=== PATIENT | male | born 1940 | race Caucasian/White ===

== ENCOUNTER 2017-04-25 15:34 | Inpatient (IN) | payer MEDICARE ==
[~2017-04-25] VITALS: Ht 188 cm; Wt 91.2 kg
[2017-04-25 16:27] LABS: BASO # 0.1 x10^3/uL (0.0-0.2); BASO % 1 % (0-3); EOS # 0.3 x10^3/uL (0.0-0.7); EOS % 4 % (0-3); HEMATOCRIT 36.5 % (39.0-53.0); HEMOGLOBIN 12.3 g/dL (13.0-17.5); LYMPH % 23 % (24-48); MEAN CORPUSCULAR HEMOGLOBIN 28 pg (25-35); MEAN CORPUSCULAR HGB CONC 34 g/dL (31-37); MEAN CORPUSCULAR VOLUME 83 fL (79-100); MONO # 0.7 x10^3/uL (0.0-1.1); MONO % 8 % (0-9); NEUT # 5.6 x10^3uL (1.8-7.7); NEUT % 65 % (31-73); PLATELET COUNT 274 x10^3/uL (140-400); RED BLOOD COUNT 4.41 x10^6/uL (4.30-5.70); RED CELL DISTRIBUTION WIDTH 17.3 % (11.5-14.5); WHITE BLOOD COUNT 8.6 x10^3/uL (4.0-11.0)
[2017-04-25 16:35] LABS: ALBUMIN 3.1 g/dL (3.4-5.0); ALBUMIN/GLOBULIN RATIO 0.8 (1.0-1.7); CALCIUM 8.8 mg/dL (8.5-10.1); CREATININE 1.1 mg/dL (0.7-1.3); GFR 65.3; MAGNESIUM 2.1 mg/dL (1.8-2.4); POTASSIUM 4.3 mmol/L (3.5-5.1); TOTAL BILIRUBIN 0.3 mg/dL (0.2-1.0); TOTAL PROTEIN 6.9 g/dL (6.4-8.2)
--- NOTE | 2017-04-25 16:42 | PHYS DOC ---
Adult General Chief Complaint Chief Complaint: PSYCH EVALUATION [facility] HPI Patient is a 76 year old male who presents with psych evaluation. According to his he's in a memory care unit in [facility] in [facility] he is becoming more and more agitated and impatient. According to the assessment he's been throwing items, yelling and threatening people and turning chairs over. He denies any chest pain abdominal pain nausea vomiting or other concerns at this time. He is very impatient wants to leave. Review of Systems Review of Systems Constitutional: Denies fever or chills [] Eyes: Denies change in visual acuity, redness, or eye pain [] HENT: Denies nasal congestion or sore throat [] Respiratory: Denies cough or shortness of breath [] Cardiovascular: No additional information not addressed in HPI [] GI: Denies abdominal pain, nausea, vomiting, bloody stools or diarrhea [] : Denies dysuria or hematuria [] Musculoskeletal: Denies back pain or joint pain [] Integument: Denies rash or skin lesions [] Neurologic: Denies headache, focal weakness or sensory changes [] Endocrine: Denies polyuria or polydipsia [] Allergies Allergies Allergies Coded Allergies Type Severity Reaction Last Updated Verified No Known Drug Allergies 04/25/17 No Physical Exam Physical Exam Constitutional: Well developed, well nourished, no acute distress, non-toxic appearance. [] HENT: Normocephalic, atraumatic, bilateral external ears normal, oropharynx moist, no oral exudates, nose normal. [] Eyes: PERRLA, EOMI, conjunctiva normal, no discharge. [] Neck: Normal range of motion, no tenderness, supple, no stridor. [] Cardiovascular:Heart rate regular rhythm, no murmur [] Lungs & Thorax: Bilateral breath sounds clear to auscultation [] Abdomen: Bowel sounds normal, soft, no tenderness, no masses, no pulsatile masses. [] Skin: Warm, dry, no erythema, no rash. [] Back: No tenderness, no CVA tenderness. [] Extremities: No tenderness, no cyanosis, no clubbing, ROM intact, no edema. [] Neurologic: Alert and oriented X 3, normal motor function, normal sensory function, no focal deficits noted. [] Psychologic: Affect normal, judgement normal, mood normal. [] Current Patient Data Lab Results Laboratory Tests Test 04/25/17 15:58 White Blood Count 8.6 x10^3/uL (4.0-11.0) Red Blood Count 4.41 x10^6/uL (4.30-5.70) Hemoglobin 12.3 g/dL (13.0-17.5) L Hematocrit 36.5 % (39.0-53.0) L Mean Corpuscular Volume 83 fL (79-100) Mean Corpuscular Hemoglobin 28 pg (25-35) Mean Corpuscular Hemoglobin Concent 34 g/dL (31-37) Red Cell Distribution Width 17.3 % (11.5-14.5) H Platelet Count 274 x10^3/uL (140-400) Neutrophils (%) (Auto) 65 % (31-73) Lymphocytes (%) (Auto) 23 % (24-48) L Monocytes (%) (Auto) 8 % (0-9) Eosinophils (%) (Auto) 4 % (0-3) H Basophils (%) (Auto) 1 % (0-3) Neutrophils # (Auto) 5.6 x10^3uL (1.8-7.7) Lymphocytes # (Auto) 2.0 x10^3/uL (1.0-4.8) Monocytes # (Auto) 0.7 x10^3/uL (0.0-1.1) Eosinophils # (Auto) 0.3 x10^3/uL (0.0-0.7) Basophils # (Auto) 0.1 x10^3/uL (0.0-0.2) Sodium Level 142 mmol/L (136-145) Potassium Level 4.3 mmol/L (3.5-5.1) Chloride Level 107 mmol/L (98-107) Carbon Dioxide Level 30 mmol/L (21-32) Anion Gap 5 (6-14) L Blood Urea Nitrogen 15 mg/dL (8-26) Creatinine 1.1 mg/dL (0.7-1.3) Estimated GFR (Cockcroft-Gault) 65.3 BUN/Creatinine Ratio 14 (6-20) Glucose Level 119 mg/dL (70-99) H Calcium Level 8.8 mg/dL (8.5-10.1) Magnesium Level 2.1 mg/dL (1.8-2.4) Total Bilirubin 0.3 mg/dL (0.2-1.0) Aspartate Amino Transferase (AST) 9 U/L (15-37) L Alanine Aminotransferase (ALT) 16 U/L (16-63) Alkaline Phosphatase 66 U/L (46-116) Total Protein 6.9 g/dL (6.4-8.2) Albumin 3.1 g/dL (3.4-5.0) L Albumin/Globulin Ratio 0.8 (1.0-1.7) L EKG EKG EKG shows sinus rhythm with rate of [address] elevations, T-wave inversion noted in lead 3, left axis deviation, QTC 408 ms, as interpreted by me. Radiology/Procedures Radiology/Procedures [] Impressions: Psych assessment UTI Course & Med Decision Making Course & Med Decision Making Pertinent Labs and Imaging studies reviewed. (See chart for details) Patient was very inpatient coming out the nurse's desk yelling that he does want to wait for his results he wants to leave immediately. He was discharged to the adult behavioral psych with his urine studies pending these came back with signs of a UTI. You know he doesn't have any symptoms his symptoms justifies giving him a dose of Levaquin by mouth and will defer to the risks of his treatment per the inpatient psych team. Dragon Disclaimer Dragon Disclaimer This chart was dictated in whole or in part using Voice Recognition software in a busy, high-work load, and often noisy Emergency Department environment. It may contain unintended and wholly unrecognized errors or omissions. Departure Departure: Impression: Primary Impression: UTI (urinary tract infection) Disposition: 02 XFER [facility] Condition: STABLE Referrals: PCP,NO (PCP) Problem Qualifiers Primary Impression: UTI (urinary tract infection) Urinary tract infection type: acute cystitis Hematuria presence: with hematuria Qualified Codes: N30.01 - Acute cystitis with hematuria BARRON CLARK MD Apr 25, 2017 16:42
[2017-04-25 17:10] LABS: BILIRUBIN,URINE NEG (NEG); CLARITY,URINE CLOUDY; COLOR,URINE YELLOW; GLUCOSE,URINE NEG (NEG); NITRITE,URINE NEG (NEG); UROBILINOGEN,URINE 0.2 mg/dL (0.2 mg/dL)
[2017-04-25 17:11] LABS: BACTERIA,URINE FEW /HPF (0-FEW); WBC,URINE >40 /HPF (0-4)
[2017-04-25] MEDS ORDERED: levoFLOXacin 500 MG TABLET PO ONE (18:10)
[2017-04-25] MEDS ORDERED: LORazepam 0.5 MG TABLET PO PRN (18:15)
[2017-04-25 18:28] VITALS: BP 164/78
--- NOTE | 2017-04-25 18:43 | EKG ---
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 OTHERWISE NORMAL ECG RI6.01 No previous ECG available for comparison Electronically Signed On 05-06-2017 12:33:59 CDT by Hernando Jeronimo
[2017-04-25] MEDS ORDERED: DONE10TA61 PO (19:42)
[2017-04-25] MEDS ORDERED: MIRT15TA3 PO (19:43)
[2017-04-25] MEDS ORDERED: BIMA2.5D OU (19:43)
[2017-04-25] MEDS ORDERED: DIPH25CA58 PO (19:43)
[2017-04-25] MEDS ORDERED: MENT118G TP (19:43)
[2017-04-25] MEDS ORDERED: ACET325T9 PO ×2 (19:43)
[2017-04-25] MEDS ORDERED: PARO20TA99 PO (19:43)
[2017-04-25] MEDS ORDERED: SENN-37 PO (19:43)
[2017-04-25] MEDS ORDERED: DIVA125T PO (19:43)
[2017-04-25] MEDS ORDERED: CYAN100072 PO (19:43)
[2017-04-25] MEDS ORDERED: POLY17PO5 PO (19:43)
[2017-04-25] MEDS ORDERED: METO25TA4 PO (19:43)
[2017-04-25] MEDS ORDERED: OLAN2.5T3 PO (19:43)
[2017-04-25] MEDS ORDERED: TAMS0.4C2 PO (19:43)
[2017-04-25] MEDS ORDERED: MAGNESIUM HYDROXIDE 2,400 MG/30 ML ORAL.SUSP. PO PRN (19:45)
[2017-04-25] MEDS ORDERED: ACETAMINOPHEN 325 MG TABLET PO PRN ×2 (19:45→20:00)
[2017-04-25] MEDS ORDERED: MAG HYDROX/AL HYDROX/SIMETH 30 ML ORAL.SUSP PO PRN (19:45)
[2017-04-25] MEDS ORDERED: METHYL SALICYLATE/MENTHOL TOPICAL OINTMENT 29GM TUBE. TP PRN (19:45)
[2017-04-25] MEDS ORDERED: diphenhydrAMINE HCL 25 MG CAPSULE PO PRN (20:00)
[2017-04-25] MEDS ORDERED: OLANZapine 2.5 MG TABLET PO PRN (20:00)
[2017-04-25] MEDS: DONEPEZIL HCL 10 MG TABLET PO SCH (20:08)
[2017-04-25] MEDS: DIVALPROEX SODIUM 125 MG TABLET.DR. PO SCH (20:08)
[2017-04-25] MEDS: MIRTAZAPINE 15 MG TABLET PO SCH (20:08)
[2017-04-25] MEDS: ACETAMINOPHEN 325 MG TABLET PO SCH (20:10)
[2017-04-25 20:32] LABS: VAL ACID 28 mcg/mL (50-100)
[2017-04-25] MEDS ORDERED: NON FORMULARY ITEM (Menthol (Biofreeze) 1 APP) TP SCH (21:00)
[2017-04-25] MEDS: LATANOPROST 0.005% OPHTH SOLUTION 2.5ML BOTTLE. OU SCH (21:00)
[2017-04-25] MEDS: TAMSULOSIN 0.4 MG CAP.ER.24H. PO SCH (21:06)
[2017-04-25] MEDS: SENNOSIDES/DOCUSATE 8.6/50MG TABLET. PO SCH (21:06)
[2017-04-25] MEDS: POLYETHYLENE GLYCOL 3350 17 GM PACKET. PO SCH (21:06)
[2017-04-25] MEDS: METOPROLOL TART IMMED RELEASE 25 MG TABLET PO SCH (21:06)
--- NOTE | 2017-04-25 21:12 | PDOC ---
Exam Mitch Demential Exam: Mitch Note: Please also refer to the separate dictated note~for this date of service dictated separately.~Patient seen individually. Discussed the patient with Nursing staff reviewed the chart.~Reviewed interim history and current functioning. Reviewed vital signs,~Labs/ Radiology~and current medications noted below. Continue current treatment with the changes noted in the dictated addendum note Assessment: Vital Signs: Vital Signs Date Time Temp Pulse Resp B/P (MAP) Pulse Ox O2 Delivery O2 Flow Rate FiO2 04/25/17 21:06 62 164/78 04/25/17 18:28 98.1 16 95 04/25/17 17:06 Room Air Labs: Laboratory Tests Test 04/25/17 15:50 04/25/17 15:58 04/25/17 19:00 Urine Collection Type Void Urine Color Yellow Urine Clarity Cloudy Urine pH 6.5 Urine Specific [place] 1.025 Urine Protein 30 mg/dl (NEG-TRACE) Urine Glucose (UA) Neg mg/dL (NEG) Urine Ketones (Stick) Trace mg/dL (NEG) Urine Blood Mod (NEG) Urine Nitrite Neg (NEG) Urine Bilirubin Neg (NEG) Urine Urobilinogen Dipstick 0.2 mg/dL (0.2 mg/dL) Urine Leukocyte Esterase Large (NEG) Urine RBC 3-5 /HPF (0-2) Urine WBC >40 /HPF (0-4) Urine Squamous Epithelial Cells None /LPF Urine Bacteria Few /HPF (0-FEW) Urine Mucus Mod /LPF White Blood Count 8.6 x10^3/uL (4.0-11.0) Red Blood Count 4.41 x10^6/uL (4.30-5.70) Hemoglobin 12.3 g/dL (13.0-17.5) L Hematocrit 36.5 % (39.0-53.0) L Mean Corpuscular Volume 83 fL (79-100) Mean Corpuscular Hemoglobin 28 pg (25-35) Mean Corpuscular Hemoglobin Concent 34 g/dL (31-37) Red Cell Distribution Width 17.3 % (11.5-14.5) H Platelet Count 274 x10^3/uL (140-400) Neutrophils (%) (Auto) 65 % (31-73) Lymphocytes (%) (Auto) 23 % (24-48) L Monocytes (%) (Auto) 8 % (0-9) Eosinophils (%) (Auto) 4 % (0-3) H Basophils (%) (Auto) 1 % (0-3) Neutrophils # (Auto) 5.6 x10^3uL (1.8-7.7) Lymphocytes # (Auto) 2.0 x10^3/uL (1.0-4.8) Monocytes # (Auto) 0.7 x10^3/uL (0.0-1.1) Eosinophils # (Auto) 0.3 x10^3/uL (0.0-0.7) Basophils # (Auto) 0.1 x10^3/uL (0.0-0.2) Sodium Level 142 mmol/L (136-145) Potassium Level 4.3 mmol/L (3.5-5.1) Chloride Level 107 mmol/L (98-107) Carbon Dioxide Level 30 mmol/L (21-32) Anion Gap 5 (6-14) L Blood Urea Nitrogen 15 mg/dL (8-26) Creatinine 1.1 mg/dL (0.7-1.3) Estimated GFR (Cockcroft-Gault) 65.3 BUN/Creatinine Ratio 14 (6-20) Glucose Level 119 mg/dL (70-99) H Calcium Level 8.8 mg/dL (8.5-10.1) Magnesium Level 2.1 mg/dL (1.8-2.4) Total Bilirubin 0.3 mg/dL (0.2-1.0) Aspartate Amino Transferase (AST) 9 U/L (15-37) L Alanine Aminotransferase (ALT) 16 U/L (16-63) Alkaline Phosphatase 66 U/L (46-116) Total Protein 6.9 g/dL (6.4-8.2) Albumin 3.1 g/dL (3.4-5.0) L Albumin/Globulin Ratio 0.8 (1.0-1.7) L Valproic Acid Level 28 mcg/mL (50-100) L Valproic Acid Last Dose Date 04/25/17 Valproic Acid Last Dose Time 0900 Current Medications: Meds: Current Medications Ceftriaxone Sodium 1 gm/ Sodium Chloride 50 ml @ 100 mls/hr 1X ONCE IV ; Start 04/25/17 at 18:00; Stop 04/25/17 at 18:01; Status DC Levofloxacin (Levaquin) 500 mg 1X ONCE PO Last administered on 04/25/17 18:21 ; Start 04/25/17 at 18:10; Stop 04/25/17 at 18:11; Status DC Olanzapine (ZyPREXA ZYDIS) 10 mg 1X ONCE PO Last administered on 04/25/17 18: 21; Start 04/25/17 at 18:10; Stop 04/25/17 at 18:11; Status DC Lorazepam (Ativan) 0.5 mg PRN Q12HR PRN PO ANXIETY / AGITATION Last administered on 04/25/17 18:21; Start 04/25/17 at 18:15 Acetaminophen (Tylenol) 650 mg PRN Q6HRS PRN PO PAIN / TEMP; Start 04/25/17 at 19:45; Stop 04/25/17 at 20:08; Status DC Multi-Ingredient Ointment (Analgesic [place]) 1 chan PRN QID PRN TP MUSCLE PAIN; Start 04/25/17 at 19:45 Al Hydroxide/Mg Hydroxide (Mylanta Plus Xs) 15 ml PRN AFTMEALHC PRN PO DYSPEPSIA; Start 04/25/17 at 19:45 Magnesium Hydroxide (Milk Of Magnesia) 2,400 mg PRN QHS PRN PO CONSTIPATION; Start 04/25/17 at 19:45 Divalproex Sodium (Depakote) 125 mg TID PO Last administered on 04/25/17 20:08 ; Start 04/25/17 at 21:00 Donepezil HCl (Aricept) 10 mg QHS PO Last administered on 04/25/17 20:08; Start 04/25/17 at 21:00 Mirtazapine (Remeron) 15 mg QHS PO Last administered on 04/25/17 20:08; Start 04/25/17 at 21:00 Olanzapine (ZyPREXA) 2.5 mg PRN Q2HR PRN PO PSYCHOSIS; Start 04/25/17 at 20:00 Paroxetine HCl (Paxil) 20 mg DAILY PO ; Start 04/26/17 at 09:00 Acetaminophen (Tylenol) 650 mg PRN Q4HRS PRN PO PAIN / TEMP; Start 04/25/17 at 20:00 Acetaminophen (Tylenol) 650 mg TID PO Last administered on 04/25/17 20:10; Start 04/25/17 at 21:00 Cyanocobalamin (Vitamin B-12) 1,000 mcg DAILY PO ; Start 04/26/17 at 09:00 Diphenhydramine HCl (Benadryl) 25 mg PRN Q6HRS PRN PO ITCHING; Start 04/25/17 at 20:00 Metoprolol Tartrate (Lopressor) 25 mg BID PO Last administered on 04/25/17 21: 06; Start 04/25/17 at 21:00 Polyethylene Glycol (miraLAX) 17 gm BID PO Last administered on 04/25/17 21:06 ; Start 04/25/17 at 21:00 Senna/Docusate Sodium (Senna Plus) 1 tab BID PO Last administered on 04/25/17 21:06; Start 04/25/17 at 21:00 Tamsulosin HCl (Flomax) 0.4 mg QHS PO Last administered on 04/25/17 21:06; Start 04/25/17 at 21:00 Latanoprost (Xalatan) 1 drop QHS OU ; Start 04/25/17 at 21:00 Non-Formulary Medication 1 chan BID TP ; Start 04/25/17 at 21:00; Stop 04/25/17 at 21:00; Status DC Active Scripts Active Reported Zyprexa (Olanzapine) 2.5 Mg Tablet 2.5 Mg PO PRN Q2HR PRN Tylenol (Acetaminophen) 325 Mg Tablet 650 Mg PO TID Tylenol (Acetaminophen) 325 Mg Tablet 650 Mg PO PRN Q4HRS PRN Tamsulosin Hcl 0.4 Mg Cap.er.24h 0.4 Mg PO QHS Senokot-S Tablet (Sennosides/Docusate Sodium) 1 Each Tablet 1 Each PO BID Paxil (Paroxetine Hcl) 20 Mg Tablet 20 Mg PO DAILY Mirtazapine 15 Mg Tablet 15 Mg PO QHS Miralax (Polyethylene Glycol 3350) 17 Gm Powd.pack 17 Gm PO BID Metoprolol Tartrate 25 Mg Tablet 25 Mg PO BID Lumigan (Bimatoprost) 2.5 Ml Drops 1 Drop OU QHS Benadryl (Diphenhydramine Hcl) 25 Mg Capsule 25 Mg PO PRN Q6HRS PRN Depakote (Divalproex Sodium) 125 Mg Tablet.dr 125 Mg PO TID Biofreeze (Menthol) 118 Ml Gel..ml. 1 Chan TP BID B-12 (Cyanocobalamin (Vitamin B-12)) 1,000 Mcg Tablet 1,000 Mcg PO DAILY Aricept (Donepezil Hcl) 10 Mg Tablet 10 Mg PO QHS Diagnosis: Problems: (1) Anxiety disorder (2) Impulse control disorder (3) Major depressive disorder, recurrent episode CLARKE WARE MD Apr 25, 2017 21:12
[2017-04-26 06:28] VITALS: BP 185/97
[2017-04-26] MEDS: DIVALPROEX SODIUM 125 MG TABLET.DR. PO SCH ×3 (08:06→20:13)
[2017-04-26] MEDS: LORazepam 0.5 MG TABLET PO PRN (08:07)
[2017-04-26] MEDS: METOPROLOL TART IMMED RELEASE 25 MG TABLET PO SCH ×2 (08:08→20:11)
[2017-04-26] MEDS: PARoxetine 20 MG TABLET PO SCH (08:08)
[2017-04-26] MEDS: CYANOCOBALAMIN (VITAMIN B-12) 1,000 MCG TABLET. PO SCH (08:11)
[2017-04-26] MEDS: SENNOSIDES/DOCUSATE 8.6/50MG TABLET. PO SCH ×2 (08:11→20:10)
[2017-04-26] MEDS: ACETAMINOPHEN 325 MG TABLET PO SCH ×3 (08:11→20:10)
[2017-04-26] MEDS: POLYETHYLENE GLYCOL 3350 17 GM PACKET. PO SCH ×2 (08:11→20:10)
[2017-04-26] MEDS ORDERED: levoFLOXacin 500 MG TABLET PO SCH (09:00)
[2017-04-26 13:58] LABS: THYROID STIM HORMONE (TSH) 1.935 uIU/mL (0.358-3.740)
[2017-04-26] MEDS: CHOLECALCIFEROL (VITAMIN D3) 50,000 UNIT CAPSULE PO SCH (15:26)
[2017-04-26 16:14] VITALS: BP 165/72
[2017-04-26 17:09] LABS: T3 TOTAL 92 ng/dL (71-180); THYROXINE 5.3 ug/dL (4.5-12.0)
[2017-04-26 19:09] LABS: HEMOGLOBIN A1C 5.5 % (4.8-5.6)
[2017-04-26] MEDS: MIRTAZAPINE 15 MG TABLET PO SCH (20:10)
[2017-04-26] MEDS: TAMSULOSIN 0.4 MG CAP.ER.24H. PO SCH (20:10)
[2017-04-26] MEDS: DONEPEZIL HCL 10 MG TABLET PO SCH (20:10)
[2017-04-26] MEDS: LATANOPROST 0.005% OPHTH SOLUTION 2.5ML BOTTLE. OU SCH (20:17)
--- NOTE | 2017-04-26 21:07 | PDOC ---
Exam Mitch Demential Exam: Mitch Note: Please also refer to the separate dictated note~for this date of service dictated separately.~Patient seen individually. Discussed the patient with Nursing staff reviewed the chart.~Reviewed interim history and current functioning. Reviewed vital signs,~Labs/ Radiology~and current medications noted below. Continue current treatment with the changes noted in the dictated addendum note Assessment: Vital Signs: Vital Signs Date Time Temp Pulse Resp B/P (MAP) Pulse Ox O2 Delivery O2 Flow Rate FiO2 04/26/17 20:11 57 165/72 04/26/17 16:14 98.1 19 96 04/25/17 17:06 Room Air I&O Intake and Output 04/27/17 07:00 Intake Total 360 ml Balance 360 ml Intake Oral 360 ml Current Medications: Meds: Current Medications Ceftriaxone Sodium 1 gm/ Sodium Chloride 50 ml @ 100 mls/hr 1X ONCE IV ; Start 04/25/17 at 18:00; Stop 04/25/17 at 18:01; Status DC Levofloxacin (Levaquin) 500 mg 1X ONCE PO Last administered on 04/25/17 18:21 ; Start 04/25/17 at 18:10; Stop 04/25/17 at 18:11; Status DC Olanzapine (ZyPREXA ZYDIS) 10 mg 1X ONCE PO Last administered on 04/25/17 18: 21; Start 04/25/17 at 18:10; Stop 04/25/17 at 18:11; Status DC Lorazepam (Ativan) 0.5 mg PRN Q12HR PRN PO ANXIETY / AGITATION Last administered on 04/25/17 18:21; Start 04/25/17 at 18:15; Stop 04/26/17 at 07:49 ; Status DC Acetaminophen (Tylenol) 650 mg PRN Q6HRS PRN PO PAIN / TEMP; Start 04/25/17 at 19:45; Stop 04/25/17 at 20:08; Status DC Multi-Ingredient Ointment (Analgesic [place]) 1 chan PRN QID PRN TP MUSCLE PAIN; Start 04/25/17 at 19:45 Al Hydroxide/Mg Hydroxide (Mylanta Plus Xs) 15 ml PRN AFTMEALHC PRN PO DYSPEPSIA; Start 04/25/17 at 19:45 Magnesium Hydroxide (Milk Of Magnesia) 2,400 mg PRN QHS PRN PO CONSTIPATION; Start 04/25/17 at 19:45 Divalproex Sodium (Depakote) 125 mg TID PO Last administered on 04/26/17 15:26 ; Start 04/25/17 at 21:00; Stop 04/26/17 at 18:27; Status DC Donepezil HCl (Aricept) 10 mg QHS PO Last administered on 04/26/17 20:10; Start 04/25/17 at 21:00 Mirtazapine (Remeron) 15 mg QHS PO Last administered on 04/26/17 20:10; Start 04/25/17 at 21:00 Olanzapine (ZyPREXA) 2.5 mg PRN Q2HR PRN PO PSYCHOSIS; Start 04/25/17 at 20:00 ; Stop 04/26/17 at 08:09; Status DC Paroxetine HCl (Paxil) 20 mg DAILY PO Last administered on 04/26/17 08:08; Start 04/26/17 at 09:00 Acetaminophen (Tylenol) 650 mg PRN Q4HRS PRN PO PAIN / TEMP; Start 04/25/17 at 20:00 Acetaminophen (Tylenol) 650 mg TID PO Last administered on 04/26/17 20:10; Start 04/25/17 at 21:00 Cyanocobalamin (Vitamin B-12) 1,000 mcg DAILY PO ; Start 04/26/17 at 09:00 Diphenhydramine HCl (Benadryl) 25 mg PRN Q6HRS PRN PO ITCHING; Start 04/25/17 at 20:00 Metoprolol Tartrate (Lopressor) 25 mg BID PO Last administered on 04/26/17 20: 11; Start 04/25/17 at 21:00 Polyethylene Glycol (miraLAX) 17 gm BID PO Last administered on 04/26/17 20:10 ; Start 04/25/17 at 21:00 Senna/Docusate Sodium (Senna Plus) 1 tab BID PO Last administered on 04/26/17 20:10; Start 04/25/17 at 21:00 Tamsulosin HCl (Flomax) 0.4 mg QHS PO Last administered on 04/26/17 20:10; Start 04/25/17 at 21:00 Latanoprost (Xalatan) 1 drop QHS OU Last administered on 04/26/17 20:17; Start 04/25/17 at 21:00 Non-Formulary Medication 1 chan BID TP ; Start 04/25/17 at 21:00; Stop 04/25/17 at 21:00; Status DC Lorazepam (Ativan) 0.5 mg PRN Q2HR PRN PO ANXIETY / AGITATION Last administered on 04/26/17 08:07; Start 04/26/17 at 08:00 Olanzapine (ZyPREXA ZYDIS) 5 mg PRN Q2HR PRN PO PSYCHOSIS Last administered on 04/26/17 15:27; Start 04/26/17 at 08:00 Levofloxacin (Levaquin) 500 mg DAILY PO Last administered on 04/26/17 08:06; Start 04/26/17 at 09:00; Stop 04/26/17 at 14:45; Status DC Vitamin D (Vitamin D3) 50,000 unit WEEKLY PO Last administered on 04/26/17 15: 26; Start 04/26/17 at 13:30 Levofloxacin (Levaquin) 250 mg DAILY06 PO ; Start 04/27/17 at 06:00 Divalproex Sodium (Depakote) 250 mg TID PO Last administered on 04/26/17 20:13 ; Start 04/26/17 at 21:00 Active Scripts Active Reported Zyprexa (Olanzapine) 2.5 Mg Tablet 2.5 Mg PO PRN Q2HR PRN Tylenol (Acetaminophen) 325 Mg Tablet 650 Mg PO TID Tylenol (Acetaminophen) 325 Mg Tablet 650 Mg PO PRN Q4HRS PRN Tamsulosin Hcl 0.4 Mg Cap.er.24h 0.4 Mg PO QHS Senokot-S Tablet (Sennosides/Docusate Sodium) 1 Each Tablet 1 Each PO BID Paxil (Paroxetine Hcl) 20 Mg Tablet 20 Mg PO DAILY Mirtazapine 15 Mg Tablet 15 Mg PO QHS Miralax (Polyethylene Glycol 3350) 17 Gm Powd.pack 17 Gm PO BID Metoprolol Tartrate 25 Mg Tablet 25 Mg PO BID Lumigan (Bimatoprost) 2.5 Ml Drops 1 Drop OU QHS Benadryl (Diphenhydramine Hcl) 25 Mg Capsule 25 Mg PO PRN Q6HRS PRN Depakote (Divalproex Sodium) 125 Mg Tablet.dr 125 Mg PO TID Biofreeze (Menthol) 118 Ml Gel..ml. 1 Chan TP BID B-12 (Cyanocobalamin (Vitamin B-12)) 1,000 Mcg Tablet 1,000 Mcg PO DAILY Aricept (Donepezil Hcl) 10 Mg Tablet 10 Mg PO QHS Diagnosis: Problems: (1) Anxiety disorder (2) Impulse control disorder (3) Major depressive disorder, recurrent episode CLARKE WARE MD Apr 26, 2017 21:07
--- NOTE | 2017-04-27 01:21 | HP ---
ADMIT DATE: 04/25/2017 PSYCHIATRIC ADMISSION EVALUATION/HISTORY This is a late entry for 04/25/2017, covers elements not covered in my initial note of 04/25/2017. IDENTIFYING DATA: I met with the patient the evening of 04/25/2017. Discussed with nursing staff several times earlier in the day and reviewed intake information from [facility] where the patient resides and was referred to us by his primary care physician, Dr. Carrillo on account of increasing agitation, aggression, "throwing items," hitting people, yelling and threatening to kill others, turning chairs over, banging. Adjustments were made in his psychotropics by his primary care physician including the addition of Depakote and he had failed all of this. Behaviors were deemed dangerous, unmanageable at the facility, having failed outpatient psychiatric interventions, he was referred for inpatient psychiatric stabilization. CHIEF COMPLAINT: "Give me the physical exam. It has been 5 minutes." The patient was banging on the nursing window, agitated, aggressive, had to be placed in a quiet hallway shortly after he arrived on the unit, paranoid, restless. It is difficult to assess his orientation, but he does have short-term memory deficits, somewhat grandiose. HISTORY OF PRESENT ILLNESS: The patient resides at the Memory Care Unit in [facility] in [place], [place]. As noted, he has been increasingly agitated, aggressive, paranoid, explosive recently. He has had sleep and appetite changes. No clear history of bipolar disorder. He is also noted to be more confused, psychotic, threatening to hurt others. PAST PSYCHIATRIC HISTORY: Positive for progressive memory deficits, marked mood vacillations. PAST MEDICAL HISTORY: The patient does have an UTI, chronic constipation, and BPH. DRUG ALLERGIES: Negative. CODE STATUS: DNR. CURRENT PSYCHOTROPICS: Zyprexa was added p.r.n. following admission due to his marked psychosis, agitation, and Ativan for his anxiety, Aricept 10 mg a day, Depakote 125 mg 3 times a day. FAMILY HISTORY: Noncontributory. SOCIAL HISTORY: No history of alcohol or drug abuse, physical, sexual or elder abuse. He is not known to be a perpetrator. 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 MENTAL STATUS EXAM: The patient was seen individually following his admission on 04/25/2017. At times, he is more oriented than others. At the time of my assessment, he was banging on the glass window of the nursing station, agitated, disruptive, walking up and down the hallway in the quiet area, paranoid, delusional. Insight, judgment, recent and remote memory, attention, concentration, fund of knowledge poor, consistent with his diagnosis. He refuses to answer. REVIEW OF SYSTEMS: Questions. IMPRESSION: Major depressive disorder, recurrent, probable major neurocognitive disorder, Alzheimer, vascular with delusion, depression; anxiety disorder, unspecified; impulse control disorder, unspecified. Rest as above. PLAN: Admit to the Geropsychiatry Unit at . I will see the patient daily individually from a psychiatric standpoint. Medical followup per Dr. Jarvis/Dr. Trevizo. Continue current psychotropics, observe baseline, and Zyprexa and Ativan were added p.r.n. Make further adjustments in his psychotropics as clinically indicated. MAN Jude WARE MD DR: ILANA/angelo JOB#: [id number] / [id number]
[2017-04-27] MEDS: levoFLOXacin 250 MG TABLET PO SCH (05:37)
[2017-04-27 06:31] VITALS: BP 156/65
[2017-04-27] MEDS: LORazepam 0.5 MG TABLET PO PRN (08:42)
[2017-04-27] MEDS: CYANOCOBALAMIN (VITAMIN B-12) 1,000 MCG TABLET. PO SCH (10:47)
[2017-04-27] MEDS: ACETAMINOPHEN 325 MG TABLET PO SCH ×4 (10:47→19:53)
[2017-04-27] MEDS: POLYETHYLENE GLYCOL 3350 17 GM PACKET. PO SCH ×2 (10:47→19:59)
[2017-04-27] MEDS: DIVALPROEX SODIUM 125 MG TABLET.DR. PO SCH ×3 (10:48→14:00)
[2017-04-27] MEDS: METOPROLOL TART IMMED RELEASE 25 MG TABLET PO SCH ×2 (10:48→19:52)
[2017-04-27] MEDS: PARoxetine 20 MG TABLET PO SCH (10:48)
[2017-04-27] MEDS: SENNOSIDES/DOCUSATE 8.6/50MG TABLET. PO SCH ×2 (10:48→19:52)
--- NOTE | 2017-04-27 12:25 | CONS ---
DATE OF CONSULTATION: 04/26/2017 REASON FOR CONSULTATION: Medical management. HISTORY OF PRESENT ILLNESS: The patient is a 76-year-old male patient, a resident at [facility] in [place], [place], who was brought to the Emergency Room of [facility] for evaluation as he has been extremely agitated and the patient has been throwing items, yelling, threatening people and turning chairs over. All this in a background of dementia with behavioral disturbance and was admitted here for inpatient psychiatric stabilization. PAST MEDICAL HISTORY: Significant for hypertension, glaucoma, benign prostatic hypertrophy. There was question that he might have urinary tract infection. He was treated empirically after sending urine for culture and sensitivity. PAST SURGICAL HISTORY: Unremarkable. SOCIAL HISTORY: He is ; however, he is currently lives in Memory Care Unit in [facility]. He is an ex-smoker, quit 30 years ago. He has a son and daughter. 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 FAMILY HISTORY: Unremarkable. ALLERGIES: He has no known drug allergies. MEDICATIONS: He is currently on following medications: Acetaminophen 650 mg every 4 hours as needed and 3 times a day scheduled for back pain. He is on Lumigan 1 drop to both eyes at bedtime, cyanocobalamin 1000 mcg daily, diphenhydramine 25 mg every 6 hours as needed, divalproex sodium 125 mg 3 times a day, Aricept 10 mg at bedtime, Biofreeze applied topically twice a day to the lower back, metoprolol tartrate 25 mg p.o. b.i.d., mirtazapine mg at bedtime, olanzapine 2.5 mg every 2 hours, paroxetine 20 mg daily, polyethylene glycol 17 grams p.o. b.i.d., Senna S 1 tablet twice a day and Flomax 0.4 mg at bedtime. REVIEW OF SYSTEMS: As per history of present illness. PHYSICAL EXAMINATION GENERAL: When I examined him this afternoon, he was sitting comfortably in his chair in no apparent respiratory distress, slightly pale, but no jaundice, cyanosis or thyromegaly. No jugular venous distention. No lower limb edema. VITAL SIGNS: His heart rate was 80, blood pressure was 185/97, temperature was 97.6, respiratory rate was 18 and oxygen saturation was 93% on room air. HEAD, EYES, EARS, NOSE AND THROAT: Showed normocephalic, atraumatic. NECK: Supple. HEART: Showed normal first and second heart sounds with no gallop, rub, or murmur. CHEST: Clear to auscultation. No crepitation or rhonchi. ABDOMEN: Distended, soft, nontender. NEUROLOGIC: He was demented, but without any obvious lateralizing sign. All his cranial nerves are intact. EXTREMITIES: He moves extremities without difficulty, ambulates without assistance or assistive devices. LABORATORY DATA: Showed a white cell count of 8600, hemoglobin 12.3, hematocrit 36.4, MCV 83, and platelet count 274,000 with normal manual differential. Serum sodium was 142, potassium 4.3, chloride 107, bicarbonate 30, anion gap of 5, BUN 15, creatinine 1.1, estimated GFR was 65 mL per minute. His glucose was , calcium was 8.8, magnesium 2.1. Total bilirubin, AST, ALT, alkaline phosphatase were normal. Total protein was 6.9, albumin 3.1. His 25-hydroxy vitamin D was 27.5. Urinalysis showed the urine was yellow, cloudy with a pH of 6.5, specific gravity of 1.025, trace of protein. The urine was negative for glucose, trace of ketones, moderate amount of blood, negative for nitrite and large amount of leukocyte esterase. There are 3-5 rbc's, more than 40 wbc's, very few bacteria, and moderate amount of mucus. His urine toxicology screen showed valproic acid level was only 28 mcg/mL. IMPRESSION: In summary, this is a 76-year-old male patient, who was admitted on the account of increasing restlessness, agitation. Apparently, he has been throwing items, yelling, and threatening people and turning chairs over. All this in a background of dementia with behavioral disturbances. Medically, he is known to have high blood pressure for which he is on metoprolol 25 mg twice a day. He is also known to have benign prostatic hypertrophy for which he is on Flomax and glaucoma for which he is on latanoprost. His blood pressure is extremely labile with a systolic pressure variation from 115/68 to 185/97. PLAN: My plan is to continue with all his current medication. His vitamin D level is low, so I had started him on cholecalciferol and I will follow all other lab works that are still pending and make any necessary recommendation. ANDREW DOE MD DR: AMINTA/angelo JOB#: [id number] / [id number]
[2017-04-27 16:23] VITALS: BP 167/82
[2017-04-27] MEDS ORDERED: LORazepam 2 MG/ML VIAL IM ONE (19:15)
[2017-04-27] MEDS ORDERED: HALOPERIDOL LACT 5 MG/ML VIAL. IM ONE (19:15)
[2017-04-27] MEDS: DONEPEZIL HCL 10 MG TABLET PO SCH (19:52)
[2017-04-27] MEDS: MIRTAZAPINE 15 MG TABLET PO SCH (19:52)
[2017-04-27] MEDS: TAMSULOSIN 0.4 MG CAP.ER.24H. PO SCH (19:52)
[2017-04-27] MEDS: DIVALPROEX 125 MG CAP.SPRINK PO SCH (19:59)
[2017-04-27] MEDS: LATANOPROST 0.005% OPHTH SOLUTION 2.5ML BOTTLE. OU SCH (19:59)
--- NOTE | 2017-04-27 21:04 | PDOC ---
Exam Mitch Demential Exam: Mitch Note: Please also refer to the separate dictated note~for this date of service dictated separately.~Patient seen individually. Discussed the patient with Nursing staff reviewed the chart.~Reviewed interim history and current functioning. Reviewed vital signs,~Labs/ Radiology~and current medications noted below. Continue current treatment with the changes noted in the dictated addendum note Assessment: Vital Signs: Vital Signs Date Time Temp Pulse Resp B/P (MAP) Pulse Ox O2 Delivery O2 Flow Rate FiO2 04/27/17 19:52 57 167/82 04/27/17 16:23 96.9 18 94 04/25/17 17:06 Room Air I&O Intake and Output 04/28/17 06:59 Intake Total 240 ml Output Total 360 ml Balance -120 ml Intake Oral 240 ml Output Urine Total 360 ml Current Medications: Meds: Current Medications Ceftriaxone Sodium 1 gm/ Sodium Chloride 50 ml @ 100 mls/hr 1X ONCE IV ; Start 04/25/17 at 18:00; Stop 04/25/17 at 18:01; Status DC Levofloxacin (Levaquin) 500 mg 1X ONCE PO Last administered on 04/25/17 18:21 ; Start 04/25/17 at 18:10; Stop 04/25/17 at 18:11; Status DC Olanzapine (ZyPREXA ZYDIS) 10 mg 1X ONCE PO Last administered on 04/25/17 18: 21; Start 04/25/17 at 18:10; Stop 04/25/17 at 18:11; Status DC Lorazepam (Ativan) 0.5 mg PRN Q12HR PRN PO ANXIETY / AGITATION Last administered on 04/25/17 18:21; Start 04/25/17 at 18:15; Stop 04/26/17 at 07:49 ; Status DC Acetaminophen (Tylenol) 650 mg PRN Q6HRS PRN PO PAIN / TEMP; Start 04/25/17 at 19:45; Stop 04/25/17 at 20:08; Status DC Multi-Ingredient Ointment (Analgesic [place]) 1 chan PRN QID PRN TP MUSCLE PAIN; Start 04/25/17 at 19:45 Al Hydroxide/Mg Hydroxide (Mylanta Plus Xs) 15 ml PRN AFTMEALHC PRN PO DYSPEPSIA; Start 04/25/17 at 19:45 Magnesium Hydroxide (Milk Of Magnesia) 2,400 mg PRN QHS PRN PO CONSTIPATION; Start 04/25/17 at 19:45 Divalproex Sodium (Depakote) 125 mg TID PO Last administered on 04/26/17 15:26 ; Start 04/25/17 at 21:00; Stop 04/26/17 at 18:27; Status DC Donepezil HCl (Aricept) 10 mg QHS PO Last administered on 04/27/17 19:52; Start 04/25/17 at 21:00 Mirtazapine (Remeron) 15 mg QHS PO Last administered on 04/27/17 19:52; Start 04/25/17 at 21:00 Olanzapine (ZyPREXA) 2.5 mg PRN Q2HR PRN PO PSYCHOSIS; Start 04/25/17 at 20:00 ; Stop 04/26/17 at 08:09; Status DC Paroxetine HCl (Paxil) 20 mg DAILY PO Last administered on 04/27/17 10:48; Start 04/26/17 at 09:00 Acetaminophen (Tylenol) 650 mg PRN Q4HRS PRN PO PAIN / TEMP; Start 04/25/17 at 20:00 Acetaminophen (Tylenol) 650 mg TID PO Last administered on 04/27/17 19:53; Start 04/25/17 at 21:00 Cyanocobalamin (Vitamin B-12) 1,000 mcg DAILY PO Last administered on 10:47; Start 04/26/17 at 09:00 Diphenhydramine HCl (Benadryl) 25 mg PRN Q6HRS PRN PO ITCHING; Start 04/25/17 at 20:00 Metoprolol Tartrate (Lopressor) 25 mg BID PO Last administered on 04/27/17 19: 52; Start 04/25/17 at 21:00 Polyethylene Glycol (miraLAX) 17 gm BID PO Last administered on 04/27/17 19:59 ; Start 04/25/17 at 21:00 Senna/Docusate Sodium (Senna Plus) 1 tab BID PO Last administered on 04/27/17 19:52; Start 04/25/17 at 21:00 Tamsulosin HCl (Flomax) 0.4 mg QHS PO Last administered on 04/27/17 19:52; Start 04/25/17 at 21:00 Latanoprost (Xalatan) 1 drop QHS OU Last administered on 04/26/17 20:17; Start 04/25/17 at 21:00; Stop 04/27/17 at 14:30; Status DC Non-Formulary Medication 1 chan BID TP ; Start 04/25/17 at 21:00; Stop 04/25/17 at 21:00; Status DC Lorazepam (Ativan) 0.5 mg PRN Q2HR PRN PO ANXIETY / AGITATION Last administered on 04/27/17 08:42; Start 04/26/17 at 08:00 Olanzapine (ZyPREXA ZYDIS) 5 mg PRN Q2HR PRN PO PSYCHOSIS Last administered on 04/27/17 18:38; Start 04/26/17 at 08:00 Levofloxacin (Levaquin) 500 mg DAILY PO Last administered on 04/26/17 08:06; Start 04/26/17 at 09:00; Stop 04/26/17 at 14:45; Status DC Vitamin D (Vitamin D3) 50,000 unit WEEKLY PO Last administered on 04/26/17 15: 26; Start 04/26/17 at 13:30 Levofloxacin (Levaquin) 250 mg DAILY06 PO Last administered on 04/27/17 05:37 ; Start 04/27/17 at 06:00 Divalproex Sodium (Depakote) 250 mg TID PO Last administered on 04/27/17 10:48 ; Start 04/26/17 at 21:00; Stop 04/27/17 at 19:16; Status DC Latanoprost (Xalatan) 1 drop QHS OU Last administered on 04/27/17 19:59; Start 04/27/17 at 14:30 Haloperidol Lactate (Haldol) 5 mg DAILY IM ; Start 04/28/17 at 09:00 Lorazepam (Ativan) 0.5 mg DAILY IM ; Start 04/28/17 at 09:00 Haloperidol Lactate (Haldol) 5 mg 1X ONCE IM ; Start 04/27/17 at 19:15; Stop at 19:16; Status DC Lorazepam (Ativan) 0.5 mg 1X ONCE IM ; Start 04/27/17 at 19:15; Stop 04/27/17 at 19:16; Status DC Divalproex Sodium (Depakote Sprinkles) 250 mg TID PO Last administered on t 19:59; Start 04/27/17 at 21:00 Quetiapine Fumarate (SEROquel) 25 mg TID@0900,1300,1700 PO ; Start 04/28/17 at 09:00 Active Scripts Active Reported Zyprexa (Olanzapine) 2.5 Mg Tablet 2.5 Mg PO PRN Q2HR PRN Tylenol (Acetaminophen) 325 Mg Tablet 650 Mg PO TID Tylenol (Acetaminophen) 325 Mg Tablet 650 Mg PO PRN Q4HRS PRN Tamsulosin Hcl 0.4 Mg Cap.er.24h 0.4 Mg PO QHS Senokot-S Tablet (Sennosides/Docusate Sodium) 1 Each Tablet 1 Each PO BID Paxil (Paroxetine Hcl) 20 Mg Tablet 20 Mg PO DAILY Mirtazapine 15 Mg Tablet 15 Mg PO QHS Miralax (Polyethylene Glycol 3350) 17 Gm Powd.pack 17 Gm PO BID Metoprolol Tartrate 25 Mg Tablet 25 Mg PO BID Lumigan (Bimatoprost) 2.5 Ml Drops 1 Drop OU QHS Benadryl (Diphenhydramine Hcl) 25 Mg Capsule 25 Mg PO PRN Q6HRS PRN Depakote (Divalproex Sodium) 125 Mg Tablet.dr 125 Mg PO TID Biofreeze (Menthol) 118 Ml Gel..ml. 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
[2017-04-28] MEDS: levoFLOXacin 250 MG TABLET PO SCH (05:28)
[2017-04-28 06:06] VITALS: BP 140/90
--- NOTE | 2017-04-28 08:27 | PN ---
DATE: 04/26/2017 PSYCHIATRIC PROGRESS NOTE This is a late entry 04/26/2017, covers elements not covered in my initial note 04/26/2017. SUBJECTIVE: I met with the patient evening of 04/26/2017. I have been called by the nursing staff on 2 or 3 occasions earlier in the day and previous evening. The patient has been quite labile, agitated, aggressive, disruptive. He has been started on Levaquin for UTI and we adjusted his psychotropics to help with his mood lability, psychosis, aggression. REVIEW OF SYSTEMS: No CV, , pulmonary, eye, ENT system symptoms on review. Reliability poor. MENTAL STATUS EXAM: Oriented to himself, unaware of the year. Insight, judgment, recent memory is impaired, remote is better. 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 Abstraction fair, computation impaired, language function intact, attention span short, mood and affect less labile, but still anxious, confused. He has been wandering, exit seeking. Received Zyprexa and Ativan p.r.n. LABORATORY DATA: Reviewed. IMPRESSION: Unchanged from initial note. PLAN: Valproic acid level is 28. We will increase the Depakote from 125 mg three times a day to 250 mg three times a day. Check CBC, CMP, valproic acid level in 3 days. Maintain the rest of the psychotropics unchanged. Reviewed drug interactions. Risk/benefit ratio favors no further change. CLARKE WARE MD DR: ILANA/angelo JOB#: [id number] / [id number]
[2017-04-28] MEDS: METOPROLOL TART IMMED RELEASE 25 MG TABLET PO SCH ×2 (08:41→19:23)
[2017-04-28] MEDS: POLYETHYLENE GLYCOL 3350 17 GM PACKET. PO SCH ×2 (08:41→19:23)
[2017-04-28] MEDS: DIVALPROEX 125 MG CAP.SPRINK PO SCH ×3 (08:41→19:23)
[2017-04-28] MEDS: SENNOSIDES/DOCUSATE 8.6/50MG TABLET. PO SCH ×2 (08:41→19:23)
[2017-04-28] MEDS: PARoxetine 20 MG TABLET PO SCH (08:41)
[2017-04-28] MEDS: CYANOCOBALAMIN (VITAMIN B-12) 1,000 MCG TABLET. PO SCH (08:41)
[2017-04-28] MEDS: ACETAMINOPHEN 325 MG TABLET PO SCH ×3 (08:41→19:25)
[2017-04-28] MEDS: QUEtiapine 25 MG TABLET. PO SCH ×3 (08:43→16:40)
[2017-04-28] MEDS: LORazepam 2 MG/ML VIAL IM SCH (09:52)
[2017-04-28] MEDS: HALOPERIDOL LACT 5 MG/ML VIAL. IM SCH (09:52)
[2017-04-28 16:30] VITALS: BP 151/78
[2017-04-28] MEDS: LATANOPROST 0.005% OPHTH SOLUTION 2.5ML BOTTLE. OU SCH (19:22)
[2017-04-28] MEDS: DONEPEZIL HCL 10 MG TABLET PO SCH (19:23)
[2017-04-28] MEDS: TAMSULOSIN 0.4 MG CAP.ER.24H. PO SCH (19:23)
[2017-04-28] MEDS: MIRTAZAPINE 15 MG TABLET PO SCH (19:24)
--- NOTE | 2017-04-28 20:57 | PDOC ---
Exam Mitch Demential Exam: Mitch Note: Please also refer to the separate dictated note~for this date of service dictated separately.~Patient seen individually. Discussed the patient with Nursing staff reviewed the chart.~Reviewed interim history and current functioning. Reviewed vital signs,~Labs/ Radiology~and current medications noted below. Continue current treatment with the changes noted in the dictated addendum note Assessment: Vital Signs: Vital Signs Date Time Temp Pulse Resp B/P (MAP) Pulse Ox O2 Delivery O2 Flow Rate FiO2 04/28/17 19:23 60 151/78 04/28/17 16:30 97.5 18 97 Room Air I&O Intake and Output 04/29/17 06:59 Intake Total 1200 ml Balance 1200 ml Intake Oral 1200 ml Current Medications: Meds: Current Medications Ceftriaxone Sodium 1 gm/ Sodium Chloride 50 ml @ 100 mls/hr 1X ONCE IV ; Start 04/25/17 at 18:00; Stop 04/25/17 at 18:01; Status DC Levofloxacin (Levaquin) 500 mg 1X ONCE PO Last administered on 04/25/17 18:21 ; Start 04/25/17 at 18:10; Stop 04/25/17 at 18:11; Status DC Olanzapine (ZyPREXA ZYDIS) 10 mg 1X ONCE PO Last administered on 04/25/17 18: 21; Start 04/25/17 at 18:10; Stop 04/25/17 at 18:11; Status DC Lorazepam (Ativan) 0.5 mg PRN Q12HR PRN PO ANXIETY / AGITATION Last administered on 04/25/17 18:21; Start 04/25/17 at 18:15; Stop 04/26/17 at 07:49 ; Status DC Acetaminophen (Tylenol) 650 mg PRN Q6HRS PRN PO PAIN / TEMP; Start 04/25/17 at 19:45; Stop 04/25/17 at 20:08; Status DC Multi-Ingredient Ointment (Analgesic [place]) 1 chan PRN QID PRN TP MUSCLE PAIN; Start 04/25/17 at 19:45 Al Hydroxide/Mg Hydroxide (Mylanta Plus Xs) 15 ml PRN AFTMEALHC PRN PO DYSPEPSIA; Start 04/25/17 at 19:45 Magnesium Hydroxide (Milk Of Magnesia) 2,400 mg PRN QHS PRN PO CONSTIPATION; Start 04/25/17 at 19:45 Divalproex Sodium (Depakote) 125 mg TID PO Last administered on 04/26/17 15:26 ; Start 04/25/17 at 21:00; Stop 04/26/17 at 18:27; Status DC Donepezil HCl (Aricept) 10 mg QHS PO Last administered on 04/28/17 19:23; Start 04/25/17 at 21:00 Mirtazapine (Remeron) 15 mg QHS PO Last administered on 04/28/17 19:24; Start 04/25/17 at 21:00 Olanzapine (ZyPREXA) 2.5 mg PRN Q2HR PRN PO PSYCHOSIS; Start 04/25/17 at 20:00 ; Stop 04/26/17 at 08:09; Status DC Paroxetine HCl (Paxil) 20 mg DAILY PO Last administered on 04/28/17 08:41; Start 04/26/17 at 09:00 Acetaminophen (Tylenol) 650 mg PRN Q4HRS PRN PO PAIN / TEMP; Start 04/25/17 at 20:00 Acetaminophen (Tylenol) 650 mg TID PO Last administered on 04/28/17 19:25; Start 04/25/17 at 21:00 Cyanocobalamin (Vitamin B-12) 1,000 mcg DAILY PO Last administered on 08:41; Start 04/26/17 at 09:00 Diphenhydramine HCl (Benadryl) 25 mg PRN Q6HRS PRN PO ITCHING Last administered on 04/28/17 19:26; Start 04/25/17 at 20:00 Metoprolol Tartrate (Lopressor) 25 mg BID PO Last administered on 04/28/17 19: 23; Start 04/25/17 at 21:00 Polyethylene Glycol (miraLAX) 17 gm BID PO Last administered on 04/28/17 19:23 ; Start 04/25/17 at 21:00 Senna/Docusate Sodium (Senna Plus) 1 tab BID PO Last administered on 04/28/17 19:23; Start 04/25/17 at 21:00 Tamsulosin HCl (Flomax) 0.4 mg QHS PO Last administered on 04/28/17 19:23; Start 04/25/17 at 21:00 Latanoprost (Xalatan) 1 drop QHS OU Last administered on 04/26/17 20:17; Start 04/25/17 at 21:00; Stop 04/27/17 at 14:30; Status DC Non-Formulary Medication 1 chan BID TP ; Start 04/25/17 at 21:00; Stop 04/25/17 at 21:00; Status DC Lorazepam (Ativan) 0.5 mg PRN Q2HR PRN PO ANXIETY / AGITATION Last administered on 04/27/17 08:42; Start 04/26/17 at 08:00 Olanzapine (ZyPREXA ZYDIS) 5 mg PRN Q2HR PRN PO PSYCHOSIS Last administered on 04/27/17 18:38; Start 04/26/17 at 08:00 Levofloxacin (Levaquin) 500 mg DAILY PO Last administered on 04/26/17 08:06; Start 04/26/17 at 09:00; Stop 04/26/17 at 14:45; Status DC Vitamin D (Vitamin D3) 50,000 unit WEEKLY PO Last administered on 04/26/17 15: 26; Start 04/26/17 at 13:30 Levofloxacin (Levaquin) 250 mg DAILY06 PO Last administered on 04/28/17 05:28 ; Start 04/27/17 at 06:00 Divalproex Sodium (Depakote) 250 mg TID PO Last administered on 04/27/17 10:48 ; Start 04/26/17 at 21:00; Stop 04/27/17 at 19:16; Status DC Latanoprost (Xalatan) 1 drop QHS OU Last administered on 04/28/17 19:22; Start 04/27/17 at 14:30 Haloperidol Lactate (Haldol) 5 mg DAILY IM Last administered on 04/28/17 09:52 ; Start 04/28/17 at 09:00 Lorazepam (Ativan) 0.5 mg DAILY IM Last administered on 04/28/17 09:52; Start 04/28/17 at 09:00 Haloperidol Lactate (Haldol) 5 mg 1X ONCE IM ; Start 04/27/17 at 19:15; Stop at 19:16; Status DC Lorazepam (Ativan) 0.5 mg 1X ONCE IM ; Start 04/27/17 at 19:15; Stop 04/27/17 at 19:16; Status DC Divalproex Sodium (Depakote Sprinkles) 250 mg TID PO Last administered on 19:23; Start 04/27/17 at 21:00 Quetiapine Fumarate (SEROquel) 25 mg TID@0900,1300,1700 PO Last administered on 04/28/17 16:40; Start 04/28/17 at 09:00 Active Scripts Active Reported Zyprexa (Olanzapine) 2.5 Mg Tablet 2.5 Mg PO PRN Q2HR PRN Tylenol (Acetaminophen) 325 Mg Tablet 650 Mg PO TID Tylenol (Acetaminophen) 325 Mg Tablet 650 Mg PO PRN Q4HRS PRN Tamsulosin Hcl 0.4 Mg Cap.er.24h 0.4 Mg PO QHS Senokot-S Tablet (Sennosides/Docusate Sodium) 1 Each Tablet 1 Each PO BID Paxil (Paroxetine Hcl) 20 Mg Tablet 20 Mg PO DAILY Mirtazapine 15 Mg Tablet 15 Mg PO QHS Miralax (Polyethylene Glycol 3350) 17 Gm Powd.pack 17 Gm PO BID Metoprolol Tartrate 25 Mg Tablet 25 Mg PO BID Lumigan (Bimatoprost) 2.5 Ml Drops 1 Drop OU QHS Benadryl (Diphenhydramine Hcl) 25 Mg Capsule 25 Mg PO PRN Q6HRS PRN Depakote (Divalproex Sodium) 125 Mg Tablet.dr 125 Mg PO TID Biofreeze (Menthol) 118 Ml Gel..ml. 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
[2017-04-29] MEDS: levoFLOXacin 250 MG TABLET PO SCH (05:04)
[2017-04-29 06:25] VITALS: BP 143/85
[2017-04-29 08:05] LABS: BASO # 0.1 x10^3/uL (0.0-0.2); BASO % 1 % (0-3); EOS # 0.3 x10^3/uL (0.0-0.7); EOS % 3 % (0-3); HEMATOCRIT 37.9 % (39.0-53.0); HEMOGLOBIN 12.9 g/dL (13.0-17.5); LYMPH % 25 % (24-48); MEAN CORPUSCULAR HEMOGLOBIN 28 pg (25-35); MEAN CORPUSCULAR HGB CONC 34 g/dL (31-37); MEAN CORPUSCULAR VOLUME 82 fL (79-100); MONO # 0.6 x10^3/uL (0.0-1.1); MONO % 8 % (0-9); NEUT # 4.9 x10^3uL (1.8-7.7); NEUT % 63 % (31-73); PLATELET COUNT 244 x10^3/uL (140-400); RED BLOOD COUNT 4.62 x10^6/uL (4.30-5.70); RED CELL DISTRIBUTION WIDTH 17.5 % (11.5-14.5); WHITE BLOOD COUNT 7.8 x10^3/uL (4.0-11.0)
[2017-04-29 08:20] LABS: ALBUMIN/GLOBULIN RATIO 0.8 (1.0-1.7); ALK PHOS 63 U/L (46-116); ALT (SGPT) 19 U/L (16-63); ANION GAP 5 (6-14); AST (SGOT) 17 U/L (15-37); BLOOD UREA NITROGEN 16 mg/dL (8-26); BUN/CREATININE RATIO 16 (6-20); CALCIUM 8.8 mg/dL (8.5-10.1); CARBON DIOXIDE 31 mmol/L (21-32); CHLORIDE 106 mmol/L (98-107); GFR 72.8; GLUCOSE 80 mg/dL (70-99); POTASSIUM 4.5 mmol/L (3.5-5.1); SODIUM 142 mmol/L (136-145); TOTAL BILIRUBIN 0.5 mg/dL (0.2-1.0)
[2017-04-29 08:26] LABS: VAL ACID 40 mcg/mL (50-100)
--- NOTE | 2017-04-29 08:43 | PN ---
DATE: 04/27/2017 PSYCHIATRIC PROGRESS NOTE This is a late entry 04/27/2017, covers elements not covered in my initial note of 04/27/2017. Met with the patient in evening of 04/27/2017 and I have discussed with the nursing staff on several occasions during the day. The patient had a very rough day. He has been agitated, aggressive, drawing his fist bag, volatile, confused. Slept 6-1/2 hours the previous evening, often refusing his medications. Oral medications seem ineffective. We received a consent for Haldol and Ativan IM scheduled daily from the . REVIEW OF SYSTEMS: No CV, , pulmonary, eye, ENT system symptoms on review. MENTAL STATUS EXAM: Oriented to himself. Insight, judgment, recent memory is impaired. Language function intact. Attention span short. Mood and affect remain somewhat labile, quite paranoid and psychotic. LABORATORY DATA: Reviewed. IMPRESSION: Unchanged from initial note. PLAN: Continue current psychotropics. Change the Depakote 250 mg t.i.d. to sprinkles to help with compliance. Start Seroquel 25 mg at 9:00 a.m., 1:00 p.m. and 5 p.m. Continue Namenda and Aricept along with Ativan p.r.n., Remeron, Paxil, Zyprexa p.r.n. Adjust further as clinically indicated. Reviewed drug interactions. Risk/benefit ratio favors no further change other than above. CLARKE WARE MD DR: ILANA/angelo JOB#: [id number] / [id number]
[2017-04-29] MEDS: POLYETHYLENE GLYCOL 3350 17 GM PACKET. PO SCH ×2 (09:43→20:10)
[2017-04-29] MEDS: SENNOSIDES/DOCUSATE 8.6/50MG TABLET. PO SCH ×2 (09:43→20:08)
[2017-04-29] MEDS: PARoxetine 20 MG TABLET PO SCH (09:43)
[2017-04-29] MEDS: CYANOCOBALAMIN (VITAMIN B-12) 1,000 MCG TABLET. PO SCH (09:44)
[2017-04-29] MEDS: METOPROLOL TART IMMED RELEASE 25 MG TABLET PO SCH ×2 (09:44→20:10)
[2017-04-29] MEDS: QUEtiapine 25 MG TABLET. PO SCH ×3 (09:44→16:48)
[2017-04-29] MEDS: DIVALPROEX 125 MG CAP.SPRINK PO SCH ×3 (09:44→20:08)
[2017-04-29] MEDS: ACETAMINOPHEN 325 MG TABLET PO SCH ×3 (09:45→20:09)
[2017-04-29] MEDS: HALOPERIDOL LACT 5 MG/ML VIAL. IM SCH (10:03)
[2017-04-29] MEDS: LORazepam 2 MG/ML VIAL IM SCH (10:03)
[2017-04-29 16:39] VITALS: BP 146/84
[2017-04-29] MEDS: MIRTAZAPINE 15 MG TABLET PO SCH (20:09)
[2017-04-29] MEDS: DONEPEZIL HCL 10 MG TABLET PO SCH (20:09)
[2017-04-29] MEDS: TAMSULOSIN 0.4 MG CAP.ER.24H. PO SCH (20:10)
[2017-04-29] MEDS: LATANOPROST 0.005% OPHTH SOLUTION 2.5ML BOTTLE. OU SCH (20:11)
--- NOTE | 2017-04-29 22:27 | PDOC ---
Exam Mitch Demential Exam: Mitch Note: Please also refer to the separate dictated note~for this date of service dictated separately.~Patient seen individually. Discussed the patient with Nursing staff reviewed the chart.~Reviewed interim history and current functioning. Reviewed vital signs,~Labs/ Radiology~and current medications noted below. Continue current treatment with the changes noted in the dictated addendum note Assessment: Vital Signs: Vital Signs Date Time Temp Pulse Resp B/P (MAP) Pulse Ox O2 Delivery O2 Flow Rate FiO2 04/29/17 20:10 71 146/84 04/29/17 16:39 97.5 16 95 04/28/17 16:30 Room Air I&O Intake and Output 04/30/17 07:00 Intake Total 1440 ml Balance 1440 ml Intake Oral 1440 ml Labs: Laboratory Tests Test 04/29/17 07:35 White Blood Count 7.8 x10^3/uL (4.0-11.0) Red Blood Count 4.62 x10^6/uL (4.30-5.70) Hemoglobin 12.9 g/dL (13.0-17.5) L Hematocrit 37.9 % (39.0-53.0) L Mean Corpuscular Volume 82 fL (79-100) Mean Corpuscular Hemoglobin 28 pg (25-35) Mean Corpuscular Hemoglobin Concent 34 g/dL (31-37) Red Cell Distribution Width 17.5 % (11.5-14.5) H Platelet Count 244 x10^3/uL (140-400) Neutrophils (%) (Auto) 63 % (31-73) Lymphocytes (%) (Auto) 25 % (24-48) Monocytes (%) (Auto) 8 % (0-9) Eosinophils (%) (Auto) 3 % (0-3) Basophils (%) (Auto) 1 % (0-3) Neutrophils # (Auto) 4.9 x10^3uL (1.8-7.7) Lymphocytes # (Auto) 2.0 x10^3/uL (1.0-4.8) Monocytes # (Auto) 0.6 x10^3/uL (0.0-1.1) Eosinophils # (Auto) 0.3 x10^3/uL (0.0-0.7) Basophils # (Auto) 0.1 x10^3/uL (0.0-0.2) Sodium Level 142 mmol/L (136-145) Potassium Level 4.5 mmol/L (3.5-5.1) Chloride Level 106 mmol/L (98-107) Carbon Dioxide Level 31 mmol/L (21-32) Anion Gap 5 (6-14) L Blood Urea Nitrogen 16 mg/dL (8-26) Creatinine 1.0 mg/dL (0.7-1.3) Estimated GFR (Cockcroft-Gault) 72.8 BUN/Creatinine Ratio 16 (6-20) Glucose Level 80 mg/dL (70-99) Calcium Level 8.8 mg/dL (8.5-10.1) Total Bilirubin 0.5 mg/dL (0.2-1.0) Aspartate Amino Transferase (AST) 17 U/L (15-37) Alanine Aminotransferase (ALT) 19 U/L (16-63) Alkaline Phosphatase 63 U/L (46-116) Total Protein 7.0 g/dL (6.4-8.2) Albumin 3.0 g/dL (3.4-5.0) L Albumin/Globulin Ratio 0.8 (1.0-1.7) L Valproic Acid Level 40 mcg/mL (50-100) L Valproic Acid Last Dose Date 04/28/2017 Valproic Acid Last Dose Time 2100 Current Medications: Meds: Current Medications Ceftriaxone Sodium 1 gm/ Sodium Chloride 50 ml @ 100 mls/hr 1X ONCE IV ; Start 04/25/17 at 18:00; Stop 04/25/17 at 18:01; Status DC Levofloxacin (Levaquin) 500 mg 1X ONCE PO Last administered on 04/25/17 18:21 ; Start 04/25/17 at 18:10; Stop 04/25/17 at 18:11; Status DC Olanzapine (ZyPREXA ZYDIS) 10 mg 1X ONCE PO Last administered on 04/25/17 18: 21; Start 04/25/17 at 18:10; Stop 04/25/17 at 18:11; Status DC Lorazepam (Ativan) 0.5 mg PRN Q12HR PRN PO ANXIETY / AGITATION Last administered on 04/25/17 18:21; Start 04/25/17 at 18:15; Stop 04/26/17 at 07:49 ; Status DC Acetaminophen (Tylenol) 650 mg PRN Q6HRS PRN PO PAIN / TEMP; Start 04/25/17 at 19:45; Stop 04/25/17 at 20:08; Status DC Multi-Ingredient Ointment (Analgesic [place]) 1 chan PRN QID PRN TP MUSCLE PAIN; Start 04/25/17 at 19:45 Al Hydroxide/Mg Hydroxide (Mylanta Plus Xs) 15 ml PRN AFTMEALHC PRN PO DYSPEPSIA; Start 04/25/17 at 19:45 Magnesium Hydroxide (Milk Of Magnesia) 2,400 mg PRN QHS PRN PO CONSTIPATION; Start 04/25/17 at 19:45 Divalproex Sodium (Depakote) 125 mg TID PO Last administered on 04/26/17 15:26 ; Start 04/25/17 at 21:00; Stop 04/26/17 at 18:27; Status DC Donepezil HCl (Aricept) 10 mg QHS PO Last administered on 04/29/17 20:09; Start 04/25/17 at 21:00 Mirtazapine (Remeron) 15 mg QHS PO Last administered on 04/29/17 20:09; Start 04/25/17 at 21:00 Olanzapine (ZyPREXA) 2.5 mg PRN Q2HR PRN PO PSYCHOSIS; Start 04/25/17 at 20:00 ; Stop 04/26/17 at 08:09; Status DC Paroxetine HCl (Paxil) 20 mg DAILY PO Last administered on 04/29/17 09:43; Start 04/26/17 at 09:00; Stop 04/29/17 at 18:55; Status DC Acetaminophen (Tylenol) 650 mg PRN Q4HRS PRN PO PAIN / TEMP; Start 04/25/17 at 20:00 Acetaminophen (Tylenol) 650 mg TID PO Last administered on 04/29/17 20:09; Start 04/25/17 at 21:00 Cyanocobalamin (Vitamin B-12) 1,000 mcg DAILY PO Last administered on 09:44; Start 04/26/17 at 09:00 Diphenhydramine HCl (Benadryl) 25 mg PRN Q6HRS PRN PO ITCHING Last administered on 04/28/17 19:26; Start 04/25/17 at 20:00 Metoprolol Tartrate (Lopressor) 25 mg BID PO Last administered on 04/29/17 20: 10; Start 04/25/17 at 21:00 Polyethylene Glycol (miraLAX) 17 gm BID PO Last administered on 04/29/17 09:43 ; Start 04/25/17 at 21:00 Senna/Docusate Sodium (Senna Plus) 1 tab BID PO Last administered on 04/29/17 20:08; Start 04/25/17 at 21:00 Tamsulosin HCl (Flomax) 0.4 mg QHS PO Last administered on 04/29/17 20:10; Start 04/25/17 at 21:00 Latanoprost (Xalatan) 1 drop QHS OU Last administered on 04/26/17 20:17; Start 04/25/17 at 21:00; Stop 04/27/17 at 14:30; Status DC Non-Formulary Medication 1 chan BID TP ; Start 04/25/17 at 21:00; Stop 04/25/17 at 21:00; Status DC Lorazepam (Ativan) 0.5 mg PRN Q2HR PRN PO ANXIETY / AGITATION Last administered on 04/27/17 08:42; Start 04/26/17 at 08:00 Olanzapine (ZyPREXA ZYDIS) 5 mg PRN Q2HR PRN PO PSYCHOSIS Last administered on 04/29/17 14:42; Start 04/26/17 at 08:00 Levofloxacin (Levaquin) 500 mg DAILY PO Last administered on 04/26/17 08:06; Start 04/26/17 at 09:00; Stop 04/26/17 at 14:45; Status DC Vitamin D (Vitamin D3) 50,000 unit WEEKLY PO Last administered on 04/26/17 15: 26; Start 04/26/17 at 13:30 Levofloxacin (Levaquin) 250 mg DAILY06 PO Last administered on 04/29/17 05:04 ; Start 04/27/17 at 06:00; Stop 04/29/17 at 15:00; Status DC Divalproex Sodium (Depakote) 250 mg TID PO Last administered on 04/27/17 10:48 ; Start 04/26/17 at 21:00; Stop 04/27/17 at 19:16; Status DC Latanoprost (Xalatan) 1 drop QHS OU Last administered on 04/29/17 20:11; Start 04/27/17 at 14:30 Haloperidol Lactate (Haldol) 5 mg DAILY IM Last administered on 04/29/17 10:03 ; Start 04/28/17 at 09:00 Lorazepam (Ativan) 0.5 mg DAILY IM Last administered on 04/29/17 10:03; Start 04/28/17 at 09:00 Haloperidol Lactate (Haldol) 5 mg 1X ONCE IM ; Start 04/27/17 at 19:15; Stop at 19:16; Status DC Lorazepam (Ativan) 0.5 mg 1X ONCE IM ; Start 04/27/17 at 19:15; Stop 04/27/17 at 19:16; Status DC Divalproex Sodium (Depakote Sprinkles) 250 mg TID PO Last administered on 14:43; Start 04/27/17 at 21:00; Stop 04/29/17 at 18:55; Status DC Quetiapine Fumarate (SEROquel) 25 mg TID@0900,1300,1700 PO Last administered on 04/29/17 16:48; Start 04/28/17 at 09:00; Stop 04/29/17 at 18:55; Status DC Divalproex Sodium (Depakote Sprinkles) 375 mg TID PO Last administered on 20:08; Start 04/29/17 at 21:00 Paroxetine HCl (Paxil) 10 mg DAILY PO ; Start 04/30/17 at 09:00 Quetiapine Fumarate (SEROquel) 37.5 mg TID@0900,1300,1700 PO ; Start 04/30/17 at 09:00 Active Scripts Active Reported Zyprexa (Olanzapine) 2.5 Mg Tablet 2.5 Mg PO PRN Q2HR PRN Tylenol (Acetaminophen) 325 Mg Tablet 650 Mg PO TID Tylenol (Acetaminophen) 325 Mg Tablet 650 Mg PO PRN Q4HRS PRN Tamsulosin Hcl 0.4 Mg Cap.er.24h 0.4 Mg PO QHS Senokot-S Tablet (Sennosides/Docusate Sodium) 1 Each Tablet 1 Each PO BID Paxil (Paroxetine Hcl) 20 Mg Tablet 20 Mg PO DAILY Mirtazapine 15 Mg Tablet 15 Mg PO QHS Miralax (Polyethylene Glycol 3350) 17 Gm Powd.pack 17 Gm PO BID Metoprolol Tartrate 25 Mg Tablet 25 Mg PO BID Lumigan (Bimatoprost) 2.5 Ml Drops 1 Drop OU QHS Benadryl (Diphenhydramine Hcl) 25 Mg Capsule 25 Mg PO PRN Q6HRS PRN Depakote (Divalproex Sodium) 125 Mg Tablet.dr 125 Mg PO TID Biofreeze (Menthol) 118 Ml Gel..ml. 1 Chan TP BID B-12 (Cyanocobalamin (Vitamin B-12)) 1,000 Mcg Tablet 1,000 Mcg PO DAILY Aricept (Donepezil Hcl) 10 Mg Tablet 10 Mg PO QHS Diagnosis: Problems: (1) Anxiety disorder (2) Impulse control disorder (3) Major depressive disorder, recurrent episode (4) Dementia in Alzheimer's disease with delusions (5) Dementia in Alzheimer's disease with depression (6) Dementia, vascular, with delusions (7) Dementia, vascular, with depression CLARKE WARE MD Apr 29, 2017 22:27
[2017-04-30 06:14] VITALS: BP 111/70
[2017-04-30] MEDS: CYANOCOBALAMIN (VITAMIN B-12) 1,000 MCG TABLET. PO SCH (07:44)
[2017-04-30] MEDS: ACETAMINOPHEN 325 MG TABLET PO SCH ×3 (07:44→20:14)
[2017-04-30] MEDS: SENNOSIDES/DOCUSATE 8.6/50MG TABLET. PO SCH ×2 (07:44→20:15)
[2017-04-30] MEDS: POLYETHYLENE GLYCOL 3350 17 GM PACKET. PO SCH ×2 (07:44→20:14)
[2017-04-30] MEDS: HALOPERIDOL LACT 5 MG/ML VIAL. IM SCH (07:46)
[2017-04-30] MEDS: METOPROLOL TART IMMED RELEASE 25 MG TABLET PO SCH ×2 (07:46→20:14)
[2017-04-30] MEDS: DIVALPROEX 125 MG CAP.SPRINK PO SCH ×3 (07:46→20:15)
[2017-04-30] MEDS: LORazepam 2 MG/ML VIAL IM SCH (07:47)
[2017-04-30] MEDS: PARoxetine 10 MG TABLET PO SCH (07:55)
[2017-04-30] MEDS: QUEtiapine 25 MG TABLET. PO SCH ×3 (07:55→17:45)
--- NOTE | 2017-04-30 11:38 | PN ---
DATE: 04/28/2017 This is a late entry 04/28/2017, covers the elements not covered in my initial note. SUBJECTIVE: The patient was staffed at treatment team meeting morning of 04/28/2017, with the patient's Kelsey, attending. A lengthy discussion about the patient's history. He has had some short-term memory deficits for the past few years, but he still able to recognize the family. Confusion is worse in the evening with sundowning, compliant with his medications, sleeping 6-7 hours. Appetite 75%. He has been less agitated, aggressive on the unit and seems to listen to his over the telephone with respect to his agitation, aggression. I sat with him at some length individually as part of this assessment. 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 REVIEW OF SYSTEMS: No CV, , pulmonary, eye, ENT system symptoms on review. MENTAL STATUS EXAM: Oriented to himself and situation. Speech is coherent, has some latency, abstraction fair, computation impaired, language function intact, attention span short. Mood and affect, lability is improved. LABORATORY DATA: Reviewed. IMPRESSION: Unchanged from initial note. PLAN: Continue current psychotropics; follow labs level on the Depakote. Adjust further as clinically indicated. Reviewed drug interactions, risk/benefit ratio favors no further change. CLARKE WARE MD DR: ILANA/angelo JOB#: [id number] / [id number]
[2017-04-30 17:20] VITALS: BP 111/68
[2017-04-30] MEDS: DONEPEZIL HCL 10 MG TABLET PO SCH (20:14)
[2017-04-30] MEDS: TAMSULOSIN 0.4 MG CAP.ER.24H. PO SCH (20:15)
[2017-04-30] MEDS: MIRTAZAPINE 15 MG TABLET PO SCH (20:15)
[2017-04-30] MEDS: LATANOPROST 0.005% OPHTH SOLUTION 2.5ML BOTTLE. OU SCH (20:17)
--- NOTE | 2017-04-30 23:11 | PDOC ---
Exam Mitch Demential Exam: Mitch Note: Please also refer to the separate dictated note~for this date of service dictated separately.~Patient seen individually. Discussed the patient with Nursing staff reviewed the chart.~Reviewed interim history and current functioning. Reviewed vital signs,~Labs/ Radiology~and current medications noted below. Continue current treatment with the changes noted in the dictated addendum note Assessment: Vital Signs: Vital Signs Date Time Temp Pulse Resp B/P (MAP) Pulse Ox O2 Delivery O2 Flow Rate FiO2 04/30/17 20:14 63 111/68 04/30/17 17:20 97.4 16 95 04/28/17 16:30 Room Air I&O Intake and Output 05/01/17 07:00 Intake Total 1440 ml Balance 1440 ml Intake Oral 1440 ml Current Medications: Meds: Current Medications Ceftriaxone Sodium 1 gm/ Sodium Chloride 50 ml @ 100 mls/hr 1X ONCE IV ; Start 04/25/17 at 18:00; Stop 04/25/17 at 18:01; Status DC Levofloxacin (Levaquin) 500 mg 1X ONCE PO Last administered on 04/25/17 18:21 ; Start 04/25/17 at 18:10; Stop 04/25/17 at 18:11; Status DC Olanzapine (ZyPREXA ZYDIS) 10 mg 1X ONCE PO Last administered on 04/25/17 18: 21; Start 04/25/17 at 18:10; Stop 04/25/17 at 18:11; Status DC Lorazepam (Ativan) 0.5 mg PRN Q12HR PRN PO ANXIETY / AGITATION Last administered on 04/25/17 18:21; Start 04/25/17 at 18:15; Stop 04/26/17 at 07:49 ; Status DC Acetaminophen (Tylenol) 650 mg PRN Q6HRS PRN PO PAIN / TEMP; Start 04/25/17 at 19:45; Stop 04/25/17 at 20:08; Status DC Multi-Ingredient Ointment (Analgesic [place]) 1 chan PRN QID PRN TP MUSCLE PAIN; Start 04/25/17 at 19:45 Al Hydroxide/Mg Hydroxide (Mylanta Plus Xs) 15 ml PRN AFTMEALHC PRN PO DYSPEPSIA; Start 04/25/17 at 19:45 Magnesium Hydroxide (Milk Of Magnesia) 2,400 mg PRN QHS PRN PO CONSTIPATION; Start 04/25/17 at 19:45 Divalproex Sodium (Depakote) 125 mg TID PO Last administered on 04/26/17 15:26 ; Start 04/25/17 at 21:00; Stop 04/26/17 at 18:27; Status DC Donepezil HCl (Aricept) 10 mg QHS PO Last administered on 04/30/17 20:14; Start 04/25/17 at 21:00 Mirtazapine (Remeron) 15 mg QHS PO Last administered on 04/30/17 20:15; Start 04/25/17 at 21:00 Olanzapine (ZyPREXA) 2.5 mg PRN Q2HR PRN PO PSYCHOSIS; Start 04/25/17 at 20:00 ; Stop 04/26/17 at 08:09; Status DC Paroxetine HCl (Paxil) 20 mg DAILY PO Last administered on 04/29/17 09:43; Start 04/26/17 at 09:00; Stop 04/29/17 at 18:55; Status DC Acetaminophen (Tylenol) 650 mg PRN Q4HRS PRN PO PAIN / TEMP; Start 04/25/17 at 20:00 Acetaminophen (Tylenol) 650 mg TID PO Last administered on 04/30/17 20:14; Start 04/25/17 at 21:00 Cyanocobalamin (Vitamin B-12) 1,000 mcg DAILY PO Last administered on 07:44; Start 04/26/17 at 09:00 Diphenhydramine HCl (Benadryl) 25 mg PRN Q6HRS PRN PO ITCHING Last administered on 04/28/17 19:26; Start 04/25/17 at 20:00 Metoprolol Tartrate (Lopressor) 25 mg BID PO Last administered on 04/30/17 20: 14; Start 04/25/17 at 21:00 Polyethylene Glycol (miraLAX) 17 gm BID PO Last administered on 04/30/17 20:14 ; Start 04/25/17 at 21:00 Senna/Docusate Sodium (Senna Plus) 1 tab BID PO Last administered on 04/30/17 20:15; Start 04/25/17 at 21:00 Tamsulosin HCl (Flomax) 0.4 mg QHS PO Last administered on 04/30/17 20:15; Start 04/25/17 at 21:00 Latanoprost (Xalatan) 1 drop QHS OU Last administered on 04/26/17 20:17; Start 04/25/17 at 21:00; Stop 04/27/17 at 14:30; Status DC Non-Formulary Medication 1 chan BID TP ; Start 04/25/17 at 21:00; Stop 04/25/17 at 21:00; Status DC Lorazepam (Ativan) 0.5 mg PRN Q2HR PRN PO ANXIETY / AGITATION Last administered on 04/27/17 08:42; Start 04/26/17 at 08:00 Olanzapine (ZyPREXA ZYDIS) 5 mg PRN Q2HR PRN PO PSYCHOSIS Last administered on 04/29/17 14:42; Start 04/26/17 at 08:00 Levofloxacin (Levaquin) 500 mg DAILY PO Last administered on 04/26/17 08:06; Start 04/26/17 at 09:00; Stop 04/26/17 at 14:45; Status DC Vitamin D (Vitamin D3) 50,000 unit WEEKLY PO Last administered on 04/26/17 15: 26; Start 04/26/17 at 13:30 Levofloxacin (Levaquin) 250 mg DAILY06 PO Last administered on 04/29/17 05:04 ; Start 04/27/17 at 06:00; Stop 04/29/17 at 15:00; Status DC Divalproex Sodium (Depakote) 250 mg TID PO Last administered on 04/27/17 10:48 ; Start 04/26/17 at 21:00; Stop 04/27/17 at 19:16; Status DC Latanoprost (Xalatan) 1 drop QHS OU Last administered on 04/30/17 20:17; Start 04/27/17 at 14:30 Haloperidol Lactate (Haldol) 5 mg DAILY IM Last administered on 04/30/17 07:46 ; Start 04/28/17 at 09:00 Lorazepam (Ativan) 0.5 mg DAILY IM Last administered on 04/30/17 07:47; Start 04/28/17 at 09:00 Haloperidol Lactate (Haldol) 5 mg 1X ONCE IM ; Start 04/27/17 at 19:15; Stop at 19:16; Status DC Lorazepam (Ativan) 0.5 mg 1X ONCE IM ; Start 04/27/17 at 19:15; Stop 04/27/17 at 19:16; Status DC Divalproex Sodium (Depakote Sprinkles) 250 mg TID PO Last administered on 14:43; Start 04/27/17 at 21:00; Stop 04/29/17 at 18:55; Status DC Quetiapine Fumarate (SEROquel) 25 mg TID@0900,1300,1700 PO Last administered on 04/29/17 16:48; Start 04/28/17 at 09:00; Stop 04/29/17 at 18:55; Status DC Divalproex Sodium (Depakote Sprinkles) 375 mg TID PO Last administered on 20:15; Start 04/29/17 at 21:00 Paroxetine HCl (Paxil) 10 mg DAILY PO Last administered on 04/30/17 07:55; Start 04/30/17 at 09:00 Quetiapine Fumarate (SEROquel) 37.5 mg TID@0900,1300,1700 PO Last administered on 04/30/17 17:45; Start 04/30/17 at 09:00 Active Scripts Active Reported Zyprexa (Olanzapine) 2.5 Mg Tablet 2.5 Mg PO PRN Q2HR PRN Tylenol (Acetaminophen) 325 Mg Tablet 650 Mg PO TID Tylenol (Acetaminophen) 325 Mg Tablet 650 Mg PO PRN Q4HRS PRN Tamsulosin Hcl 0.4 Mg Cap.er.24h 0.4 Mg PO QHS Senokot-S Tablet (Sennosides/Docusate Sodium) 1 Each Tablet 1 Each PO BID Paxil (Paroxetine Hcl) 20 Mg Tablet 20 Mg PO DAILY Mirtazapine 15 Mg Tablet 15 Mg PO QHS Miralax (Polyethylene Glycol 3350) 17 Gm Powd.pack 17 Gm PO BID Metoprolol Tartrate 25 Mg Tablet 25 Mg PO BID Lumigan (Bimatoprost) 2.5 Ml Drops 1 Drop OU QHS Benadryl (Diphenhydramine Hcl) 25 Mg Capsule 25 Mg PO PRN Q6HRS PRN Depakote (Divalproex Sodium) 125 Mg Tablet.dr 125 Mg PO TID Biofreeze (Menthol) 118 Ml Gel..ml. 1 Chan TP BID B-12 (Cyanocobalamin (Vitamin B-12)) 1,000 Mcg Tablet 1,000 Mcg PO DAILY Aricept (Donepezil Hcl) 10 Mg Tablet 10 Mg PO QHS Diagnosis: Problems: (1) Anxiety disorder (2) Mild cognitive disorder (3) Impulse control disorder (4) Major depressive disorder, recurrent episode (5) Dementia in Alzheimer's disease with delusions (6) Dementia in Alzheimer's disease with depression (7) Dementia, vascular, with delusions (8) Dementia, vascular, with depression CLARKE WARE MD Apr 30, 2017 23:11
--- NOTE | 2017-05-01 01:21 | PN ---
DATE: 04/29/2017 This is a late entry 04/29/2017 and covers the elements not covered in my initial note of 04/29/2017. HISTORY OF PRESENT ILLNESS: I met with the patient in the evening of 04/29/2017. The patient has had a very difficult day. He has been labile, loud, aggressive, disruptive, banging on the doors and on the fowler, fairly explosive at times, had to be in the rest hallway to remove him from stimuli from the other demented patients. He leaned over the family of another patient that was visiting, was almost threatening towards them, but they saw the patient has been yelling, screaming has been quite disruptive on the unit, which aggravates the patient. REVIEW OF SYSTEMS: No CV, , pulmonary, eye, ENT system symptoms on review. MENTAL STATUS EXAM: Oriented to himself, situation. Speech has some latency, coherent. Abstraction fair, computation impaired, language function intact, attention span short. Mood and affect, somewhat anxious, labile. LABORATORY DATA: Reviewed. IMPRESSION: Unchanged from initial note. PLAN: Increase Seroquel from 25 t.i.d. to 37.5 mg 3 times a day, Paxil may be agitating him, we will reduce it from 20 mg a day to 10 mg a day. Valproic acid level on 04/29/2017 is 40, subtherapeutic on 250 t.i.d., we will increase it to 375 three times a day. Check CBC, CMP, valproic acid level in 3 days. Adjust further as clinically indicated. Reviewed drug contractions, risk/benefit ratio favors no further change. MAN Jude WARE MD DR: ILANA/angelo JOB#: [id number] / [id number]
[2017-05-01 06:23] VITALS: BP 154/82
[2017-05-01] MEDS: ACETAMINOPHEN 325 MG TABLET PO SCH ×3 (08:48→19:26)
[2017-05-01] MEDS: POLYETHYLENE GLYCOL 3350 17 GM PACKET. PO SCH ×2 (08:48→19:25)
[2017-05-01] MEDS: SENNOSIDES/DOCUSATE 8.6/50MG TABLET. PO SCH ×2 (08:48→19:28)
[2017-05-01] MEDS: METOPROLOL TART IMMED RELEASE 25 MG TABLET PO SCH ×3 (08:48→19:37)
[2017-05-01] MEDS: DIVALPROEX 125 MG CAP.SPRINK PO SCH ×3 (08:48→19:27)
[2017-05-01] MEDS: PARoxetine 10 MG TABLET PO SCH (08:48)
[2017-05-01] MEDS: QUEtiapine 25 MG TABLET. PO SCH ×3 (08:49→17:55)
[2017-05-01] MEDS: CYANOCOBALAMIN (VITAMIN B-12) 1,000 MCG TABLET. PO SCH (08:50)
[2017-05-01] MEDS: HALOPERIDOL LACT 5 MG/ML VIAL. IM SCH (08:51)
[2017-05-01] MEDS: LORazepam 2 MG/ML VIAL IM SCH (08:55)
[2017-05-01 17:00] VITALS: BP 126/74
[2017-05-01] MEDS: LATANOPROST 0.005% OPHTH SOLUTION 2.5ML BOTTLE. OU SCH (19:24)
[2017-05-01] MEDS: TAMSULOSIN 0.4 MG CAP.ER.24H. PO SCH (19:25)
[2017-05-01] MEDS: MIRTAZAPINE 15 MG TABLET PO SCH (19:25)
[2017-05-01] MEDS: DONEPEZIL HCL 10 MG TABLET PO SCH (19:26)
--- NOTE | 2017-05-01 21:24 | PDOC ---
Exam Mitch Demential Exam: Mitch Note: Please also refer to the separate dictated note~for this date of service dictated separately.~Patient seen individually. Discussed the patient with Nursing staff reviewed the chart.~Reviewed interim history and current functioning. Reviewed vital signs,~Labs/ Radiology~and current medications noted below. Continue current treatment with the changes noted in the dictated addendum note Assessment: Vital Signs: Vital Signs Date Time Temp Pulse Resp B/P (MAP) Pulse Ox O2 Delivery O2 Flow Rate FiO2 05/01/17 19:37 59 154/82 05/01/17 06:23 97.2 16 96 Room Air I&O Intake and Output 05/02/17 07:00 Intake Total 720 ml Balance 720 ml Intake Oral 720 ml Labs: Laboratory Tests Test 05/01/17 18:00 Ammonia < 11 mcmol/L (11-34) L Current Medications: Meds: Current Medications Ceftriaxone Sodium 1 gm/ Sodium Chloride 50 ml @ 100 mls/hr 1X ONCE IV ; Start 04/25/17 at 18:00; Stop 04/25/17 at 18:01; Status DC Levofloxacin (Levaquin) 500 mg 1X ONCE PO Last administered on 04/25/17 18:21 ; Start 04/25/17 at 18:10; Stop 04/25/17 at 18:11; Status DC Olanzapine (ZyPREXA ZYDIS) 10 mg 1X ONCE PO Last administered on 04/25/17 18: 21; Start 04/25/17 at 18:10; Stop 04/25/17 at 18:11; Status DC Lorazepam (Ativan) 0.5 mg PRN Q12HR PRN PO ANXIETY / AGITATION Last administered on 04/25/17 18:21; Start 04/25/17 at 18:15; Stop 04/26/17 at 07:49 ; Status DC Acetaminophen (Tylenol) 650 mg PRN Q6HRS PRN PO PAIN / TEMP; Start 04/25/17 at 19:45; Stop 04/25/17 at 20:08; Status DC Multi-Ingredient Ointment (Analgesic [place]) 1 chan PRN QID PRN TP MUSCLE PAIN; Start 04/25/17 at 19:45 Al Hydroxide/Mg Hydroxide (Mylanta Plus Xs) 15 ml PRN AFTMEALHC PRN PO DYSPEPSIA; Start 04/25/17 at 19:45 Magnesium Hydroxide (Milk Of Magnesia) 2,400 mg PRN QHS PRN PO CONSTIPATION; Start 04/25/17 at 19:45 Divalproex Sodium (Depakote) 125 mg TID PO Last administered on 04/26/17 15:26 ; Start 04/25/17 at 21:00; Stop 04/26/17 at 18:27; Status DC Donepezil HCl (Aricept) 10 mg QHS PO Last administered on 05/01/17 19:26; Start 04/25/17 at 21:00 Mirtazapine (Remeron) 15 mg QHS PO Last administered on 05/01/17 19:25; Start 04/25/17 at 21:00 Olanzapine (ZyPREXA) 2.5 mg PRN Q2HR PRN PO PSYCHOSIS; Start 04/25/17 at 20:00 ; Stop 04/26/17 at 08:09; Status DC Paroxetine HCl (Paxil) 20 mg DAILY PO Last administered on 04/29/17 09:43; Start 04/26/17 at 09:00; Stop 04/29/17 at 18:55; Status DC Acetaminophen (Tylenol) 650 mg PRN Q4HRS PRN PO PAIN / TEMP; Start 04/25/17 at 20:00 Acetaminophen (Tylenol) 650 mg TID PO Last administered on 05/01/17 19:26; Start 04/25/17 at 21:00 Cyanocobalamin (Vitamin B-12) 1,000 mcg DAILY PO Last administered on 08:50; Start 04/26/17 at 09:00 Diphenhydramine HCl (Benadryl) 25 mg PRN Q6HRS PRN PO ITCHING Last administered on 04/28/17 19:26; Start 04/25/17 at 20:00 Metoprolol Tartrate (Lopressor) 25 mg BID PO Last administered on 05/01/17 08: 48; Start 04/25/17 at 21:00 Polyethylene Glycol (miraLAX) 17 gm BID PO Last administered on 05/01/17 19:25 ; Start 04/25/17 at 21:00 Senna/Docusate Sodium (Senna Plus) 1 tab BID PO Last administered on 05/01/17 19:28; Start 04/25/17 at 21:00 Tamsulosin HCl (Flomax) 0.4 mg QHS PO Last administered on 05/01/17 19:25; Start 04/25/17 at 21:00 Latanoprost (Xalatan) 1 drop QHS OU Last administered on 04/26/17 20:17; Start 04/25/17 at 21:00; Stop 04/27/17 at 14:30; Status DC Non-Formulary Medication 1 chan BID TP ; Start 04/25/17 at 21:00; Stop 04/25/17 at 21:00; Status DC Lorazepam (Ativan) 0.5 mg PRN Q2HR PRN PO ANXIETY / AGITATION Last administered on 04/27/17 08:42; Start 04/26/17 at 08:00 Olanzapine (ZyPREXA ZYDIS) 5 mg PRN Q2HR PRN PO PSYCHOSIS Last administered on 04/29/17 14:42; Start 04/26/17 at 08:00 Levofloxacin (Levaquin) 500 mg DAILY PO Last administered on 04/26/17 08:06; Start 04/26/17 at 09:00; Stop 04/26/17 at 14:45; Status DC Vitamin D (Vitamin D3) 50,000 unit WEEKLY PO Last administered on 04/26/17 15: 26; Start 04/26/17 at 13:30 Levofloxacin (Levaquin) 250 mg DAILY06 PO Last administered on 04/29/17 05:04 ; Start 04/27/17 at 06:00; Stop 04/29/17 at 15:00; Status DC Divalproex Sodium (Depakote) 250 mg TID PO Last administered on 04/27/17 10:48 ; Start 04/26/17 at 21:00; Stop 04/27/17 at 19:16; Status DC Latanoprost (Xalatan) 1 drop QHS OU Last administered on 05/01/17 19:24; Start 04/27/17 at 14:30 Haloperidol Lactate (Haldol) 5 mg DAILY IM Last administered on 05/01/17 08:51 ; Start 04/28/17 at 09:00; Stop 05/01/17 at 18:53; Status DC Lorazepam (Ativan) 0.5 mg DAILY IM Last administered on 05/01/17 08:55; Start 04/28/17 at 09:00; Stop 05/01/17 at 18:53; Status DC Haloperidol Lactate (Haldol) 5 mg 1X ONCE IM ; Start 04/27/17 at 19:15; Stop at 19:16; Status DC Lorazepam (Ativan) 0.5 mg 1X ONCE IM ; Start 04/27/17 at 19:15; Stop 04/27/17 at 19:16; Status DC Divalproex Sodium (Depakote Sprinkles) 250 mg TID PO Last administered on 14:43; Start 04/27/17 at 21:00; Stop 04/29/17 at 18:55; Status DC Quetiapine Fumarate (SEROquel) 25 mg TID@0900,1300,1700 PO Last administered on 04/29/17 16:48; Start 04/28/17 at 09:00; Stop 04/29/17 at 18:55; Status DC Divalproex Sodium (Depakote Sprinkles) 375 mg TID PO Last administered on 19:27; Start 04/29/17 at 21:00 Paroxetine HCl (Paxil) 10 mg DAILY PO Last administered on 05/01/17 08:48; Start 04/30/17 at 09:00 Quetiapine Fumarate (SEROquel) 37.5 mg TID@0900,1300,1700 PO Last administered on 05/01/17 17:55; Start 04/30/17 at 09:00 Active Scripts Active Reported Zyprexa (Olanzapine) 2.5 Mg Tablet 2.5 Mg PO PRN Q2HR PRN Tylenol (Acetaminophen) 325 Mg Tablet 650 Mg PO TID Tylenol (Acetaminophen) 325 Mg Tablet 650 Mg PO PRN Q4HRS PRN Tamsulosin Hcl 0.4 Mg Cap.er.24h 0.4 Mg PO QHS Senokot-S Tablet (Sennosides/Docusate Sodium) 1 Each Tablet 1 Each PO BID Paxil (Paroxetine Hcl) 20 Mg Tablet 20 Mg PO DAILY Mirtazapine 15 Mg Tablet 15 Mg PO QHS Miralax (Polyethylene Glycol 3350) 17 Gm Powd.pack 17 Gm PO BID Metoprolol Tartrate 25 Mg Tablet 25 Mg PO BID Lumigan (Bimatoprost) 2.5 Ml Drops 1 Drop OU QHS Benadryl (Diphenhydramine Hcl) 25 Mg Capsule 25 Mg PO PRN Q6HRS PRN Depakote (Divalproex Sodium) 125 Mg Tablet.dr 125 Mg PO TID Biofreeze (Menthol) 118 Ml Gel..ml. 1 Chan TP BID B-12 (Cyanocobalamin (Vitamin B-12)) 1,000 Mcg Tablet 1,000 Mcg PO DAILY Aricept (Donepezil Hcl) 10 Mg Tablet 10 Mg PO QHS Diagnosis: Problems: (1) Anxiety disorder (2) Mild cognitive disorder (3) Impulse control disorder (4) Major depressive disorder, recurrent episode (5) Dementia in Alzheimer's disease with delusions (6) Dementia in Alzheimer's disease with depression (7) Dementia, vascular, with delusions (8) Dementia, vascular, with depression CLARKE WARE MD May 01, 2017 21:24
--- NOTE | 2017-05-02 05:14 | PN ---
DATE: 04/30/2017 This late entry 04/30/2017 covers elements not covered in my initial note of 04/30/2017. SUBJECTIVE: I met with the patient evening of 04/30/2017. Per nursing report, has been somewhat upset with how sedated the patient is, otherwise he is calm and cooperative. Short term memory is impaired. REVIEW OF SYSTEMS: No CV, , pulmonary, eye, ENT system symptoms on review. MENTAL STATUS EXAM: Oriented to himself. Speech has some latency, coherent. Abstraction fair, computation impaired, short term memory is impaired, language function intact. Mood and affect, lability is improved. LABORATORIES: Reviewed. IMPRESSION: Unchanged from initial note. PLAN: Continue current psychotropics mentioned in my initial note. Review drug interactions, risk/benefit ratio favors no further change. I feel the sedation is consequent to a change in his psychotropics and should adjust. He is certainly doing better with respect to aggression, agitation, and given the extent of his aggression previously we should maintain his psychotropics for now and we will monitor closely and adjust as clinically indicated. Valproic acid level on 04/29/2017 is 40. AST and ALT were unremarkable. We will check an ammonia level as well. CLARKE WARE MD DR: ILANA/angelo JOB#: [id number] / [id number]
[2017-05-02 06:04] VITALS: BP 160/98
[2017-05-02 08:00] LABS: BASO # 0.1 x10^3/uL (0.0-0.2); BASO % 1 % (0-3); EOS # 0.2 x10^3/uL (0.0-0.7); EOS % 2 % (0-3); HEMATOCRIT 40.1 % (39.0-53.0); HEMOGLOBIN 13.4 g/dL (13.0-17.5); LYMPH # 1.4 x10^3/uL (1.0-4.8); LYMPH % 15 % (24-48); MEAN CORPUSCULAR HEMOGLOBIN 28 pg (25-35); MEAN CORPUSCULAR HGB CONC 34 g/dL (31-37); MEAN CORPUSCULAR VOLUME 83 fL (79-100); MONO # 0.7 x10^3/uL (0.0-1.1); MONO % 8 % (0-9); NEUT # 6.6 x10^3uL (1.8-7.7); NEUT % 73 % (31-73); PLATELET COUNT 240 x10^3/uL (140-400); RED BLOOD COUNT 4.82 x10^6/uL (4.30-5.70); RED CELL DISTRIBUTION WIDTH 18.2 % (11.5-14.5)
[2017-05-02 08:14] LABS: ALBUMIN 3.2 g/dL (3.4-5.0); ALBUMIN/GLOBULIN RATIO 0.8 (1.0-1.7); ALK PHOS 58 U/L (46-116); ALT (SGPT) 18 U/L (16-63); ANION GAP 4 (6-14); AST (SGOT) 27 U/L (15-37); BLOOD UREA NITROGEN 17 mg/dL (8-26); BUN/CREATININE RATIO 19 (6-20); CALCIUM 8.9 mg/dL (8.5-10.1); CARBON DIOXIDE 31 mmol/L (21-32); CHLORIDE 107 mmol/L (98-107); CREATININE 0.9 mg/dL (0.7-1.3); GFR 82.3; GLUCOSE 83 mg/dL (70-99); POTASSIUM 4.3 mmol/L (3.5-5.1); SODIUM 142 mmol/L (136-145); TOTAL BILIRUBIN 0.4 mg/dL (0.2-1.0); TOTAL PROTEIN 7.3 g/dL (6.4-8.2)
[2017-05-02 08:17] LABS: VAL ACID 55 mcg/mL (50-100)
[2017-05-02] MEDS: DIVALPROEX 125 MG CAP.SPRINK PO SCH ×3 (09:18→20:06)
[2017-05-02] MEDS: PARoxetine 10 MG TABLET PO SCH (09:20)
[2017-05-02] MEDS: METOPROLOL TART IMMED RELEASE 25 MG TABLET PO SCH ×2 (09:20→20:06)
[2017-05-02] MEDS: QUEtiapine 25 MG TABLET. PO SCH ×3 (09:20→17:27)
[2017-05-02] MEDS: POLYETHYLENE GLYCOL 3350 17 GM PACKET. PO SCH ×2 (09:20→20:06)
[2017-05-02] MEDS: SENNOSIDES/DOCUSATE 8.6/50MG TABLET. PO SCH ×2 (09:20→20:06)
[2017-05-02] MEDS: CYANOCOBALAMIN (VITAMIN B-12) 1,000 MCG TABLET. PO SCH (09:21)
[2017-05-02] MEDS: ACETAMINOPHEN 325 MG TABLET PO SCH ×3 (09:21→20:06)
[2017-05-02 16:52] VITALS: BP 134/72
[2017-05-02] MEDS: LATANOPROST 0.005% OPHTH SOLUTION 2.5ML BOTTLE. OU SCH (20:05)
[2017-05-02] MEDS: DONEPEZIL HCL 10 MG TABLET PO SCH (20:06)
[2017-05-02] MEDS: TAMSULOSIN 0.4 MG CAP.ER.24H. PO SCH (20:06)
[2017-05-02] MEDS: MIRTAZAPINE 15 MG TABLET PO SCH (20:06)
--- NOTE | 2017-05-02 21:14 | PDOC ---
Exam Mitch Demential Exam: Mitch Note: Please also refer to the separate dictated note~for this date of service dictated separately.~Patient seen individually. Discussed the patient with Nursing staff reviewed the chart.~Reviewed interim history and current functioning. Reviewed vital signs,~Labs/ Radiology~and current medications noted below. Continue current treatment with the changes noted in the dictated addendum note Assessment: Vital Signs: Vital Signs Date Time Temp Pulse Resp B/P (MAP) Pulse Ox O2 Delivery O2 Flow Rate FiO2 05/02/17 20:06 65 134/72 05/02/17 16:52 97.9 18 95 05/01/17 17:00 Room Air I&O Intake and Output 05/03/17 07:00 Intake Total 780 ml Balance 780 ml Intake Oral 780 ml # Bowel Movements 1 Labs: Laboratory Tests Test 05/02/17 07:46 White Blood Count 9.0 x10^3/uL (4.0-11.0) Red Blood Count 4.82 x10^6/uL (4.30-5.70) Hemoglobin 13.4 g/dL (13.0-17.5) Hematocrit 40.1 % (39.0-53.0) Mean Corpuscular Volume 83 fL (79-100) Mean Corpuscular Hemoglobin 28 pg (25-35) Mean Corpuscular Hemoglobin Concent 34 g/dL (31-37) Red Cell Distribution Width 18.2 % (11.5-14.5) H Platelet Count 240 x10^3/uL (140-400) Neutrophils (%) (Auto) 73 % (31-73) Lymphocytes (%) (Auto) 15 % (24-48) L Monocytes (%) (Auto) 8 % (0-9) Eosinophils (%) (Auto) 2 % (0-3) Basophils (%) (Auto) 1 % (0-3) Neutrophils # (Auto) 6.6 x10^3uL (1.8-7.7) Lymphocytes # (Auto) 1.4 x10^3/uL (1.0-4.8) Monocytes # (Auto) 0.7 x10^3/uL (0.0-1.1) Eosinophils # (Auto) 0.2 x10^3/uL (0.0-0.7) Basophils # (Auto) 0.1 x10^3/uL (0.0-0.2) Sodium Level 142 mmol/L (136-145) Potassium Level 4.3 mmol/L (3.5-5.1) Chloride Level 107 mmol/L (98-107) Carbon Dioxide Level 31 mmol/L (21-32) Anion Gap 4 (6-14) L Blood Urea Nitrogen 17 mg/dL (8-26) Creatinine 0.9 mg/dL (0.7-1.3) Estimated GFR (Cockcroft-Gault) 82.3 BUN/Creatinine Ratio 19 (6-20) Glucose Level 83 mg/dL (70-99) Calcium Level 8.9 mg/dL (8.5-10.1) Total Bilirubin 0.4 mg/dL (0.2-1.0) Aspartate Amino Transferase (AST) 27 U/L (15-37) Alanine Aminotransferase (ALT) 18 U/L (16-63) Alkaline Phosphatase 58 U/L (46-116) Total Protein 7.3 g/dL (6.4-8.2) Albumin 3.2 g/dL (3.4-5.0) L Albumin/Globulin Ratio 0.8 (1.0-1.7) L Valproic Acid Level 55 mcg/mL (50-100) Valproic Acid Last Dose Date 05/01/17 Valproic Acid Last Dose Time 2100 Current Medications: Meds: Current Medications Ceftriaxone Sodium 1 gm/ Sodium Chloride 50 ml @ 100 mls/hr 1X ONCE IV ; Start 04/25/17 at 18:00; Stop 04/25/17 at 18:01; Status DC Levofloxacin (Levaquin) 500 mg 1X ONCE PO Last administered on 04/25/17 18:21 ; Start 04/25/17 at 18:10; Stop 04/25/17 at 18:11; Status DC Olanzapine (ZyPREXA ZYDIS) 10 mg 1X ONCE PO Last administered on 04/25/17 18: 21; Start 04/25/17 at 18:10; Stop 04/25/17 at 18:11; Status DC Lorazepam (Ativan) 0.5 mg PRN Q12HR PRN PO ANXIETY / AGITATION Last administered on 04/25/17 18:21; Start 04/25/17 at 18:15; Stop 04/26/17 at 07:49 ; Status DC Acetaminophen (Tylenol) 650 mg PRN Q6HRS PRN PO PAIN / TEMP; Start 04/25/17 at 19:45; Stop 04/25/17 at 20:08; Status DC Multi-Ingredient Ointment (Analgesic [place]) 1 chan PRN QID PRN TP MUSCLE PAIN; Start 04/25/17 at 19:45 Al Hydroxide/Mg Hydroxide (Mylanta Plus Xs) 15 ml PRN AFTMEALHC PRN PO DYSPEPSIA; Start 04/25/17 at 19:45 Magnesium Hydroxide (Milk Of Magnesia) 2,400 mg PRN QHS PRN PO CONSTIPATION; Start 04/25/17 at 19:45 Divalproex Sodium (Depakote) 125 mg TID PO Last administered on 04/26/17 15:26 ; Start 04/25/17 at 21:00; Stop 04/26/17 at 18:27; Status DC Donepezil HCl (Aricept) 10 mg QHS PO Last administered on 05/02/17 20:06; Start 04/25/17 at 21:00 Mirtazapine (Remeron) 15 mg QHS PO Last administered on 05/02/17 20:06; Start 04/25/17 at 21:00 Olanzapine (ZyPREXA) 2.5 mg PRN Q2HR PRN PO PSYCHOSIS; Start 04/25/17 at 20:00 ; Stop 04/26/17 at 08:09; Status DC Paroxetine HCl (Paxil) 20 mg DAILY PO Last administered on 04/29/17 09:43; Start 04/26/17 at 09:00; Stop 04/29/17 at 18:55; Status DC Acetaminophen (Tylenol) 650 mg PRN Q4HRS PRN PO PAIN / TEMP; Start 04/25/17 at 20:00 Acetaminophen (Tylenol) 650 mg TID PO Last administered on 05/02/17 20:06; Start 04/25/17 at 21:00 Cyanocobalamin (Vitamin B-12) 1,000 mcg DAILY PO Last administered on 09:21; Start 04/26/17 at 09:00 Diphenhydramine HCl (Benadryl) 25 mg PRN Q6HRS PRN PO ITCHING Last administered on 04/28/17 19:26; Start 04/25/17 at 20:00 Metoprolol Tartrate (Lopressor) 25 mg BID PO Last administered on 05/02/17 20: 06; Start 04/25/17 at 21:00 Polyethylene Glycol (miraLAX) 17 gm BID PO Last administered on 05/02/17 20:06 ; Start 04/25/17 at 21:00 Senna/Docusate Sodium (Senna Plus) 1 tab BID PO Last administered on 05/02/17 20:06; Start 04/25/17 at 21:00 Tamsulosin HCl (Flomax) 0.4 mg QHS PO Last administered on 05/02/17 20:06; Start 04/25/17 at 21:00 Latanoprost (Xalatan) 1 drop QHS OU Last administered on 04/26/17 20:17; Start 04/25/17 at 21:00; Stop 04/27/17 at 14:30; Status DC Non-Formulary Medication 1 chan BID TP ; Start 04/25/17 at 21:00; Stop 04/25/17 at 21:00; Status DC Lorazepam (Ativan) 0.5 mg PRN Q2HR PRN PO ANXIETY / AGITATION Last administered on 04/27/17 08:42; Start 04/26/17 at 08:00 Olanzapine (ZyPREXA ZYDIS) 5 mg PRN Q2HR PRN PO PSYCHOSIS Last administered on 04/29/17 14:42; Start 04/26/17 at 08:00 Levofloxacin (Levaquin) 500 mg DAILY PO Last administered on 04/26/17 08:06; Start 04/26/17 at 09:00; Stop 04/26/17 at 14:45; Status DC Vitamin D (Vitamin D3) 50,000 unit WEEKLY PO Last administered on 04/26/17 15: 26; Start 04/26/17 at 13:30 Levofloxacin (Levaquin) 250 mg DAILY06 PO Last administered on 04/29/17 05:04 ; Start 04/27/17 at 06:00; Stop 04/29/17 at 15:00; Status DC Divalproex Sodium (Depakote) 250 mg TID PO Last administered on 04/27/17 10:48 ; Start 04/26/17 at 21:00; Stop 04/27/17 at 19:16; Status DC Latanoprost (Xalatan) 1 drop QHS OU Last administered on 05/02/17 20:05; Start 04/27/17 at 14:30 Haloperidol Lactate (Haldol) 5 mg DAILY IM Last administered on 05/01/17 08:51 ; Start 04/28/17 at 09:00; Stop 05/01/17 at 18:53; Status DC Lorazepam (Ativan) 0.5 mg DAILY IM Last administered on 05/01/17 08:55; Start 04/28/17 at 09:00; Stop 05/01/17 at 18:53; Status DC Haloperidol Lactate (Haldol) 5 mg 1X ONCE IM ; Start 04/27/17 at 19:15; Stop at 19:16; Status DC Lorazepam (Ativan) 0.5 mg 1X ONCE IM ; Start 04/27/17 at 19:15; Stop 04/27/17 at 19:16; Status DC Divalproex Sodium (Depakote Sprinkles) 250 mg TID PO Last administered on 14:43; Start 04/27/17 at 21:00; Stop 04/29/17 at 18:55; Status DC Quetiapine Fumarate (SEROquel) 25 mg TID@0900,1300,1700 PO Last administered on 04/29/17 16:48; Start 04/28/17 at 09:00; Stop 04/29/17 at 18:55; Status DC Divalproex Sodium (Depakote Sprinkles) 375 mg TID PO Last administered on 20:06; Start 04/29/17 at 21:00 Paroxetine HCl (Paxil) 10 mg DAILY PO Last administered on 05/02/17 09:20; Start 04/30/17 at 09:00 Quetiapine Fumarate (SEROquel) 37.5 mg TID@0900,1300,1700 PO Last administered on 05/02/17 17:27; Start 04/30/17 at 09:00 Active Scripts Active Reported Zyprexa (Olanzapine) 2.5 Mg Tablet 2.5 Mg PO PRN Q2HR PRN Tylenol (Acetaminophen) 325 Mg Tablet 650 Mg PO TID Tylenol (Acetaminophen) 325 Mg Tablet 650 Mg PO PRN Q4HRS PRN Tamsulosin Hcl 0.4 Mg Cap.er.24h 0.4 Mg PO QHS Senokot-S Tablet (Sennosides/Docusate Sodium) 1 Each Tablet 1 Each PO BID Paxil (Paroxetine Hcl) 20 Mg Tablet 20 Mg PO DAILY Mirtazapine 15 Mg Tablet 15 Mg PO QHS Miralax (Polyethylene Glycol 3350) 17 Gm Powd.pack 17 Gm PO BID Metoprolol Tartrate 25 Mg Tablet 25 Mg PO BID Lumigan (Bimatoprost) 2.5 Ml Drops 1 Drop OU QHS Benadryl (Diphenhydramine Hcl) 25 Mg Capsule 25 Mg PO PRN Q6HRS PRN Depakote (Divalproex Sodium) 125 Mg Tablet.dr 125 Mg PO TID Biofreeze (Menthol) 118 Ml Gel..ml. 1 Chan TP BID B-12 (Cyanocobalamin (Vitamin B-12)) 1,000 Mcg Tablet 1,000 Mcg PO DAILY Aricept (Donepezil Hcl) 10 Mg Tablet 10 Mg PO QHS Diagnosis: Problems: (1) Anxiety disorder (2) Mild cognitive disorder (3) Impulse control disorder (4) Major depressive disorder, recurrent episode (5) Dementia in Alzheimer's disease with delusions (6) Dementia in Alzheimer's disease with depression (7) Dementia, vascular, with delusions (8) Dementia, vascular, with depression CLARKE WARE MD May 02, 2017 21:14
--- NOTE | 2017-05-03 02:25 | PN ---
DATE: 05/01/2017 PSYCHIATRIC PROGRESS NOTE This late entry 05/01/2017 covers elements not covered in my initial note of 05/01/2017. SUBJECTIVE: I met with the patient evening of 05/01/2017. Overall, the patient is doing better. He is less irritable, has not had the aggression and that was a prominent part of his presentations during the entire hospital stay so far. He has been more alert as well. A expressed some concern about his sedation. Since the patient is doing better with respect to his psychosis and aggression, we will stop the IM Haldol and Ativan daily that he is receiving. REVIEW OF SYSTEMS: No CV, , pulmonary, eye, ENT system symptoms on review. Reliability varies. MENTAL STATUS EXAM: Oriented to himself and situation. Speech often responses monosyllabic, still somewhat paranoid, abstraction fair, computation impaired, language function intact, attention span short. Mood and affect still somewhat withdrawn and less labile. No active suicidal or homicidal ideation. LABORATORIES: Reviewed. IMPRESSION: Unchanged from initial note. PLAN: Discontinue the IM Haldol, Ativan, maintain the rest of psychotropics as noted in my initial note. Paxil was reduced. Continue Aricept, Depakote, Ativan p.r.n., Namenda, Remeron, Zyprexa p.r.n., Seroquel 37.5 mg 3 times a day. Review drug interactions, risk/benefit ratio favors no further change. CLARKE WARE MD DR: ILANA/angelo JOB#: [id number] / [id number]
[2017-05-03 05:59] VITALS: BP 169/82
[2017-05-03] MEDS: POLYETHYLENE GLYCOL 3350 17 GM PACKET. PO SCH ×2 (09:05→20:23)
[2017-05-03] MEDS: METOPROLOL TART IMMED RELEASE 25 MG TABLET PO SCH ×2 (09:07→20:24)
[2017-05-03] MEDS: DIVALPROEX 125 MG CAP.SPRINK PO SCH ×3 (09:07→20:28)
[2017-05-03] MEDS: PARoxetine 10 MG TABLET PO SCH (09:07)
[2017-05-03] MEDS: CYANOCOBALAMIN (VITAMIN B-12) 1,000 MCG TABLET. PO SCH (09:07)
[2017-05-03] MEDS: ACETAMINOPHEN 325 MG TABLET PO SCH ×3 (09:07→20:27)
[2017-05-03] MEDS: SENNOSIDES/DOCUSATE 8.6/50MG TABLET. PO SCH ×2 (09:07→20:29)
[2017-05-03] MEDS: QUEtiapine 25 MG TABLET. PO SCH ×3 (09:07→16:54)
[2017-05-03] MEDS: CHOLECALCIFEROL (VITAMIN D3) 50,000 UNIT CAPSULE PO SCH (09:09)
[2017-05-03 16:01] VITALS: BP 102/62
[2017-05-03] MEDS: DONEPEZIL HCL 10 MG TABLET PO SCH (20:24)
[2017-05-03] MEDS: TAMSULOSIN 0.4 MG CAP.ER.24H. PO SCH (20:24)
[2017-05-03] MEDS: MIRTAZAPINE 15 MG TABLET PO SCH (20:24)
[2017-05-03] MEDS: LATANOPROST 0.005% OPHTH SOLUTION 2.5ML BOTTLE. OU SCH (20:29)
--- NOTE | 2017-05-03 20:58 | PDOC ---
Exam Mitch Demential Exam: Mitch Note: Please also refer to the separate dictated note~for this date of service dictated separately.~Patient seen individually. Discussed the patient with Nursing staff reviewed the chart.~Reviewed interim history and current functioning. Reviewed vital signs,~Labs/ Radiology~and current medications noted below. Continue current treatment with the changes noted in the dictated addendum note Assessment: Vital Signs: Vital Signs Date Time Temp Pulse Resp B/P (MAP) Pulse Ox O2 Delivery O2 Flow Rate FiO2 05/03/17 20:24 61 102/62 05/03/17 16:01 97.4 18 95 05/03/17 05:59 Room Air I&O Intake and Output 05/04/17 07:00 Intake Total 840 ml Balance 840 ml Intake Oral 840 ml Current Medications: Meds: Current Medications Ceftriaxone Sodium 1 gm/ Sodium Chloride 50 ml @ 100 mls/hr 1X ONCE IV ; Start 04/25/17 at 18:00; Stop 04/25/17 at 18:01; Status DC Levofloxacin (Levaquin) 500 mg 1X ONCE PO Last administered on 04/25/17 18:21 ; Start 04/25/17 at 18:10; Stop 04/25/17 at 18:11; Status DC Olanzapine (ZyPREXA ZYDIS) 10 mg 1X ONCE PO Last administered on 04/25/17 18: 21; Start 04/25/17 at 18:10; Stop 04/25/17 at 18:11; Status DC Lorazepam (Ativan) 0.5 mg PRN Q12HR PRN PO ANXIETY / AGITATION Last administered on 04/25/17 18:21; Start 04/25/17 at 18:15; Stop 04/26/17 at 07:49 ; Status DC Acetaminophen (Tylenol) 650 mg PRN Q6HRS PRN PO PAIN / TEMP; Start 04/25/17 at 19:45; Stop 04/25/17 at 20:08; Status DC Multi-Ingredient Ointment (Analgesic [place]) 1 chan PRN QID PRN TP MUSCLE PAIN; Start 04/25/17 at 19:45 Al Hydroxide/Mg Hydroxide (Mylanta Plus Xs) 15 ml PRN AFTMEALHC PRN PO DYSPEPSIA; Start 04/25/17 at 19:45 Magnesium Hydroxide (Milk Of Magnesia) 2,400 mg PRN QHS PRN PO CONSTIPATION; Start 04/25/17 at 19:45 Divalproex Sodium (Depakote) 125 mg TID PO Last administered on 04/26/17 15:26 ; Start 04/25/17 at 21:00; Stop 04/26/17 at 18:27; Status DC Donepezil HCl (Aricept) 10 mg QHS PO Last administered on 05/03/17 20:24; Start 04/25/17 at 21:00 Mirtazapine (Remeron) 15 mg QHS PO Last administered on 05/03/17 20:24; Start 04/25/17 at 21:00 Olanzapine (ZyPREXA) 2.5 mg PRN Q2HR PRN PO PSYCHOSIS; Start 04/25/17 at 20:00 ; Stop 04/26/17 at 08:09; Status DC Paroxetine HCl (Paxil) 20 mg DAILY PO Last administered on 04/29/17 09:43; Start 04/26/17 at 09:00; Stop 04/29/17 at 18:55; Status DC Acetaminophen (Tylenol) 650 mg PRN Q4HRS PRN PO PAIN / TEMP; Start 04/25/17 at 20:00 Acetaminophen (Tylenol) 650 mg TID PO Last administered on 05/03/17 20:27; Start 04/25/17 at 21:00 Cyanocobalamin (Vitamin B-12) 1,000 mcg DAILY PO Last administered on 09:07; Start 04/26/17 at 09:00 Diphenhydramine HCl (Benadryl) 25 mg PRN Q6HRS PRN PO ITCHING Last administered on 04/28/17 19:26; Start 04/25/17 at 20:00 Metoprolol Tartrate (Lopressor) 25 mg BID PO Last administered on 05/03/17 20: 24; Start 04/25/17 at 21:00 Polyethylene Glycol (miraLAX) 17 gm BID PO Last administered on 05/03/17 20:23 ; Start 04/25/17 at 21:00 Senna/Docusate Sodium (Senna Plus) 1 tab BID PO Last administered on 05/03/17 20:29; Start 04/25/17 at 21:00 Tamsulosin HCl (Flomax) 0.4 mg QHS PO Last administered on 05/03/17 20:24; Start 04/25/17 at 21:00 Latanoprost (Xalatan) 1 drop QHS OU Last administered on 04/26/17 20:17; Start 04/25/17 at 21:00; Stop 04/27/17 at 14:30; Status DC Non-Formulary Medication 1 chan BID TP ; Start 04/25/17 at 21:00; Stop 04/25/17 at 21:00; Status DC Lorazepam (Ativan) 0.5 mg PRN Q2HR PRN PO ANXIETY / AGITATION Last administered on 04/27/17 08:42; Start 04/26/17 at 08:00 Olanzapine (ZyPREXA ZYDIS) 5 mg PRN Q2HR PRN PO PSYCHOSIS Last administered on 04/29/17 14:42; Start 04/26/17 at 08:00 Levofloxacin (Levaquin) 500 mg DAILY PO Last administered on 04/26/17 08:06; Start 04/26/17 at 09:00; Stop 04/26/17 at 14:45; Status DC Vitamin D (Vitamin D3) 50,000 unit WEEKLY PO Last administered on 05/03/17 09: 09; Start 04/26/17 at 13:30 Levofloxacin (Levaquin) 250 mg DAILY06 PO Last administered on 04/29/17 05:04 ; Start 04/27/17 at 06:00; Stop 04/29/17 at 15:00; Status DC Divalproex Sodium (Depakote) 250 mg TID PO Last administered on 04/27/17 10:48 ; Start 04/26/17 at 21:00; Stop 04/27/17 at 19:16; Status DC Latanoprost (Xalatan) 1 drop QHS OU Last administered on 05/03/17 20:29; Start 04/27/17 at 14:30 Haloperidol Lactate (Haldol) 5 mg DAILY IM Last administered on 05/01/17 08:51 ; Start 04/28/17 at 09:00; Stop 05/01/17 at 18:53; Status DC Lorazepam (Ativan) 0.5 mg DAILY IM Last administered on 05/01/17 08:55; Start 04/28/17 at 09:00; Stop 05/01/17 at 18:53; Status DC Haloperidol Lactate (Haldol) 5 mg 1X ONCE IM ; Start 04/27/17 at 19:15; Stop at 19:16; Status DC Lorazepam (Ativan) 0.5 mg 1X ONCE IM ; Start 04/27/17 at 19:15; Stop 04/27/17 at 19:16; Status DC Divalproex Sodium (Depakote Sprinkles) 250 mg TID PO Last administered on 14:43; Start 04/27/17 at 21:00; Stop 04/29/17 at 18:55; Status DC Quetiapine Fumarate (SEROquel) 25 mg TID@0900,1300,1700 PO Last administered on 04/29/17 16:48; Start 04/28/17 at 09:00; Stop 04/29/17 at 18:55; Status DC Divalproex Sodium (Depakote Sprinkles) 375 mg TID PO Last administered on 20:28; Start 04/29/17 at 21:00 Paroxetine HCl (Paxil) 10 mg DAILY PO Last administered on 05/03/17 09:07; Start 04/30/17 at 09:00 Quetiapine Fumarate (SEROquel) 37.5 mg TID@0900,1300,1700 PO Last administered on 05/03/17 16:54; Start 04/30/17 at 09:00; Stop 05/03/17 at 18:38; Status DC Quetiapine Fumarate (SEROquel) 50 mg TID@0900,1300,1700 PO ; Start 05/04/17 at 09:00 Active Scripts Active Reported Zyprexa (Olanzapine) 2.5 Mg Tablet 2.5 Mg PO PRN Q2HR PRN Tylenol (Acetaminophen) 325 Mg Tablet 650 Mg PO TID Tylenol (Acetaminophen) 325 Mg Tablet 650 Mg PO PRN Q4HRS PRN Tamsulosin Hcl 0.4 Mg Cap.er.24h 0.4 Mg PO QHS Senokot-S Tablet (Sennosides/Docusate Sodium) 1 Each Tablet 1 Each PO BID Paxil (Paroxetine Hcl) 20 Mg Tablet 20 Mg PO DAILY Mirtazapine 15 Mg Tablet 15 Mg PO QHS Miralax (Polyethylene Glycol 3350) 17 Gm Powd.pack 17 Gm PO BID Metoprolol Tartrate 25 Mg Tablet 25 Mg PO BID Lumigan (Bimatoprost) 2.5 Ml Drops 1 Drop OU QHS Benadryl (Diphenhydramine Hcl) 25 Mg Capsule 25 Mg PO PRN Q6HRS PRN Depakote (Divalproex Sodium) 125 Mg Tablet.dr 125 Mg PO TID Biofreeze (Menthol) 118 Ml Gel..ml. 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
[2017-05-04 06:33] VITALS: BP 163/79
[2017-05-04] MEDS: SENNOSIDES/DOCUSATE 8.6/50MG TABLET. PO SCH ×2 (07:52→20:38)
[2017-05-04] MEDS: POLYETHYLENE GLYCOL 3350 17 GM PACKET. PO SCH ×2 (07:52→20:38)
[2017-05-04] MEDS: ACETAMINOPHEN 325 MG TABLET PO SCH ×3 (07:52→20:38)
[2017-05-04] MEDS: CYANOCOBALAMIN (VITAMIN B-12) 1,000 MCG TABLET. PO SCH (07:53)
[2017-05-04] MEDS: METOPROLOL TART IMMED RELEASE 25 MG TABLET PO SCH ×2 (07:53→20:39)
[2017-05-04] MEDS: DIVALPROEX 125 MG CAP.SPRINK PO SCH ×3 (07:53→20:39)
[2017-05-04] MEDS: PARoxetine 10 MG TABLET PO SCH (07:53)
[2017-05-04] MEDS: QUEtiapine 50 MG TABLET. PO SCH ×3 (07:54→17:46)
--- NOTE | 2017-05-04 09:32 | PN ---
DATE: 05/02/2017 This late entry 05/02/2017 covers elements not covered in my initial note of 05/02/2017. I met with the patient evening of 05/02/2017 in his room. He slept 7-1/2 hours previous evening. Valproic acid level is 55. Overall, he has been less agitated, more pleasant, still somewhat paranoid, anxious. REVIEW OF SYSTEMS: No CV, , pulmonary, eye, ENT system symptoms on review, somewhat intense in his interactions as I met with him. Reliability poor. MENTAL STATUS EXAM: Oriented to himself and situation. Speech has some latency, coherent. Abstraction fair, computation impaired, language function intact. Short term memory is impaired. He was a little more interactive. As I met with him in his room, he was settling the collar on my shirt since it was a little louder place and seemed quite appropriate . This kind of interaction would have been rather unexpected shortly after he was admitted when he was at the height of his psychosis and agitation. LABORATORY DATA: Reviewed. IMPRESSION: Unchanged from initial note. PLAN: Continue psychotropics mentioned in my initial note. Reviewed drug interactions, risk/benefit ratio favors no further change. CLARKE WARE MD DR: ILANA/angelo JOB#: [id number] / [id number]
[2017-05-04 16:52] VITALS: BP 110/73
[2017-05-04] MEDS: TAMSULOSIN 0.4 MG CAP.ER.24H. PO SCH (20:38)
[2017-05-04] MEDS: MIRTAZAPINE 15 MG TABLET PO SCH (20:38)
[2017-05-04] MEDS: DONEPEZIL HCL 10 MG TABLET PO SCH (20:39)
[2017-05-04] MEDS: LATANOPROST 0.005% OPHTH SOLUTION 2.5ML BOTTLE. OU SCH (20:59)
--- NOTE | 2017-05-04 21:10 | PDOC ---
Exam Mitch Demential Exam: Mitch Note: Please also refer to the separate dictated note~for this date of service dictated separately.~Patient seen individually. Discussed the patient with Nursing staff reviewed the chart.~Reviewed interim history and current functioning. Reviewed vital signs,~Labs/ Radiology~and current medications noted below. Continue current treatment with the changes noted in the dictated addendum note Assessment: Vital Signs: Vital Signs Date Time Temp Pulse Resp B/P (MAP) Pulse Ox O2 Delivery O2 Flow Rate FiO2 05/04/17 20:39 88 110/73 05/04/17 16:52 97.5 18 91 05/03/17 05:59 Room Air I&O Intake and Output 05/05/17 07:00 Intake Total 1200 ml Balance 1200 ml Intake Oral 1200 ml Current Medications: Meds: Current Medications Ceftriaxone Sodium 1 gm/ Sodium Chloride 50 ml @ 100 mls/hr 1X ONCE IV ; Start 04/25/17 at 18:00; Stop 04/25/17 at 18:01; Status DC Levofloxacin (Levaquin) 500 mg 1X ONCE PO Last administered on 04/25/17 18:21 ; Start 04/25/17 at 18:10; Stop 04/25/17 at 18:11; Status DC Olanzapine (ZyPREXA ZYDIS) 10 mg 1X ONCE PO Last administered on 04/25/17 18: 21; Start 04/25/17 at 18:10; Stop 04/25/17 at 18:11; Status DC Lorazepam (Ativan) 0.5 mg PRN Q12HR PRN PO ANXIETY / AGITATION Last administered on 04/25/17 18:21; Start 04/25/17 at 18:15; Stop 04/26/17 at 07:49 ; Status DC Acetaminophen (Tylenol) 650 mg PRN Q6HRS PRN PO PAIN / TEMP; Start 04/25/17 at 19:45; Stop 04/25/17 at 20:08; Status DC Multi-Ingredient Ointment (Analgesic [place]) 1 chan PRN QID PRN TP MUSCLE PAIN; Start 04/25/17 at 19:45 Al Hydroxide/Mg Hydroxide (Mylanta Plus Xs) 15 ml PRN AFTMEALHC PRN PO DYSPEPSIA; Start 04/25/17 at 19:45 Magnesium Hydroxide (Milk Of Magnesia) 2,400 mg PRN QHS PRN PO CONSTIPATION; Start 04/25/17 at 19:45 Divalproex Sodium (Depakote) 125 mg TID PO Last administered on 04/26/17 15:26 ; Start 04/25/17 at 21:00; Stop 04/26/17 at 18:27; Status DC Donepezil HCl (Aricept) 10 mg QHS PO Last administered on 05/04/17 20:39; Start 04/25/17 at 21:00 Mirtazapine (Remeron) 15 mg QHS PO Last administered on 05/04/17 20:38; Start 04/25/17 at 21:00 Olanzapine (ZyPREXA) 2.5 mg PRN Q2HR PRN PO PSYCHOSIS; Start 04/25/17 at 20:00 ; Stop 04/26/17 at 08:09; Status DC Paroxetine HCl (Paxil) 20 mg DAILY PO Last administered on 04/29/17 09:43; Start 04/26/17 at 09:00; Stop 04/29/17 at 18:55; Status DC Acetaminophen (Tylenol) 650 mg PRN Q4HRS PRN PO PAIN / TEMP; Start 04/25/17 at 20:00 Acetaminophen (Tylenol) 650 mg TID PO Last administered on 05/04/17 20:38; Start 04/25/17 at 21:00 Cyanocobalamin (Vitamin B-12) 1,000 mcg DAILY PO Last administered on 07:53; Start 04/26/17 at 09:00 Diphenhydramine HCl (Benadryl) 25 mg PRN Q6HRS PRN PO ITCHING Last administered on 04/28/17 19:26; Start 04/25/17 at 20:00 Metoprolol Tartrate (Lopressor) 25 mg BID PO Last administered on 05/04/17 20: 39; Start 04/25/17 at 21:00 Polyethylene Glycol (miraLAX) 17 gm BID PO Last administered on 05/04/17 20:38 ; Start 04/25/17 at 21:00 Senna/Docusate Sodium (Senna Plus) 1 tab BID PO Last administered on 05/04/17 20:38; Start 04/25/17 at 21:00 Tamsulosin HCl (Flomax) 0.4 mg QHS PO Last administered on 05/04/17 20:38; Start 04/25/17 at 21:00 Latanoprost (Xalatan) 1 drop QHS OU Last administered on 04/26/17 20:17; Start 04/25/17 at 21:00; Stop 04/27/17 at 14:30; Status DC Non-Formulary Medication 1 chan BID TP ; Start 04/25/17 at 21:00; Stop 04/25/17 at 21:00; Status DC Lorazepam (Ativan) 0.5 mg PRN Q2HR PRN PO ANXIETY / AGITATION Last administered on 04/27/17 08:42; Start 04/26/17 at 08:00 Olanzapine (ZyPREXA ZYDIS) 5 mg PRN Q2HR PRN PO PSYCHOSIS Last administered on 04/29/17 14:42; Start 04/26/17 at 08:00 Levofloxacin (Levaquin) 500 mg DAILY PO Last administered on 04/26/17 08:06; Start 04/26/17 at 09:00; Stop 04/26/17 at 14:45; Status DC Vitamin D (Vitamin D3) 50,000 unit WEEKLY PO Last administered on 05/03/17 09: 09; Start 04/26/17 at 13:30 Levofloxacin (Levaquin) 250 mg DAILY06 PO Last administered on 04/29/17 05:04 ; Start 04/27/17 at 06:00; Stop 04/29/17 at 15:00; Status DC Divalproex Sodium (Depakote) 250 mg TID PO Last administered on 04/27/17 10:48 ; Start 04/26/17 at 21:00; Stop 04/27/17 at 19:16; Status DC Latanoprost (Xalatan) 1 drop QHS OU Last administered on 05/04/17 20:59; Start 04/27/17 at 14:30 Haloperidol Lactate (Haldol) 5 mg DAILY IM Last administered on 05/01/17 08:51 ; Start 04/28/17 at 09:00; Stop 05/01/17 at 18:53; Status DC Lorazepam (Ativan) 0.5 mg DAILY IM Last administered on 05/01/17 08:55; Start 04/28/17 at 09:00; Stop 05/01/17 at 18:53; Status DC Haloperidol Lactate (Haldol) 5 mg 1X ONCE IM ; Start 04/27/17 at 19:15; Stop at 19:16; Status DC Lorazepam (Ativan) 0.5 mg 1X ONCE IM ; Start 04/27/17 at 19:15; Stop 04/27/17 at 19:16; Status DC Divalproex Sodium (Depakote Sprinkles) 250 mg TID PO Last administered on 14:43; Start 04/27/17 at 21:00; Stop 04/29/17 at 18:55; Status DC Quetiapine Fumarate (SEROquel) 25 mg TID@0900,1300,1700 PO Last administered on 04/29/17 16:48; Start 04/28/17 at 09:00; Stop 04/29/17 at 18:55; Status DC Divalproex Sodium (Depakote Sprinkles) 375 mg TID PO Last administered on 20:39; Start 04/29/17 at 21:00 Paroxetine HCl (Paxil) 10 mg DAILY PO Last administered on 05/04/17 07:53; Start 04/30/17 at 09:00 Quetiapine Fumarate (SEROquel) 37.5 mg TID@0900,1300,1700 PO Last administered on 05/03/17 16:54; Start 04/30/17 at 09:00; Stop 05/03/17 at 18:38; Status DC Quetiapine Fumarate (SEROquel) 50 mg TID@0900,1300,1700 PO Last administered on 05/04/17 17:46; Start 05/04/17 at 09:00 Active Scripts Active Reported Zyprexa (Olanzapine) 2.5 Mg Tablet 2.5 Mg PO PRN Q2HR PRN Tylenol (Acetaminophen) 325 Mg Tablet 650 Mg PO TID Tylenol (Acetaminophen) 325 Mg Tablet 650 Mg PO PRN Q4HRS PRN Tamsulosin Hcl 0.4 Mg Cap.er.24h 0.4 Mg PO QHS Senokot-S Tablet (Sennosides/Docusate Sodium) 1 Each Tablet 1 Each PO BID Paxil (Paroxetine Hcl) 20 Mg Tablet 20 Mg PO DAILY Mirtazapine 15 Mg Tablet 15 Mg PO QHS Miralax (Polyethylene Glycol 3350) 17 Gm Powd.pack 17 Gm PO BID Metoprolol Tartrate 25 Mg Tablet 25 Mg PO BID Lumigan (Bimatoprost) 2.5 Ml Drops 1 Drop OU QHS Benadryl (Diphenhydramine Hcl) 25 Mg Capsule 25 Mg PO PRN Q6HRS PRN Depakote (Divalproex Sodium) 125 Mg Tablet.dr 125 Mg PO TID Biofreeze (Menthol) 118 Ml Gel..ml. 1 Chan TP BID B-12 (Cyanocobalamin (Vitamin B-12)) 1,000 Mcg Tablet 1,000 Mcg PO DAILY Aricept (Donepezil Hcl) 10 Mg Tablet 10 Mg PO QHS Diagnosis: Problems: (1) Anxiety disorder (2) Mild cognitive disorder (3) Impulse control disorder (4) Major depressive disorder, recurrent episode (5) Dementia in Alzheimer's disease with delusions (6) Dementia in Alzheimer's disease with depression (7) Dementia, vascular, with delusions (8) Dementia, vascular, with depression CLARKE WARE MD May 04, 2017 21:10
--- NOTE | 2017-05-04 23:51 | PN ---
DATE: 05/03/2017 This late entry 05/03/2017, covers elements not covered in my initial note of 05/03/2017. I met with the patient in the evening of 05/03/2017, in his room. Overall, per nursing report, he has been doing better, more compliant with medications, sat in the day room for a while. REVIEW OF SYSTEMS: No CV, , pulmonary, eye, ENT system symptoms on review. MENTAL STATUS EXAM: Oriented to himself, at times situation. Speech moderate latency, often responses monosyllabic still appears somewhat paranoid, anxious, has a scowl on his face as I met with him, but not aggressive. REVIEW OF SYSTEMS: No CV, , pulmonary, eye, ENT system symptoms on review. MENTAL STATUS EXAM: Oriented to himself. Abstraction fair, computation impaired, language function intact. Mood and affect somewhat withdrawn, no suicidal or homicidal ideation. LABORATORY DATA: Reviewed. IMPRESSION: Unchanged from initial note. PLAN: Continue current psychotropics including Depakote, Valproic acid level therapeutic at 55. Reviewed drug interactions risk/benefit ratio favors no further change. MAN Jude WARE MD DR: ILANA/angelo JOB#: [id number] / [id number]
[2017-05-05 06:49] VITALS: BP 159/81
[2017-05-05] MEDS: POLYETHYLENE GLYCOL 3350 17 GM PACKET. PO SCH ×2 (08:25→20:02)
[2017-05-05] MEDS: QUEtiapine 50 MG TABLET. PO SCH ×3 (08:25→17:11)
[2017-05-05] MEDS: PARoxetine 10 MG TABLET PO SCH (08:25)
[2017-05-05] MEDS: CYANOCOBALAMIN (VITAMIN B-12) 1,000 MCG TABLET. PO SCH (08:25)
[2017-05-05] MEDS: ACETAMINOPHEN 325 MG TABLET PO SCH ×3 (08:25→20:03)
[2017-05-05] MEDS: METOPROLOL TART IMMED RELEASE 25 MG TABLET PO SCH ×2 (08:25→20:03)
[2017-05-05] MEDS: SENNOSIDES/DOCUSATE 8.6/50MG TABLET. PO SCH ×2 (08:25→20:03)
[2017-05-05] MEDS: DIVALPROEX 125 MG CAP.SPRINK PO SCH ×3 (08:26→20:03)
[2017-05-05 16:31] VITALS: BP 114/60
[2017-05-05] MEDS: MIRTAZAPINE 15 MG TABLET PO SCH (20:03)
[2017-05-05] MEDS: DONEPEZIL HCL 10 MG TABLET PO SCH (20:04)
[2017-05-05] MEDS: TAMSULOSIN 0.4 MG CAP.ER.24H. PO SCH (20:04)
[2017-05-05] MEDS: LATANOPROST 0.005% OPHTH SOLUTION 2.5ML BOTTLE. OU SCH (20:05)
--- NOTE | 2017-05-05 21:13 | PDOC ---
Exam Mitch Demential Exam: Mitch Note: Please also refer to the separate dictated note~for this date of service dictated separately.~Patient seen individually. Discussed the patient with Nursing staff reviewed the chart.~Reviewed interim history and current functioning. Reviewed vital signs,~Labs/ Radiology~and current medications noted below. Continue current treatment with the changes noted in the dictated addendum note Assessment: Vital Signs: Vital Signs Date Time Temp Pulse Resp B/P (MAP) Pulse Ox O2 Delivery O2 Flow Rate FiO2 05/05/17 20:03 51 114/60 05/05/17 16:31 97.1 18 97 05/03/17 05:59 Room Air I&O Intake and Output 05/06/17 07:00 Intake Total 590 ml Balance 590 ml Intake Oral 590 ml Current Medications: Meds: Current Medications Ceftriaxone Sodium 1 gm/ Sodium Chloride 50 ml @ 100 mls/hr 1X ONCE IV ; Start 04/25/17 at 18:00; Stop 04/25/17 at 18:01; Status DC Levofloxacin (Levaquin) 500 mg 1X ONCE PO Last administered on 04/25/17 18:21 ; Start 04/25/17 at 18:10; Stop 04/25/17 at 18:11; Status DC Olanzapine (ZyPREXA ZYDIS) 10 mg 1X ONCE PO Last administered on 04/25/17 18: 21; Start 04/25/17 at 18:10; Stop 04/25/17 at 18:11; Status DC Lorazepam (Ativan) 0.5 mg PRN Q12HR PRN PO ANXIETY / AGITATION Last administered on 04/25/17 18:21; Start 04/25/17 at 18:15; Stop 04/26/17 at 07:49 ; Status DC Acetaminophen (Tylenol) 650 mg PRN Q6HRS PRN PO PAIN / TEMP; Start 04/25/17 at 19:45; Stop 04/25/17 at 20:08; Status DC Multi-Ingredient Ointment (Analgesic [place]) 1 chan PRN QID PRN TP MUSCLE PAIN; Start 04/25/17 at 19:45 Al Hydroxide/Mg Hydroxide (Mylanta Plus Xs) 15 ml PRN AFTMEALHC PRN PO DYSPEPSIA; Start 04/25/17 at 19:45 Magnesium Hydroxide (Milk Of Magnesia) 2,400 mg PRN QHS PRN PO CONSTIPATION; Start 04/25/17 at 19:45 Divalproex Sodium (Depakote) 125 mg TID PO Last administered on 04/26/17 15:26 ; Start 04/25/17 at 21:00; Stop 04/26/17 at 18:27; Status DC Donepezil HCl (Aricept) 10 mg QHS PO Last administered on 05/05/17 20:04; Start 04/25/17 at 21:00 Mirtazapine (Remeron) 15 mg QHS PO Last administered on 05/05/17 20:03; Start 04/25/17 at 21:00 Olanzapine (ZyPREXA) 2.5 mg PRN Q2HR PRN PO PSYCHOSIS; Start 04/25/17 at 20:00 ; Stop 04/26/17 at 08:09; Status DC Paroxetine HCl (Paxil) 20 mg DAILY PO Last administered on 04/29/17 09:43; Start 04/26/17 at 09:00; Stop 04/29/17 at 18:55; Status DC Acetaminophen (Tylenol) 650 mg PRN Q4HRS PRN PO PAIN / TEMP; Start 04/25/17 at 20:00 Acetaminophen (Tylenol) 650 mg TID PO Last administered on 05/05/17 20:03; Start 04/25/17 at 21:00 Cyanocobalamin (Vitamin B-12) 1,000 mcg DAILY PO Last administered on 08:25; Start 04/26/17 at 09:00 Diphenhydramine HCl (Benadryl) 25 mg PRN Q6HRS PRN PO ITCHING Last administered on 04/28/17 19:26; Start 04/25/17 at 20:00 Metoprolol Tartrate (Lopressor) 25 mg BID PO Last administered on 05/05/17 20: 03; Start 04/25/17 at 21:00 Polyethylene Glycol (miraLAX) 17 gm BID PO Last administered on 05/05/17 20:02 ; Start 04/25/17 at 21:00 Senna/Docusate Sodium (Senna Plus) 1 tab BID PO Last administered on 05/05/17 20:03; Start 04/25/17 at 21:00 Tamsulosin HCl (Flomax) 0.4 mg QHS PO Last administered on 05/05/17 20:04; Start 04/25/17 at 21:00 Latanoprost (Xalatan) 1 drop QHS OU Last administered on 04/26/17 20:17; Start 04/25/17 at 21:00; Stop 04/27/17 at 14:30; Status DC Non-Formulary Medication 1 chan BID TP ; Start 04/25/17 at 21:00; Stop 04/25/17 at 21:00; Status DC Lorazepam (Ativan) 0.5 mg PRN Q2HR PRN PO ANXIETY / AGITATION Last administered on 04/27/17 08:42; Start 04/26/17 at 08:00 Olanzapine (ZyPREXA ZYDIS) 5 mg PRN Q2HR PRN PO PSYCHOSIS Last administered on 04/29/17 14:42; Start 04/26/17 at 08:00 Levofloxacin (Levaquin) 500 mg DAILY PO Last administered on 04/26/17 08:06; Start 04/26/17 at 09:00; Stop 04/26/17 at 14:45; Status DC Vitamin D (Vitamin D3) 50,000 unit WEEKLY PO Last administered on 05/03/17 09: 09; Start 04/26/17 at 13:30 Levofloxacin (Levaquin) 250 mg DAILY06 PO Last administered on 04/29/17 05:04 ; Start 04/27/17 at 06:00; Stop 04/29/17 at 15:00; Status DC Divalproex Sodium (Depakote) 250 mg TID PO Last administered on 04/27/17 10:48 ; Start 04/26/17 at 21:00; Stop 04/27/17 at 19:16; Status DC Latanoprost (Xalatan) 1 drop QHS OU Last administered on 05/05/17 20:05; Start 04/27/17 at 14:30 Haloperidol Lactate (Haldol) 5 mg DAILY IM Last administered on 05/01/17 08:51 ; Start 04/28/17 at 09:00; Stop 05/01/17 at 18:53; Status DC Lorazepam (Ativan) 0.5 mg DAILY IM Last administered on 05/01/17 08:55; Start 04/28/17 at 09:00; Stop 05/01/17 at 18:53; Status DC Haloperidol Lactate (Haldol) 5 mg 1X ONCE IM ; Start 04/27/17 at 19:15; Stop at 19:16; Status DC Lorazepam (Ativan) 0.5 mg 1X ONCE IM ; Start 04/27/17 at 19:15; Stop 04/27/17 at 19:16; Status DC Divalproex Sodium (Depakote Sprinkles) 250 mg TID PO Last administered on 14:43; Start 04/27/17 at 21:00; Stop 04/29/17 at 18:55; Status DC Quetiapine Fumarate (SEROquel) 25 mg TID@0900,1300,1700 PO Last administered on 04/29/17 16:48; Start 04/28/17 at 09:00; Stop 04/29/17 at 18:55; Status DC Divalproex Sodium (Depakote Sprinkles) 375 mg TID PO Last administered on 20:03; Start 04/29/17 at 21:00 Paroxetine HCl (Paxil) 10 mg DAILY PO Last administered on 05/05/17 08:25; Start 04/30/17 at 09:00 Quetiapine Fumarate (SEROquel) 37.5 mg TID@0900,1300,1700 PO Last administered on 05/03/17 16:54; Start 04/30/17 at 09:00; Stop 05/03/17 at 18:38; Status DC Quetiapine Fumarate (SEROquel) 50 mg TID@0900,1300,1700 PO Last administered on 05/05/17 17:11; Start 05/04/17 at 09:00 Active Scripts Active Reported Zyprexa (Olanzapine) 2.5 Mg Tablet 2.5 Mg PO PRN Q2HR PRN Tylenol (Acetaminophen) 325 Mg Tablet 650 Mg PO TID Tylenol (Acetaminophen) 325 Mg Tablet 650 Mg PO PRN Q4HRS PRN Tamsulosin Hcl 0.4 Mg Cap.er.24h 0.4 Mg PO QHS Senokot-S Tablet (Sennosides/Docusate Sodium) 1 Each Tablet 1 Each PO BID Paxil (Paroxetine Hcl) 20 Mg Tablet 20 Mg PO DAILY Mirtazapine 15 Mg Tablet 15 Mg PO QHS Miralax (Polyethylene Glycol 3350) 17 Gm Powd.pack 17 Gm PO BID Metoprolol Tartrate 25 Mg Tablet 25 Mg PO BID Lumigan (Bimatoprost) 2.5 Ml Drops 1 Drop OU QHS Benadryl (Diphenhydramine Hcl) 25 Mg Capsule 25 Mg PO PRN Q6HRS PRN Depakote (Divalproex Sodium) 125 Mg Tablet.dr 125 Mg PO TID Biofreeze (Menthol) 118 Ml Gel..ml. 1 Chan TP BID B-12 (Cyanocobalamin (Vitamin B-12)) 1,000 Mcg Tablet 1,000 Mcg PO DAILY Aricept (Donepezil Hcl) 10 Mg Tablet 10 Mg PO QHS Diagnosis: Problems: (1) Anxiety disorder (2) Mild cognitive disorder (3) Impulse control disorder (4) Major depressive disorder, recurrent episode (5) Dementia in Alzheimer's disease with delusions (6) Dementia in Alzheimer's disease with depression (7) Dementia, vascular, with delusions (8) Dementia, vascular, with depression CLARKE WARE MD May 05, 2017 21:13
[2017-05-06 06:11] VITALS: BP 155/75
[2017-05-06] MEDS: CYANOCOBALAMIN (VITAMIN B-12) 1,000 MCG TABLET. PO SCH (08:26)
[2017-05-06] MEDS: ACETAMINOPHEN 325 MG TABLET PO SCH ×3 (08:27→20:27)
[2017-05-06] MEDS: POLYETHYLENE GLYCOL 3350 17 GM PACKET. PO SCH ×2 (08:27→20:27)
[2017-05-06] MEDS: SENNOSIDES/DOCUSATE 8.6/50MG TABLET. PO SCH ×2 (08:27→20:27)
[2017-05-06] MEDS: PARoxetine 10 MG TABLET PO SCH (08:27)
[2017-05-06] MEDS: METOPROLOL TART IMMED RELEASE 25 MG TABLET PO SCH ×2 (08:27→20:27)
[2017-05-06] MEDS: QUEtiapine 50 MG TABLET. PO SCH ×3 (08:27→17:37)
[2017-05-06] MEDS: DIVALPROEX 125 MG CAP.SPRINK PO SCH ×3 (08:27→20:27)
[2017-05-06 15:56] VITALS: BP 129/76
[2017-05-06] MEDS: TAMSULOSIN 0.4 MG CAP.ER.24H. PO SCH (20:27)
[2017-05-06] MEDS: DONEPEZIL HCL 10 MG TABLET PO SCH (20:27)
[2017-05-06] MEDS: MIRTAZAPINE 15 MG TABLET PO SCH (20:27)
[2017-05-06] MEDS: LATANOPROST 0.005% OPHTH SOLUTION 2.5ML BOTTLE. OU SCH (20:28)
--- NOTE | 2017-05-06 21:14 | PN ---
DATE: 05/06/2017 This is a late entry for 05/04/2017 and covers elements not covered in my initial of 05/04/2017. I met with the patient the evening of 05/04/2017 in his room. He slept 9 hours previous evening. Remains confused, wandering and has a scowl about his face, but less paranoid, attempting to play solitaire. His came in and he was calmer with her, not agitated when he left. REVIEW OF SYSTEMS: No CV, , pulmonary, eye, ENT system symptoms on review. MENTAL STATUS EXAM: Oriented to himself and situation. Speech has moderate latency, often responses monosyllabic. Abstraction fair, computation impaired, language function intact. Mood and affect still withdrawn. LABORATORY DATA: Reviewed. IMPRESSION: Unchanged from initial note. PLAN: Continue Seroquel 50 mg 3 times a day, Aricept 10 mg a day, Depakote 375 t.i.d., Ativan p.r.n., Namenda 10 b.i.d., Remeron 15 at bedtime, Paxil 10 mg a day, Zyprexa p.r.n. Valproic acid level is therapeutic at 55. Reviewed drug interactions, risk/benefit ratio favors no further change. CLARKE WARE MD DR: ILANA/angelo JOB#: [id number] / [id number]
--- NOTE | 2017-05-06 21:19 | PDOC ---
Exam Mitch Demential Exam: Mitch Note: Please also refer to the separate dictated note~for this date of service dictated separately.~Patient seen individually. Discussed the patient with Nursing staff reviewed the chart.~Reviewed interim history and current functioning. Reviewed vital signs,~Labs/ Radiology~and current medications noted below. Continue current treatment with the changes noted in the dictated addendum note Assessment: Vital Signs: Vital Signs Date Time Temp Pulse Resp B/P (MAP) Pulse Ox O2 Delivery O2 Flow Rate FiO2 05/06/17 20:27 60 129/76 05/06/17 15:56 97.5 16 99 05/03/17 05:59 Room Air I&O Intake and Output 05/07/17 07:00 Intake Total 960 ml Balance 960 ml Intake Oral 960 ml # Bowel Movements 1 Current Medications: Meds: Current Medications Ceftriaxone Sodium 1 gm/ Sodium Chloride 50 ml @ 100 mls/hr 1X ONCE IV ; Start 04/25/17 at 18:00; Stop 04/25/17 at 18:01; Status DC Levofloxacin (Levaquin) 500 mg 1X ONCE PO Last administered on 04/25/17 18:21 ; Start 04/25/17 at 18:10; Stop 04/25/17 at 18:11; Status DC Olanzapine (ZyPREXA ZYDIS) 10 mg 1X ONCE PO Last administered on 04/25/17 18: 21; Start 04/25/17 at 18:10; Stop 04/25/17 at 18:11; Status DC Lorazepam (Ativan) 0.5 mg PRN Q12HR PRN PO ANXIETY / AGITATION Last administered on 04/25/17 18:21; Start 04/25/17 at 18:15; Stop 04/26/17 at 07:49 ; Status DC Acetaminophen (Tylenol) 650 mg PRN Q6HRS PRN PO PAIN / TEMP; Start 04/25/17 at 19:45; Stop 04/25/17 at 20:08; Status DC Multi-Ingredient Ointment (Analgesic [place]) 1 chan PRN QID PRN TP MUSCLE PAIN; Start 04/25/17 at 19:45 Al Hydroxide/Mg Hydroxide (Mylanta Plus Xs) 15 ml PRN AFTMEALHC PRN PO DYSPEPSIA; Start 04/25/17 at 19:45 Magnesium Hydroxide (Milk Of Magnesia) 2,400 mg PRN QHS PRN PO CONSTIPATION; Start 04/25/17 at 19:45 Divalproex Sodium (Depakote) 125 mg TID PO Last administered on 04/26/17 15:26 ; Start 04/25/17 at 21:00; Stop 04/26/17 at 18:27; Status DC Donepezil HCl (Aricept) 10 mg QHS PO Last administered on 05/06/17 20:27; Start 04/25/17 at 21:00 Mirtazapine (Remeron) 15 mg QHS PO Last administered on 05/06/17 20:27; Start 04/25/17 at 21:00 Olanzapine (ZyPREXA) 2.5 mg PRN Q2HR PRN PO PSYCHOSIS; Start 04/25/17 at 20:00 ; Stop 04/26/17 at 08:09; Status DC Paroxetine HCl (Paxil) 20 mg DAILY PO Last administered on 04/29/17 09:43; Start 04/26/17 at 09:00; Stop 04/29/17 at 18:55; Status DC Acetaminophen (Tylenol) 650 mg PRN Q4HRS PRN PO PAIN / TEMP; Start 04/25/17 at 20:00 Acetaminophen (Tylenol) 650 mg TID PO Last administered on 05/06/17 20:27; Start 04/25/17 at 21:00 Cyanocobalamin (Vitamin B-12) 1,000 mcg DAILY PO Last administered on 08:26; Start 04/26/17 at 09:00 Diphenhydramine HCl (Benadryl) 25 mg PRN Q6HRS PRN PO ITCHING Last administered on 04/28/17 19:26; Start 04/25/17 at 20:00 Metoprolol Tartrate (Lopressor) 25 mg BID PO Last administered on 05/06/17 20: 27; Start 04/25/17 at 21:00 Polyethylene Glycol (miraLAX) 17 gm BID PO Last administered on 05/06/17 20:27 ; Start 04/25/17 at 21:00 Senna/Docusate Sodium (Senna Plus) 1 tab BID PO Last administered on 05/06/17 20:27; Start 04/25/17 at 21:00 Tamsulosin HCl (Flomax) 0.4 mg QHS PO Last administered on 05/06/17 20:27; Start 04/25/17 at 21:00 Latanoprost (Xalatan) 1 drop QHS OU Last administered on 04/26/17 20:17; Start 04/25/17 at 21:00; Stop 04/27/17 at 14:30; Status DC Non-Formulary Medication 1 chan BID TP ; Start 04/25/17 at 21:00; Stop 04/25/17 at 21:00; Status DC Lorazepam (Ativan) 0.5 mg PRN Q2HR PRN PO ANXIETY / AGITATION Last administered on 04/27/17 08:42; Start 04/26/17 at 08:00 Olanzapine (ZyPREXA ZYDIS) 5 mg PRN Q2HR PRN PO PSYCHOSIS Last administered on 04/29/17 14:42; Start 04/26/17 at 08:00 Levofloxacin (Levaquin) 500 mg DAILY PO Last administered on 04/26/17 08:06; Start 04/26/17 at 09:00; Stop 04/26/17 at 14:45; Status DC Vitamin D (Vitamin D3) 50,000 unit WEEKLY PO Last administered on 05/03/17 09: 09; Start 04/26/17 at 13:30 Levofloxacin (Levaquin) 250 mg DAILY06 PO Last administered on 04/29/17 05:04 ; Start 04/27/17 at 06:00; Stop 04/29/17 at 15:00; Status DC Divalproex Sodium (Depakote) 250 mg TID PO Last administered on 04/27/17 10:48 ; Start 04/26/17 at 21:00; Stop 04/27/17 at 19:16; Status DC Latanoprost (Xalatan) 1 drop QHS OU Last administered on 05/06/17 20:28; Start 04/27/17 at 14:30 Haloperidol Lactate (Haldol) 5 mg DAILY IM Last administered on 05/01/17 08:51 ; Start 04/28/17 at 09:00; Stop 05/01/17 at 18:53; Status DC Lorazepam (Ativan) 0.5 mg DAILY IM Last administered on 05/01/17 08:55; Start 04/28/17 at 09:00; Stop 05/01/17 at 18:53; Status DC Haloperidol Lactate (Haldol) 5 mg 1X ONCE IM ; Start 04/27/17 at 19:15; Stop at 19:16; Status DC Lorazepam (Ativan) 0.5 mg 1X ONCE IM ; Start 04/27/17 at 19:15; Stop 04/27/17 at 19:16; Status DC Divalproex Sodium (Depakote Sprinkles) 250 mg TID PO Last administered on 14:43; Start 04/27/17 at 21:00; Stop 04/29/17 at 18:55; Status DC Quetiapine Fumarate (SEROquel) 25 mg TID@0900,1300,1700 PO Last administered on 04/29/17 16:48; Start 04/28/17 at 09:00; Stop 04/29/17 at 18:55; Status DC Divalproex Sodium (Depakote Sprinkles) 375 mg TID PO Last administered on 20:27; Start 04/29/17 at 21:00 Paroxetine HCl (Paxil) 10 mg DAILY PO Last administered on 05/06/17 08:27; Start 04/30/17 at 09:00 Quetiapine Fumarate (SEROquel) 37.5 mg TID@0900,1300,1700 PO Last administered on 05/03/17 16:54; Start 04/30/17 at 09:00; Stop 05/03/17 at 18:38; Status DC Quetiapine Fumarate (SEROquel) 50 mg TID@0900,1300,1700 PO Last administered on 05/06/17 17:37; Start 05/04/17 at 09:00 Active Scripts Active Reported Zyprexa (Olanzapine) 2.5 Mg Tablet 2.5 Mg PO PRN Q2HR PRN Tylenol (Acetaminophen) 325 Mg Tablet 650 Mg PO TID Tylenol (Acetaminophen) 325 Mg Tablet 650 Mg PO PRN Q4HRS PRN Tamsulosin Hcl 0.4 Mg Cap.er.24h 0.4 Mg PO QHS Senokot-S Tablet (Sennosides/Docusate Sodium) 1 Each Tablet 1 Each PO BID Paxil (Paroxetine Hcl) 20 Mg Tablet 20 Mg PO DAILY Mirtazapine 15 Mg Tablet 15 Mg PO QHS Miralax (Polyethylene Glycol 3350) 17 Gm Powd.pack 17 Gm PO BID Metoprolol Tartrate 25 Mg Tablet 25 Mg PO BID Lumigan (Bimatoprost) 2.5 Ml Drops 1 Drop OU QHS Benadryl (Diphenhydramine Hcl) 25 Mg Capsule 25 Mg PO PRN Q6HRS PRN Depakote (Divalproex Sodium) 125 Mg Tablet.dr 125 Mg PO TID Biofreeze (Menthol) 118 Ml Gel..ml. 1 Chan TP BID B-12 (Cyanocobalamin (Vitamin B-12)) 1,000 Mcg Tablet 1,000 Mcg PO DAILY Aricept (Donepezil Hcl) 10 Mg Tablet 10 Mg PO QHS Diagnosis: Problems: (1) Anxiety disorder (2) Mild cognitive disorder (3) Impulse control disorder (4) Major depressive disorder, recurrent episode (5) Dementia in Alzheimer's disease with delusions (6) Dementia in Alzheimer's disease with depression (7) Dementia, vascular, with delusions (8) Dementia, vascular, with depression CLARKE WARE MD May 06, 2017 21:19
--- NOTE | 2017-05-07 02:58 | PN ---
DATE: 05/05/2017 PSYCHIATRIC PROGRESS NOTE This late entry 05/05/2017 covers elements, not covered in my initial note of 05/05/2017. SUBJECTIVE: The patient was staffed at a treatment team meeting with the entire team morning of 05/05/2017, and patient's , Anushka, attended the conference. We discussed the patient's diagnosis, progress, medications, and discharge plans at some length. Reportedly, lives in the same facility, [facility], as the patient, but in the independent living side. The patient has been little agitated with one of the other demented patients who has been constipated and restless, but he does redirect. I met with him in his room. REVIEW OF SYSTEMS: No CV, , pulmonary, eye, ENT system symptoms on review. Reliability varies. MENTAL STATUS EXAM: Oriented to himself. Speech has some latency, often responses monosyllabic, coherent. Abstraction fair, computation impaired, language function intact. Mood and affect still withdrawn. LABORATORY DATA: Reviewed. IMPRESSION: Unchanged from initial note. PLAN: Valproic acid level therapeutic at 55, continue psychotropics mentioned in my initial note. If agitation and mood lability persist, we may increase Seroquel further, but currently it is at reasonable dosage 50 mg 3 times a day. Reviewed drug interactions. Risks/benefit ratio favors no further change. MAN Jude WARE MD DR: ILANA/angelo JOB#: [id number] / [id number]
[2017-05-07 06:10] VITALS: BP 166/95
[2017-05-07] MEDS: DIVALPROEX 125 MG CAP.SPRINK PO SCH ×3 (08:52→19:52)
[2017-05-07] MEDS: ACETAMINOPHEN 325 MG TABLET PO SCH ×3 (08:53→19:52)
[2017-05-07] MEDS: PARoxetine 10 MG TABLET PO SCH (08:53)
[2017-05-07] MEDS: QUEtiapine 50 MG TABLET. PO SCH ×3 (08:53→16:59)
[2017-05-07] MEDS: POLYETHYLENE GLYCOL 3350 17 GM PACKET. PO SCH ×2 (08:53→19:50)
[2017-05-07] MEDS: METOPROLOL TART IMMED RELEASE 25 MG TABLET PO SCH ×2 (08:53→19:51)
[2017-05-07] MEDS: SENNOSIDES/DOCUSATE 8.6/50MG TABLET. PO SCH ×2 (08:53→19:51)
[2017-05-07] MEDS: CYANOCOBALAMIN (VITAMIN B-12) 1,000 MCG TABLET. PO SCH (08:54)
[2017-05-07 09:40] LABS: BASO # 0.1 x10^3/uL (0.0-0.2); BASO % 1 % (0-3); EOS # 0.2 x10^3/uL (0.0-0.7); EOS % 3 % (0-3); HEMOGLOBIN 12.5 g/dL (13.0-17.5); LYMPH # 1.1 x10^3/uL (1.0-4.8); LYMPH % 17 % (24-48); MEAN CORPUSCULAR HEMOGLOBIN 28 pg (25-35); MEAN CORPUSCULAR HGB CONC 34 g/dL (31-37); MEAN CORPUSCULAR VOLUME 83 fL (79-100); MONO # 0.6 x10^3/uL (0.0-1.1); MONO % 9 % (0-9); NEUT # 4.5 x10^3uL (1.8-7.7); NEUT % 70 % (31-73); PLATELET COUNT 236 x10^3/uL (140-400); RED BLOOD COUNT 4.45 x10^6/uL (4.30-5.70); WHITE BLOOD COUNT 6.4 x10^3/uL (4.0-11.0)
[2017-05-07 09:44] LABS: ALBUMIN 3.1 g/dL (3.4-5.0); ALBUMIN/GLOBULIN RATIO 0.8 (1.0-1.7); GFR 72.8; POTASSIUM 3.9 mmol/L (3.5-5.1); TOTAL BILIRUBIN 0.4 mg/dL (0.2-1.0)
[2017-05-07 16:20] VITALS: BP 99/63
--- NOTE | 2017-05-07 18:00 | PN ---
DATE: 05/06/2017 PSYCHIATRIC PROGRESS NOTE This is a late entry 05/06/2017, covers elements not covered in my initial note of 05/06/2017. SUBJECTIVE: I met with the patient the evening of 05/06/2017. Overall, the patient is doing better, seems less psychotic, but he appears intimidating because of his height and size. compliant with his medication. Short term memory is impaired. He was not agitated after his left. Remote memory is good. He tends to get bored at times. REVIEW OF SYSTEMS: No CV, , pulmonary, eye, ENT system symptoms on review. Reliability poor. MENTAL STATUS EXAM: Oriented to himself and situation. Speech moderate latency, often responses monosyllabic. Abstraction fair, computation impaired, somewhat paranoid, less agitated. LABORATORY DATA: Reviewed. IMPRESSION: Unchanged from initial note. PLAN: Continue current psychotropics. Review drug interactions. Risk/benefit ratio favors no further change at this time. MAN Jude WARE MD DR: ILANA/angelo JOB#: [id number] / [id number]
[2017-05-07] MEDS: LATANOPROST 0.005% OPHTH SOLUTION 2.5ML BOTTLE. OU SCH (19:50)
[2017-05-07] MEDS: DONEPEZIL HCL 10 MG TABLET PO SCH (19:51)
[2017-05-07] MEDS: TAMSULOSIN 0.4 MG CAP.ER.24H. PO SCH (19:52)
[2017-05-07] MEDS: MIRTAZAPINE 15 MG TABLET PO SCH (19:52)
--- NOTE | 2017-05-07 23:02 | PDOC ---
Exam Mitch Demential Exam: Mitch Note: Please also refer to the separate dictated note~for this date of service dictated separately.~Patient seen individually. Discussed the patient with Nursing staff reviewed the chart.~Reviewed interim history and current functioning. Reviewed vital signs,~Labs/ Radiology~and current medications noted below. Continue current treatment with the changes noted in the dictated addendum note Assessment: Vital Signs: Vital Signs Date Time Temp Pulse Resp B/P (MAP) Pulse Ox O2 Delivery O2 Flow Rate FiO2 05/07/17 19:51 72 99/63 05/07/17 16:20 97.8 18 96 05/07/17 06:10 Room Air I&O Intake and Output 05/08/17 07:00 Intake Total 840 ml Balance 840 ml Intake Oral 840 ml Labs: Laboratory Tests Test 05/07/17 09:18 White Blood Count 6.4 x10^3/uL (4.0-11.0) Red Blood Count 4.45 x10^6/uL (4.30-5.70) Hemoglobin 12.5 g/dL (13.0-17.5) L Hematocrit 37.0 % (39.0-53.0) L Mean Corpuscular Volume 83 fL (79-100) Mean Corpuscular Hemoglobin 28 pg (25-35) Mean Corpuscular Hemoglobin Concent 34 g/dL (31-37) Red Cell Distribution Width 18.0 % (11.5-14.5) H Platelet Count 236 x10^3/uL (140-400) Neutrophils (%) (Auto) 70 % (31-73) Lymphocytes (%) (Auto) 17 % (24-48) L Monocytes (%) (Auto) 9 % (0-9) Eosinophils (%) (Auto) 3 % (0-3) Basophils (%) (Auto) 1 % (0-3) Neutrophils # (Auto) 4.5 x10^3uL (1.8-7.7) Lymphocytes # (Auto) 1.1 x10^3/uL (1.0-4.8) Monocytes # (Auto) 0.6 x10^3/uL (0.0-1.1) Eosinophils # (Auto) 0.2 x10^3/uL (0.0-0.7) Basophils # (Auto) 0.1 x10^3/uL (0.0-0.2) Sodium Level 143 mmol/L (136-145) Potassium Level 3.9 mmol/L (3.5-5.1) Chloride Level 107 mmol/L (98-107) Carbon Dioxide Level 31 mmol/L (21-32) Anion Gap 5 (6-14) L Blood Urea Nitrogen 19 mg/dL (8-26) Creatinine 1.0 mg/dL (0.7-1.3) Estimated GFR (Cockcroft-Gault) 72.8 BUN/Creatinine Ratio 19 (6-20) Glucose Level 109 mg/dL (70-99) H Calcium Level 9.0 mg/dL (8.5-10.1) Total Bilirubin 0.4 mg/dL (0.2-1.0) Aspartate Amino Transferase (AST) 17 U/L (15-37) Alanine Aminotransferase (ALT) 17 U/L (16-63) Alkaline Phosphatase 51 U/L (46-116) Total Protein 7.0 g/dL (6.4-8.2) Albumin 3.1 g/dL (3.4-5.0) L Albumin/Globulin Ratio 0.8 (1.0-1.7) L Current Medications: Meds: Current Medications Ceftriaxone Sodium 1 gm/ Sodium Chloride 50 ml @ 100 mls/hr 1X ONCE IV ; Start 04/25/17 at 18:00; Stop 04/25/17 at 18:01; Status DC Levofloxacin (Levaquin) 500 mg 1X ONCE PO Last administered on 04/25/17 18:21 ; Start 04/25/17 at 18:10; Stop 04/25/17 at 18:11; Status DC Olanzapine (ZyPREXA ZYDIS) 10 mg 1X ONCE PO Last administered on 04/25/17 18: 21; Start 04/25/17 at 18:10; Stop 04/25/17 at 18:11; Status DC Lorazepam (Ativan) 0.5 mg PRN Q12HR PRN PO ANXIETY / AGITATION Last administered on 04/25/17 18:21; Start 04/25/17 at 18:15; Stop 04/26/17 at 07:49 ; Status DC Acetaminophen (Tylenol) 650 mg PRN Q6HRS PRN PO PAIN / TEMP; Start 04/25/17 at 19:45; Stop 04/25/17 at 20:08; Status DC Multi-Ingredient Ointment (Analgesic [place]) 1 chan PRN QID PRN TP MUSCLE PAIN; Start 04/25/17 at 19:45 Al Hydroxide/Mg Hydroxide (Mylanta Plus Xs) 15 ml PRN AFTMEALHC PRN PO DYSPEPSIA; Start 04/25/17 at 19:45 Magnesium Hydroxide (Milk Of Magnesia) 2,400 mg PRN QHS PRN PO CONSTIPATION; Start 04/25/17 at 19:45 Divalproex Sodium (Depakote) 125 mg TID PO Last administered on 04/26/17 15:26 ; Start 04/25/17 at 21:00; Stop 04/26/17 at 18:27; Status DC Donepezil HCl (Aricept) 10 mg QHS PO Last administered on 05/07/17 19:51; Start 04/25/17 at 21:00 Mirtazapine (Remeron) 15 mg QHS PO Last administered on 05/07/17 19:52; Start 04/25/17 at 21:00 Olanzapine (ZyPREXA) 2.5 mg PRN Q2HR PRN PO PSYCHOSIS; Start 04/25/17 at 20:00 ; Stop 04/26/17 at 08:09; Status DC Paroxetine HCl (Paxil) 20 mg DAILY PO Last administered on 04/29/17 09:43; Start 04/26/17 at 09:00; Stop 04/29/17 at 18:55; Status DC Acetaminophen (Tylenol) 650 mg PRN Q4HRS PRN PO PAIN / TEMP; Start 04/25/17 at 20:00 Acetaminophen (Tylenol) 650 mg TID PO Last administered on 05/07/17 19:52; Start 04/25/17 at 21:00 Cyanocobalamin (Vitamin B-12) 1,000 mcg DAILY PO Last administered on 08:54; Start 04/26/17 at 09:00 Diphenhydramine HCl (Benadryl) 25 mg PRN Q6HRS PRN PO ITCHING Last administered on 04/28/17 19:26; Start 04/25/17 at 20:00 Metoprolol Tartrate (Lopressor) 25 mg BID PO Last administered on 05/07/17 08: 53; Start 04/25/17 at 21:00 Polyethylene Glycol (miraLAX) 17 gm BID PO Last administered on 05/07/17 19:50 ; Start 04/25/17 at 21:00 Senna/Docusate Sodium (Senna Plus) 1 tab BID PO Last administered on 05/07/17 19:51; Start 04/25/17 at 21:00 Tamsulosin HCl (Flomax) 0.4 mg QHS PO Last administered on 05/07/17 19:52; Start 04/25/17 at 21:00 Latanoprost (Xalatan) 1 drop QHS OU Last administered on 04/26/17 20:17; Start 04/25/17 at 21:00; Stop 04/27/17 at 14:30; Status DC Non-Formulary Medication 1 chan BID TP ; Start 04/25/17 at 21:00; Stop 04/25/17 at 21:00; Status DC Lorazepam (Ativan) 0.5 mg PRN Q2HR PRN PO ANXIETY / AGITATION Last administered on 04/27/17 08:42; Start 04/26/17 at 08:00 Olanzapine (ZyPREXA ZYDIS) 5 mg PRN Q2HR PRN PO PSYCHOSIS Last administered on 04/29/17 14:42; Start 04/26/17 at 08:00 Levofloxacin (Levaquin) 500 mg DAILY PO Last administered on 04/26/17 08:06; Start 04/26/17 at 09:00; Stop 04/26/17 at 14:45; Status DC Vitamin D (Vitamin D3) 50,000 unit WEEKLY PO Last administered on 05/03/17 09: 09; Start 04/26/17 at 13:30 Levofloxacin (Levaquin) 250 mg DAILY06 PO Last administered on 04/29/17 05:04 ; Start 04/27/17 at 06:00; Stop 04/29/17 at 15:00; Status DC Divalproex Sodium (Depakote) 250 mg TID PO Last administered on 04/27/17 10:48 ; Start 04/26/17 at 21:00; Stop 04/27/17 at 19:16; Status DC Latanoprost (Xalatan) 1 drop QHS OU Last administered on 05/07/17 19:50; Start 04/27/17 at 14:30 Haloperidol Lactate (Haldol) 5 mg DAILY IM Last administered on 05/01/17 08:51 ; Start 04/28/17 at 09:00; Stop 05/01/17 at 18:53; Status DC Lorazepam (Ativan) 0.5 mg DAILY IM Last administered on 05/01/17 08:55; Start 04/28/17 at 09:00; Stop 05/01/17 at 18:53; Status DC Haloperidol Lactate (Haldol) 5 mg 1X ONCE IM ; Start 04/27/17 at 19:15; Stop at 19:16; Status DC Lorazepam (Ativan) 0.5 mg 1X ONCE IM ; Start 04/27/17 at 19:15; Stop 04/27/17 at 19:16; Status DC Divalproex Sodium (Depakote Sprinkles) 250 mg TID PO Last administered on 14:43; Start 04/27/17 at 21:00; Stop 04/29/17 at 18:55; Status DC Quetiapine Fumarate (SEROquel) 25 mg TID@0900,1300,1700 PO Last administered on 04/29/17 16:48; Start 04/28/17 at 09:00; Stop 04/29/17 at 18:55; Status DC Divalproex Sodium (Depakote Sprinkles) 375 mg TID PO Last administered on 19:52; Start 04/29/17 at 21:00 Paroxetine HCl (Paxil) 10 mg DAILY PO Last administered on 05/07/17 08:53; Start 04/30/17 at 09:00 Quetiapine Fumarate (SEROquel) 37.5 mg TID@0900,1300,1700 PO Last administered on 05/03/17 16:54; Start 04/30/17 at 09:00; Stop 05/03/17 at 18:38; Status DC Quetiapine Fumarate (SEROquel) 50 mg TID@0900,1300,1700 PO Last administered on 05/07/17 16:59; Start 05/04/17 at 09:00 Active Scripts Active Reported Zyprexa (Olanzapine) 2.5 Mg Tablet 2.5 Mg PO PRN Q2HR PRN Tylenol (Acetaminophen) 325 Mg Tablet 650 Mg PO TID Tylenol (Acetaminophen) 325 Mg Tablet 650 Mg PO PRN Q4HRS PRN Tamsulosin Hcl 0.4 Mg Cap.er.24h 0.4 Mg PO QHS Senokot-S Tablet (Sennosides/Docusate Sodium) 1 Each Tablet 1 Tab PO BID Paxil (Paroxetine Hcl) 20 Mg Tablet 20 Mg PO DAILY Mirtazapine 15 Mg Tablet 15 Mg PO QHS Miralax (Polyethylene Glycol 3350) 17 Gm Powd.pack 17 Gm PO BID Metoprolol Tartrate 25 Mg Tablet 25 Mg PO BID Lumigan (Bimatoprost) 2.5 Ml Drops 1 Drop OU QHS Benadryl (Diphenhydramine Hcl) 25 Mg Capsule 25 Mg PO PRN Q6HRS PRN Depakote (Divalproex Sodium) 125 Mg Tablet.dr 125 Mg PO TID Biofreeze (Menthol) 118 Ml Gel..ml. 1 Chan TP BID B-12 (Cyanocobalamin (Vitamin B-12)) 1,000 Mcg Tablet 1,000 Mcg PO DAILY Aricept (Donepezil Hcl) 10 Mg Tablet 10 Mg PO QHS Diagnosis: Problems: (1) Anxiety disorder (2) Mild cognitive disorder (3) Impulse control disorder (4) Major depressive disorder, recurrent episode (5) Dementia in Alzheimer's disease with delusions (6) Dementia in Alzheimer's disease with depression (7) Dementia, vascular, with delusions (8) Dementia, vascular, with depression CLARKE WARE MD May 07, 2017 23:02
[2017-05-08 06:02] VITALS: BP 152/89
[2017-05-08] MEDS: DIVALPROEX 125 MG CAP.SPRINK PO SCH ×3 (08:32→20:39)
[2017-05-08] MEDS: SENNOSIDES/DOCUSATE 8.6/50MG TABLET. PO SCH ×2 (08:33→20:39)
[2017-05-08] MEDS: POLYETHYLENE GLYCOL 3350 17 GM PACKET. PO SCH ×2 (08:33→20:39)
[2017-05-08] MEDS: ACETAMINOPHEN 325 MG TABLET PO SCH ×3 (08:33→20:40)
[2017-05-08] MEDS: METOPROLOL TART IMMED RELEASE 25 MG TABLET PO SCH ×2 (08:33→20:40)
[2017-05-08] MEDS: QUEtiapine 50 MG TABLET. PO SCH ×3 (08:33→17:00)
[2017-05-08] MEDS: PARoxetine 10 MG TABLET PO SCH (08:33)
[2017-05-08] MEDS: CYANOCOBALAMIN (VITAMIN B-12) 1,000 MCG TABLET. PO SCH (08:34)
[2017-05-08 15:53] VITALS: BP 107/69
[2017-05-08] MEDS: MIRTAZAPINE 15 MG TABLET PO SCH (20:39)
[2017-05-08] MEDS: TAMSULOSIN 0.4 MG CAP.ER.24H. PO SCH (20:39)
[2017-05-08] MEDS: DONEPEZIL HCL 10 MG TABLET PO SCH (20:40)
[2017-05-08] MEDS: LATANOPROST 0.005% OPHTH SOLUTION 2.5ML BOTTLE. OU SCH (20:43)
--- NOTE | 2017-05-08 20:48 | PDOC ---
Exam Mitch Demential Exam: Mitch Note: Please also refer to the separate dictated note~for this date of service dictated separately.~Patient seen individually. Discussed the patient with Nursing staff reviewed the chart.~Reviewed interim history and current functioning. Reviewed vital signs,~Labs/ Radiology~and current medications noted below. Continue current treatment with the changes noted in the dictated addendum note Assessment: Vital Signs: Vital Signs Date Time Temp Pulse Resp B/P (MAP) Pulse Ox O2 Delivery O2 Flow Rate FiO2 05/08/17 20:40 62 107/69 05/08/17 15:53 97.4 20 97 05/07/17 06:10 Room Air I&O Intake and Output 05/09/17 07:00 Intake Total 840 ml Balance 840 ml Intake Oral 840 ml Current Medications: Meds: Current Medications Ceftriaxone Sodium 1 gm/ Sodium Chloride 50 ml @ 100 mls/hr 1X ONCE IV ; Start 04/25/17 at 18:00; Stop 04/25/17 at 18:01; Status DC Levofloxacin (Levaquin) 500 mg 1X ONCE PO Last administered on 04/25/17 18:21 ; Start 04/25/17 at 18:10; Stop 04/25/17 at 18:11; Status DC Olanzapine (ZyPREXA ZYDIS) 10 mg 1X ONCE PO Last administered on 04/25/17 18: 21; Start 04/25/17 at 18:10; Stop 04/25/17 at 18:11; Status DC Lorazepam (Ativan) 0.5 mg PRN Q12HR PRN PO ANXIETY / AGITATION Last administered on 04/25/17 18:21; Start 04/25/17 at 18:15; Stop 04/26/17 at 07:49 ; Status DC Acetaminophen (Tylenol) 650 mg PRN Q6HRS PRN PO PAIN / TEMP; Start 04/25/17 at 19:45; Stop 04/25/17 at 20:08; Status DC Multi-Ingredient Ointment (Analgesic [place]) 1 chan PRN QID PRN TP MUSCLE PAIN; Start 04/25/17 at 19:45 Al Hydroxide/Mg Hydroxide (Mylanta Plus Xs) 15 ml PRN AFTMEALHC PRN PO DYSPEPSIA; Start 04/25/17 at 19:45 Magnesium Hydroxide (Milk Of Magnesia) 2,400 mg PRN QHS PRN PO CONSTIPATION; Start 04/25/17 at 19:45 Divalproex Sodium (Depakote) 125 mg TID PO Last administered on 04/26/17 15:26 ; Start 04/25/17 at 21:00; Stop 04/26/17 at 18:27; Status DC Donepezil HCl (Aricept) 10 mg QHS PO Last administered on 05/08/17 20:40; Start 04/25/17 at 21:00 Mirtazapine (Remeron) 15 mg QHS PO Last administered on 05/08/17 20:39; Start 04/25/17 at 21:00 Olanzapine (ZyPREXA) 2.5 mg PRN Q2HR PRN PO PSYCHOSIS; Start 04/25/17 at 20:00 ; Stop 04/26/17 at 08:09; Status DC Paroxetine HCl (Paxil) 20 mg DAILY PO Last administered on 04/29/17 09:43; Start 04/26/17 at 09:00; Stop 04/29/17 at 18:55; Status DC Acetaminophen (Tylenol) 650 mg PRN Q4HRS PRN PO PAIN / TEMP; Start 04/25/17 at 20:00 Acetaminophen (Tylenol) 650 mg TID PO Last administered on 05/08/17 20:40; Start 04/25/17 at 21:00 Cyanocobalamin (Vitamin B-12) 1,000 mcg DAILY PO Last administered on 08:34; Start 04/26/17 at 09:00 Diphenhydramine HCl (Benadryl) 25 mg PRN Q6HRS PRN PO ITCHING Last administered on 04/28/17 19:26; Start 04/25/17 at 20:00 Metoprolol Tartrate (Lopressor) 25 mg BID PO Last administered on 05/08/17 20: 40; Start 04/25/17 at 21:00 Polyethylene Glycol (miraLAX) 17 gm BID PO Last administered on 05/08/17 20:39 ; Start 04/25/17 at 21:00 Senna/Docusate Sodium (Senna Plus) 1 tab BID PO Last administered on 05/08/17 20:39; Start 04/25/17 at 21:00 Tamsulosin HCl (Flomax) 0.4 mg QHS PO Last administered on 05/08/17 20:39; Start 04/25/17 at 21:00 Latanoprost (Xalatan) 1 drop QHS OU Last administered on 04/26/17 20:17; Start 04/25/17 at 21:00; Stop 04/27/17 at 14:30; Status DC Non-Formulary Medication 1 chan BID TP ; Start 04/25/17 at 21:00; Stop 04/25/17 at 21:00; Status DC Lorazepam (Ativan) 0.5 mg PRN Q2HR PRN PO ANXIETY / AGITATION Last administered on 04/27/17 08:42; Start 04/26/17 at 08:00 Olanzapine (ZyPREXA ZYDIS) 5 mg PRN Q2HR PRN PO PSYCHOSIS Last administered on 04/29/17 14:42; Start 04/26/17 at 08:00 Levofloxacin (Levaquin) 500 mg DAILY PO Last administered on 04/26/17 08:06; Start 04/26/17 at 09:00; Stop 04/26/17 at 14:45; Status DC Vitamin D (Vitamin D3) 50,000 unit WEEKLY PO Last administered on 05/03/17 09: 09; Start 04/26/17 at 13:30 Levofloxacin (Levaquin) 250 mg DAILY06 PO Last administered on 04/29/17 05:04 ; Start 04/27/17 at 06:00; Stop 04/29/17 at 15:00; Status DC Divalproex Sodium (Depakote) 250 mg TID PO Last administered on 04/27/17 10:48 ; Start 04/26/17 at 21:00; Stop 04/27/17 at 19:16; Status DC Latanoprost (Xalatan) 1 drop QHS OU Last administered on 05/08/17 20:43; Start 04/27/17 at 14:30 Haloperidol Lactate (Haldol) 5 mg DAILY IM Last administered on 05/01/17 08:51 ; Start 04/28/17 at 09:00; Stop 05/01/17 at 18:53; Status DC Lorazepam (Ativan) 0.5 mg DAILY IM Last administered on 05/01/17 08:55; Start 04/28/17 at 09:00; Stop 05/01/17 at 18:53; Status DC Haloperidol Lactate (Haldol) 5 mg 1X ONCE IM ; Start 04/27/17 at 19:15; Stop at 19:16; Status DC Lorazepam (Ativan) 0.5 mg 1X ONCE IM ; Start 04/27/17 at 19:15; Stop 04/27/17 at 19:16; Status DC Divalproex Sodium (Depakote Sprinkles) 250 mg TID PO Last administered on 14:43; Start 04/27/17 at 21:00; Stop 04/29/17 at 18:55; Status DC Quetiapine Fumarate (SEROquel) 25 mg TID@0900,1300,1700 PO Last administered on 04/29/17 16:48; Start 04/28/17 at 09:00; Stop 04/29/17 at 18:55; Status DC Divalproex Sodium (Depakote Sprinkles) 375 mg TID PO Last administered on 20:39; Start 04/29/17 at 21:00 Paroxetine HCl (Paxil) 10 mg DAILY PO Last administered on 05/08/17 08:33; Start 04/30/17 at 09:00 Quetiapine Fumarate (SEROquel) 37.5 mg TID@0900,1300,1700 PO Last administered on 05/03/17 16:54; Start 04/30/17 at 09:00; Stop 05/03/17 at 18:38; Status DC Quetiapine Fumarate (SEROquel) 50 mg TID@0900,1300,1700 PO Last administered on 05/08/17 17:00; Start 05/04/17 at 09:00 Active Scripts Active Reported Zyprexa (Olanzapine) 2.5 Mg Tablet 2.5 Mg PO PRN Q2HR PRN Tylenol (Acetaminophen) 325 Mg Tablet 650 Mg PO TID Tylenol (Acetaminophen) 325 Mg Tablet 650 Mg PO PRN Q4HRS PRN Tamsulosin Hcl 0.4 Mg Cap.er.24h 0.4 Mg PO QHS Senokot-S Tablet (Sennosides/Docusate Sodium) 1 Each Tablet 1 Tab PO BID Paxil (Paroxetine Hcl) 20 Mg Tablet 20 Mg PO DAILY Mirtazapine 15 Mg Tablet 15 Mg PO QHS Miralax (Polyethylene Glycol 3350) 17 Gm Powd.pack 17 Gm PO BID Metoprolol Tartrate 25 Mg Tablet 25 Mg PO BID Lumigan (Bimatoprost) 2.5 Ml Drops 1 Drop OU QHS Benadryl (Diphenhydramine Hcl) 25 Mg Capsule 25 Mg PO PRN Q6HRS PRN Depakote (Divalproex Sodium) 125 Mg Tablet.dr 125 Mg PO TID Biofreeze (Menthol) 118 Ml Gel..ml. 1 Chan TP BID B-12 (Cyanocobalamin (Vitamin B-12)) 1,000 Mcg Tablet 1,000 Mcg PO DAILY Aricept (Donepezil Hcl) 10 Mg Tablet 10 Mg PO QHS Diagnosis: Problems: (1) Anxiety disorder (2) Mild cognitive disorder (3) Impulse control disorder (4) Major depressive disorder, recurrent episode (5) Dementia in Alzheimer's disease with delusions (6) Dementia in Alzheimer's disease with depression (7) Dementia, vascular, with delusions (8) Dementia, vascular, with depression CLARKE WARE MD May 08, 2017 20:48
[2017-05-08] MEDS ORDERED: CHOL500050 PO (21:55)
[2017-05-08] MEDS ORDERED: LORA0.5T PO (21:58)
[2017-05-08] MEDS ORDERED: OLAN5TAB5 PO (21:59)
[2017-05-08] MEDS ORDERED: PARO10TA57 PO (22:00)
[2017-05-08] MEDS ORDERED: QUET50TA5 PO (22:02)
--- NOTE | 2017-05-08 23:01 | PN ---
DATE: 05/07/2017 PSYCHIATRIC PROGRESS NOTE This late entry 05/07/2017 covers elements not covered in my initial note of 05/07/2017. SUBJECTIVE: I met with the patient evening of 05/07/2017. Overall; the patient has been calm, cooperative, drowsy, has a constricted affect. He comes across somewhat overbearing, but has not been aggressive, has a rather alatorre face about him, but part of this is just how he is rather than the overt psychosis. REVIEW OF SYSTEMS: No CV, , pulmonary, eye, ENT system symptoms on review. MENTAL STATUS EXAM: Oriented to himself and situation. Speech, often responses monosyllabic, has some latency. Abstraction fair, computation impaired, language function intact, attention span short. Mood and affect somewhat withdrawn, but improved. LABORATORIES: Reviewed. IMPRESSION: Unchanged from initial note. PLAN: Continue current psychotropics mentioned in my initial note. Review drug interactions, risk/benefit ratio favors no further change. MAN Jude WARE MD DR: ILANA/angelo JOB#: [id number] / [id number]
[2017-05-09 06:29] VITALS: BP 174/95
[2017-05-09] MEDS: DIVALPROEX 125 MG CAP.SPRINK PO SCH ×2 (08:26→13:13)
[2017-05-09] MEDS: METOPROLOL TART IMMED RELEASE 25 MG TABLET PO SCH (08:27)
[2017-05-09] MEDS: SENNOSIDES/DOCUSATE 8.6/50MG TABLET. PO SCH (08:27)
[2017-05-09] MEDS: QUEtiapine 50 MG TABLET. PO SCH ×2 (08:27→13:13)
[2017-05-09] MEDS: PARoxetine 10 MG TABLET PO SCH (08:27)
[2017-05-09] MEDS: POLYETHYLENE GLYCOL 3350 17 GM PACKET. PO SCH (08:27)
[2017-05-09] MEDS: ACETAMINOPHEN 325 MG TABLET PO SCH ×2 (08:28→13:13)
[2017-05-09] MEDS: CYANOCOBALAMIN (VITAMIN B-12) 1,000 MCG TABLET. PO SCH (08:28)
[2017-05-09 11:02] VITALS: BP 108/66
--- NOTE | 2017-05-09 14:17 | PDOC ---
Exam Mitch Demential Exam: Mitch Note: Please also refer to the separate dictated note~for this date of service dictated separately.~Patient seen individually. Discussed the patient with Nursing staff reviewed the chart.~Reviewed interim history and current functioning. Reviewed vital signs,~Labs/ Radiology~and current medications noted below. Continue current treatment with the changes noted in the dictated addendum note Assessment: Vital Signs: Vital Signs Date Time Temp Pulse Resp B/P (MAP) Pulse Ox O2 Delivery O2 Flow Rate FiO2 05/09/17 11:02 58 108/66 (80) 05/09/17 06:29 97.9 20 96 05/07/17 06:10 Room Air I&O Intake and Output 05/10/17 06:59 Intake Total 360 ml Balance 360 ml Intake Oral 360 ml Current Medications: Meds: Current Medications Ceftriaxone Sodium 1 gm/ Sodium Chloride 50 ml @ 100 mls/hr 1X ONCE IV ; Start 04/25/17 at 18:00; Stop 04/25/17 at 18:01; Status DC Levofloxacin (Levaquin) 500 mg 1X ONCE PO Last administered on 04/25/17 18:21 ; Start 04/25/17 at 18:10; Stop 04/25/17 at 18:11; Status DC Olanzapine (ZyPREXA ZYDIS) 10 mg 1X ONCE PO Last administered on 04/25/17 18: 21; Start 04/25/17 at 18:10; Stop 04/25/17 at 18:11; Status DC Lorazepam (Ativan) 0.5 mg PRN Q12HR PRN PO ANXIETY / AGITATION Last administered on 04/25/17 18:21; Start 04/25/17 at 18:15; Stop 04/26/17 at 07:49 ; Status DC Acetaminophen (Tylenol) 650 mg PRN Q6HRS PRN PO PAIN / TEMP; Start 04/25/17 at 19:45; Stop 04/25/17 at 20:08; Status DC Multi-Ingredient Ointment (Analgesic [place]) 1 chan PRN QID PRN TP MUSCLE PAIN; Start 04/25/17 at 19:45 Al Hydroxide/Mg Hydroxide (Mylanta Plus Xs) 15 ml PRN AFTMEALHC PRN PO DYSPEPSIA; Start 04/25/17 at 19:45 Magnesium Hydroxide (Milk Of Magnesia) 2,400 mg PRN QHS PRN PO CONSTIPATION; Start 04/25/17 at 19:45 Divalproex Sodium (Depakote) 125 mg TID PO Last administered on 04/26/17 15:26 ; Start 04/25/17 at 21:00; Stop 04/26/17 at 18:27; Status DC Donepezil HCl (Aricept) 10 mg QHS PO Last administered on 05/08/17 20:40; Start 04/25/17 at 21:00 Mirtazapine (Remeron) 15 mg QHS PO Last administered on 05/08/17 20:39; Start 04/25/17 at 21:00 Olanzapine (ZyPREXA) 2.5 mg PRN Q2HR PRN PO PSYCHOSIS; Start 04/25/17 at 20:00 ; Stop 04/26/17 at 08:09; Status DC Paroxetine HCl (Paxil) 20 mg DAILY PO Last administered on 04/29/17 09:43; Start 04/26/17 at 09:00; Stop 04/29/17 at 18:55; Status DC Acetaminophen (Tylenol) 650 mg PRN Q4HRS PRN PO PAIN / TEMP; Start 04/25/17 at 20:00 Acetaminophen (Tylenol) 650 mg TID PO Last administered on 05/09/17 13:13; Start 04/25/17 at 21:00 Cyanocobalamin (Vitamin B-12) 1,000 mcg DAILY PO Last administered on 08:28; Start 04/26/17 at 09:00 Diphenhydramine HCl (Benadryl) 25 mg PRN Q6HRS PRN PO ITCHING Last administered on 04/28/17 19:26; Start 04/25/17 at 20:00 Metoprolol Tartrate (Lopressor) 25 mg BID PO Last administered on 05/09/17 08: 27; Start 04/25/17 at 21:00 Polyethylene Glycol (miraLAX) 17 gm BID PO Last administered on 05/09/17 08:27 ; Start 04/25/17 at 21:00 Senna/Docusate Sodium (Senna Plus) 1 tab BID PO Last administered on 05/09/17 08:27; Start 04/25/17 at 21:00 Tamsulosin HCl (Flomax) 0.4 mg QHS PO Last administered on 05/08/17 20:39; Start 04/25/17 at 21:00 Latanoprost (Xalatan) 1 drop QHS OU Last administered on 04/26/17 20:17; Start 04/25/17 at 21:00; Stop 04/27/17 at 14:30; Status DC Non-Formulary Medication 1 chan BID TP ; Start 04/25/17 at 21:00; Stop 04/25/17 at 21:00; Status DC Lorazepam (Ativan) 0.5 mg PRN Q2HR PRN PO ANXIETY / AGITATION Last administered on 04/27/17 08:42; Start 04/26/17 at 08:00 Olanzapine (ZyPREXA ZYDIS) 5 mg PRN Q2HR PRN PO PSYCHOSIS Last administered on 04/29/17 14:42; Start 04/26/17 at 08:00 Levofloxacin (Levaquin) 500 mg DAILY PO Last administered on 04/26/17 08:06; Start 04/26/17 at 09:00; Stop 04/26/17 at 14:45; Status DC Vitamin D (Vitamin D3) 50,000 unit WEEKLY PO Last administered on 05/03/17 09: 09; Start 04/26/17 at 13:30 Levofloxacin (Levaquin) 250 mg DAILY06 PO Last administered on 04/29/17 05:04 ; Start 04/27/17 at 06:00; Stop 04/29/17 at 15:00; Status DC Divalproex Sodium (Depakote) 250 mg TID PO Last administered on 04/27/17 10:48 ; Start 04/26/17 at 21:00; Stop 04/27/17 at 19:16; Status DC Latanoprost (Xalatan) 1 drop QHS OU Last administered on 05/08/17 20:43; Start 04/27/17 at 14:30 Haloperidol Lactate (Haldol) 5 mg DAILY IM Last administered on 05/01/17 08:51 ; Start 04/28/17 at 09:00; Stop 05/01/17 at 18:53; Status DC Lorazepam (Ativan) 0.5 mg DAILY IM Last administered on 05/01/17 08:55; Start 04/28/17 at 09:00; Stop 05/01/17 at 18:53; Status DC Haloperidol Lactate (Haldol) 5 mg 1X ONCE IM ; Start 04/27/17 at 19:15; Stop at 19:16; Status DC Lorazepam (Ativan) 0.5 mg 1X ONCE IM ; Start 04/27/17 at 19:15; Stop 04/27/17 at 19:16; Status DC Divalproex Sodium (Depakote Sprinkles) 250 mg TID PO Last administered on 14:43; Start 04/27/17 at 21:00; Stop 04/29/17 at 18:55; Status DC Quetiapine Fumarate (SEROquel) 25 mg TID@0900,1300,1700 PO Last administered on 04/29/17 16:48; Start 04/28/17 at 09:00; Stop 04/29/17 at 18:55; Status DC Divalproex Sodium (Depakote Sprinkles) 375 mg TID PO Last administered on 13:13; Start 04/29/17 at 21:00 Paroxetine HCl (Paxil) 10 mg DAILY PO Last administered on 05/09/17 08:27; Start 04/30/17 at 09:00 Quetiapine Fumarate (SEROquel) 37.5 mg TID@0900,1300,1700 PO Last administered on 05/03/17 16:54; Start 04/30/17 at 09:00; Stop 05/03/17 at 18:38; Status DC Quetiapine Fumarate (SEROquel) 50 mg TID@0900,1300,1700 PO Last administered on 05/09/17 13:13; Start 05/04/17 at 09:00 Active Scripts Active Reported Seroquel (Quetiapine Fumarate) 50 Mg Tablet 50 Mg PO TID@0900,1300,1700 Paxil (Paroxetine Hcl) 10 Mg Tablet 10 Mg PO DAILY Zyprexa Zydis (Olanzapine) 5 Mg Tab.rapdis 5 Mg PO PRN Q2HR PRN MDD 20mg Lorazepam 0.5 Mg Tablet 0.5 Mg PO PRN Q2HR PRN MDD 2mg Vitamin D3 (Cholecalciferol (Vitamin D3)) 50,000 Unit Capsule 50,000 Unit PO QTU Tylenol (Acetaminophen) 325 Mg Tablet 650 Mg PO TID Tylenol (Acetaminophen) 325 Mg Tablet 650 Mg PO PRN Q4HRS PRN Tamsulosin Hcl 0.4 Mg Cap.er.24h 0.4 Mg PO QHS Senokot-S Tablet (Sennosides/Docusate Sodium) 1 Each Tablet 1 Tab PO BID Mirtazapine 15 Mg Tablet 15 Mg PO QHS Miralax (Polyethylene Glycol 3350) 17 Gm Powd.pack 17 Gm PO BID Metoprolol Tartrate 25 Mg Tablet 25 Mg PO BID Lumigan (Bimatoprost) 2.5 Ml Drops 1 Drop OU QHS Benadryl (Diphenhydramine Hcl) 25 Mg Capsule 25 Mg PO PRN Q6HRS PRN Depakote (Divalproex Sodium) 125 Mg Tablet.dr 375 Mg PO TID Biofreeze (Menthol) 118 Ml Gel..ml. 1 Chan TP BID B-12 (Cyanocobalamin (Vitamin B-12)) 1,000 Mcg Tablet 1,000 Mcg PO DAILY Aricept (Donepezil Hcl) 10 Mg Tablet 10 Mg PO QHS Diagnosis: Problems: (1) Dementia, vascular, with depression (2) Anxiety disorder (3) Mild cognitive disorder (4) Impulse control disorder (5) Major depressive disorder, recurrent episode (6) Dementia, vascular, with delusions CLARKE WARE MD May 09, 2017 14:16
--- NOTE | 2017-05-09 23:56 | PN ---
DATE: 05/08/2017 PSYCHIATRIC PROGRESS NOTE This is a late entry 05/08/2017 covers elements not covered in my initial note of 05/08/2017. SUBJECTIVE: I met with the patient in the evening of 05/08/2017. The patient remains somewhat withdrawn, has a very alatorre look about his face, but much less psychotic. Not aggressive. REVIEW OF SYSTEMS: No CV, , pulmonary, eye, ENT system symptoms on review. Reliability poor. MENTAL STATUS EXAM: Oriented to himself and situation. Speech, often responses monosyllabic. Has some latency. Abstraction fair. Computation impaired, language function intact, attention span short. Mood and affect withdrawn, much less psychotic. LABORATORY DATA: Reviewed. IMPRESSION: Unchanged from initial note. PLAN: Continue current psychotropics. Review drug interactions. Risk/benefit ratio favors no further change. MAN Jude WARE MD DR: ILANA/angelo JOB#: [id number] / [id number]
--- NOTE | 2017-05-10 20:34 | DS ---
DATE OF DISCHARGE: 05/09/2017 DISCHARGE SUMMARY/PSYCHIATRIC PROGRESS NOTE REASON FOR ADMISSION: Please refer to the admission history for details. Briefly, the patient is a 76-year-old male referred to us from [facility] by his primary care physician on account of increasing paranoia, agitation, hitting other patients, throwing furniture, yelling, hitting staff. The patient's behaviors were dangerous, out of control, unmanageable resulting in this referral. SIGNIFICANT FINDINGS AND CLINICAL COURSE: Following admission, the patient was seen daily individually by myself, followed medically per Dr. Jarvis/Dr. Trevizo. For several days following admission, the patient's behaviors were extremely volatile. These were dangerous. He had to be in the [place] hallway to remove him from stimuli from others. He is aggressive even with visitors, psychotic, paranoid, quite volatile and nursing staff were in fact quite afraid of him. Adjustments were made in his psychotropics and he seemed to respond gradually to a combination of Depakote 375 mg t.i.d. with a level of 55 therapeutic, Aricept 10 mg a day, Ativan p.r.n., Namenda 10 b.i.d., Remeron 15 mg at bedtime, Paxil 10 mg a day, Zyprexa p.r.n., Seroquel 50 mg 3 times a day. Gradually, mood appeared to improve. He is pleasant, smiling, still appeared somewhat alatorre and little domineering, but this was just his size and how he came across rather than the potential for aggression. Psychosis was much improved. CONDITION AT DISCHARGE: Improved prior to discharge. REVIEW OF SYSTEMS: No CV, , eye, ENT or pulmonary system symptoms on review. MENTAL STATUS EXAM: Oriented to himself and situation. Speech is coherent, has some latency, abstraction fair, computation impaired, language function intact, attention span short. Mood and affect still withdrawn, but improved. No active suicidal or homicidal ideation. 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 Rest unchanged from admission. DISCHARGE MEDICATIONS: Please refer to the MRAD. DISCHARGE INSTRUCTIONS: Outpatient psychiatric and medical followup at the long-term. Time for discharge day management greater than 30 minutes. CLARKE WARE MD DR: ILANA/angelo JOB#: [id number] / [id number]
== END 2017-05-09 14:50 | disposition home or self-care (01) | DRG 884 ==
LOC: ER 15:34 → GEROPSY 17:20
PROVIDERS: ADMIT Psychiatry & Neurology Psychiatry; ATTEND Psychiatry & Neurology Psychiatry
DX: F01.51 Vascular dementia, unspecified severity, with behavioral disturbance (principal); G30.9 Alzheimer's disease, unspecified; N39.0 Urinary tract infection, site not specified; F02.81 Dementia in other diseases classified elsewhere, unspecified severity, with behavioral disturbance; F31.5 Bipolar disorder, current episode depressed, severe, with psychotic features; K59.09 Other constipation; F41.9 Anxiety disorder, unspecified; F63.9 Impulse disorder, unspecified; H40.9 Unspecified glaucoma; I10 Essential (primary) hypertension; N40.0 Benign prostatic hyperplasia without lower urinary tract symptoms; Z66 Do not resuscitate; Z79.899 Other long term (current) drug therapy; Z87.891 Personal history of nicotine dependence; Z91.83 Wandering in diseases classified elsewhere
CPT/HCPCS: 36415; 80053; 80061; 80164; 81001; 82140; 82306; 82607; 83036; 83540; 83550; 83735; 84436; 84443; 84480; 85025; 86592; 86593; 87086; 93005; J1630; J2060; Q0163; 99285-25

== ENCOUNTER 2017-10-27 07:04 | Inpatient (IN) | payer MEDICARE ==
[~2017-10-27] VITALS: Ht 188 cm; Wt 85.3 kg
[~2017-10-27 07:04] MED LIST: ACET325T9 PO; BIMA2.5D OU; CHOL500050 PO; CYAN100072 PO; DIPH25CA58 PO; DIVA125T PO; DONE10TA61 PO; LORA0.5T PO; MENT118G TP; METO25TA4 PO; MIRT15TA3 PO; OLAN2.5T3 PO; OLAN5TAB5 PO; PARO10TA57 PO; PARO20TA99 PO; POLY17PO5 PO; QUET50TA5 PO; SENN-37 PO; TAMS0.4C2 PO
--- NOTE | 2017-10-27 07:15 | NUR ---
Admission Note with Justification for Admission to [facility] Patient admitted to [facility] for protective oversight for emergency stabilization of acute psychiatric crisis. Pt admitted from: [facility] ER/ [facility] Mode of arrival: Secure Transport Accompanied By: Secure Transport Precipitating behaviors that initiated intake and admission:increased agitation and aggression, throwing chairs, hitting/twisting 's arm Description of failure of out patient attempts at stabilization in previous setting list behavior and medication trials: medication changes Behaviors and assessment findings upon admission: Pt is A/O to self, stating that he is in fdc and needs to leave. Pt is pacing, door checking. PRN Zyprexa given on admission. Plan: Admit for protective oversight for adjustment and stabilization of medications, behaviors and mood. Intense treatment regimen including groups, medication adjustments, therapy, consistent regimen for ADL's, self care, and sleep hygiene. Daily monitoring by Inpatient staff, Psychiatry, and Medical Physician.
[2017-10-27 07:39] VITALS: BP 173/91
--- NOTE | 2017-10-27 07:45 | NUR ---
ACTIVITY THERAPY ASSESSMENT Completed based on observation and interview. Pt. recently arrived to unit and he was confused, repeated he was kidnapped, wanted to talk to his , and wanted to know why he was here. Pt. struggled to sit in one place for very long. COMMERCIAL GLAZIER reassured Pt. and offered her hand. Pt. squeezed her hand and welcomed her to sit next to him and talk about everything. Pt. repeated himself often. 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 Based on previous admission in April 2017: as a child he used to collect coins and stamps. He enjoys playing Bridge, reading science fiction books, and playing chess/checkers. Pt. keeps to himself generally and can be agitated, yell out at times. Initial goal aimed to increase engagement and interests: Pt. will participate in at least one group a day.
--- NOTE | 2017-10-27 08:50 | NUR ---
Psychosocial Assessment completed at previous admit 04/2017 w/PT. and followed up w/PT's , Kelsey. Pt. stated he was born in [place], [place] w/a brother and sister. 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 Pt. 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 Pt. current named Kelsey in 1962 and they have 2 children named Pan. No family history of Dementia, alcohol or substance abuse. Pt. has no personal history of alcohol or substance abuse, nor any traumatic injury or event in life. Pt. received Dementia diagnosis several years ago and remained living w/his in their home until September 2016. Both Pt. and his moved into the Independent Living side at [facility] in [place]. In November, Pt. transitioned to the Memory Care side. Pt. has difficulties w/finding activities that he enjoys to pass his time. Many of the activities his enjoys, such as arts, crafts, puzzles etc, Pt. states are "childish". Pt. enjoys playing [employer] on the computer and going for walks. While meeting w/Pt during previous admit., he initially appeared guarded w/answering any questions from this SW. SW was finally able to help Pt. relax a little by asking him his secret to a long and happy marriage. Pt jokingly answered, "I always have the last word....yes dear". Pt. had difficulty recalling how many children he has w/his , initially stating 3, but then telling SW about 2 children and said he must only have 2 because that is all he can remember. Pt. also seemed confused when SW asked if he had any social problems w/any other resident where he resides. Pt. stated he really enjoys living at [facility], but doesn't recall having issues w/anyone. SW told Pt. the reason for admit was because of his anger outbursts and Pt. appeared confused. SW did not push this issue any further. GOALS: Pt. very clearly stated his goal while at this facility is "to survive". SW asked Pt. to explain more in depth what this means, if Pt. was anticipating something bad or wrong happening while here and Pt. stated no, he just wants to "survive". Pt's would life for Pt. to be less combative so he can return to his facility. 1. Long and happy marriage 2. Fair recall
[2017-10-27] MEDS: HALOPERIDOL LACT 5 MG/ML VIAL. IM SCH (09:44)
[2017-10-27] MEDS: LORazepam 2 MG/ML VIAL IM SCH (09:45)
--- NOTE | 2017-10-27 09:53 | NUR ---
PRN Zyprexa not effective. Pt continues to escalate. Pt is stating he needs to leave now. Pt attempting to move couch in dayroom. Pt door checking and pacing. Dr. Arthur notified. New orders received for daily IMs Haldol and Ativan. IM injection administered to R deltoid. Will continue to monitor.
[2017-10-27] MEDS ORDERED: METHYL SALICYLATE/MENTHOL TOPICAL OINTMENT 29GM TUBE. TP PRN (10:00)
[2017-10-27] MEDS ORDERED: ACETAMINOPHEN 325 MG TABLET PO PRN (10:00)
[2017-10-27] MEDS ORDERED: MAG HYDROX/AL HYDROX/SIMETH 30 ML ORAL.SUSP PO PRN (10:00)
[2017-10-27] MEDS ORDERED: MAGNESIUM HYDROXIDE 2,400 MG/30 ML ORAL.SUSP. PO PRN (10:00)
[2017-10-27] MEDS ORDERED: CLON0.5T3 PO (11:35)
[2017-10-27] MEDS ORDERED: METO-239 PO (11:35)
[2017-10-27] MEDS ORDERED: CYAN10002 IM (11:35)
[2017-10-27] MEDS ORDERED: DOCU-109 PO (11:35)
[2017-10-27] MEDS ORDERED: MAGN400C PO (11:35)
[2017-10-27 13:04] LABS: BASO # 0.1 x10^3/uL (0.0-0.2); BASO % 1 % (0-3); EOS # 0.1 x10^3/uL (0.0-0.7); EOS % 1 % (0-3); HEMATOCRIT 41.3 % (39.0-53.0); HEMOGLOBIN 14.1 g/dL (13.0-17.5); LYMPH # 1.3 x10^3/uL (1.0-4.8); LYMPH % 12 % (24-48); MEAN CORPUSCULAR HEMOGLOBIN 29 pg (25-35); MEAN CORPUSCULAR HGB CONC 34 g/dL (31-37); MEAN CORPUSCULAR VOLUME 85 fL (79-100); MONO # 0.7 x10^3/uL (0.0-1.1); MONO % 7 % (0-9); NEUT # 8.6 x10^3uL (1.8-7.7); NEUT % 80 % (31-73); PLATELET COUNT 284 x10^3/uL (140-400); RED BLOOD COUNT 4.86 x10^6/uL (4.30-5.70); RED CELL DISTRIBUTION WIDTH 15.3 % (11.5-14.5); WHITE BLOOD COUNT 10.7 x10^3/uL (4.0-11.0)
[2017-10-27 13:16] LABS: ALBUMIN 2.9 g/dL (3.4-5.0); ALBUMIN/GLOBULIN RATIO 0.7 (1.0-1.7); CALCIUM 8.8 mg/dL (8.5-10.1); CREATININE 1.2 mg/dL (0.7-1.3); GFR 58.9; MAGNESIUM 1.8 mg/dL (1.8-2.4); POTASSIUM 4.4 mmol/L (3.5-5.1); TOTAL BILIRUBIN 0.6 mg/dL (0.2-1.0); TOTAL PROTEIN 6.9 g/dL (6.4-8.2)
[2017-10-27 16:04] VITALS: BP 131/82
[2017-10-27] MEDS: DIVALPROEX SODIUM 125 MG TABLET.DR. PO SCH ×2 (17:24→21:56)
--- NOTE | 2017-10-27 18:11 | PDOC ---
Exam Note: Mitch Note: Please also refer to the separate dictated note~for this date of service dictated separately.~Patient seen individually. Discussed the patient with Nursing staff reviewed the chart.~Reviewed interim history and current functioning. Reviewed vital signs,~Labs/ Radiology~and current medications noted below. Continue current treatment with the changes noted in the dictated addendum note Assessment: Vital Signs: Vital Signs Date Time Temp Pulse Resp B/P (MAP) Pulse Ox O2 Delivery O2 Flow Rate FiO2 10/27/17 16:04 97.7 112 18 131/82 (98) 94 Labs: Laboratory Tests Test 10/27/17 12:53 White Blood Count 10.7 x10^3/uL (4.0-11.0) Red Blood Count 4.86 x10^6/uL (4.30-5.70) Hemoglobin 14.1 g/dL (13.0-17.5) Hematocrit 41.3 % (39.0-53.0) Mean Corpuscular Volume 85 fL (79-100) Mean Corpuscular Hemoglobin 29 pg (25-35) Mean Corpuscular Hemoglobin Concent 34 g/dL (31-37) Red Cell Distribution Width 15.3 % (11.5-14.5) H Platelet Count 284 x10^3/uL (140-400) Neutrophils (%) (Auto) 80 % (31-73) H Lymphocytes (%) (Auto) 12 % (24-48) L Monocytes (%) (Auto) 7 % (0-9) Eosinophils (%) (Auto) 1 % (0-3) Basophils (%) (Auto) 1 % (0-3) Neutrophils # (Auto) 8.6 x10^3uL (1.8-7.7) H Lymphocytes # (Auto) 1.3 x10^3/uL (1.0-4.8) Monocytes # (Auto) 0.7 x10^3/uL (0.0-1.1) Eosinophils # (Auto) 0.1 x10^3/uL (0.0-0.7) Basophils # (Auto) 0.1 x10^3/uL (0.0-0.2) Sodium Level 137 mmol/L (136-145) Potassium Level 4.4 mmol/L (3.5-5.1) Chloride Level 102 mmol/L (98-107) Carbon Dioxide Level 25 mmol/L (21-32) Anion Gap 10 (6-14) Blood Urea Nitrogen 14 mg/dL (8-26) Creatinine 1.2 mg/dL (0.7-1.3) Estimated GFR (Cockcroft-Gault) 58.9 BUN/Creatinine Ratio 12 (6-20) Glucose Level 157 mg/dL (70-99) H Calcium Level 8.8 mg/dL (8.5-10.1) Magnesium Level 1.8 mg/dL (1.8-2.4) Total Bilirubin 0.6 mg/dL (0.2-1.0) Aspartate Amino Transferase (AST) 18 U/L (15-37) Alanine Aminotransferase (ALT) 11 U/L (16-63) L Alkaline Phosphatase 71 U/L (46-116) Total Protein 6.9 g/dL (6.4-8.2) Albumin 2.9 g/dL (3.4-5.0) L Albumin/Globulin Ratio 0.7 (1.0-1.7) L Current Medications: Meds: Current Medications Olanzapine (ZyPREXA ZYDIS) 0.125 mg PRN Q2HR PRN PO PSYCHOSIS; Start 10/27/17 at 07:45; Stop 10/27/17 at 07:45; Status DC Olanzapine (ZyPREXA ZYDIS) 1.25 mg PRN Q2HR PRN PO PSYCHOSIS; Start 10/27/17 at 07:45 Haloperidol Lactate (Haldol) 5 mg DAILY IM Last administered on 10/27/17at 09:44 ; Start 10/27/17 at 09:30 Lorazepam (Ativan) 0.5 mg DAILY IM Last administered on 10/27/17at 09:45; Start 10/27/17 at 09:30 Acetaminophen (Tylenol) 650 mg PRN Q6HRS PRN PO PAIN / TEMP; Start 10/27/17 at 10:00 Multi-Ingredient Ointment (Analgesic [place]) 1 chan PRN QID PRN TP MUSCLE PAIN; Start 10/27/17 at 10:00 Al Hydroxide/Mg Hydroxide (Mylanta Plus Xs) 15 ml PRN AFTMEALHC PRN PO DYSPEPSIA; Start 10/27/17 at 10:00 Magnesium Hydroxide (Milk Of Magnesia) 2,400 mg PRN QHS PRN PO CONSTIPATION; Start 10/27/17 at 10:00 Acetaminophen (Tylenol) 650 mg PRN Q4HRS PRN PO PAIN / TEMP; Start 10/27/17 at 11:30 Clonazepam (KlonoPIN) 0.5 mg BID PO ; Start 10/27/17 at 21:00 Cyanocobalamin (Vitamin B-12) 1,000 mcg QMONTH IM ; Start 11/26/17 at 09:00 Divalproex Sodium (Depakote) 125 mg TID PO Last administered on 10/27/17at 17:24 ; Start 10/27/17 at 14:00 Docusate Sodium (Colace) 100 mg BID PO ; Start 10/27/17 at 21:00 Donepezil HCl (Aricept) 10 mg QHS PO ; Start 10/27/17 at 21:00 Lorazepam (Ativan) 0.5 mg PRN Q8HRS PRN PO ANXIETY / AGITATION; Start 10/27/17 at 11:30 Metoprolol Succinate (Toprol Xl) 25 mg DAILY PO ; Start 10/28/17 at 09:00 Mirtazapine (Remeron) 15 mg QHS PO ; Start 10/27/17 at 21:00 Olanzapine (ZyPREXA ZYDIS) 5 mg PRN Q2HR PRN PO PSYCHOSIS; Start 10/27/17 at 11 :30 Polyethylene Glycol (miraLAX) 17 gm BID PO ; Start 10/27/17 at 21:00 Tamsulosin HCl (Flomax) 0.4 mg QHS PO ; Start 10/27/17 at 21:00 Latanoprost (Xalatan) 1 drop QHS OU ; Start 10/27/17 at 21:00 Magnesium Oxide (Magnesium Oxide) 400 mg DAILY PO ; Start 10/28/17 at 09:00 Active Scripts Active Reported Metoprolol Succinate ( Xl ) (Metoprolol Succinate) 25 Mg Tab.er.24h 25 Mg PO DAILY Magnesium (Magnesium Oxide) 400 Mg Capsule 400 Mg PO DAILY Cyanocobalamin Injection (Cyanocobalamin (Vitamin B-12)) 1,000 Mcg/1 Ml Vial 1 Ml IM QMONTH Colace (Docusate Sodium) 100 Mg Capsule 100 Mg PO BID Clonazepam 0.5 Mg Tablet 0.5 Mg PO BID Seroquel (Quetiapine Fumarate) 50 Mg Tablet 50 Mg PO TID@0900,1300,1700 Paxil (Paroxetine Hcl) 10 Mg Tablet 10 Mg PO DAILY Zyprexa Zydis (Olanzapine) 5 Mg Tab.rapdis 5 Mg PO PRN Q2HR PRN MDD 20mg Lorazepam 0.5 Mg Tablet 0.5 Mg PO PRN Q8HRS PRN MDD 2mg Vitamin D3 (Cholecalciferol (Vitamin D3)) 50,000 Unit Capsule 50,000 Unit PO QTU Tylenol (Acetaminophen) 325 Mg Tablet 650 Mg PO TID Tylenol (Acetaminophen) 325 Mg Tablet 650 Mg PO PRN Q4HRS PRN Tamsulosin Hcl 0.4 Mg Cap.er.24h 0.4 Mg PO QHS Senokot-S Tablet (Sennosides/Docusate Sodium) 1 Each Tablet 1 Tab PO BID Mirtazapine 15 Mg Tablet 15 Mg PO QHS Miralax (Polyethylene Glycol 3350) 17 Gm Powd.pack 17 Gm PO BID Metoprolol Tartrate 25 Mg Tablet 25 Mg PO BID Lumigan (Bimatoprost) 2.5 Ml Drops 1 Drop OU QHS Benadryl (Diphenhydramine Hcl) 25 Mg Capsule 25 Mg PO PRN Q6HRS PRN Depakote (Divalproex Sodium) 125 Mg Tablet.dr 125 Mg PO TID Biofreeze (Menthol) 118 Ml Gel..ml. 1 Chan TP BID B-12 (Cyanocobalamin (Vitamin B-12)) 1,000 Mcg Tablet 1,000 Mcg PO DAILY Aricept (Donepezil Hcl) 10 Mg Tablet 10 Mg PO QHS I have reviewed the current psychotropics carefully including drug interactions. Risk benefit ratio favors no change other than as noted in my dictated progress note. 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
--- NOTE | 2017-10-27 20:55 | PDOC ---
Exam Note: Mitch Note: Please also refer to the separate dictated note~for this date of service dictated separately.~Patient seen individually. Discussed the patient with Nursing staff reviewed the chart.~Reviewed interim history and current functioning. Reviewed vital signs,~Labs/ Radiology~and current medications noted below. Continue current treatment with the changes noted in the dictated addendum note Assessment: Vital Signs: Vital Signs Date Time Temp Pulse Resp B/P (MAP) Pulse Ox O2 Delivery O2 Flow Rate FiO2 10/27/17 16:04 97.7 112 18 131/82 (98) 94 Labs: Laboratory Tests Test 10/27/17 12:53 White Blood Count 10.7 x10^3/uL (4.0-11.0) Red Blood Count 4.86 x10^6/uL (4.30-5.70) Hemoglobin 14.1 g/dL (13.0-17.5) Hematocrit 41.3 % (39.0-53.0) Mean Corpuscular Volume 85 fL (79-100) Mean Corpuscular Hemoglobin 29 pg (25-35) Mean Corpuscular Hemoglobin Concent 34 g/dL (31-37) Red Cell Distribution Width 15.3 % (11.5-14.5) H Platelet Count 284 x10^3/uL (140-400) Neutrophils (%) (Auto) 80 % (31-73) H Lymphocytes (%) (Auto) 12 % (24-48) L Monocytes (%) (Auto) 7 % (0-9) Eosinophils (%) (Auto) 1 % (0-3) Basophils (%) (Auto) 1 % (0-3) Neutrophils # (Auto) 8.6 x10^3uL (1.8-7.7) H Lymphocytes # (Auto) 1.3 x10^3/uL (1.0-4.8) Monocytes # (Auto) 0.7 x10^3/uL (0.0-1.1) Eosinophils # (Auto) 0.1 x10^3/uL (0.0-0.7) Basophils # (Auto) 0.1 x10^3/uL (0.0-0.2) Sodium Level 137 mmol/L (136-145) Potassium Level 4.4 mmol/L (3.5-5.1) Chloride Level 102 mmol/L (98-107) Carbon Dioxide Level 25 mmol/L (21-32) Anion Gap 10 (6-14) Blood Urea Nitrogen 14 mg/dL (8-26) Creatinine 1.2 mg/dL (0.7-1.3) Estimated GFR (Cockcroft-Gault) 58.9 BUN/Creatinine Ratio 12 (6-20) Glucose Level 157 mg/dL (70-99) H Calcium Level 8.8 mg/dL (8.5-10.1) Magnesium Level 1.8 mg/dL (1.8-2.4) Total Bilirubin 0.6 mg/dL (0.2-1.0) Aspartate Amino Transferase (AST) 18 U/L (15-37) Alanine Aminotransferase (ALT) 11 U/L (16-63) L Alkaline Phosphatase 71 U/L (46-116) Total Protein 6.9 g/dL (6.4-8.2) Albumin 2.9 g/dL (3.4-5.0) L Albumin/Globulin Ratio 0.7 (1.0-1.7) L Current Medications: Meds: Current Medications Olanzapine (ZyPREXA ZYDIS) 0.125 mg PRN Q2HR PRN PO PSYCHOSIS; Start 10/27/17 at 07:45; Stop 10/27/17 at 07:45; Status DC Olanzapine (ZyPREXA ZYDIS) 1.25 mg PRN Q2HR PRN PO PSYCHOSIS; Start 10/27/17 at 07:45 Haloperidol Lactate (Haldol) 5 mg DAILY IM Last administered on 10/27/17at 09:44 ; Start 10/27/17 at 09:30 Lorazepam (Ativan) 0.5 mg DAILY IM Last administered on 10/27/17at 09:45; Start 10/27/17 at 09:30 Acetaminophen (Tylenol) 650 mg PRN Q6HRS PRN PO PAIN / TEMP; Start 10/27/17 at 10:00 Multi-Ingredient Ointment (Analgesic [place]) 1 chan PRN QID PRN TP MUSCLE PAIN; Start 10/27/17 at 10:00 Al Hydroxide/Mg Hydroxide (Mylanta Plus Xs) 15 ml PRN AFTMEALHC PRN PO DYSPEPSIA; Start 10/27/17 at 10:00 Magnesium Hydroxide (Milk Of Magnesia) 2,400 mg PRN QHS PRN PO CONSTIPATION; Start 10/27/17 at 10:00 Acetaminophen (Tylenol) 650 mg PRN Q4HRS PRN PO PAIN / TEMP; Start 10/27/17 at 11:30 Clonazepam (KlonoPIN) 0.5 mg BID PO ; Start 10/27/17 at 21:00 Cyanocobalamin (Vitamin B-12) 1,000 mcg QMONTH IM ; Start 11/26/17 at 09:00 Divalproex Sodium (Depakote) 125 mg TID PO Last administered on 10/27/17at 17:24 ; Start 10/27/17 at 14:00 Docusate Sodium (Colace) 100 mg BID PO ; Start 10/27/17 at 21:00 Donepezil HCl (Aricept) 10 mg QHS PO ; Start 10/27/17 at 21:00 Lorazepam (Ativan) 0.5 mg PRN Q8HRS PRN PO ANXIETY / AGITATION; Start 10/27/17 at 11:30 Metoprolol Succinate (Toprol Xl) 25 mg DAILY PO ; Start 10/28/17 at 09:00 Mirtazapine (Remeron) 15 mg QHS PO ; Start 10/27/17 at 21:00 Olanzapine (ZyPREXA ZYDIS) 5 mg PRN Q2HR PRN PO PSYCHOSIS; Start 10/27/17 at 11 :30 Polyethylene Glycol (miraLAX) 17 gm BID PO ; Start 10/27/17 at 21:00 Tamsulosin HCl (Flomax) 0.4 mg QHS PO ; Start 10/27/17 at 21:00 Latanoprost (Xalatan) 1 drop QHS OU ; Start 10/27/17 at 21:00 Magnesium Oxide (Magnesium Oxide) 400 mg DAILY PO ; Start 10/28/17 at 09:00 Active Scripts Active Reported Metoprolol Succinate ( Xl ) (Metoprolol Succinate) 25 Mg Tab.er.24h 25 Mg PO DAILY Magnesium (Magnesium Oxide) 400 Mg Capsule 400 Mg PO DAILY Cyanocobalamin Injection (Cyanocobalamin (Vitamin B-12)) 1,000 Mcg/1 Ml Vial 1 Ml IM QMONTH Colace (Docusate Sodium) 100 Mg Capsule 100 Mg PO BID Clonazepam 0.5 Mg Tablet 0.5 Mg PO BID Seroquel (Quetiapine Fumarate) 50 Mg Tablet 50 Mg PO TID@0900,1300,1700 Paxil (Paroxetine Hcl) 10 Mg Tablet 10 Mg PO DAILY Zyprexa Zydis (Olanzapine) 5 Mg Tab.rapdis 5 Mg PO PRN Q2HR PRN MDD 20mg Lorazepam 0.5 Mg Tablet 0.5 Mg PO PRN Q8HRS PRN MDD 2mg Vitamin D3 (Cholecalciferol (Vitamin D3)) 50,000 Unit Capsule 50,000 Unit PO QTU Tylenol (Acetaminophen) 325 Mg Tablet 650 Mg PO TID Tylenol (Acetaminophen) 325 Mg Tablet 650 Mg PO PRN Q4HRS PRN Tamsulosin Hcl 0.4 Mg Cap.er.24h 0.4 Mg PO QHS Senokot-S Tablet (Sennosides/Docusate Sodium) 1 Each Tablet 1 Tab PO BID Mirtazapine 15 Mg Tablet 15 Mg PO QHS Miralax (Polyethylene Glycol 3350) 17 Gm Powd.pack 17 Gm PO BID Metoprolol Tartrate 25 Mg Tablet 25 Mg PO BID Lumigan (Bimatoprost) 2.5 Ml Drops 1 Drop OU QHS Benadryl (Diphenhydramine Hcl) 25 Mg Capsule 25 Mg PO PRN Q6HRS PRN Depakote (Divalproex Sodium) 125 Mg Tablet.dr 125 Mg PO TID Biofreeze (Menthol) 118 Ml Gel..ml. 1 Chan TP BID B-12 (Cyanocobalamin (Vitamin B-12)) 1,000 Mcg Tablet 1,000 Mcg PO DAILY Aricept (Donepezil Hcl) 10 Mg Tablet 10 Mg PO QHS I have reviewed the current psychotropics carefully including drug interactions. Risk benefit ratio favors no change other than as noted in my dictated progress note. Diagnosis: Problems: (1) Anxiety disorder (2) Mild cognitive disorder (3) Impulse control disorder (4) Major depressive disorder, recurrent episode (5) Dementia in Alzheimer's disease with delusions (6) Dementia in Alzheimer's disease with depression (7) Dementia, vascular, with delusions (8) Dementia, vascular, with depression CLARKE WARE MD Oct 27, 2017 20:55
[2017-10-27] MEDS: LATANOPROST 0.005% OPHTH SOLUTION 2.5ML BOTTLE. OU SCH (21:00)
[2017-10-27] MEDS: clonazePAM 0.5 MG TABLET PO SCH (21:56)
[2017-10-27] MEDS: POLYETHYLENE GLYCOL 3350 17 GM PACKET. PO SCH (21:56)
[2017-10-27] MEDS: DONEPEZIL HCL 10 MG TABLET PO SCH (21:57)
[2017-10-27] MEDS: MIRTAZAPINE 15 MG TABLET PO SCH (21:58)
[2017-10-27] MEDS: TAMSULOSIN 0.4 MG CAP.ER.24H. PO SCH (21:58)
[2017-10-27] MEDS: DOCUSATE SODIUM 100 MG CAPSULE PO SCH (22:00)
--- NOTE | 2017-10-27 23:11 | NUR ---
Behavior Intervention Response and Plan: BIRP Note: Behavior: Assumed Care of patient, patient located in Patient Room at shift change. Patient exhibited the following behavior Calm, Drowsy, Withdrawn. Brief assessment on rounds of vital signs, medication needs, lab studies, and pain. Treatment plan problems 1 and 2. Intervention: Patient assessed and the following interventions initiated safety checks 15 Minute Checks Cognitive Assessment , Head to toe Assessment , Medications. Response: After interactions and interventions patient responded in the following manner, Calm , Compliant ,Cooperative. Continue to assess behaviors and condition will continue to monitor throughout the shift as needed. Patient educated on ADL's, and hand hygiene. Plan: Continue to monitor Master Treatment Plan for patient's progress toward short term goals of Decreased Agitation, Decreased Aggression, penitentiary goals to return to previous living setting vs placement. Continue to assess patient for changes in above assessment. Monitor for medication needs, pain, and safety concerns. Hourly rounding performed to ensure safe environment.
--- NOTE | 2017-10-27 23:13 | CONS ---
DATE OF CONSULTATION: 10/27/2017 REASON FOR CONSULTATION: Medical management. HISTORY OF PRESENT ILLNESS: The patient is a 77-year-old male patient, a resident at [facility], who was basically seen in the Emergency Room of [facility] on account of becoming agitated, has been throwing furniture. The patient has a history of dementia and becomes quite angry and frustrated. He has been in [facility] for the last several months, has done fairly well, and apparently, he has been aggressive and twisted his arm. He was extensively investigated at [facility] and was admitted to this facility for inpatient psychiatric stabilization. He apparently was here in 04/25/2017 with exactly similar symptoms as he was extremely agitated, throwing items yelling, threatening people and turning chairs over. PAST MEDICAL HISTORY: Significant for hypertension, glaucoma, benign prostatic hypertrophy. PAST SURGICAL HISTORY: Unremarkable. SOCIAL HISTORY: He is ; however, he currently lives in Memory Care Unit in [facility]. His lives in the assisted living facility. He is an ex-smoker, quit 30 years ago. He has a son and a daughter. 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 FAMILY HISTORY: Unremarkable. ALLERGIES: The patient has no known drug allergy. MEDICATIONS: He is currently on following medications: Diphenhydramine 25 mg every 6 hours, Aricept 10 mg at bedtime, Flomax 0.4 mg at bedtime, metoprolol succinate 25 mg extended release once a day, Tylenol 650 mg every 4 hours p.r.n., clonazepam 0.5 mg p.o. b.i.d., Depakote 125 mg twice a day, mirtazapine 50 mg at bedtime, paroxetine 10 mg p.o. daily, olanzapine for Zyprexa 5 mg every 2 hours, quetiapine fumarate 50 mg 3 times a day, lorazepam 0.5 mg every 8 hours, Lumigan 1 drop at bedtime to both eyes, magnesium oxide 400 mg p.o. daily, Colace 100 mg twice a day, polyethylene glycol 17 grams p.o. b.i.d., Senna-S 1 tablet twice a day, menthol (Biofreeze) applied topically twice a day, cyanocobalamin 1000 mcg once a day, 1000 mcg/mL intramuscular once a month, cholecalciferol 50,000 international unit once a week every Tuesday. REVIEW OF SYSTEMS: As per history of present illness. PHYSICAL EXAMINATION GENERAL: When I saw him this afternoon, he was resting slightly propped up in bed, in no apparent respiratory distress, was pale. No jaundice, cyanosis, or thyromegaly. No jugular venous distension. No limb edema. VITAL SIGNS: His heart rate was 112, blood pressure was 131/82, his temperature was 97.7, respiratory rate was 18 and oxygen saturation was 94% on room air. HEAD, EYES, EARS, NOSE AND THROAT: Showed normocephalic, atraumatic. NECK: Supple. HEART: Showed normal first and second heart sounds with no gallop, rub or murmur. CHEST: Clear to auscultation. No crepitation or rhonchi. ABDOMEN: Distended, soft, nontender. No guarding or rigidity. No organomegaly. All hernial orifices intact. Bowel sounds normal. NEUROLOGIC: He was demented; however, without any obvious lateralizing sign. All his cranial nerves are intact. He moves extremities without difficulty. He ambulates without assistance or assistive devices. LABORATORY WORK: This morning showed a white cell count is 10,700, hemoglobin 14, hematocrit 41, MCV 85, platelet count 284,000. His chemistry showed a serum sodium 137, potassium 4.4, chloride 102, bicarbonate 25, anion gap of 10, BUN 14, creatinine 1.2, estimated GFR was 58 mL per minute. His glucose was 157, calcium was 8.8, magnesium was 1.8. Total bilirubin, AST, ALT, alkaline phosphatase were normal. Total protein was 6.9, albumin was 2.9. IMPRESSION: In summary, this is a 77-year-old male patient, a resident at [facility] in [place], [place], who was [facility] on account of being extremely agitated, violent, throwing furniture, twisted arm of his ; all this in a background of dementia with behavioral disorder. He is here for inpatient psychiatric stabilization. Medically, he is known to have hypertension, glaucoma, benign prostatic hypertrophy. I reviewed all his lab works and it seemed to be within acceptable range. I will obviously review all the lab works that are still pending at the time of this dictation and make any necessary recommendation. Thank you Dr. Arthur for allowing me to participate in the care of this patient. ANDREW DOE MD DR: AMINTA/angelo JOB#: [id number] / [id number]
[2017-10-28 04:08] LABS: HEMOGLOBIN A1C 5.5 % (4.8-5.6)
[2017-10-28 05:12] LABS: T3 TOTAL 113 ng/dL (71-180); THYROXINE 5.6 ug/dL (4.5-12.0)
[2017-10-28 06:15] VITALS: BP 122/86
[2017-10-28] MEDS: DIVALPROEX SODIUM 125 MG TABLET.DR. PO SCH ×3 (07:49→19:42)
[2017-10-28] MEDS: POLYETHYLENE GLYCOL 3350 17 GM PACKET. PO SCH ×2 (07:49→19:42)
[2017-10-28] MEDS: DOCUSATE SODIUM 100 MG CAPSULE PO SCH ×2 (07:49→19:42)
[2017-10-28] MEDS: HALOPERIDOL LACT 5 MG/ML VIAL. IM SCH (07:50)
[2017-10-28] MEDS: MAGNESIUM OXIDE 400 MG TABLET PO SCH (07:52)
[2017-10-28] MEDS: clonazePAM 0.5 MG TABLET PO SCH ×2 (07:52→19:42)
[2017-10-28] MEDS: METOPROLOL SUCC 24HR ER 25 MG TAB.ER.24H. PO SCH (07:52)
[2017-10-28] MEDS: LORazepam 2 MG/ML VIAL IM SCH (07:53)
--- NOTE | 2017-10-28 10:55 | HP ---
ADMIT DATE: 10/27/2017 This late entry for 10/27/2017 covers the elements not covered in my initial note of 10/27/2017. IDENTIFYING DATA: I met with the patient in the evening of 10/27/2017, previously discussed with nursing staff on 2 or 3 occasions including prior to the patient's admission to review admission criteria on a referral from the Emergency Room at [facility] where he presented from [facility] on account of increased agitation, throwing chairs at the facility raising his fist at his and staff, hitting his , refusing medications, yelling, twisted the arms of his . His behaviors were deemed dangerous, out of control, unmanageable, having failed outpatient psychiatric interventions. He is referred for inpatient psychiatric stabilization. I also discussed with nursing staff earlier in the day 10/27/2017. On account of his marked agitation, aggression, delusions on the unit, refusal of all psychotropics, needing to be restarted back on Haldol and Ativan IM scheduled basis due to nonresponse to oral psychotropics. This is something he responded to in the past. CHIEF COMPLAINT: "I need to get out of here." The patient is quite confused, agitated, constantly walking up and down, restless, paranoid as I met with him. HISTORY OF PRESENT ILLNESS: The patient has a history of dementia, Alzheimer's vascular type. He was last here a few months back with similar presentation and then his psychotropics were adjusted. [facility] Was at [facility] for sometime. Psychotropics were reduced and he still did reasonably well until the recent re-onset of his psychosis, agitation, marked aggression, dangerous, out of control behaviors. He has had sleep and appetite changes. No clear history of bipolar disorder, suicidal or homicidal ideation other than above. PAST PSYCHIATRIC HISTORY: As above. MEDICAL HISTORY: Positive for urinary retention, hypertension. Diet is regular, takes his medications hidden at times, but totally noncompliant with oral meds at the time of this admission Ambulates ad urban. CURRENT PSYCHOTROPICS: Depakote 125 mg 3 times a day, Remeron 15 mg at bedtime, Ativan p.r.n., Aricept 10 mg a day, Klonopin 0.5 mg b.i.d., Ativan and Haldol IM scheduled, Zyprexa p.r.n. ALLERGIES: Negative. FAMILY HISTORY: Noncontributory. SOCIAL HISTORY: The patient is . His lives in the assisted living part of the facility. The patient is in the memory care. No alcohol or drug abuse, physical, sexual or elder abuse history is noted. Not known to be a perpetrator. MENTAL STATUS EXAMINATION: The patient was seen individually. He is oriented to himself, anxious, restless, paranoid. Insight, judgment, recent and remote memory, attention, concentration, fund of knowledge poor, consistent with his diagnosis. He is totally repetitive constantly talking about wanting to leave, oblivious of where he is. REVIEW OF SYSTEMS: No CV, , pulmonary, eye, ENT system symptoms on review. IMPRESSION: Major neurocognitive disorder, Alzheimer, vascular with delusion, depression, behavioral disturbance; anxiety disorder, unspecified; impulse control disorder, unspecified. Rest unchanged as above. PLAN: Admit to Geropsychiatry Unit at [facility]. I will see the patient daily individually from a psychiatric standpoint. Medical followup per Dr. Jarvis/Dr. Trevizo. We will start the scheduled IM Haldol, Ativan as we had done at the last visit then convert to p.o. as he is compliant. Further adjustments post labs morning of 10/28/2017 including valproic acid. MAN Jude WARE MD DR: ILANA/angelo JOB#: [id number] / [id number]
--- NOTE | 2017-10-28 11:08 | NUR ---
SW reviewed pt insurance upon admit. Face sheet, csnap and intake state pt's insurance is Medicare A, B, and no part c. Secondary on face sheet is [employer] insurance. No auth required.
--- NOTE | 2017-10-28 11:20 | EKG ---
[address] [address] Test Date: 2017-10-28 Test Time: 10:14:07 Pat Name: MICHELLE NICHOLS Department: Room: [address] [place] [address] Gender: M Assurance Associate: : [id number] Requested By: CLARKE WARE Order Number: [id number] Reading MD: Nino Robertson MD Measurements Intervals [place] Rate: 108 P: 0 TX: 170 QRS: -24 QRSD: 70 T: 31 QT: 334 QTc: 451 Interpretive Statements SINUS TACHYCARDIA Electronically Signed On 11-07-2017 15:09:19 CDT by Nino Robertson MD
[2017-10-28 11:41] LABS: VAL ACID 22 mcg/mL (50-100)
--- NOTE | 2017-10-28 12:02 | NUR ---
Behavior Intervention Response and Plan: BIRP Note: Behavior: Assumed Care of patient, patient located in Quiet Room at shift change. Patient exhibited the following behavior Restless, Wandering, Compulsive. Brief assessment on rounds of vital signs, medication needs, lab studies, and pain. Treatment plan problems . Intervention: Patient assessed and the following interventions initiated safety checks 15 Minute Checks Cognitive Assessment , Head to toe Assessment , Medications. Response: After interactions and interventions patient responded in the following manner, Disorganized , Wandering ,Compliant. Continue to assess behaviors and condition will continue to monitor throughout the shift as needed. Patient educated on ADL's, and hand hygiene. 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 Continue to assess patient for changes in above assessment. Monitor for medication needs, pain, and safety concerns. Hourly rounding performed to ensure safe environment.
[2017-10-28 14:04] LABS: THYROID STIM HORMONE (TSH) 3.361 uIU/mL (0.358-3.740)
[2017-10-28 16:24] VITALS: BP 134/84
--- NOTE | 2017-10-28 17:19 | NUR ---
pt up adl in am. out for meals. slept in afternoon. up to day room mid afternoon. wandering. took am meds without difficulty. took shot with min encouragement.
[2017-10-28] MEDS: DONEPEZIL HCL 10 MG TABLET PO SCH (19:42)
[2017-10-28] MEDS: TAMSULOSIN 0.4 MG CAP.ER.24H. PO SCH (19:43)
[2017-10-28] MEDS: MIRTAZAPINE 15 MG TABLET PO SCH (19:43)
[2017-10-28] MEDS: LATANOPROST 0.005% OPHTH SOLUTION 2.5ML BOTTLE. OU SCH (19:50)
--- NOTE | 2017-10-28 19:50 | NUR ---
Pt in day room, pacing, exit seeking, shaking doors. Staff attempted to re-direct and reorient pt without success. Pt stated "I want out of here! I wanna leave!" PRN Jon administered as ordered.
--- NOTE | 2017-10-28 21:00 | PDOC ---
Exam Note: Mitch Note: Please also refer to the separate dictated note~for this date of service dictated separately.~Patient seen individually. Discussed the patient with Nursing staff reviewed the chart.~Reviewed interim history and current functioning. Reviewed vital signs,~Labs/ Radiology~and current medications noted below. Continue current treatment with the changes noted in the dictated addendum note Assessment: Vital Signs: Vital Signs Date Time Temp Pulse Resp B/P (MAP) Pulse Ox O2 Delivery O2 Flow Rate FiO2 10/28/17 16:24 98.8 103 20 134/84 (101) 98 I&O Intake and Output 10/28/17 07:00 Intake Total 720 ml Balance 720 ml Intake Oral 720 ml # Voids 1 Labs: Laboratory Tests Test 10/28/17 11:09 Valproic Acid Level 22 mcg/mL (50-100) L Valproic Acid Last Dose Date 10/27/2017 Valproic Acid Last Dose Time 2100 Current Medications: Meds: Current Medications Olanzapine (ZyPREXA ZYDIS) 0.125 mg PRN Q2HR PRN PO PSYCHOSIS; Start 10/27/17 at 07:45; Stop 10/27/17 at 07:45; Status DC Olanzapine (ZyPREXA ZYDIS) 1.25 mg PRN Q2HR PRN PO PSYCHOSIS; Start 10/27/17 at 07:45; Stop 10/27/17 at 23:58; Status DC Haloperidol Lactate (Haldol) 5 mg DAILY IM Last administered on 10/28/17at 07:50 ; Start 10/27/17 at 09:30 Lorazepam (Ativan) 0.5 mg DAILY IM Last administered on 10/28/17at 07:53; Start 10/27/17 at 09:30 Acetaminophen (Tylenol) 650 mg PRN Q6HRS PRN PO PAIN / TEMP; Start 10/27/17 at 10:00; Status Cancel Multi-Ingredient Ointment (Analgesic [place]) 1 chan PRN QID PRN TP MUSCLE PAIN; Start 10/27/17 at 10:00 Al Hydroxide/Mg Hydroxide (Mylanta Plus Xs) 15 ml PRN AFTMEALHC PRN PO DYSPEPSIA; Start 10/27/17 at 10:00 Magnesium Hydroxide (Milk Of Magnesia) 2,400 mg PRN QHS PRN PO CONSTIPATION; Start 10/27/17 at 10:00 Acetaminophen (Tylenol) 650 mg PRN Q4HRS PRN PO PAIN / TEMP; Start 10/27/17 at 11:30 Clonazepam (KlonoPIN) 0.5 mg BID PO Last administered on 10/28/17 19:42; Start 10/27/17 at 21:00 Cyanocobalamin (Vitamin B-12) 1,000 mcg QMONTH IM ; Start 11/26/17 at 09:00 Divalproex Sodium (Depakote) 125 mg TID PO Last administered on 10/28/17 19:42 ; Start 10/27/17 at 14:00 Docusate Sodium (Colace) 100 mg BID PO Last administered on 10/28/17 19:42; Start 10/27/17 at 21:00 Donepezil HCl (Aricept) 10 mg QHS PO Last administered on 10/28/17 19:42; Start 10/27/17 at 21:00 Lorazepam (Ativan) 0.5 mg PRN Q8HRS PRN PO ANXIETY / AGITATION; Start 10/27/17 at 11:30 Metoprolol Succinate (Toprol Xl) 25 mg DAILY PO Last administered on 10/28/17 07:52; Start 10/28/17 at 09:00 Mirtazapine (Remeron) 15 mg QHS PO Last administered on 10/28/17 19:43; Start 10/27/17 at 21:00 Olanzapine (ZyPREXA ZYDIS) 5 mg PRN Q2HR PRN PO PSYCHOSIS Last administered on 10/28/17 19:44; Start 10/27/17 at 11:30 Polyethylene Glycol (miraLAX) 17 gm BID PO Last administered on 10/28/17 19:42 ; Start 10/27/17 at 21:00 Tamsulosin HCl (Flomax) 0.4 mg QHS PO Last administered on 10/28/17 19:43; Start 10/27/17 at 21:00 Latanoprost (Xalatan) 1 drop QHS OU Last administered on 10/28/17 19:50; Start 10/27/17 at 21:00 Magnesium Oxide (Magnesium Oxide) 400 mg DAILY PO Last administered on 07:52; Start 10/28/17 at 09:00 Active Scripts Active Reported Metoprolol Succinate ( Xl ) (Metoprolol Succinate) 25 Mg Tab.er.24h 25 Mg PO DAILY Magnesium (Magnesium Oxide) 400 Mg Capsule 400 Mg PO DAILY Cyanocobalamin Injection (Cyanocobalamin (Vitamin B-12)) 1,000 Mcg/1 Ml Vial 1 Ml IM QMONTH Colace (Docusate Sodium) 100 Mg Capsule 100 Mg PO BID Clonazepam 0.5 Mg Tablet 0.5 Mg PO BID Seroquel (Quetiapine Fumarate) 50 Mg Tablet 50 Mg PO TID@0900,1300,1700 Paxil (Paroxetine Hcl) 10 Mg Tablet 10 Mg PO DAILY Zyprexa Zydis (Olanzapine) 5 Mg Tab.rapdis 5 Mg PO PRN Q2HR PRN MDD 20mg Lorazepam 0.5 Mg Tablet 0.5 Mg PO PRN Q8HRS PRN MDD 2mg Vitamin D3 (Cholecalciferol (Vitamin D3)) 50,000 Unit Capsule 50,000 Unit PO QTU Tylenol (Acetaminophen) 325 Mg Tablet 650 Mg PO TID Tylenol (Acetaminophen) 325 Mg Tablet 650 Mg PO PRN Q4HRS PRN Tamsulosin Hcl 0.4 Mg Cap.er.24h 0.4 Mg PO QHS Senokot-S Tablet (Sennosides/Docusate Sodium) 1 Each Tablet 1 Tab PO BID Mirtazapine 15 Mg Tablet 15 Mg PO QHS Miralax (Polyethylene Glycol 3350) 17 Gm Powd.pack 17 Gm PO BID Metoprolol Tartrate 25 Mg Tablet 25 Mg PO BID Lumigan (Bimatoprost) 2.5 Ml Drops 1 Drop OU QHS Benadryl (Diphenhydramine Hcl) 25 Mg Capsule 25 Mg PO PRN Q6HRS PRN Depakote (Divalproex Sodium) 125 Mg Tablet.dr 125 Mg PO TID Biofreeze (Menthol) 118 Ml Gel..ml. 1 Chan TP BID B-12 (Cyanocobalamin (Vitamin B-12)) 1,000 Mcg Tablet 1,000 Mcg PO DAILY Aricept (Donepezil Hcl) 10 Mg Tablet 10 Mg PO QHS I have reviewed the current psychotropics carefully including drug interactions. Risk benefit ratio favors no change other than as noted in my dictated progress note. Diagnosis: Problems: (1) Anxiety disorder (2) Mild cognitive disorder (3) Impulse control disorder (4) Major depressive disorder, recurrent episode (5) Dementia in Alzheimer's disease with delusions (6) Dementia in Alzheimer's disease with depression (7) Dementia, vascular, with delusions (8) Dementia, vascular, with depression CLARKE WARE MD Oct 28, 2017 21:00
--- NOTE | 2017-10-28 22:18 | NUR ---
Behavior Intervention Response and Plan: BIRP Note: Behavior: Assumed Care of patient, patient located in Day Room at shift change. Patient exhibited the following behavior Wandering, Exit Seeking, Agitated. Brief assessment on rounds of vital signs, medication needs, lab studies, and pain. Treatment plan problems 1 and 2. Intervention: Patient assessed and the following interventions initiated safety checks 15 Minute Checks Cognitive Assessment , Head to toe Assessment , Medications. Response: After interactions and interventions patient responded in the following manner, Calm , Compliant ,Cooperative. Continue to assess behaviors and condition will continue to monitor throughout the shift as needed. Patient educated on ADL's, and hand hygiene. 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 Continue to assess patient for changes in above assessment. Monitor for medication needs, pain, and safety concerns. Hourly rounding performed to ensure safe environment.
[2017-10-29 05:58] VITALS: BP 115/80
[2017-10-29] MEDS: METOPROLOL SUCC 24HR ER 25 MG TAB.ER.24H. PO SCH (08:05)
[2017-10-29] MEDS: DIVALPROEX SODIUM 125 MG TABLET.DR. PO SCH ×3 (08:05→19:16)
[2017-10-29] MEDS: POLYETHYLENE GLYCOL 3350 17 GM PACKET. PO SCH ×2 (08:05→19:15)
[2017-10-29] MEDS: DOCUSATE SODIUM 100 MG CAPSULE PO SCH ×2 (08:05→19:16)
[2017-10-29] MEDS: HALOPERIDOL LACT 5 MG/ML VIAL. IM SCH (08:05)
[2017-10-29] MEDS: MAGNESIUM OXIDE 400 MG TABLET PO SCH (08:05)
[2017-10-29] MEDS: clonazePAM 0.5 MG TABLET PO SCH ×2 (08:07→19:16)
[2017-10-29] MEDS: LORazepam 2 MG/ML VIAL IM SCH (08:07)
--- NOTE | 2017-10-29 09:59 | NUR ---
Behavior Intervention Response and Plan: BIRP Note: Behavior: Assumed Care of patient, patient located in Quiet Room at shift change. Patient exhibited the following behavior Restless, Wandering, Compulsive. Brief assessment on rounds of vital signs, medication needs, lab studies, and pain. Treatment plan problems . Intervention: Patient assessed and the following interventions initiated safety checks 15 Minute Checks Cognitive Assessment , Head to toe Assessment , Medications. Response: After interactions and interventions patient responded in the following manner, Disorganized , Wandering ,Compliant. Continue to assess behaviors and condition will continue to monitor throughout the shift as needed. Patient educated on ADL's, and hand hygiene. 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 Continue to assess patient for changes in above assessment. Monitor for medication needs, pain, and safety concerns. Hourly rounding performed to ensure safe environment.
[2017-10-29 15:48] VITALS: BP 136/75
--- NOTE | 2017-10-29 17:32 | NUR ---
pt compliant with meds and IM. gait unsteady in afternoon. assisted to take nap. talked with on phone.
[2017-10-29] MEDS: LATANOPROST 0.005% OPHTH SOLUTION 2.5ML BOTTLE. OU SCH (19:15)
[2017-10-29] MEDS: DONEPEZIL HCL 10 MG TABLET PO SCH (19:16)
[2017-10-29] MEDS: MIRTAZAPINE 15 MG TABLET PO SCH (19:16)
[2017-10-29] MEDS: TAMSULOSIN 0.4 MG CAP.ER.24H. PO SCH (19:16)
[2017-10-29] MEDS: traZODone 50 MG TABLET. PO SCH (19:17)
--- NOTE | 2017-10-29 22:51 | PDOC ---
Exam Note: Mitch Note: Please also refer to the separate dictated note~for this date of service dictated separately.~Patient seen individually. Discussed the patient with Nursing staff reviewed the chart.~Reviewed interim history and current functioning. Reviewed vital signs,~Labs/ Radiology~and current medications noted below. Continue current treatment with the changes noted in the dictated addendum note Assessment: Vital Signs: Vital Signs Date Time Temp Pulse Resp B/P (MAP) Pulse Ox O2 Delivery O2 Flow Rate FiO2 10/29/17 15:48 98.0 98 20 136/75 (95) 98 I&O Intake and Output 10/29/17 07:00 Intake Total 480 ml Balance 480 ml Intake Oral 480 ml # Voids 1 Current Medications: Meds: Current Medications Olanzapine (ZyPREXA ZYDIS) 0.125 mg PRN Q2HR PRN PO PSYCHOSIS; Start 10/27/17 at 07:45; Stop 10/27/17 at 07:45; Status DC Olanzapine (ZyPREXA ZYDIS) 1.25 mg PRN Q2HR PRN PO PSYCHOSIS; Start 10/27/17 at 07:45; Stop 10/27/17 at 23:58; Status DC Haloperidol Lactate (Haldol) 5 mg DAILY IM Last administered on 10/29/17at 08:05 ; Start 10/27/17 at 09:30; Stop 10/29/17 at 18:44; Status DC Lorazepam (Ativan) 0.5 mg DAILY IM Last administered on 10/29/17at 08:07; Start 10/27/17 at 09:30; Stop 10/29/17 at 18:44; Status DC Acetaminophen (Tylenol) 650 mg PRN Q6HRS PRN PO PAIN / TEMP; Start 10/27/17 at 10:00; Status Cancel Multi-Ingredient Ointment (Analgesic [place]) 1 chan PRN QID PRN TP MUSCLE PAIN; Start 10/27/17 at 10:00 Al Hydroxide/Mg Hydroxide (Mylanta Plus Xs) 15 ml PRN AFTMEALHC PRN PO DYSPEPSIA; Start 10/27/17 at 10:00 Magnesium Hydroxide (Milk Of Magnesia) 2,400 mg PRN QHS PRN PO CONSTIPATION; Start 10/27/17 at 10:00 Acetaminophen (Tylenol) 650 mg PRN Q4HRS PRN PO PAIN / TEMP; Start 10/27/17 at 11:30 Clonazepam (KlonoPIN) 0.5 mg BID PO Last administered on 10/29/17 19:16; Start 10/27/17 at 21:00 Cyanocobalamin (Vitamin B-12) 1,000 mcg QMONTH IM ; Start 11/26/17 at 09:00 Divalproex Sodium (Depakote) 125 mg TID PO Last administered on 10/29/17 19:16 ; Start 10/27/17 at 14:00 Docusate Sodium (Colace) 100 mg BID PO Last administered on 10/29/17 19:16; Start 10/27/17 at 21:00 Donepezil HCl (Aricept) 10 mg QHS PO Last administered on 10/29/17 19:16; Start 10/27/17 at 21:00 Lorazepam (Ativan) 0.5 mg PRN Q8HRS PRN PO ANXIETY / AGITATION; Start 10/27/17 at 11:30 Metoprolol Succinate (Toprol Xl) 25 mg DAILY PO Last administered on 10/29/17 08:05; Start 10/28/17 at 09:00 Mirtazapine (Remeron) 15 mg QHS PO Last administered on 10/29/17 19:16; Start 10/27/17 at 21:00 Olanzapine (ZyPREXA ZYDIS) 5 mg PRN Q2HR PRN PO PSYCHOSIS Last administered on 10/28/17 19:44; Start 10/27/17 at 11:30 Polyethylene Glycol (miraLAX) 17 gm BID PO Last administered on 10/29/17 19:15 ; Start 10/27/17 at 21:00 Tamsulosin HCl (Flomax) 0.4 mg QHS PO Last administered on 10/29/17 19:16; Start 10/27/17 at 21:00 Latanoprost (Xalatan) 1 drop QHS OU Last administered on 10/29/17 19:15; Start 10/27/17 at 21:00 Magnesium Oxide (Magnesium Oxide) 400 mg DAILY PO Last administered on 08:05; Start 10/28/17 at 09:00 Haloperidol Lactate (Haldol) 2.5 mg DAILY IM ; Start 10/30/17 at 09:00 Lorazepam (Ativan) 0.25 mg DAILY IM ; Start 10/30/17 at 09:00 Trazodone HCl (Desyrel) 50 mg QHS PO Last administered on 10/29/17at 19:17; Start 10/29/17 at 21:00 Trazodone HCl (Desyrel) 50 mg PRN QHS PRN PO INSOMNIA; Start 10/29/17 at 18:45 Active Scripts Active Reported Metoprolol Succinate ( Xl ) (Metoprolol Succinate) 25 Mg Tab.er.24h 25 Mg PO DAILY Magnesium (Magnesium Oxide) 400 Mg Capsule 400 Mg PO DAILY Cyanocobalamin Injection (Cyanocobalamin (Vitamin B-12)) 1,000 Mcg/1 Ml Vial 1 Ml IM QMONTH Colace (Docusate Sodium) 100 Mg Capsule 100 Mg PO BID Clonazepam 0.5 Mg Tablet 0.5 Mg PO BID Seroquel (Quetiapine Fumarate) 50 Mg Tablet 50 Mg PO TID@0900,1300,1700 Paxil (Paroxetine Hcl) 10 Mg Tablet 10 Mg PO DAILY Zyprexa Zydis (Olanzapine) 5 Mg Tab.rapdis 5 Mg PO PRN Q2HR PRN MDD 20mg Lorazepam 0.5 Mg Tablet 0.5 Mg PO PRN Q8HRS PRN MDD 2mg Vitamin D3 (Cholecalciferol (Vitamin D3)) 50,000 Unit Capsule 50,000 Unit PO QTU Tylenol (Acetaminophen) 325 Mg Tablet 650 Mg PO TID Tylenol (Acetaminophen) 325 Mg Tablet 650 Mg PO PRN Q4HRS PRN Tamsulosin Hcl 0.4 Mg Cap.er.24h 0.4 Mg PO QHS Senokot-S Tablet (Sennosides/Docusate Sodium) 1 Each Tablet 1 Tab PO BID Mirtazapine 15 Mg Tablet 15 Mg PO QHS Miralax (Polyethylene Glycol 3350) 17 Gm Powd.pack 17 Gm PO BID Metoprolol Tartrate 25 Mg Tablet 25 Mg PO BID Lumigan (Bimatoprost) 2.5 Ml Drops 1 Drop OU QHS Benadryl (Diphenhydramine Hcl) 25 Mg Capsule 25 Mg PO PRN Q6HRS PRN Depakote (Divalproex Sodium) 125 Mg Tablet.dr 125 Mg PO TID Biofreeze (Menthol) 118 Ml Gel..ml. 1 Chan TP BID B-12 (Cyanocobalamin (Vitamin B-12)) 1,000 Mcg Tablet 1,000 Mcg PO DAILY Aricept (Donepezil Hcl) 10 Mg Tablet 10 Mg PO QHS I have reviewed the current psychotropics carefully including drug interactions. Risk benefit ratio favors no change other than as noted in my dictated progress note. Diagnosis: Problems: (1) Anxiety disorder (2) Mild cognitive disorder (3) Impulse control disorder (4) Major depressive disorder, recurrent episode (5) Dementia in Alzheimer's disease with delusions (6) Dementia in Alzheimer's disease with depression (7) Dementia, vascular, with delusions (8) Dementia, vascular, with depression CLARKE WARE MD Oct 29, 2017 22:51
--- NOTE | 2017-10-29 23:20 | NUR ---
Behavior Intervention Response and Plan: BIRP Note: Behavior: Assumed Care of patient, patient located in Day Room at shift change. Patient exhibited the following behavior Disorganized, Drowsy, Calm. Brief assessment on rounds of vital signs, medication needs, lab studies, and pain. Treatment plan problems 1 and 2. Intervention: Patient assessed and the following interventions initiated safety checks 15 Minute Checks Cognitive Assessment , Head to toe Assessment , Medications. Response: After interactions and interventions patient responded in the following manner, Calm , Compliant ,Cooperative. Continue to assess behaviors and condition will continue to monitor throughout the shift as needed. Patient educated on ADL's, and hand hygiene. 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 Continue to assess patient for changes in above assessment. Monitor for medication needs, pain, and safety concerns. Hourly rounding performed to ensure safe environment.
[2017-10-30 06:00] VITALS: BP 134/81
[2017-10-30] MEDS: DIVALPROEX SODIUM 125 MG TABLET.DR. PO SCH ×3 (08:00→19:47)
[2017-10-30] MEDS: DOCUSATE SODIUM 100 MG CAPSULE PO SCH ×2 (08:00→19:47)
[2017-10-30] MEDS: MAGNESIUM OXIDE 400 MG TABLET PO SCH (08:00)
[2017-10-30] MEDS: POLYETHYLENE GLYCOL 3350 17 GM PACKET. PO SCH ×2 (08:01→19:47)
[2017-10-30] MEDS: METOPROLOL SUCC 24HR ER 25 MG TAB.ER.24H. PO SCH (08:01)
[2017-10-30] MEDS: clonazePAM 0.5 MG TABLET PO SCH ×2 (08:02→19:49)
[2017-10-30] MEDS ORDERED: HALOPERIDOL LACT 5 MG/ML VIAL. IM SCH (09:00)
[2017-10-30] MEDS ORDERED: LORazepam 2 MG/ML VIAL IM SCH (09:00)
--- NOTE | 2017-10-30 09:30 | NUR ---
Behavior Intervention Response and Plan: BIRP Note: Behavior: Assumed Care of patient, patient located in Day Room at shift change. Patient exhibited the following behavior Restless, Disorganized, Drowsy. Brief assessment on rounds of vital signs, medication needs, lab studies, and pain. Treatment plan problems 1 & 2. Intervention: Patient assessed and the following interventions initiated safety checks 15 Minute Checks Cognitive Assessment , Head to toe Assessment , Medications. Response: After interactions and interventions patient responded in the following manner, Calm , Appropriate ,Compliant. Continue to assess behaviors and condition will continue to monitor throughout the shift as needed. Patient educated on ADL's, and hand hygiene. 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 Continue to assess patient for changes in above assessment. Monitor for medication needs, pain, and safety concerns. Hourly rounding performed to ensure safe environment.
[2017-10-30 15:28] VITALS: BP 114/80
--- NOTE | 2017-10-30 17:44 | PN ---
DATE: 10/28/2017 The late entry 10/28/2017 covers elements not covered in my initial note 10/28/2017. SUBJECTIVE: I met with the patient evening of 10/28/2017. The patient slept 5-1/2 hours previous evening, slept in the quiet room. Took meds with breakfast, then was agitated, labile, banging on the door, sedated in the evening. Depakote was held, but after this once again he was agitated, markedly labile in his mood. REVIEW OF SYSTEMS: No CV, , pulmonary, eye, ENT system symptoms on review. Reliability poor. MENTAL STATUS EXAM: Oriented to himself. Insight, judgment, recent and remote memory, attention, concentration, fund of knowledge poor, consistent with his diagnosis. IMPRESSION: Major neurocognitive disorder, Alzheimer, vascular with depression, delusion, behavioral disturbance. Rest unchanged. PLAN: Continue current psychotropics including IM Haldol, Ativan and if he is over sedated, we may reduce this and then ultimately discontinue it once he starts taking the oral psychotropics. MAN Jude WARE MD DR: ILANA/angelo JOB#: [id number] / [id number]
[2017-10-30] MEDS: MIRTAZAPINE 15 MG TABLET PO SCH (19:47)
[2017-10-30] MEDS: DONEPEZIL HCL 10 MG TABLET PO SCH (19:47)
[2017-10-30] MEDS: TAMSULOSIN 0.4 MG CAP.ER.24H. PO SCH (19:47)
[2017-10-30] MEDS: traZODone 50 MG TABLET. PO SCH (19:47)
[2017-10-30] MEDS: LATANOPROST 0.005% OPHTH SOLUTION 2.5ML BOTTLE. OU SCH (19:49)
--- NOTE | 2017-10-30 22:01 | PDOC ---
Exam Note: Mitch Note: Please also refer to the separate dictated note~for this date of service dictated separately.~Patient seen individually. Discussed the patient with Nursing staff reviewed the chart.~Reviewed interim history and current functioning. Reviewed vital signs,~Labs/ Radiology~and current medications noted below. Continue current treatment with the changes noted in the dictated addendum note Assessment: Vital Signs: Vital Signs Date Time Temp Pulse Resp B/P (MAP) Pulse Ox O2 Delivery O2 Flow Rate FiO2 10/30/17 15:28 97.9 99 16 114/80 (91) 96 I&O Intake and Output 10/30/17 07:00 Intake Total 600 ml Balance 600 ml Intake Oral 600 ml # Voids 1 Current Medications: Meds: Current Medications Olanzapine (ZyPREXA ZYDIS) 0.125 mg PRN Q2HR PRN PO PSYCHOSIS; Start 10/27/17 at 07:45; Stop 10/27/17 at 07:45; Status DC Olanzapine (ZyPREXA ZYDIS) 1.25 mg PRN Q2HR PRN PO PSYCHOSIS; Start 10/27/17 at 07:45; Stop 10/27/17 at 23:58; Status DC Haloperidol Lactate (Haldol) 5 mg DAILY IM Last administered on 10/29/17at 08:05 ; Start 10/27/17 at 09:30; Stop 10/29/17 at 18:44; Status DC Lorazepam (Ativan) 0.5 mg DAILY IM Last administered on 10/29/17at 08:07; Start 10/27/17 at 09:30; Stop 10/29/17 at 18:44; Status DC Acetaminophen (Tylenol) 650 mg PRN Q6HRS PRN PO PAIN / TEMP; Start 10/27/17 at 10:00; Status Cancel Multi-Ingredient Ointment (Analgesic [place]) 1 chan PRN QID PRN TP MUSCLE PAIN; Start 10/27/17 at 10:00 Al Hydroxide/Mg Hydroxide (Mylanta Plus Xs) 15 ml PRN AFTMEALHC PRN PO DYSPEPSIA; Start 10/27/17 at 10:00 Magnesium Hydroxide (Milk Of Magnesia) 2,400 mg PRN QHS PRN PO CONSTIPATION Last administered on 10/30/17at 16:59; Start 10/27/17 at 10:00 Acetaminophen (Tylenol) 650 mg PRN Q4HRS PRN PO PAIN / TEMP; Start 10/27/17 at 11:30 Clonazepam (KlonoPIN) 0.5 mg BID PO Last administered on 10/30/17 19:49; Start 10/27/17 at 21:00 Cyanocobalamin (Vitamin B-12) 1,000 mcg QMONTH IM ; Start 11/26/17 at 09:00 Divalproex Sodium (Depakote) 125 mg TID PO Last administered on 10/30/17 19:47 ; Start 10/27/17 at 14:00; Stop 10/30/17 at 21:54; Status DC Docusate Sodium (Colace) 100 mg BID PO Last administered on 10/30/17 19:47; Start 10/27/17 at 21:00 Donepezil HCl (Aricept) 10 mg QHS PO Last administered on 10/30/17 19:47; Start 10/27/17 at 21:00 Lorazepam (Ativan) 0.5 mg PRN Q8HRS PRN PO ANXIETY / AGITATION; Start 10/27/17 at 11:30 Metoprolol Succinate (Toprol Xl) 25 mg DAILY PO Last administered on 10/30/17 08:01; Start 10/28/17 at 09:00 Mirtazapine (Remeron) 15 mg QHS PO Last administered on 10/30/17 19:47; Start 10/27/17 at 21:00 Olanzapine (ZyPREXA ZYDIS) 5 mg PRN Q2HR PRN PO PSYCHOSIS Last administered on 10/28/17 19:44; Start 10/27/17 at 11:30 Polyethylene Glycol (miraLAX) 17 gm BID PO Last administered on 10/30/17 19:47 ; Start 10/27/17 at 21:00 Tamsulosin HCl (Flomax) 0.4 mg QHS PO Last administered on 10/30/17 19:47; Start 10/27/17 at 21:00 Latanoprost (Xalatan) 1 drop QHS OU Last administered on 10/30/17 19:49; Start 10/27/17 at 21:00 Magnesium Oxide (Magnesium Oxide) 400 mg DAILY PO Last administered on 08:00; Start 10/28/17 at 09:00 Haloperidol Lactate (Haldol) 2.5 mg DAILY IM Last administered on 10/30/17at 09: 04; Start 10/30/17 at 09:00; Stop 10/30/17 at 21:55; Status DC Lorazepam (Ativan) 0.25 mg DAILY IM Last administered on 10/30/17at 09:03; Start 10/30/17 at 09:00; Stop 10/30/17 at 21:55; Status DC Trazodone HCl (Desyrel) 50 mg QHS PO Last administered on 10/30/17at 19:47; Start 10/29/17 at 21:00 Trazodone HCl (Desyrel) 50 mg PRN QHS PRN PO INSOMNIA; Start 10/29/17 at 18:45 Risperidone (RisperDAL) 0.25 mg DAILY@0900,1300 PO ; Start 10/31/17 at 09:00 Divalproex Sodium (Depakote Sprinkles) 250 mg BID PO ; Start 10/31/17 at 09:00 Divalproex Sodium (Depakote Sprinkles) 125 mg DAILY@1300 PO ; Start 10/31/17 at 13:00 Active Scripts Active Reported Metoprolol Succinate ( Xl ) (Metoprolol Succinate) 25 Mg Tab.er.24h 25 Mg PO DAILY Magnesium (Magnesium Oxide) 400 Mg Capsule 400 Mg PO DAILY Cyanocobalamin Injection (Cyanocobalamin (Vitamin B-12)) 1,000 Mcg/1 Ml Vial 1 Ml IM QMONTH Colace (Docusate Sodium) 100 Mg Capsule 100 Mg PO BID Clonazepam 0.5 Mg Tablet 0.5 Mg PO BID Seroquel (Quetiapine Fumarate) 50 Mg Tablet 50 Mg PO TID@0900,1300,1700 Paxil (Paroxetine Hcl) 10 Mg Tablet 10 Mg PO DAILY Zyprexa Zydis (Olanzapine) 5 Mg Tab.rapdis 5 Mg PO PRN Q2HR PRN MDD 20mg Lorazepam 0.5 Mg Tablet 0.5 Mg PO PRN Q8HRS PRN MDD 2mg Vitamin D3 (Cholecalciferol (Vitamin D3)) 50,000 Unit Capsule 50,000 Unit PO QTU Tylenol (Acetaminophen) 325 Mg Tablet 650 Mg PO TID Tylenol (Acetaminophen) 325 Mg Tablet 650 Mg PO PRN Q4HRS PRN Tamsulosin Hcl 0.4 Mg Cap.er.24h 0.4 Mg PO QHS Senokot-S Tablet (Sennosides/Docusate Sodium) 1 Each Tablet 1 Tab PO BID Mirtazapine 15 Mg Tablet 15 Mg PO QHS Miralax (Polyethylene Glycol 3350) 17 Gm Powd.pack 17 Gm PO BID Metoprolol Tartrate 25 Mg Tablet 25 Mg PO BID Lumigan (Bimatoprost) 2.5 Ml Drops 1 Drop OU QHS Benadryl (Diphenhydramine Hcl) 25 Mg Capsule 25 Mg PO PRN Q6HRS PRN Depakote (Divalproex Sodium) 125 Mg Tablet.dr 125 Mg PO TID Biofreeze (Menthol) 118 Ml Gel..ml. 1 Chan TP BID B-12 (Cyanocobalamin (Vitamin B-12)) 1,000 Mcg Tablet 1,000 Mcg PO DAILY Aricept (Donepezil Hcl) 10 Mg Tablet 10 Mg PO QHS I have reviewed the current psychotropics carefully including drug interactions. Risk benefit ratio favors no change other than as noted in my dictated progress note. Diagnosis: Problems: (1) Anxiety disorder (2) Mild cognitive disorder (3) Impulse control disorder (4) Major depressive disorder, recurrent episode (5) Dementia in Alzheimer's disease with delusions (6) Dementia in Alzheimer's disease with depression (7) Dementia, vascular, with delusions (8) Dementia, vascular, with depression CLARKE WARE MD Oct 30, 2017 22:01
--- NOTE | 2017-10-30 22:43 | NUR ---
Behavior Intervention Response and Plan: BIRP Note: Behavior: Assumed Care of patient, patient located in Day Room at shift change. Patient exhibited the following behavior Disorganized, Drowsy, Calm. Brief assessment on rounds of vital signs, medication needs, lab studies, and pain. Treatment plan problems 1 and 2. Intervention: Patient assessed and the following interventions initiated safety checks 15 Minute Checks Cognitive Assessment , Head to toe Assessment , Medications. Response: After interactions and interventions patient responded in the following manner, Calm , Compliant ,Cooperative. Continue to assess behaviors and condition will continue to monitor throughout the shift as needed. Patient educated on ADL's, and hand hygiene. 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 Continue to assess patient for changes in above assessment. Monitor for medication needs, pain, and safety concerns. Hourly rounding performed to ensure safe environment.
[2017-10-31] MEDS: ACETAMINOPHEN 325 MG TABLET PO PRN (05:20)
--- NOTE | 2017-10-31 05:38 | NUR ---
Nursing Note Tylenol and Paddy Smith given for back pain, pt cannot express a pain score.
[2017-10-31 06:20] VITALS: BP 107/80
[2017-10-31] MEDS: clonazePAM 0.5 MG TABLET PO SCH ×2 (08:12→19:59)
[2017-10-31] MEDS: METOPROLOL SUCC 24HR ER 25 MG TAB.ER.24H. PO SCH (08:12)
[2017-10-31] MEDS: DOCUSATE SODIUM 100 MG CAPSULE PO SCH ×2 (08:12→19:57)
[2017-10-31] MEDS: POLYETHYLENE GLYCOL 3350 17 GM PACKET. PO SCH ×2 (08:12→19:57)
[2017-10-31] MEDS: MAGNESIUM OXIDE 400 MG TABLET PO SCH (08:12)
[2017-10-31] MEDS: risperiDONE 0.25 MG TABLET. PO SCH ×2 (08:13→13:11)
[2017-10-31] MEDS: DIVALPROEX 125 MG CAP.SPRINK PO SCH ×3 (08:14→19:57)
--- NOTE | 2017-10-31 10:15 | NUR ---
Behavior Intervention Response and Plan: BIRP Note: Behavior: Assumed Care of patient, patient located in Day Room at shift change. Patient exhibited the following behavior Disorganized, Drowsy, Withdrawn. Brief assessment on rounds of vital signs, medication needs, lab studies, and pain. Treatment plan problems 1 & 2. Intervention: Patient assessed and the following interventions initiated safety checks 15 Minute Checks Cognitive Assessment , Head to toe Assessment , Medications. Response: After interactions and interventions patient responded in the following manner, Calm , Appropriate ,Compliant. Continue to assess behaviors and condition will continue to monitor throughout the shift as needed. Patient educated on ADL's, and hand hygiene. 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 Continue to assess patient for changes in above assessment. Monitor for medication needs, pain, and safety concerns. Hourly rounding performed to ensure safe environment.
--- NOTE | 2017-10-31 13:30 | NUR ---
patient in bed, eyes closed, easily aroused. patient appears to be having difficulty with muscle weakness as evidenced by his difficulties in raising his arms to take his afternoon scheduled medications. Will monitor for further changes in condition and report to MD.
[2017-10-31 15:56] VITALS: BP 124/78
[2017-10-31] MEDS ORDERED: CHOLECALCIFEROL (VITAMIN D3) 50,000 UNIT CAPSULE PO SCH (18:00)
[2017-10-31] MEDS: traZODone 50 MG TABLET. PO SCH (19:57)
[2017-10-31] MEDS: DONEPEZIL HCL 10 MG TABLET PO SCH (19:57)
[2017-10-31] MEDS: TAMSULOSIN 0.4 MG CAP.ER.24H. PO SCH (19:57)
[2017-10-31] MEDS: MIRTAZAPINE 15 MG TABLET PO SCH (19:57)
[2017-10-31] MEDS: LATANOPROST 0.005% OPHTH SOLUTION 2.5ML BOTTLE. OU SCH (19:59)
--- NOTE | 2017-10-31 21:01 | PDOC ---
Exam Note: Mitch Note: Please also refer to the separate dictated note~for this date of service dictated separately.~Patient seen individually. Discussed the patient with Nursing staff reviewed the chart.~Reviewed interim history and current functioning. Reviewed vital signs,~Labs/ Radiology~and current medications noted below. Continue current treatment with the changes noted in the dictated addendum note Assessment: Vital Signs: Vital Signs Date Time Temp Pulse Resp B/P (MAP) Pulse Ox O2 Delivery O2 Flow Rate FiO2 10/31/17 15:56 97.9 100 16 124/78 (93) 94 Room Air I&O Intake and Output 10/31/17 07:00 Intake Total 360 ml Balance 360 ml Intake Oral 360 ml # Voids 1 Current Medications: Meds: Current Medications Olanzapine (ZyPREXA ZYDIS) 0.125 mg PRN Q2HR PRN PO PSYCHOSIS; Start 10/27/17 at 07:45; Stop 10/27/17 at 07:45; Status DC Olanzapine (ZyPREXA ZYDIS) 1.25 mg PRN Q2HR PRN PO PSYCHOSIS; Start 10/27/17 at 07:45; Stop 10/27/17 at 23:58; Status DC Haloperidol Lactate (Haldol) 5 mg DAILY IM Last administered on 10/29/17at 08:05 ; Start 10/27/17 at 09:30; Stop 10/29/17 at 18:44; Status DC Lorazepam (Ativan) 0.5 mg DAILY IM Last administered on 10/29/17at 08:07; Start 10/27/17 at 09:30; Stop 10/29/17 at 18:44; Status DC Acetaminophen (Tylenol) 650 mg PRN Q6HRS PRN PO PAIN / TEMP; Start 10/27/17 at 10:00; Status Cancel Multi-Ingredient Ointment (Analgesic Gregory) 1 chan PRN QID PRN TP MUSCLE PAIN Last administered on 10/31/17at 05:21; Start 10/27/17 at 10:00 Al Hydroxide/Mg Hydroxide (Mylanta Plus Xs) 15 ml PRN AFTMEALHC PRN PO DYSPEPSIA; Start 10/27/17 at 10:00 Magnesium Hydroxide (Milk Of Magnesia) 2,400 mg PRN QHS PRN PO CONSTIPATION Last administered on 10/30/17at 16:59; Start 10/27/17 at 10:00 Acetaminophen (Tylenol) 650 mg PRN Q4HRS PRN PO PAIN / TEMP Last administered on 10/31/17 05:20; Start 10/27/17 at 11:30 Clonazepam (KlonoPIN) 0.5 mg BID PO Last administered on 10/31/17 08:12; Start 10/27/17 at 21:00; Stop 10/31/17 at 18:41; Status DC Cyanocobalamin (Vitamin B-12) 1,000 mcg QMONTH IM ; Start 11/26/17 at 09:00 Divalproex Sodium (Depakote) 125 mg TID PO Last administered on 10/30/17 19:47 ; Start 10/27/17 at 14:00; Stop 10/30/17 at 21:54; Status DC Docusate Sodium (Colace) 100 mg BID PO Last administered on 10/31/17 19:57; Start 10/27/17 at 21:00 Donepezil HCl (Aricept) 10 mg QHS PO Last administered on 10/31/17 19:57; Start 10/27/17 at 21:00 Lorazepam (Ativan) 0.5 mg PRN Q8HRS PRN PO ANXIETY / AGITATION; Start 10/27/17 at 11:30 Metoprolol Succinate (Toprol Xl) 25 mg DAILY PO Last administered on 10/31/17 08:12; Start 10/28/17 at 09:00 Mirtazapine (Remeron) 15 mg QHS PO Last administered on 10/31/17 19:57; Start 10/27/17 at 21:00 Olanzapine (ZyPREXA ZYDIS) 5 mg PRN Q2HR PRN PO PSYCHOSIS Last administered on 10/28/17 19:44; Start 10/27/17 at 11:30 Polyethylene Glycol (miraLAX) 17 gm BID PO Last administered on 10/31/17 19:57 ; Start 10/27/17 at 21:00 Tamsulosin HCl (Flomax) 0.4 mg QHS PO Last administered on 10/31/17 19:57; Start 10/27/17 at 21:00 Latanoprost (Xalatan) 1 drop QHS OU Last administered on 10/31/17 19:59; Start 10/27/17 at 21:00 Magnesium Oxide (Magnesium Oxide) 400 mg DAILY PO Last administered on 08:12; Start 10/28/17 at 09:00 Haloperidol Lactate (Haldol) 2.5 mg DAILY IM Last administered on 10/30/17 09: 04; Start 10/30/17 at 09:00; Stop 10/30/17 at 21:55; Status DC Lorazepam (Ativan) 0.25 mg DAILY IM Last administered on 10/30/17 09:03; Start 10/30/17 at 09:00; Stop 10/30/17 at 21:55; Status DC Trazodone HCl (Desyrel) 50 mg QHS PO Last administered on 10/31/17 19:57; Start 10/29/17 at 21:00 Trazodone HCl (Desyrel) 50 mg PRN QHS PRN PO INSOMNIA; Start 10/29/17 at 18:45 Risperidone (RisperDAL) 0.25 mg DAILY@0900,1300 PO Last administered on 13:11; Start 10/31/17 at 09:00 Divalproex Sodium (Depakote Sprinkles) 250 mg BID PO Last administered on 19:57; Start 10/31/17 at 09:00 Divalproex Sodium (Depakote Sprinkles) 125 mg DAILY@1300 PO Last administered on 10/31/17 13:10; Start 10/31/17 at 13:00 Vitamin D (Vitamin D3) 50,000 unit WEEKLY PO Last administered on 10/31/17 18: 11; Start 10/31/17 at 18:00 Clonazepam (KlonoPIN) 0.25 mg BID PO Last administered on 10/31/17 19:59; Start 10/31/17 at 21:00 Active Scripts Active Reported Metoprolol Succinate ( Xl ) (Metoprolol Succinate) 25 Mg Tab.er.24h 25 Mg PO DAILY Magnesium (Magnesium Oxide) 400 Mg Capsule 400 Mg PO DAILY Cyanocobalamin Injection (Cyanocobalamin (Vitamin B-12)) 1,000 Mcg/1 Ml Vial 1 Ml IM QMONTH Colace (Docusate Sodium) 100 Mg Capsule 100 Mg PO BID Clonazepam 0.5 Mg Tablet 0.5 Mg PO BID Seroquel (Quetiapine Fumarate) 50 Mg Tablet 50 Mg PO TID@0900,1300,1700 Paxil (Paroxetine Hcl) 10 Mg Tablet 10 Mg PO DAILY Zyprexa Zydis (Olanzapine) 5 Mg Tab.rapdis 5 Mg PO PRN Q2HR PRN MDD 20mg Lorazepam 0.5 Mg Tablet 0.5 Mg PO PRN Q8HRS PRN MDD 2mg Vitamin D3 (Cholecalciferol (Vitamin D3)) 50,000 Unit Capsule 50,000 Unit PO QTU Tylenol (Acetaminophen) 325 Mg Tablet 650 Mg PO TID Tylenol (Acetaminophen) 325 Mg Tablet 650 Mg PO PRN Q4HRS PRN Tamsulosin Hcl 0.4 Mg Cap.er.24h 0.4 Mg PO QHS Senokot-S Tablet (Sennosides/Docusate Sodium) 1 Each Tablet 1 Tab PO BID Mirtazapine 15 Mg Tablet 15 Mg PO QHS Miralax (Polyethylene Glycol 3350) 17 Gm Powd.pack 17 Gm PO BID Metoprolol Tartrate 25 Mg Tablet 25 Mg PO BID Lumigan (Bimatoprost) 2.5 Ml Drops 1 Drop OU QHS Benadryl (Diphenhydramine Hcl) 25 Mg Capsule 25 Mg PO PRN Q6HRS PRN Depakote (Divalproex Sodium) 125 Mg Tablet.dr 125 Mg PO TID Biofreeze (Menthol) 118 Ml Gel..ml. 1 Chan TP BID B-12 (Cyanocobalamin (Vitamin B-12)) 1,000 Mcg Tablet 1,000 Mcg PO DAILY Aricept (Donepezil Hcl) 10 Mg Tablet 10 Mg PO QHS I have reviewed the current psychotropics carefully including drug interactions. Risk benefit ratio favors no change other than as noted in my dictated progress note. Diagnosis: Problems: (1) Anxiety disorder (2) Mild cognitive disorder (3) Impulse control disorder (4) Major depressive disorder, recurrent episode (5) Dementia in Alzheimer's disease with delusions (6) Dementia in Alzheimer's disease with depression (7) Dementia, vascular, with delusions (8) Dementia, vascular, with depression CLARKE WARE MD Oct 31, 2017 21:01
--- NOTE | 2017-10-31 22:17 | NUR ---
Behavior Intervention Response and Plan: BIRP Note: Behavior: Assumed Care of patient, patient located in Day Room at shift change. Patient exhibited the following behavior Disorganized, Withdrawn, Drowsy. Brief assessment on rounds of vital signs, medication needs, lab studies, and pain. Treatment plan problems 1-2. Intervention: Patient assessed and the following interventions initiated safety checks 15 Minute Checks Personal Alarm in place , Cognitive Assessment , Head to toe Assessment. Response: After interactions and interventions patient responded in the following manner, Disorganized , Calm ,Drowsy. Continue to assess behaviors and condition will continue to monitor throughout the shift as needed. Patient educated on ADL's, and hand hygiene. Plan: Continue to monitor Master Treatment Plan for patient's progress toward short term goals of Medication Compliance, Decreased Agitation, usp goals to return to previous living setting vs placement. Continue to assess patient for changes in above assessment. Monitor for medication needs, pain, and safety concerns. Hourly rounding performed to ensure safe environment.
[2017-10-31] MEDS: traZODone 50 MG TABLET. PO PRN (23:19)
--- NOTE | 2017-10-31 23:20 | NUR ---
Pt continues to be restless in bed, states he is unable to sleep. PRN Trazodone administered.
--- NOTE | 2017-11-01 02:34 | PN ---
DATE: 10/29/2017 This late entry 10/29/2017 covers elements not covered in my initial note 10/29/2017. Met with the patient in the evening of 10/29/2017. The patient slept for 4-3/4 hours previous evening, has remained confused, did not get up for breakfast, ate lunch and supper. Did a little better, less labile, but ambulation appears to be somewhat impaired. Gait is unsteady. concerned about this. We may consider stopping the IM Haldol, Ativan in a day or so. REVIEW OF SYSTEMS: No CV, , pulmonary, eye system symptoms on review. Reliability poor. MENTAL STATUS EXAM: Oriented to himself. Insight, judgment, recent and remote memory, attention, concentration, fund of knowledge poor, consistent with his diagnosis mentioned in my initial note. IMPRESSION: Major neurocognitive disorder, Alzheimer, vascular with delusion, depression, behavioral disturbance. Rest unchanged. PLAN: Add trazodone 50 mg at bedtime p.r.n. insomnia, may repeat x 1 since he just slept 4-3/4 hours previous evening. Rest unchanged. Consider stopping IM Haldol, Ativan in a day or so. CLARKE WARE MD DR: ILANA/angelo JOB#: [id number] / [id number]
--- NOTE | 2017-11-01 03:31 | PN ---
DATE: 10/30/2017 PSYCHIATRIC PROGRESS NOTE This late entry of 10/30/2017 covers elements not covered in my initial note of 10/30/2017. I met with the patient in the evening of 10/30/2017. The patient's oral intake is poor about 50%. REVIEW OF SYSTEMS: Ambulation impaired, in wheelchair. No CV, , pulmonary, eye, ENT system symptoms on review. Reliability poor. MENTAL STATUS EXAM: Oriented to himself. Insight, judgment, recent and remote memory, attention, concentration, fund of knowledge poor, consistent with his diagnosis mentioned in my initial note. IMPRESSION: Major neurocognitive disorder, Alzheimer, vascular with delusion, depression, behavioral disturbance. Rest unchanged. PLAN: Change Depakote ER to Depakote Sprinkle 125 mg 3 times a day will be increased to 250 in the morning and 250 in the evening and 125 in the afternoon since the level on 125 three times a day is low at 22. We will go ahead and stop the Ativan and Haldol IM since he is more compliant with oral medications and see if his gait gets back to where it was previously. Continue Remeron together with Aricept, Klonopin may have to be reduced in due course as well. Rest unchanged including trazodone. MAN Jude WARE MD DR: ILANA/angelo JOB#: [id number] / [id number]
[2017-11-01 06:05] VITALS: BP 139/82
--- NOTE | 2017-11-01 08:45 | NUR ---
SW received call from pt's requesting an update on pt. SW ensured pt's had spoken w/pt's nurse last evening and she verified she had. TERESITA stated SW had not received morning report such as nursing to know how the evening went, but TERESITA would be happy to have nursing contact her after morning medication pass. Jennifer was fine with that response.
[2017-11-01] MEDS: POLYETHYLENE GLYCOL 3350 17 GM PACKET. PO SCH ×2 (08:57→19:48)
[2017-11-01] MEDS: DOCUSATE SODIUM 100 MG CAPSULE PO SCH ×2 (08:57→19:46)
[2017-11-01] MEDS: MAGNESIUM OXIDE 400 MG TABLET PO SCH (08:57)
[2017-11-01] MEDS: risperiDONE 0.25 MG TABLET. PO SCH ×2 (08:57→13:19)
[2017-11-01] MEDS: METOPROLOL SUCC 24HR ER 25 MG TAB.ER.24H. PO SCH (08:57)
[2017-11-01] MEDS: DIVALPROEX 125 MG CAP.SPRINK PO SCH ×3 (08:57→19:47)
[2017-11-01] MEDS: clonazePAM 0.5 MG TABLET PO SCH ×2 (08:59→19:48)
--- NOTE | 2017-11-01 09:45 | NUR ---
Patient is in a wheelchair in the day room, demanding his shoes. After his shoes were brought to him and put on, he looked up and said 'Now what'. I asked if wanted to try to walk, he said 'Yes'. Attempted to help him stand, he was noly able to stand about [address] after [address], then stated he needed to sit back down. He had mild SOB and c/o LBP. Offered prn APAP which he accepted adn was provided per eMAR. Will continue to monitor, if patient feels better after lunch, may try to ambulate with him at that time.
--- NOTE | 2017-11-01 09:45 | NUR ---
Behavior Intervention Response and Plan: BIRP Note: Behavior: Assumed Care of patient, patient located in Day Room at shift change. Patient exhibited the following behavior Restless, Disorganized, Compulsive. Brief assessment on rounds of vital signs, medication needs, lab studies, and pain. Treatment plan problems 1 & 2. Intervention: Patient assessed and the following interventions initiated safety checks 15 Minute Checks Cognitive Assessment , Head to toe Assessment , Medications. Response: After interactions and interventions patient responded in the following manner, Calm , Appropriate ,Compliant. Continue to assess behaviors and condition will continue to monitor throughout the shift as needed. Patient educated on ADL's, and hand hygiene. 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 Continue to assess patient for changes in above assessment. Monitor for medication needs, pain, and safety concerns. Hourly rounding performed to ensure safe environment.
[2017-11-01] MEDS: ACETAMINOPHEN 325 MG TABLET PO PRN (09:59)
--- NOTE | 2017-11-01 15:30 | NUR ---
SW spoke w/pt's nurse to inquire if pt's had contacted nurse today to check on pt's status. Nurse stated he had not spoken w/pt's today. SW asked if nurse could f/u w/her as she called this am inquiring. Nursing stated he would f/u.
[2017-11-01 15:40] VITALS: BP 146/88
[2017-11-01] MEDS: TAMSULOSIN 0.4 MG CAP.ER.24H. PO SCH (19:46)
[2017-11-01] MEDS: DONEPEZIL HCL 10 MG TABLET PO SCH (19:46)
[2017-11-01] MEDS: traZODone 50 MG TABLET. PO SCH (19:46)
[2017-11-01] MEDS: MIRTAZAPINE 15 MG TABLET PO SCH (19:46)
--- NOTE | 2017-11-01 20:58 | PDOC ---
Exam Note: Mitch Note: Please also refer to the separate dictated note~for this date of service dictated separately.~Patient seen individually. Discussed the patient with Nursing staff reviewed the chart.~Reviewed interim history and current functioning. Reviewed vital signs,~Labs/ Radiology~and current medications noted below. Continue current treatment with the changes noted in the dictated addendum note Assessment: Vital Signs: Vital Signs Date Time Temp Pulse Resp B/P (MAP) Pulse Ox O2 Delivery O2 Flow Rate FiO2 11/01/17 15:40 96.7 71 18 146/88 (107) 93 10/31/17 15:56 Room Air I&O Intake and Output 11/01/17 07:00 Intake Total 900 ml Balance 900 ml Intake Oral 900 ml # Voids 1 Current Medications: Meds: Current Medications Olanzapine (ZyPREXA ZYDIS) 0.125 mg PRN Q2HR PRN PO PSYCHOSIS; Start 10/27/17 at 07:45; Stop 10/27/17 at 07:45; Status DC Olanzapine (ZyPREXA ZYDIS) 1.25 mg PRN Q2HR PRN PO PSYCHOSIS; Start 10/27/17 at 07:45; Stop 10/27/17 at 23:58; Status DC Haloperidol Lactate (Haldol) 5 mg DAILY IM Last administered on 10/29/17at 08:05 ; Start 10/27/17 at 09:30; Stop 10/29/17 at 18:44; Status DC Lorazepam (Ativan) 0.5 mg DAILY IM Last administered on 10/29/17at 08:07; Start 10/27/17 at 09:30; Stop 10/29/17 at 18:44; Status DC Acetaminophen (Tylenol) 650 mg PRN Q6HRS PRN PO PAIN / TEMP; Start 10/27/17 at 10:00; Status Cancel Multi-Ingredient Ointment (Analgesic Rio) 1 chan PRN QID PRN TP MUSCLE PAIN Last administered on 10/31/17at 05:21; Start 10/27/17 at 10:00 Al Hydroxide/Mg Hydroxide (Mylanta Plus Xs) 15 ml PRN AFTMEALHC PRN PO DYSPEPSIA; Start 10/27/17 at 10:00 Magnesium Hydroxide (Milk Of Magnesia) 2,400 mg PRN QHS PRN PO CONSTIPATION Last administered on 10/30/17 16:59; Start 10/27/17 at 10:00 Acetaminophen (Tylenol) 650 mg PRN Q4HRS PRN PO PAIN / TEMP Last administered on 11/01/17 09:59; Start 10/27/17 at 11:30 Clonazepam (KlonoPIN) 0.5 mg BID PO Last administered on 10/31/17 08:12; Start 10/27/17 at 21:00; Stop 10/31/17 at 18:41; Status DC Cyanocobalamin (Vitamin B-12) 1,000 mcg QMONTH IM ; Start 11/26/17 at 09:00 Divalproex Sodium (Depakote) 125 mg TID PO Last administered on 10/30/17 19:47 ; Start 10/27/17 at 14:00; Stop 10/30/17 at 21:54; Status DC Docusate Sodium (Colace) 100 mg BID PO Last administered on 11/01/17 19:46; Start 10/27/17 at 21:00 Donepezil HCl (Aricept) 10 mg QHS PO Last administered on 11/01/17 19:46; Start 10/27/17 at 21:00 Lorazepam (Ativan) 0.5 mg PRN Q8HRS PRN PO ANXIETY / AGITATION; Start 10/27/17 at 11:30 Metoprolol Succinate (Toprol Xl) 25 mg DAILY PO Last administered on 11/01/17 08:57; Start 10/28/17 at 09:00 Mirtazapine (Remeron) 15 mg QHS PO Last administered on 11/01/17 19:46; Start 10/27/17 at 21:00 Olanzapine (ZyPREXA ZYDIS) 5 mg PRN Q2HR PRN PO PSYCHOSIS Last administered on 10/28/17 19:44; Start 10/27/17 at 11:30 Polyethylene Glycol (miraLAX) 17 gm BID PO Last administered on 11/01/17 19:48 ; Start 10/27/17 at 21:00 Tamsulosin HCl (Flomax) 0.4 mg QHS PO Last administered on 11/01/17 19:46; Start 10/27/17 at 21:00 Latanoprost (Xalatan) 1 drop QHS OU Last administered on 10/31/17 19:59; Start 10/27/17 at 21:00 Magnesium Oxide (Magnesium Oxide) 400 mg DAILY PO Last administered on 08:57; Start 10/28/17 at 09:00 Haloperidol Lactate (Haldol) 2.5 mg DAILY IM Last administered on 10/30/17 09: 04; Start 10/30/17 at 09:00; Stop 10/30/17 at 21:55; Status DC Lorazepam (Ativan) 0.25 mg DAILY IM Last administered on 10/30/17 09:03; Start 10/30/17 at 09:00; Stop 10/30/17 at 21:55; Status DC Trazodone HCl (Desyrel) 50 mg QHS PO Last administered on 11/01/17 19:46; Start 10/29/17 at 21:00 Trazodone HCl (Desyrel) 50 mg PRN QHS PRN PO INSOMNIA Last administered on 23:19; Start 10/29/17 at 18:45 Risperidone (RisperDAL) 0.25 mg DAILY@0900,1300 PO Last administered on 13:19; Start 10/31/17 at 09:00 Divalproex Sodium (Depakote Sprinkles) 250 mg BID PO Last administered on 19:47; Start 10/31/17 at 09:00 Divalproex Sodium (Depakote Sprinkles) 125 mg DAILY@1300 PO Last administered on 11/01/17 13:18; Start 10/31/17 at 13:00 Vitamin D (Vitamin D3) 50,000 unit WEEKLY PO Last administered on 10/31/17 18: 11; Start 10/31/17 at 18:00 Clonazepam (KlonoPIN) 0.25 mg BID PO Last administered on 11/01/17 19:48; Start 10/31/17 at 21:00; Stop 11/02/17 at 23:30 Clonazepam (KlonoPIN) 0.25 mg HS PO ; Start 11/03/17 at 21:00 Active Scripts Active Reported Metoprolol Succinate ( Xl ) (Metoprolol Succinate) 25 Mg Tab.er.24h 25 Mg PO DAILY Magnesium (Magnesium Oxide) 400 Mg Capsule 400 Mg PO DAILY Cyanocobalamin Injection (Cyanocobalamin (Vitamin B-12)) 1,000 Mcg/1 Ml Vial 1 Ml IM QMONTH Colace (Docusate Sodium) 100 Mg Capsule 100 Mg PO BID Clonazepam 0.5 Mg Tablet 0.5 Mg PO BID Seroquel (Quetiapine Fumarate) 50 Mg Tablet 50 Mg PO TID@0900,1300,1700 Paxil (Paroxetine Hcl) 10 Mg Tablet 10 Mg PO DAILY Zyprexa Zydis (Olanzapine) 5 Mg Tab.rapdis 5 Mg PO PRN Q2HR PRN MDD 20mg Lorazepam 0.5 Mg Tablet 0.5 Mg PO PRN Q8HRS PRN MDD 2mg Vitamin D3 (Cholecalciferol (Vitamin D3)) 50,000 Unit Capsule 50,000 Unit PO QTU Tylenol (Acetaminophen) 325 Mg Tablet 650 Mg PO TID Tylenol (Acetaminophen) 325 Mg Tablet 650 Mg PO PRN Q4HRS PRN Tamsulosin Hcl 0.4 Mg Cap.er.24h 0.4 Mg PO QHS Senokot-S Tablet (Sennosides/Docusate Sodium) 1 Each Tablet 1 Tab PO BID Mirtazapine 15 Mg Tablet 15 Mg PO QHS Miralax (Polyethylene Glycol 3350) 17 Gm Powd.pack 17 Gm PO BID Metoprolol Tartrate 25 Mg Tablet 25 Mg PO BID Lumigan (Bimatoprost) 2.5 Ml Drops 1 Drop OU QHS Benadryl (Diphenhydramine Hcl) 25 Mg Capsule 25 Mg PO PRN Q6HRS PRN Depakote (Divalproex Sodium) 125 Mg Tablet.dr 125 Mg PO TID Biofreeze (Menthol) 118 Ml Gel..ml. 1 Chan TP BID B-12 (Cyanocobalamin (Vitamin B-12)) 1,000 Mcg Tablet 1,000 Mcg PO DAILY Aricept (Donepezil Hcl) 10 Mg Tablet 10 Mg PO QHS I have reviewed the current psychotropics carefully including drug interactions. Risk benefit ratio favors no change other than as noted in my dictated progress note. Diagnosis: Problems: (1) Anxiety disorder (2) Mild cognitive disorder (3) Impulse control disorder (4) Major depressive disorder, recurrent episode (5) Dementia in Alzheimer's disease with delusions (6) Dementia in Alzheimer's disease with depression (7) Dementia, vascular, with delusions (8) Dementia, vascular, with depression CLARKE WARE MD Nov 01, 2017 20:58
[2017-11-01] MEDS: LATANOPROST 0.005% OPHTH SOLUTION 2.5ML BOTTLE. OU SCH (21:00)
--- NOTE | 2017-11-01 21:36 | NUR ---
Behavior Intervention Response and Plan: BIRP Note: Behavior: Assumed Care of patient, patient located in Day Room at shift change. Patient exhibited the following behavior Calm, Compliant, Social. Brief assessment on rounds of vital signs, medication needs, lab studies, and pain. Treatment plan problems Dementia W/BD and Fall Risk. Intervention: Patient assessed and the following interventions initiated safety checks 15 Minute Checks Cognitive Assessment , Medications , Oral Hydration. Response: After interactions and interventions patient responded in the following manner, Calm , Compliant ,Interactive. Continue to assess behaviors and condition will continue to monitor throughout the shift as needed. Patient educated on ADL's, and hand hygiene. 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 Continue to assess patient for changes in above assessment. Monitor for medication needs, pain, and safety concerns. Hourly rounding performed to ensure safe environment.
--- NOTE | 2017-11-01 22:03 | PN ---
DATE: 10/31/2017 This is a late entry for 10/31/2017 covers elements not covered in my initial note of 10/31/2017. SUBJECTIVE: I met with the patient in the evening of 10/31/2017. The patient slept 8-1/2 hours previous evening. He is not aggressive, somewhat drowsy. Ambulation impaired, in wheelchair, which is a change from admission, probably a consequence of his IM psychotropics, which has since been discontinued. REVIEW OF SYSTEMS: No CV, , pulmonary, eye, ENT system symptoms on review. Reliability poor. MENTAL STATUS EXAM: Oriented to himself. Insight, judgment, recent and remote memory, attention, concentration, fund of knowledge poor, consistent with his diagnosis mentioned in my initial note. IMPRESSION: Major neurocognitive disorder, Alzheimer, vascular with delusion, depression, behavioral disturbance. PLAN: Reduce Klonopin from 0.5 mg twice a day to 0.25 mg twice a day. Rest unchanged. MAN Jude WARE MD DR: ILANA/angelo JOB#: [id number] / [id number]
[2017-11-02 06:05] VITALS: BP 134/74
[2017-11-02 07:40] LABS: BASO # 0.1 x10^3/uL (0.0-0.2); BASO % 1 % (0-3); EOS # 0.2 x10^3/uL (0.0-0.7); EOS % 3 % (0-3); HEMATOCRIT 38.8 % (39.0-53.0); LYMPH # 1.1 x10^3/uL (1.0-4.8); LYMPH % 16 % (24-48); MEAN CORPUSCULAR HEMOGLOBIN 29 pg (25-35); MEAN CORPUSCULAR HGB CONC 34 g/dL (31-37); MEAN CORPUSCULAR VOLUME 87 fL (79-100); MONO # 0.6 x10^3/uL (0.0-1.1); MONO % 9 % (0-9); NEUT # 5.3 x10^3uL (1.8-7.7); NEUT % 72 % (31-73); PLATELET COUNT 200 x10^3/uL (140-400); RED BLOOD COUNT 4.47 x10^6/uL (4.30-5.70); RED CELL DISTRIBUTION WIDTH 16.2 % (11.5-14.5); WHITE BLOOD COUNT 7.3 x10^3/uL (4.0-11.0)
[2017-11-02 08:07] LABS: ALBUMIN 2.8 g/dL (3.4-5.0); ALBUMIN/GLOBULIN RATIO 0.7 (1.0-1.7); ALK PHOS 53 U/L (46-116); ALT (SGPT) 15 U/L (16-63); ANION GAP 9 (6-14); AST (SGOT) 17 U/L (15-37); BLOOD UREA NITROGEN 27 mg/dL (8-26); BUN/CREATININE RATIO 25 (6-20); CALCIUM 8.9 mg/dL (8.5-10.1); CARBON DIOXIDE 29 mmol/L (21-32); CHLORIDE 111 mmol/L (98-107); CREATININE 1.1 mg/dL (0.7-1.3); GFR 65.1; GLUCOSE 102 mg/dL (70-99); SODIUM 149 mmol/L (136-145); TOTAL BILIRUBIN 0.5 mg/dL (0.2-1.0); TOTAL PROTEIN 6.7 g/dL (6.4-8.2)
[2017-11-02 08:10] LABS: VAL ACID 38 mcg/mL (50-100)
[2017-11-02] MEDS: POLYETHYLENE GLYCOL 3350 17 GM PACKET. PO SCH ×2 (09:18→20:41)
[2017-11-02] MEDS: DOCUSATE SODIUM 100 MG CAPSULE PO SCH ×2 (09:19→20:38)
[2017-11-02] MEDS: MAGNESIUM OXIDE 400 MG TABLET PO SCH (09:19)
[2017-11-02] MEDS: DIVALPROEX 125 MG CAP.SPRINK PO SCH ×3 (09:19→20:39)
[2017-11-02] MEDS: METOPROLOL SUCC 24HR ER 25 MG TAB.ER.24H. PO SCH (09:19)
[2017-11-02] MEDS: risperiDONE 0.25 MG TABLET. PO SCH ×2 (09:19→12:47)
[2017-11-02] MEDS: clonazePAM 0.5 MG TABLET PO SCH ×2 (09:23→20:41)
--- NOTE | 2017-11-02 10:30 | NUR ---
Behavior Intervention Response and Plan: BIRP Note: Behavior: Assumed Care of patient, patient located in Day Room at shift change. Patient exhibited the following behavior Restless, Disorganized, Anxious. Brief assessment on rounds of vital signs, medication needs, lab studies, and pain. Treatment plan problems 1 & 2. Intervention: Patient assessed and the following interventions initiated safety checks 15 Minute Checks Cognitive Assessment , Head to toe Assessment , Medications. Response: After interactions and interventions patient responded in the following manner, Calm , Appropriate ,Compliant. Continue to assess behaviors and condition will continue to monitor throughout the shift as needed. Patient educated on ADL's, and hand hygiene. 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 Continue to assess patient for changes in above assessment. Monitor for medication needs, pain, and safety concerns. Hourly rounding performed to ensure safe environment.
[2017-11-02] MEDS: ACETAMINOPHEN 325 MG TABLET PO PRN (13:06)
--- NOTE | 2017-11-02 14:42 | NUR ---
SW contacted pt's to inquire about participation in Tx Team. SW will add pt's to the list to be included for the call tomorrow.
--- NOTE | 2017-11-02 15:00 | NUR ---
WEEKLY THERAPEUTIC RECREATION NOTE Date of Admission: 10/27/2017 Date of AT Assessment: 10/27/2017 Goal aimed: to increase engagement and interests Initial goal: Pt. will participate in at least one group a day. Weekly progress towards goal: did not meet Group participation level: minimal, besides occasional coffee groups Behaviors observed: unsteady, using wheelchair as week progressed, interrupts group to talk about [employer], sleeps often Plan: no changes to goal
[2017-11-02 16:08] VITALS: BP 125/78
[2017-11-02] MEDS: IV DEXTROSE 5% 1,000 ML IV SCH (17:45)
[2017-11-02] MEDS: TAMSULOSIN 0.4 MG CAP.ER.24H. PO SCH (20:38)
[2017-11-02] MEDS: MIRTAZAPINE 15 MG TABLET PO SCH (20:39)
[2017-11-02] MEDS: traZODone 50 MG TABLET. PO SCH (20:39)
[2017-11-02] MEDS: DONEPEZIL HCL 10 MG TABLET PO SCH (20:39)
--- NOTE | 2017-11-02 20:58 | PDOC ---
Exam Note: Mitch Note: Please also refer to the separate dictated note~for this date of service dictated separately.~Patient seen individually. Discussed the patient with Nursing staff reviewed the chart.~Reviewed interim history and current functioning. Reviewed vital signs,~Labs/ Radiology~and current medications noted below. Continue current treatment with the changes noted in the dictated addendum note Assessment: Vital Signs: Vital Signs Date Time Temp Pulse Resp B/P (MAP) Pulse Ox O2 Delivery O2 Flow Rate FiO2 11/02/17 16:08 97.1 98 18 125/78 (94) 95 Room Air I&O Intake and Output 11/02/17 07:00 Intake Total 620 ml Balance 620 ml Intake Oral 620 ml # Voids 1 Labs: Laboratory Tests Test 11/02/17 07:20 White Blood Count 7.3 x10^3/uL (4.0-11.0) Red Blood Count 4.47 x10^6/uL (4.30-5.70) Hemoglobin 13.0 g/dL (13.0-17.5) Hematocrit 38.8 % (39.0-53.0) L Mean Corpuscular Volume 87 fL (79-100) Mean Corpuscular Hemoglobin 29 pg (25-35) Mean Corpuscular Hemoglobin Concent 34 g/dL (31-37) Red Cell Distribution Width 16.2 % (11.5-14.5) H Platelet Count 200 x10^3/uL (140-400) Neutrophils (%) (Auto) 72 % (31-73) Lymphocytes (%) (Auto) 16 % (24-48) L Monocytes (%) (Auto) 9 % (0-9) Eosinophils (%) (Auto) 3 % (0-3) Basophils (%) (Auto) 1 % (0-3) Neutrophils # (Auto) 5.3 x10^3uL (1.8-7.7) Lymphocytes # (Auto) 1.1 x10^3/uL (1.0-4.8) Monocytes # (Auto) 0.6 x10^3/uL (0.0-1.1) Eosinophils # (Auto) 0.2 x10^3/uL (0.0-0.7) Basophils # (Auto) 0.1 x10^3/uL (0.0-0.2) Sodium Level 149 mmol/L (136-145) H Potassium Level 4.0 mmol/L (3.5-5.1) Chloride Level 111 mmol/L (98-107) H Carbon Dioxide Level 29 mmol/L (21-32) Anion Gap 9 (6-14) Blood Urea Nitrogen 27 mg/dL (8-26) H Creatinine 1.1 mg/dL (0.7-1.3) Estimated GFR (Cockcroft-Gault) 65.1 BUN/Creatinine Ratio 25 (6-20) H Glucose Level 102 mg/dL (70-99) H Calcium Level 8.9 mg/dL (8.5-10.1) Total Bilirubin 0.5 mg/dL (0.2-1.0) Aspartate Amino Transferase (AST) 17 U/L (15-37) Alanine Aminotransferase (ALT) 15 U/L (16-63) L Alkaline Phosphatase 53 U/L (46-116) Total Protein 6.7 g/dL (6.4-8.2) Albumin 2.8 g/dL (3.4-5.0) L Albumin/Globulin Ratio 0.7 (1.0-1.7) L Valproic Acid Level 38 mcg/mL (50-100) L Valproic Acid Last Dose Date 11/01/2017 Valproic Acid Last Dose Time 2100 Current Medications: Meds: Current Medications Olanzapine (ZyPREXA ZYDIS) 0.125 mg PRN Q2HR PRN PO PSYCHOSIS; Start 10/27/17 at 07:45; Stop 10/27/17 at 07:45; Status DC Olanzapine (ZyPREXA ZYDIS) 1.25 mg PRN Q2HR PRN PO PSYCHOSIS; Start 10/27/17 at 07:45; Stop 10/27/17 at 23:58; Status DC Haloperidol Lactate (Haldol) 5 mg DAILY IM Last administered on 10/29/17at 08:05 ; Start 10/27/17 at 09:30; Stop 10/29/17 at 18:44; Status DC Lorazepam (Ativan) 0.5 mg DAILY IM Last administered on 10/29/17at 08:07; Start 10/27/17 at 09:30; Stop 10/29/17 at 18:44; Status DC Acetaminophen (Tylenol) 650 mg PRN Q6HRS PRN PO PAIN / TEMP; Start 10/27/17 at 10:00; Status Cancel Multi-Ingredient Ointment (Analgesic Matthews) 1 chan PRN QID PRN TP MUSCLE PAIN Last administered on 10/31/17 05:21; Start 10/27/17 at 10:00 Al Hydroxide/Mg Hydroxide (Mylanta Plus Xs) 15 ml PRN AFTMEALHC PRN PO DYSPEPSIA; Start 10/27/17 at 10:00 Magnesium Hydroxide (Milk Of Magnesia) 2,400 mg PRN QHS PRN PO CONSTIPATION Last administered on 10/30/17 16:59; Start 10/27/17 at 10:00 Acetaminophen (Tylenol) 650 mg PRN Q4HRS PRN PO PAIN / TEMP Last administered on 11/02/17 13:06; Start 10/27/17 at 11:30 Clonazepam (KlonoPIN) 0.5 mg BID PO Last administered on 10/31/17 08:12; Start 10/27/17 at 21:00; Stop 10/31/17 at 18:41; Status DC Cyanocobalamin (Vitamin B-12) 1,000 mcg QMONTH IM ; Start 11/26/17 at 09:00 Divalproex Sodium (Depakote) 125 mg TID PO Last administered on 10/30/17 19:47 ; Start 10/27/17 at 14:00; Stop 10/30/17 at 21:54; Status DC Docusate Sodium (Colace) 100 mg BID PO Last administered on 11/02/17 20:38; Start 10/27/17 at 21:00 Donepezil HCl (Aricept) 10 mg QHS PO Last administered on 11/02/17 20:39; Start 10/27/17 at 21:00 Lorazepam (Ativan) 0.5 mg PRN Q8HRS PRN PO ANXIETY / AGITATION; Start 10/27/17 at 11:30 Metoprolol Succinate (Toprol Xl) 25 mg DAILY PO Last administered on 11/02/17 09:19; Start 10/28/17 at 09:00 Mirtazapine (Remeron) 15 mg QHS PO Last administered on 11/02/17 20:39; Start 10/27/17 at 21:00 Olanzapine (ZyPREXA ZYDIS) 5 mg PRN Q2HR PRN PO PSYCHOSIS Last administered on 10/28/17 19:44; Start 10/27/17 at 11:30 Polyethylene Glycol (miraLAX) 17 gm BID PO Last administered on 11/02/17 20:41 ; Start 10/27/17 at 21:00 Tamsulosin HCl (Flomax) 0.4 mg QHS PO Last administered on 11/02/17 20:38; Start 10/27/17 at 21:00 Latanoprost (Xalatan) 1 drop QHS OU Last administered on 10/31/17 19:59; Start 10/27/17 at 21:00 Magnesium Oxide (Magnesium Oxide) 400 mg DAILY PO Last administered on 09:19; Start 10/28/17 at 09:00 Haloperidol Lactate (Haldol) 2.5 mg DAILY IM Last administered on 10/30/17 09: 04; Start 10/30/17 at 09:00; Stop 10/30/17 at 21:55; Status DC Lorazepam (Ativan) 0.25 mg DAILY IM Last administered on 10/30/17 09:03; Start 10/30/17 at 09:00; Stop 10/30/17 at 21:55; Status DC Trazodone HCl (Desyrel) 50 mg QHS PO Last administered on 11/02/17 20:39; Start 10/29/17 at 21:00 Trazodone HCl (Desyrel) 50 mg PRN QHS PRN PO INSOMNIA Last administered on 23:19; Start 10/29/17 at 18:45 Risperidone (RisperDAL) 0.25 mg DAILY@0900,1300 PO Last administered on 12:47; Start 10/31/17 at 09:00 Divalproex Sodium (Depakote Sprinkles) 250 mg BID PO Last administered on 20:39; Start 10/31/17 at 09:00 Divalproex Sodium (Depakote Sprinkles) 125 mg DAILY@1300 PO Last administered on 11/02/17 12:46; Start 10/31/17 at 13:00 Vitamin D (Vitamin D3) 50,000 unit WEEKLY PO Last administered on 4/2/18at 18: 11; Start 10/31/17 at 18:00 Clonazepam (KlonoPIN) 0.25 mg BID PO Last administered on 11/02/17at 20:41; Start 10/31/17 at 21:00; Stop 11/02/17 at 23:30 Clonazepam (KlonoPIN) 0.25 mg HS PO ; Start 11/03/17 at 21:00; Stop 11/05/17 at 09 :00 Dextrose 1,000 ml @ 75 mls/hr [id number] IV Last administered on 11/02/17at 17:45; Start 11/02/17 at 17:45 Active Scripts Active Reported Metoprolol Succinate ( Xl ) (Metoprolol Succinate) 25 Mg Tab.er.24h 25 Mg PO DAILY Magnesium (Magnesium Oxide) 400 Mg Capsule 400 Mg PO DAILY Cyanocobalamin Injection (Cyanocobalamin (Vitamin B-12)) 1,000 Mcg/1 Ml Vial 1 Ml IM QMONTH Colace (Docusate Sodium) 100 Mg Capsule 100 Mg PO BID Clonazepam 0.5 Mg Tablet 0.5 Mg PO BID Seroquel (Quetiapine Fumarate) 50 Mg Tablet 50 Mg PO TID@0900,1300,1700 Paxil (Paroxetine Hcl) 10 Mg Tablet 10 Mg PO DAILY Zyprexa Zydis (Olanzapine) 5 Mg Tab.rapdis 5 Mg PO PRN Q2HR PRN MDD 20mg Lorazepam 0.5 Mg Tablet 0.5 Mg PO PRN Q8HRS PRN MDD 2mg Vitamin D3 (Cholecalciferol (Vitamin D3)) 50,000 Unit Capsule 50,000 Unit PO QTU Tylenol (Acetaminophen) 325 Mg Tablet 650 Mg PO TID Tylenol (Acetaminophen) 325 Mg Tablet 650 Mg PO PRN Q4HRS PRN Tamsulosin Hcl 0.4 Mg Cap.er.24h 0.4 Mg PO QHS Senokot-S Tablet (Sennosides/Docusate Sodium) 1 Each Tablet 1 Tab PO BID Mirtazapine 15 Mg Tablet 15 Mg PO QHS Miralax (Polyethylene Glycol 3350) 17 Gm Powd.pack 17 Gm PO BID Metoprolol Tartrate 25 Mg Tablet 25 Mg PO BID Lumigan (Bimatoprost) 2.5 Ml Drops 1 Drop OU QHS Benadryl (Diphenhydramine Hcl) 25 Mg Capsule 25 Mg PO PRN Q6HRS PRN Depakote (Divalproex Sodium) 125 Mg Tablet.dr 125 Mg PO TID Biofreeze (Menthol) 118 Ml Gel..ml. 1 Chan TP BID B-12 (Cyanocobalamin (Vitamin B-12)) 1,000 Mcg Tablet 1,000 Mcg PO DAILY Aricept (Donepezil Hcl) 10 Mg Tablet 10 Mg PO QHS I have reviewed the current psychotropics carefully including drug interactions. Risk benefit ratio favors no change other than as noted in my dictated progress note. Diagnosis: Problems: (1) Anxiety disorder (2) Mild cognitive disorder (3) Impulse control disorder (4) Major depressive disorder, recurrent episode (5) Dementia in Alzheimer's disease with delusions (6) Dementia in Alzheimer's disease with depression (7) Dementia, vascular, with delusions (8) Dementia, vascular, with depression CLARKE WARE MD Nov 02, 2017 20:58
[2017-11-02] MEDS: LATANOPROST 0.005% OPHTH SOLUTION 2.5ML BOTTLE. OU SCH (21:00)
--- NOTE | 2017-11-02 21:08 | PN ---
DATE: 11/01/2017 PSYCHIATRIC PROGRESS NOTE This is a late entry of 11/01/2017 covers elements not covered in my initial note of 11/01/2017. I met with the patient in the evening of 11/01/2017. HISTORY OF PRESENT ILLNESS: Overall, the patient is calmer, less agitated, aggressive. His ambulation is impaired. We have since stopped the Haldol and Ativan IM and we will start physical therapy. He has been more awake, less drowsy and at times was talking coherently, wants to see his . Apparently, his will be visiting him in the next day or so. REVIEW OF SYSTEMS: Ambulation impaired, in wheelchair. No CV, , pulmonary, eye, ENT system symptoms on review. Reliability poor. MENTAL STATUS EXAM: Oriented to himself. Insight, judgment, recent and remote memory, attention, concentration, fund of knowledge poor, consistent with his diagnosis mentioned in my initial note. IMPRESSION: 1. Major neurocognitive disorder, Alzheimer, vascular with depression, delusion, behavioral disturbance. 2. Gait impairment. PLAN: Klonopin is reduced from 0.5 mg b.i.d. down to 0.25 mg b.i.d. and starting 11/03/2017, we will reduce it to 0.25 mg daily. Start physical therapy. Rest unchanged. IMs have been stopped. Maintain Depakote for now and despite subtherapeutic level, it seems to be helping the agitation and mood lability. CLARKE WARE MD DR: ILANA/angelo JOB#: [id number] / [id number]
--- NOTE | 2017-11-02 23:10 | NUR ---
Nursing Note Patient D/C'd IV that was placed by nursing schedule supervisor @ 1999. New IV placed in Left forearm successfully and IV fluid is infusing. IV placed by Deana RN and Herb RN @ 11/02/17 [id number]
--- NOTE | 2017-11-02 23:18 | PN ---
DATE: 11/02/2017 SUBJECTIVE: The patient was seen today at request of the nursing staff. They were concerned that he is becoming dehydrated. His serum sodium has risen from 137 to 149 and his BUN has risen from 14 to 27 and creatinine also is ranging up to 1.1. According to nursing staff, his intake is very poor. Reviewing his medication, he is not on any diuretics. He does not seem to be bleeding as his H and H is stable or at least relatively stable. OBJECTIVE: GENERAL: On examining him, he seemed to be hemodynamically stable. VITAL SIGNS: His heart rate was 98, blood pressure 125/78, temperature was 97.1, respiratory rate was 18 and oxygen saturation was 95%. The rest of clinical exam is stable. PLAN: My plan is to start him on D5W at 100 mL per hour and to repeat his lab work tomorrow morning. Would also push more fluid. ANDREW DOE MD DR: AMINTA/angelo JOB#: [id number] / [id number]
[2017-11-02] MEDS: LORazepam 0.5 MG TABLET PO PRN (23:31)
[2017-11-02] MEDS: traZODone 50 MG TABLET. PO PRN (23:31)
--- NOTE | 2017-11-02 23:35 | NUR ---
Nursing Note Patient agitated banging on table and stating that he is going to take out his IV. Patient given PRN Ativan per PRN order.
--- NOTE | 2017-11-02 23:36 | NUR ---
Nursing Note Patient is having difficulty going to sleep this HS. Patient moved to day room area for supervision due to patient D/C his IV. Patient states that he cannot sleep in day room R/T lights. Patient given PRN Trazodone per PRN order.
--- NOTE | 2017-11-03 00:45 | NUR ---
Behavior Intervention Response and Plan: BIRP Note: Behavior: Assumed Care of patient, patient located in Patient Room at shift change. Patient exhibited the following behavior Restless, Disorganized, Resistive. Brief assessment on rounds of vital signs, medication needs, lab studies, and pain. Treatment plan problems Dementia W/BD and Fall Risk. Intervention: Patient assessed and the following interventions initiated safety checks 15 Minute Checks Medications , Oral Hydration , Nutrition. Response: After interactions and interventions patient responded in the following manner, Disorganized , Irritable ,Non Compliant. Continue to assess behaviors and condition will continue to monitor throughout the shift as needed. Patient educated on ADL's, and hand hygiene. Plan: Continue to monitor Master Treatment Plan for patient's progress toward short term goals of Decreased Agitation, Decreased Anxiety, usp goals to return to previous living setting vs placement. Continue to assess patient for changes in above assessment. Monitor for medication needs, pain, and safety concerns. Hourly rounding performed to ensure safe environment.
[2017-11-03 05:42] VITALS: BP 149/84
[2017-11-03 07:03] LABS: CALCIUM 8.8 mg/dL (8.5-10.1); GFR 72.6; POTASSIUM 3.9 mmol/L (3.5-5.1)
[2017-11-03] MEDS: IV DEXTROSE 5% 1,000 ML IV SCH (07:05)
[2017-11-03] MEDS: DIVALPROEX 125 MG CAP.SPRINK PO SCH (07:57)
[2017-11-03] MEDS: MAGNESIUM OXIDE 400 MG TABLET PO SCH (07:57)
[2017-11-03] MEDS: DOCUSATE SODIUM 100 MG CAPSULE PO SCH ×2 (07:57→21:47)
[2017-11-03] MEDS: METOPROLOL SUCC 24HR ER 25 MG TAB.ER.24H. PO SCH (07:58)
[2017-11-03] MEDS: risperiDONE 0.25 MG TABLET. PO SCH (07:58)
[2017-11-03] MEDS: POLYETHYLENE GLYCOL 3350 17 GM PACKET. PO SCH ×2 (07:58→21:46)
[2017-11-03] MEDS: LORazepam 0.5 MG TABLET PO PRN (10:21)
--- NOTE | 2017-11-03 10:25 | NUR ---
Nursing Note: Agitation Pt became agitated in the day room. Hitting arm of his chair and pulling at his IV. Unable to redirect. PRN given. Will continue to monitor.
--- NOTE | 2017-11-03 15:00 | NUR ---
Behavior Intervention Response and Plan: BIRP Note: Behavior: Assumed Care of patient, patient located in Day Room at shift change. Patient exhibited the following behavior Restless, Disorganized, Agitated. Brief assessment on rounds of vital signs, medication needs, lab studies, and pain. Treatment plan problems dementia w/ bd and fall risk. Intervention: Patient assessed and the following interventions initiated safety checks 15 Minute Checks Cognitive Assessment , Head to toe Assessment , Medications. Response: After interactions and interventions patient responded in the following manner, Restless , Disorganized ,Drowsy. Continue to assess behaviors and condition will continue to monitor throughout the shift as needed. Patient educated on ADL's, and hand hygiene. Plan: Continue to monitor Master Treatment Plan for patient's progress toward short term goals of Decreased Agitation, Decreased Aggression, fdc goals to return to previous living setting vs placement. Continue to assess patient for changes in above assessment. Monitor for medication needs, pain, and safety concerns. Hourly rounding performed to ensure safe environment.
[2017-11-03 15:42] VITALS: BP 154/84
[2017-11-03 16:26] VITALS: BP 119/51
[2017-11-03 16:28] LABS: BASO # 0.1 x10^3/uL (0.0-0.2); BASO % 1 % (0-3); EOS # 0.2 x10^3/uL (0.0-0.7); EOS % 3 % (0-3); HEMATOCRIT 36.7 % (39.0-53.0); HEMOGLOBIN 12.2 g/dL (13.0-17.5); LYMPH # 1.1 x10^3/uL (1.0-4.8); LYMPH % 14 % (24-48); MEAN CORPUSCULAR HEMOGLOBIN 29 pg (25-35); MEAN CORPUSCULAR HGB CONC 33 g/dL (31-37); MEAN CORPUSCULAR VOLUME 87 fL (79-100); MONO # 0.6 x10^3/uL (0.0-1.1); MONO % 8 % (0-9); NEUT # 5.8 x10^3uL (1.8-7.7); NEUT % 74 % (31-73); PLATELET COUNT 195 x10^3/uL (140-400); RED BLOOD COUNT 4.24 x10^6/uL (4.30-5.70); RED CELL DISTRIBUTION WIDTH 16.3 % (11.5-14.5); WHITE BLOOD COUNT 7.7 x10^3/uL (4.0-11.0)
[2017-11-03 16:32] LABS: ALBUMIN 2.5 g/dL (3.4-5.0); ALBUMIN/GLOBULIN RATIO 0.7 (1.0-1.7); CALCIUM 8.6 mg/dL (8.5-10.1); CREATININE 0.9 mg/dL (0.7-1.3); POTASSIUM 3.9 mmol/L (3.5-5.1); TOTAL BILIRUBIN 0.3 mg/dL (0.2-1.0); TOTAL PROTEIN 6.1 g/dL (6.4-8.2)
--- NOTE | 2017-11-03 16:33 | RAD ---
PORTABLE CHEST 1V History: Diminished breath sounds Comparison: None. Findings: Single view of the chest is submitted. There is poor inspiration, low lung volumes. There is probable infiltrate at the left lung base. There is no pneumothorax. No significant pleural fluid is identified. There is some osteolysis of the distal right clavicle. There is anchor device proximal right humerus. Impression: 1. There is poor inspiration, low lung volumes. There is probable left base infiltrate. Electronically signed by: Carlin Bullard MD (11/03/2017 4:30 PM) [facility] [id number]
[2017-11-03] MEDS ORDERED: CHOL500050 PO (20:35)
[2017-11-03] MEDS ORDERED: MAG30ORA2 PO (20:41)
[2017-11-03] MEDS ORDERED: MAGN400O7 PO (20:45)
[2017-11-03] MEDS ORDERED: METH29OI TP (20:50)
[2017-11-03] MEDS ORDERED: TRAZ50TA15 PO ×2 (20:56)
--- NOTE | 2017-11-03 20:57 | PDOC ---
Exam Note: Mitch Note: Please also refer to the separate dictated note~for this date of service dictated separately.~Patient seen individually. Discussed the patient with Nursing staff reviewed the chart.~Reviewed interim history and current functioning. Reviewed vital signs,~Labs/ Radiology~and current medications noted below. Continue current treatment with the changes noted in the dictated addendum note Assessment: Vital Signs: Vital Signs Date Time Temp Pulse Resp B/P (MAP) Pulse Ox O2 Delivery O2 Flow Rate FiO2 11/03/17 16:26 97.9 78 18 119/51 (73) 93 11/03/17 15:42 Room Air I&O Intake and Output 11/03/17 07:00 Intake Total 660 ml Balance 660 ml Intake Oral 660 ml # Voids 1 # Bowel Movements 5 Labs: Laboratory Tests Test 11/03/17 06:35 11/03/17 15:55 11/03/17 17:20 Sodium Level 150 mmol/L (136-145) H 149 mmol/L (136-145) H Potassium Level 3.9 mmol/L (3.5-5.1) 3.9 mmol/L (3.5-5.1) Chloride Level 112 mmol/L (98-107) H 110 mmol/L (98-107) H Carbon Dioxide Level 28 mmol/L (21-32) 27 mmol/L (21-32) Anion Gap 10 (6-14) 12 (6-14) Blood Urea Nitrogen 25 mg/dL (8-26) 22 mg/dL (8-26) Creatinine 1.0 mg/dL (0.7-1.3) 0.9 mg/dL (0.7-1.3) Estimated GFR (Cockcroft-Gault) 72.6 82.0 Glucose Level 101 mg/dL (70-99) H 99 mg/dL (70-99) Calcium Level 8.8 mg/dL (8.5-10.1) 8.6 mg/dL (8.5-10.1) White Blood Count 7.7 x10^3/uL (4.0-11.0) Red Blood Count 4.24 x10^6/uL (4.30-5.70) L Hemoglobin 12.2 g/dL (13.0-17.5) L Hematocrit 36.7 % (39.0-53.0) L Mean Corpuscular Volume 87 fL (79-100) Mean Corpuscular Hemoglobin 29 pg (25-35) Mean Corpuscular Hemoglobin Concent 33 g/dL (31-37) Red Cell Distribution Width 16.3 % (11.5-14.5) H Platelet Count 195 x10^3/uL (140-400) Neutrophils (%) (Auto) 74 % (31-73) H Lymphocytes (%) (Auto) 14 % (24-48) L Monocytes (%) (Auto) 8 % (0-9) Eosinophils (%) (Auto) 3 % (0-3) Basophils (%) (Auto) 1 % (0-3) Neutrophils # (Auto) 5.8 x10^3uL (1.8-7.7) Lymphocytes # (Auto) 1.1 x10^3/uL (1.0-4.8) Monocytes # (Auto) 0.6 x10^3/uL (0.0-1.1) Eosinophils # (Auto) 0.2 x10^3/uL (0.0-0.7) Basophils # (Auto) 0.1 x10^3/uL (0.0-0.2) BUN/Creatinine Ratio 24 (6-20) H Total Bilirubin 0.3 mg/dL (0.2-1.0) Aspartate Amino Transferase (AST) 13 U/L (15-37) L Alanine Aminotransferase (ALT) 10 U/L (16-63) L Alkaline Phosphatase 46 U/L (46-116) Total Protein 6.1 g/dL (6.4-8.2) L Albumin 2.5 g/dL (3.4-5.0) L Albumin/Globulin Ratio 0.7 (1.0-1.7) L Lactic Acid Level 1.5 mmol/L (0.4-2.0) Current Medications: Meds: Current Medications Olanzapine (ZyPREXA ZYDIS) 0.125 mg PRN Q2HR PRN PO PSYCHOSIS; Start 10/27/17 at 07:45; Stop 10/27/17 at 07:45; Status DC Olanzapine (ZyPREXA ZYDIS) 1.25 mg PRN Q2HR PRN PO PSYCHOSIS; Start 10/27/17 at 07:45; Stop 10/27/17 at 23:58; Status DC Haloperidol Lactate (Haldol) 5 mg DAILY IM Last administered on 10/29/17 08:05 ; Start 10/27/17 at 09:30; Stop 10/29/17 at 18:44; Status DC Lorazepam (Ativan) 0.5 mg DAILY IM Last administered on 10/29/17 08:07; Start 10/27/17 at 09:30; Stop 10/29/17 at 18:44; Status DC Acetaminophen (Tylenol) 650 mg PRN Q6HRS PRN PO PAIN / TEMP; Start 10/27/17 at 10:00; Status Cancel Multi-Ingredient Ointment (Analgesic Hammond) 1 chan PRN QID PRN TP MUSCLE PAIN Last administered on 10/31/17 05:21; Start 10/27/17 at 10:00 Al Hydroxide/Mg Hydroxide (Mylanta Plus Xs) 15 ml PRN AFTMEALHC PRN PO DYSPEPSIA; Start 10/27/17 at 10:00 Magnesium Hydroxide (Milk Of Magnesia) 2,400 mg PRN QHS PRN PO CONSTIPATION Last administered on 10/30/17 16:59; Start 10/27/17 at 10:00 Acetaminophen (Tylenol) 650 mg PRN Q4HRS PRN PO PAIN / TEMP Last administered on 11/02/17 13:06; Start 10/27/17 at 11:30 Clonazepam (KlonoPIN) 0.5 mg BID PO Last administered on 10/31/17 08:12; Start 10/27/17 at 21:00; Stop 10/31/17 at 18:41; Status DC Cyanocobalamin (Vitamin B-12) 1,000 mcg QMONTH IM ; Start 11/26/17 at 09:00 Divalproex Sodium (Depakote) 125 mg TID PO Last administered on 10/30/17 19:47 ; Start 10/27/17 at 14:00; Stop 10/30/17 at 21:54; Status DC Docusate Sodium (Colace) 100 mg BID PO Last administered on 11/03/17 07:57; Start 10/27/17 at 21:00 Donepezil HCl (Aricept) 10 mg QHS PO Last administered on 11/02/17 20:39; Start 10/27/17 at 21:00 Lorazepam (Ativan) 0.5 mg PRN Q8HRS PRN PO ANXIETY / AGITATION Last administered on 11/03/17 10:21; Start 10/27/17 at 11:30 Metoprolol Succinate (Toprol Xl) 25 mg DAILY PO Last administered on 11/03/17 07:58; Start 10/28/17 at 09:00 Mirtazapine (Remeron) 15 mg QHS PO Last administered on 11/02/17 20:39; Start 10/27/17 at 21:00 Olanzapine (ZyPREXA ZYDIS) 5 mg PRN Q2HR PRN PO PSYCHOSIS Last administered on 10/28/17 19:44; Start 10/27/17 at 11:30 Polyethylene Glycol (miraLAX) 17 gm BID PO Last administered on 11/03/17 07:58 ; Start 10/27/17 at 21:00 Tamsulosin HCl (Flomax) 0.4 mg QHS PO Last administered on 11/02/17 20:38; Start 10/27/17 at 21:00 Latanoprost (Xalatan) 1 drop QHS OU Last administered on 10/31/17 19:59; Start 10/27/17 at 21:00 Magnesium Oxide (Magnesium Oxide) 400 mg DAILY PO Last administered on 07:57; Start 10/28/17 at 09:00 Haloperidol Lactate (Haldol) 2.5 mg DAILY IM Last administered on 10/30/17 09: 04; Start 10/30/17 at 09:00; Stop 10/30/17 at 21:55; Status DC Lorazepam (Ativan) 0.25 mg DAILY IM Last administered on 10/30/17 09:03; Start 10/30/17 at 09:00; Stop 10/30/17 at 21:55; Status DC Trazodone HCl (Desyrel) 50 mg QHS PO Last administered on 11/02/17 20:39; Start 10/29/17 at 21:00 Trazodone HCl (Desyrel) 50 mg PRN QHS PRN PO INSOMNIA Last administered on 23:31; Start 10/29/17 at 18:45 Risperidone (RisperDAL) 0.25 mg DAILY@0900,1300 PO Last administered on at 07:58; Start 10/31/17 at 09:00; Stop 11/03/17 at 10:52; Status DC Divalproex Sodium (Depakote Sprinkles) 250 mg BID PO Last administered on at 07:57; Start 10/31/17 at 09:00; Stop 11/03/17 at 10:52; Status DC Divalproex Sodium (Depakote Sprinkles) 125 mg DAILY@1300 PO Last administered on 11/02/17at 12:46; Start 10/31/17 at 13:00; Stop 11/03/17 at 10:52; Status DC Vitamin D (Vitamin D3) 50,000 unit WEEKLY PO Last administered on 10/31/17at 18: 11; Start 10/31/17 at 18:00 Clonazepam (KlonoPIN) 0.25 mg BID PO Last administered on 11/02/17at 20:41; Start 10/31/17 at 21:00; Stop 11/02/17 at 23:30; Status DC Clonazepam (KlonoPIN) 0.25 mg HS PO ; Start 11/03/17 at 21:00; Stop 11/05/17 at 09 :00 Dextrose 1,000 ml @ 75 mls/hr [id number] IV Last administered on 11/03/17at 07:05; Start 11/02/17 at 17:45 Active Scripts Active Reported Analgesic Hammond (Methyl Salicylate/Menthol) 28 Gm Oint...g. 1 Chan TP PRN QID PRN Milk Of Magnesia (Magnesium Hydroxide) 400 Mg/5 Ml Oral.susp 2,400 Mg PO PRN QHS PRN Mag-Al Plus Xs Suspension (Mag Hydrox/Al Hydrox/Simeth) 30 Ml Oral.susp 15 Ml PO PRN AFTMEALHC PRN Vitamin D3 (Cholecalciferol (Vitamin D3)) 50,000 Unit Capsule 50,000 Unit PO WEEKLY Metoprolol Succinate ( Xl ) (Metoprolol Succinate) 25 Mg Tab.er.24h 25 Mg PO DAILY Magnesium (Magnesium Oxide) 400 Mg Capsule 400 Mg PO DAILY Cyanocobalamin Injection (Cyanocobalamin (Vitamin B-12)) 1,000 Mcg/1 Ml Vial 1 Ml IM QMONTH Colace (Docusate Sodium) 100 Mg Capsule 100 Mg PO BID Clonazepam 0.5 Mg Tablet 0.5 Mg PO BID Seroquel (Quetiapine Fumarate) 50 Mg Tablet 50 Mg PO TID@0900,1300,1700 Paxil (Paroxetine Hcl) 10 Mg Tablet 10 Mg PO DAILY Zyprexa Zydis (Olanzapine) 5 Mg Tab.rapdis 5 Mg PO PRN Q2HR PRN MDD 20mg Lorazepam 0.5 Mg Tablet 0.5 Mg PO PRN Q8HRS PRN MDD 2mg Vitamin D3 (Cholecalciferol (Vitamin D3)) 50,000 Unit Capsule 50,000 Unit PO QTU Tylenol (Acetaminophen) 325 Mg Tablet 650 Mg PO TID Tylenol (Acetaminophen) 325 Mg Tablet 650 Mg PO PRN Q4HRS PRN Tamsulosin Hcl 0.4 Mg Cap.er.24h 0.4 Mg PO QHS Senokot-S Tablet (Sennosides/Docusate Sodium) 1 Each Tablet 1 Tab PO BID Mirtazapine 15 Mg Tablet 15 Mg PO QHS Miralax (Polyethylene Glycol 3350) 17 Gm Powd.pack 17 Gm PO BID Metoprolol Tartrate 25 Mg Tablet 25 Mg PO BID Lumigan (Bimatoprost) 2.5 Ml Drops 1 Drop OU QHS Benadryl (Diphenhydramine Hcl) 25 Mg Capsule 25 Mg PO PRN Q6HRS PRN Depakote (Divalproex Sodium) 125 Mg Tablet.dr 125 Mg PO TID Biofreeze (Menthol) 118 Ml Gel..ml. 1 Chan TP BID B-12 (Cyanocobalamin (Vitamin B-12)) 1,000 Mcg Tablet 1,000 Mcg PO DAILY Aricept (Donepezil Hcl) 10 Mg Tablet 10 Mg PO QHS I have reviewed the current psychotropics carefully including drug interactions. Risk benefit ratio favors no change other than as noted in my dictated progress note. Diagnosis: Problems: (1) Anxiety disorder (2) Mild cognitive disorder (3) Impulse control disorder (4) Major depressive disorder, recurrent episode (5) Dementia in Alzheimer's disease with delusions (6) Dementia in Alzheimer's disease with depression (7) Dementia, vascular, with delusions (8) Dementia, vascular, with depression CLARKE WARE MD Nov 03, 2017 20:56
[2017-11-03 21:00] LABS: BACTERIA,URINE 0 /HPF (0-FEW); BILIRUBIN,URINE NEG (NEG); CLARITY,URINE CLEAR; COLOR,URINE AMBER; GLUCOSE,URINE NEG (NEG); NITRITE,URINE NEG (NEG); SQUAMOUS EPITHELIAL CELL,UR FEW /LPF; UROBILINOGEN,URINE 0.2 mg/dL (0.2 mg/dL)
[2017-11-03] MEDS ORDERED: clonazePAM 0.5 MG TABLET PO SCH (21:00)
[2017-11-03] MEDS: TAMSULOSIN 0.4 MG CAP.ER.24H. PO SCH (21:45)
[2017-11-03] MEDS: MIRTAZAPINE 15 MG TABLET PO SCH (21:45)
[2017-11-03] MEDS: traZODone 50 MG TABLET. PO SCH (21:45)
[2017-11-03] MEDS: DONEPEZIL HCL 10 MG TABLET PO SCH (21:46)
--- NOTE | 2017-11-03 21:51 | NUR ---
Transition Record was faxed to follow-up provider with the following elements: Reason for admission, procedures, tests, principal diagnosis, pending studies, patient instructions, 21/02 contact information for unit, phone number to obtain pending test results, plan for follow-up care, physician follow-up, advanced directive information, and medication list with dose, duration and instructions. This information was included in the following documents: History and physical, lab results, study results, progress notes, social work planning form, DC instruction form, patient visit summary, and medication reconciliation form. Date & time record faxed:11/03/17 [phone] Record faxed to:[facility] [place] Record discussed with/ report given to:Vangie BRADY
--- NOTE | 2017-11-04 19:10 | DS ---
DATE OF DISCHARGE: 11/03/2017 PSYCHIATRIC PROGRESS NOTE REASON FOR ADMISSION: Please refer to the admission history for details. Briefly, the patient is a 77-year-old male referred back to us from [facility] unit by his primary care physician after he became agitated, aggressive. He was throwing chairs at the facility, hitting, twisting the arm of his . Noncompliant with medications. He remained extremely confused, delusional. Had failed outpatient psychiatric interventions resulting in this referral. SIGNIFICANT FINDINGS AND CLINICAL COURSE: Following admission, the patient was seen individually by myself from a psychiatric standpoint, followed medically per Dr. Jarvis/Dr. Trevizo. Initially, he was extremely aggressive, disruptive. He is big built and was quite threatening to the nursing staff, oblivious of his surroundings, totally noncompliant with his medications. We did start him on intramuscular Haldol and Ativan scheduled not as a restraint but a scheduled medication to help with the efficacy. He was much calmer, less psychotic, but gait was affected. Depakote was added as a mood stabilizer. From a psychiatric standpoint, he was doing better, but then became dehydrated. Also developed pneumonia and then transferred to the medical surgical floor per Dr. Trevizo on 11/03/2017. He was staffed at a treatment team meeting with the entire team morning of 11/03/2017 and seen individually evening of 11/03/2017 by myself. REVIEW OF SYSTEMS: No CV, , pulmonary, eye, ENT system symptoms on review. Gait unsteady in wheelchair. MENTAL STATUS EXAM: Oriented to himself. Insight, judgment, recent and remote memory, attention, concentration, fund of knowledge poor, consistent with his diagnosis. At the treatment team meeting, the patient's Wanda attended and we had a very lengthy discussion about pros and cons of atypical antipsychotics, contraindications and dementia, but the need to use the minimal dosages to help with the psychosis, agitation, aggression, so he could return back to [facility]. Nevertheless, given his unsteady gait prior to his discharge, Depakote and Risperdal were discontinued as well and the Klonopin was being tapered to be stopped on the 7th. CONDITION AT DISCHARGE: Improved from a psychiatric standpoint, but medically more compromised as he developed pneumonia and dehydration. FINAL DIAGNOSES: Major neurocognitive disorder, Alzheimer, vascular with depression, delusion, behavioral disturbance; anxiety disorder, unspecified; impulse control disorder, unspecified; pneumonia, dehydration. Rest unchanged from admission. DISCHARGE MEDICATIONS: Please refer to [facility]. Further psychiatric followup to be determined on the medical/surgical floor per Dr. Trevizo. Prior to transition to [address] [place] [address], he was intermittently agitated, slamming his hand on the table. Time for discharge day management greater than 30 minutes. CLARKE WARE MD DR: ILANA/angelo JOB#: [id number] / [id number]
--- NOTE | 2017-11-04 22:49 | PN ---
DATE: 11/02/2017 This late entry 11/02/2017 covers elements not covered in my initial note 11/02/2017. Met with the patient evening of 11/02/2017. SUBJECTIVE: The patient is cooperative with physical therapy, occupational therapy, took 3 steps. Previous evening, he had no behavior problems, but is a weight on transfers, per nursing report the previous night. During the day on 11/02/2017, he is more helpful, able to do a little more for himself, and we will stop the IM Haldol and Ativan. He does appear somewhat dehydrated. The sodium chloride and BUN are elevated. We will defer to Dr. Trevizo. REVIEW OF SYSTEMS: Ambulation impaired. No CV, , pulmonary, eye, ENT system symptoms on review. Reliability poor. MENTAL STATUS EXAM: Oriented to himself. Insight, judgment, recent and remote memory, attention, concentration, fund of knowledge poor, consistent with his diagnosis. Valproic acid level is 38. LABORATORY DATA: Reviewed. IMPRESSION: Major neurocognitive disorder, Alzheimer, vascular with depression, delusion, behavioral disturbance, dehydration. PLAN: From a psychiatric standpoint, we will taper and stop the Klonopin. We will stop the IM Haldol, Ativan and we may stop the Depakote and Risperdal if lack of ambulation persists. The patient has been very challenging in the sense that he has been extremely aggressive prior to this referral, was refusing to take any oral medications. We had to start intramuscular Haldol, Ativan, which could have contributed to some effect on his gait, and we may end up stopping all psychotropics and starting a fresh after his dehydration is corrected. We would also like to make sure he does not have a UTI or pneumonia, but I will leave all of this to Dr. Trevizo. MAN Jude WARE MD DR: ILANA/angelo JOB#: [id number] / [id number]
[2017-11-26] MEDS ORDERED: CYANOCOBALAMIN (VITAMIN B-12) 1,000 MCG/ML VIAL IM SCH (09:00)
== END 2017-11-03 21:57 | disposition short-term general hospital (02) | DRG 56 ==
LOC: GEROPSY 07:07
PROVIDERS: ADMIT Psychiatry & Neurology Psychiatry; ATTEND Psychiatry & Neurology Psychiatry
DX: G30.9 Alzheimer's disease, unspecified (principal); J18.9 Pneumonia, unspecified organism; F01.51 Vascular dementia, unspecified severity, with behavioral disturbance; E86.0 Dehydration; F22 Delusional disorders; F33.9 Major depressive disorder, recurrent, unspecified; F02.81 Dementia in other diseases classified elsewhere, unspecified severity, with behavioral disturbance; F41.9 Anxiety disorder, unspecified; F63.9 Impulse disorder, unspecified; H40.9 Unspecified glaucoma; I10 Essential (primary) hypertension; N40.0 Benign prostatic hyperplasia without lower urinary tract symptoms; Z79.899 Other long term (current) drug therapy; Z87.891 Personal history of nicotine dependence; Z91.14 Patient's other noncompliance with medication regimen
CPT/HCPCS: 36415; 71045; 80048; 80053; 80061; 80164; 81001; 82306; 82607; 83036; 83540; 83550; 83605; 83735; 84436; 84443; 84480; 85025; 86593; 93005; J1630; J2060

== ENCOUNTER 2017-11-03 21:45 | Inpatient (IN) | payer MEDICARE ==
[~2017-11-03] VITALS: Ht 188 cm; Wt 89.1 kg
[~2017-11-03 21:45] MED LIST changes: +CLON0.5T3 PO; +CYAN10002 IM; +DOCU-109 PO; +MAG30ORA2 PO; +MAGN400C PO; +MAGN400O7 PO; +METH29OI TP; +METO-239 PO; +TRAZ50TA15 PO
[2017-11-03 22:15] VITALS: BP 122/66
[2017-11-03] MEDS: IV DEXTROSE 5 %-0.45 % NACL 1,000 ML IV SCH (23:33)
[2017-11-04] MEDS: PIPERACILLIN/TAZOBACTAM 3.375 GM in IV NORMAL SALINE 50ML 50 ML IV SCH ×4 (00:12→22:43)
[2017-11-04] MEDS ORDERED: METHYL SALICYLATE/MENTHOL TOPICAL OINTMENT 29GM TUBE. TP PRN (01:00)
[2017-11-04] MEDS ORDERED: ACETAMINOPHEN 325 MG TABLET PO PRN (01:00)
[2017-11-04] MEDS ORDERED: traZODone 50 MG TABLET. PO PRN (01:00)
[2017-11-04] MEDS ORDERED: MAGNESIUM HYDROXIDE 2,400 MG/30 ML ORAL.SUSP. PO PRN (01:00)
[2017-11-04] MEDS ORDERED: MAG HYDROX/AL HYDROX/SIMETH 30 ML ORAL.SUSP PO PRN (01:00)
[2017-11-04 05:17] VITALS: BP 114/73
[2017-11-04] MEDS ORDERED: IPRATRPIUM/ALBUTEROL 0.5/2.5MG 3 ML NEBU. ONE (05:44)
[2017-11-04] MEDS: IPRATRPIUM/ALBUTEROL 0.5/2.5MG 3 ML NEBU. NEB SCH ×4 (06:00→20:44)
[2017-11-04 06:41] LABS: BASO # 0.1 x10^3/uL (0.0-0.2); BASO % 1 % (0-3); EOS # 0.3 x10^3/uL (0.0-0.7); EOS % 4 % (0-3); HEMATOCRIT 36.7 % (39.0-53.0); HEMOGLOBIN 12.2 g/dL (13.0-17.5); LYMPH # 1.4 x10^3/uL (1.0-4.8); LYMPH % 20 % (24-48); MEAN CORPUSCULAR HEMOGLOBIN 29 pg (25-35); MEAN CORPUSCULAR HGB CONC 33 g/dL (31-37); MEAN CORPUSCULAR VOLUME 87 fL (79-100); MONO # 0.7 x10^3/uL (0.0-1.1); MONO % 10 % (0-9); NEUT # 4.6 x10^3uL (1.8-7.7); NEUT % 66 % (31-73); PLATELET COUNT 184 x10^3/uL (140-400); RED BLOOD COUNT 4.22 x10^6/uL (4.30-5.70); RED CELL DISTRIBUTION WIDTH 16.3 % (11.5-14.5); WHITE BLOOD COUNT 6.9 x10^3/uL (4.0-11.0)
[2017-11-04 06:56] LABS: ALBUMIN 2.5 g/dL (3.4-5.0); ALBUMIN/GLOBULIN RATIO 0.7 (1.0-1.7); CALCIUM 8.6 mg/dL (8.5-10.1); GFR 72.6; POTASSIUM 4.2 mmol/L (3.5-5.1); TOTAL BILIRUBIN 0.5 mg/dL (0.2-1.0); TOTAL PROTEIN 6.1 g/dL (6.4-8.2)
[2017-11-04] MEDS ORDERED: CYANOCOBALAMIN (VITAMIN B-12) 1,000 MCG/ML VIAL IM SCH (09:00)
[2017-11-04] MEDS: POLYETHYLENE GLYCOL 3350 17 GM PACKET. PO SCH ×2 (09:05→21:00)
[2017-11-04] MEDS: MAGNESIUM OXIDE 400 MG TABLET PO SCH (09:06)
[2017-11-04] MEDS: LACTOBACILLUS RHAMNOSUS GG 1 CAPSULE. PO SCH ×2 (09:06→21:32)
[2017-11-04] MEDS: DOCUSATE SODIUM 100 MG CAPSULE PO SCH ×2 (09:06→21:32)
[2017-11-04] MEDS: METOPROLOL SUCC 24HR ER 25 MG TAB.ER.24H. PO SCH (09:07)
[2017-11-04 10:40] VITALS: BP 113/70
[2017-11-04] MEDS: LORazepam 0.5 MG TABLET PO PRN (13:48)
[2017-11-04] MEDS: IV DEXTROSE 5 %-0.45 % NACL 1,000 ML IV SCH (13:52)
[2017-11-04 15:15] VITALS: BP 123/56
[2017-11-04 15:49] LABS: HEMATOCRIT 35.7 % (39.0-53.0); HEMOGLOBIN 11.7 g/dL (13.0-17.5); RED BLOOD COUNT 4.06 x10^6/uL (4.30-5.70); WHITE BLOOD COUNT 6.3 x10^3/uL (4.0-11.0)
--- NOTE | 2017-11-04 16:54 | HP ---
ADMIT DATE: 11/03/2017 HISTORY OF PRESENT ILLNESS: The patient is a 77-year-old male patient whom I have seen [facility] at the request of nursing staff as apparently the patient was very lethargic. We did lab work, which showed that his serum sodium was high at 149 and was clearly dehydrated and his chest x-ray showed that he has left lower lobe infiltrate and therefore a decision was made to transfer him to [address] [place] [address] to treat him with IV antibiotic for healthcare-associated pneumonia and to rehydrate him as he was started on D5W. PAST MEDICAL HISTORY: Significant for hypertension, glaucoma, benign prostatic hypertrophy. PAST PSYCHIATRIC HISTORY: Significant for dementia. PAST SURGICAL HISTORY: Unremarkable. FAMILY HISTORY: Unremarkable. SOCIAL HISTORY: He is ; however, he is living at [facility] in [facility]. His lives in assisted living facility. He is an ex-smoker, quit 30 years ago. He has a son and a daughter. 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 ALLERGIES: He has no known drug allergies. MEDICATIONS: He was transferred to [address] [place] [address] to continue on following medications: Aricept 10 mg once a day, tamsulosin 0.4 mg at bedtime, metoprolol succinate 25 mg once a day, analgesic balm applied topically 4 times a day, Tylenol 650 mg every 4 hours, clonazepam 0.5 mg at bedtime, mirtazapine 15 mg at bedtime, trazodone 50 mg at bedtime. He is on olanzapine for Zyprexa 5 mg every 2 hours, lorazepam 0.5 mg every 6 hours, Lumigan 1 drop to both eyes at bedtime, magnesium oxide 400 mg daily, Colace 100 mg twice a day, magnesium hydroxide for milk of magnesia 30 mL p.o. daily p.r.n. for constipation, polyethylene glycol 17 grams twice a day, cyanocobalamin 1000 mcg/mL intramuscular every month, and cholecalciferol 50,000 units p.o. every Tuesday. PHYSICAL EXAMINATION: GENERAL: On arrival to [address] [place] [address], the patient continued to be somewhat lethargic, but arousable. He was slightly pale, but no jaundice, cyanosis, or thyromegaly. No jugular venous distension. No limb edema. VITAL SIGNS: His heart rate was 98, blood pressure was 114/73, temperature was 97.6, respiratory rate 20, and oxygen saturation was 94% on room air. HEAD, EYES, EARS, NOSE AND THROAT: Showed normocephalic, atraumatic. NECK: Supple. HEART: Showed normal first and second heart sounds. No gallop, rub, or murmur. CHEST: Showed central trachea, equal bilateral expansion, air entry, vesicular sounds, few crepitation on the left side posteriorly. ABDOMEN: Slightly distended, soft, nontender. No guarding or rigidity. No organomegaly. Hernial orifice intact. Bowel sounds normal. NEUROLOGIC: He was lethargic, but arousable. All cranial nerves intact. He moves extremities without difficulty, although he is mostly wheelchair bound. LABORATORY DATA: His lab work yesterday showed a white cell count of 7700, hemoglobin 12.2, hematocrit 36, MCV 87, and platelet count of 195,000. His serum sodium was 149, potassium 3.9, chloride 110, bicarbonate 27, anion gap of 12, BUN 22, creatinine 0.9. Estimated GFR was 82 mL per minute. His glucose was 99, calcium was 8.6. Total bilirubin, AST, ALT, alkaline phosphatase were normal. Total protein was 6.1, albumin was 2.5. His urinalysis showed the urine was anali, clear with a pH of 6, specific gravity of 1.020, small amount of protein, negative for glucose, ketones, small amount of blood, negative for nitrite and bilirubin, and negative for leukocyte esterase with 11-20 rbc's, 1-4 wbc's, very few bacteria. Toxicology screen showed valproic acid was 38 mcg/mL. His chest x-ray showed that there is poor inspiration, low lung volumes. There is probably infiltrate in the left lung base. There is no pneumothorax, no significant pleural fluid identified. ASSESSMENT AND PLAN: The patient was diagnosed with dehydration, hypernatremia, and healthcare-associated pneumonia. He was admitted to [address] [place] [address] and was started on IV Zosyn at 3.375 grams IV q.8 hours and Zyvox 600 mg IV twice a day. We will continue with D5W, continue with all his other medications and follow him closely. We will consult the physical therapist and Dr. Arthur to follow. ANDREW DOE MD DR: AMINTA/angelo JOB#: [id number] / [id number]
--- NOTE | 2017-11-04 18:26 | PDOC ---
Exam Note: Mitch Note: Please also refer to the separate dictated note~for this date of service dictated separately.~Patient seen individually. Discussed the patient with Nursing staff reviewed the chart.~Reviewed interim history and current functioning. Reviewed vital signs,~Labs/ Radiology~and current medications noted below. Continue current treatment with the changes noted in the dictated addendum note Assessment: Vital Signs: Vital Signs Date Time Temp Pulse Resp B/P (MAP) Pulse Ox O2 Delivery O2 Flow Rate FiO2 11/04/17 15:25 97 Room Air 11/04/17 15:15 97.2 99 20 123/56 (78) I&O Intake and Output 11/04/17 07:00 Intake Total 558 ml Balance 558 ml Intake Oral 50 ml IV Total 508 ml # Voids 2 # Bowel Movements 2 Labs: Laboratory Tests Test 11/04/17 06:04 11/04/17 15:30 White Blood Count 6.9 x10^3/uL (4.0-11.0) 6.3 x10^3/uL (4.0-11.0) Red Blood Count 4.22 x10^6/uL (4.30-5.70) L 4.06 x10^6/uL (4.30-5.70) L Hemoglobin 12.2 g/dL (13.0-17.5) L 11.7 g/dL (13.0-17.5) L Hematocrit 36.7 % (39.0-53.0) L 35.7 % (39.0-53.0) L Mean Corpuscular Volume 87 fL (79-100) 88 fL (79-100) Mean Corpuscular Hemoglobin 29 pg (25-35) 29 pg (25-35) Mean Corpuscular Hemoglobin Concent 33 g/dL (31-37) 33 g/dL (31-37) Red Cell Distribution Width 16.3 % (11.5-14.5) H 16.0 % (11.5-14.5) H Platelet Count 184 x10^3/uL (140-400) 171 x10^3/uL (140-400) Neutrophils (%) (Auto) 66 % (31-73) Lymphocytes (%) (Auto) 20 % (24-48) L Monocytes (%) (Auto) 10 % (0-9) H Eosinophils (%) (Auto) 4 % (0-3) H Basophils (%) (Auto) 1 % (0-3) Neutrophils # (Auto) 4.6 x10^3uL (1.8-7.7) Lymphocytes # (Auto) 1.4 x10^3/uL (1.0-4.8) Monocytes # (Auto) 0.7 x10^3/uL (0.0-1.1) Eosinophils # (Auto) 0.3 x10^3/uL (0.0-0.7) Basophils # (Auto) 0.1 x10^3/uL (0.0-0.2) Sodium Level 148 mmol/L (136-145) H Potassium Level 4.2 mmol/L (3.5-5.1) Chloride Level 111 mmol/L (98-107) H Carbon Dioxide Level 29 mmol/L (21-32) Anion Gap 8 (6-14) Blood Urea Nitrogen 18 mg/dL (8-26) Creatinine 1.0 mg/dL (0.7-1.3) Estimated GFR (Cockcroft-Gault) 72.6 BUN/Creatinine Ratio 18 (6-20) Glucose Level 100 mg/dL (70-99) H Calcium Level 8.6 mg/dL (8.5-10.1) Total Bilirubin 0.5 mg/dL (0.2-1.0) # Aspartate Amino Transferase (AST) 15 U/L (15-37) Alanine Aminotransferase (ALT) 10 U/L (16-63) L Alkaline Phosphatase 48 U/L (46-116) Total Protein 6.1 g/dL (6.4-8.2) L Albumin 2.5 g/dL (3.4-5.0) L Albumin/Globulin Ratio 0.7 (1.0-1.7) L Current Medications: Meds: Current Medications Piperacillin Sod/ Tazobactam Sod 3.375 gm/Sodium Chloride 50 ml @ 100 mls/hr Q8HRS IV Last administered on 11/04/17at 13:54; Start 11/04/17 at 00:00 Linezolid 300 ml @ 300 mls/hr Q12HR IV Last administered on 11/04/17at 09:07; Start 11/03/17 at 23:00 Albuterol/ Ipratropium (Duoneb) 3 ml RTQID NEB Last administered on 11/04/17at 15 :25; Start 11/04/17 at 08:00 Dextrose/Sodium Chloride 1,000 ml @ 75 mls/hr [id number] IV Last administered on 11/04/17at 13:52; Start 11/03/17 at 23:00 Lactobacillus Rhamnosus (Culturelle) 1 cap BID PO Last administered on at 09:06; Start 11/04/17 at 09:00 Acetaminophen (Tylenol) 650 mg PRN Q4HRS PRN PO PAIN / TEMP; Start 11/04/17 at 01:00 Vitamin D (Vitamin D3) 50,000 unit QTU PO ; Start 11/08/17 at 16:00 Clonazepam (KlonoPIN) 0.25 mg QHS PO ; Start 11/04/17 at 21:00 Cyanocobalamin (Vitamin B-12) 1,000 mcg QMONTH IM ; Start 11/04/17 at 09:00; Stop 11/04/17 at 09:00; Status DC Docusate Sodium (Colace) 100 mg BID PO Last administered on 11/04/17at 09:06; Start 11/04/17 at 09:00 Donepezil HCl (Aricept) 10 mg QHS PO ; Start 11/04/17 at 21:00 Lorazepam (Ativan) 0.5 mg PRN Q8HRS PRN PO ANXIETY / AGITATION Last administered on 11/04/17at 13:48; Start 11/04/17 at 01:00 Al Hydroxide/Mg Hydroxide (Mylanta Plus Xs) 15 ml PRN AFTMEALHC PRN PO DYSPEPSIA; Start 11/04/17 at 01:00 Magnesium Hydroxide (Milk Of Magnesia) 2,400 mg PRN QHS PRN PO CONSTIPATION; Start 11/04/17 at 01:00 Multi-Ingredient Ointment (Analgesic [place]) 1 chan PRN QID PRN TP MUSCLE PAIN; Start 11/04/17 at 01:00 Metoprolol Succinate (Toprol Xl) 25 mg DAILY PO Last administered on 11/04/17at 09:07; Start 11/04/17 at 09:00 Mirtazapine (Remeron) 15 mg QHS PO ; Start 11/04/17 at 21:00 Olanzapine (ZyPREXA ZYDIS) 5 mg PRN Q2HR PRN PO PSYCHOSIS; Start 11/04/17 at 01: 00 Polyethylene Glycol (miraLAX) 17 gm BID PO Last administered on 11/04/17at 09:05 ; Start 11/04/17 at 09:00 Tamsulosin HCl (Flomax) 0.4 mg QHS PO ; Start 11/04/17 at 21:00 Trazodone HCl (Desyrel) 50 mg PRN QHS PRN PO INSOMNIA; Start 11/04/17 at 01:00 Trazodone HCl (Desyrel) 50 mg QHS PO ; Start 11/04/17 at 21:00 Latanoprost (Xalatan) 1 drop QHS OU ; Start 11/04/17 at 21:00 Magnesium Oxide (Magnesium Oxide) 400 mg DAILY PO Last administered on at 09:06; Start 11/04/17 at 09:00 Cyanocobalamin (Vitamin B-12) 1,000 mcg QMONTH IM ; Start 11/26/17 at 09:00 Albuterol/ Ipratropium (Duoneb) 3 ml STK-MED ONCE .ROUTE ; Start 11/04/17 at 05: 44; Stop 11/04/17 at 05:45; Status DC Active Scripts Active Reported Trazodone Hcl 50 Mg Tablet 50 Mg PO PRN QHS PRN Trazodone Hcl 50 Mg Tablet 50 Mg PO QHS Analgesic [place] (Methyl Salicylate/Menthol) 28 Gm Oint...g. 1 Chan TP PRN QID PRN Milk Of Magnesia (Magnesium Hydroxide) 400 Mg/5 Ml Oral.susp 2,400 Mg PO PRN QHS PRN Mag-Al Plus Xs Suspension (Mag Hydrox/Al Hydrox/Simeth) 30 Ml Oral.susp 15 Ml PO PRN AFTMEALHC PRN Metoprolol Succinate ( Xl ) (Metoprolol Succinate) 25 Mg Tab.er.24h 25 Mg PO DAILY Magnesium (Magnesium Oxide) 400 Mg Capsule 400 Mg PO DAILY Cyanocobalamin Injection (Cyanocobalamin (Vitamin B-12)) 1,000 Mcg/1 Ml Vial 1 Ml IM QMONTH Colace (Docusate Sodium) 100 Mg Capsule 100 Mg PO BID Clonazepam 0.5 Mg Tablet 0.25 Mg PO QHS Zyprexa Zydis (Olanzapine) 5 Mg Tab.rapdis 5 Mg PO PRN Q2HR PRN MDD 20mg Lorazepam 0.5 Mg Tablet 0.5 Mg PO PRN Q8HRS PRN MDD 2mg Vitamin D3 (Cholecalciferol (Vitamin D3)) 50,000 Unit Capsule 50,000 Unit PO QTU Tylenol (Acetaminophen) 325 Mg Tablet 650 Mg PO PRN Q4HRS PRN Tamsulosin Hcl 0.4 Mg Cap.er.24h 0.4 Mg PO QHS Mirtazapine 15 Mg Tablet 15 Mg PO QHS Miralax (Polyethylene Glycol 3350) 17 Gm Powd.pack 17 Gm PO BID Lumigan (Bimatoprost) 2.5 Ml Drops 1 Drop OU QHS Aricept (Donepezil Hcl) 10 Mg Tablet 10 Mg PO QHS I have reviewed the current psychotropics carefully including drug interactions. Risk benefit ratio favors no change other than as noted in my dictated progress note. 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
[2017-11-04 19:30] VITALS: BP 119/67
[2017-11-04] MEDS ORDERED: clonazePAM 0.5 MG TABLET PO SCH (21:00)
[2017-11-04] MEDS ORDERED: LATANOPROST 0.005% OPHTH SOLUTION 2.5ML BOTTLE. OU SCH (21:00)
[2017-11-04] MEDS ORDERED: DONEPEZIL HCL 10 MG TABLET PO SCH (21:00)
[2017-11-04] MEDS ORDERED: TAMSULOSIN 0.4 MG CAP.ER.24H. PO SCH (21:00)
[2017-11-04] MEDS ORDERED: traZODone 50 MG TABLET. PO SCH (21:00)
[2017-11-04] MEDS ORDERED: MIRTAZAPINE 15 MG TABLET PO SCH (21:00)
--- NOTE | 2017-11-04 23:26 | PDOC ---
Exam Note: Mitch Note: Please also refer to the separate dictated note~for this date of service dictated separately.~Patient seen individually. Discussed the patient with Nursing staff reviewed the chart.~Reviewed interim history and current functioning. Reviewed vital signs,~Labs/ Radiology~and current medications noted below. Continue current treatment with the changes noted in the dictated addendum note Assessment: Vital Signs: Vital Signs Date Time Temp Pulse Resp B/P (MAP) Pulse Ox O2 Delivery O2 Flow Rate FiO2 11/04/17 20:45 95 Room Air 11/04/17 19:30 97.8 92 20 119/67 (84) I&O Intake and Output 11/04/17 07:00 Intake Total 558 ml Balance 558 ml Intake Oral 50 ml IV Total 508 ml # Voids 2 # Bowel Movements 2 Labs: Laboratory Tests Test 11/04/17 06:04 11/04/17 15:30 White Blood Count 6.9 x10^3/uL (4.0-11.0) 6.3 x10^3/uL (4.0-11.0) Red Blood Count 4.22 x10^6/uL (4.30-5.70) L 4.06 x10^6/uL (4.30-5.70) L Hemoglobin 12.2 g/dL (13.0-17.5) L 11.7 g/dL (13.0-17.5) L Hematocrit 36.7 % (39.0-53.0) L 35.7 % (39.0-53.0) L Mean Corpuscular Volume 87 fL (79-100) 88 fL (79-100) Mean Corpuscular Hemoglobin 29 pg (25-35) 29 pg (25-35) Mean Corpuscular Hemoglobin Concent 33 g/dL (31-37) 33 g/dL (31-37) Red Cell Distribution Width 16.3 % (11.5-14.5) H 16.0 % (11.5-14.5) H Platelet Count 184 x10^3/uL (140-400) 171 x10^3/uL (140-400) Neutrophils (%) (Auto) 66 % (31-73) Lymphocytes (%) (Auto) 20 % (24-48) L Monocytes (%) (Auto) 10 % (0-9) H Eosinophils (%) (Auto) 4 % (0-3) H Basophils (%) (Auto) 1 % (0-3) Neutrophils # (Auto) 4.6 x10^3uL (1.8-7.7) Lymphocytes # (Auto) 1.4 x10^3/uL (1.0-4.8) Monocytes # (Auto) 0.7 x10^3/uL (0.0-1.1) Eosinophils # (Auto) 0.3 x10^3/uL (0.0-0.7) Basophils # (Auto) 0.1 x10^3/uL (0.0-0.2) Sodium Level 148 mmol/L (136-145) H Potassium Level 4.2 mmol/L (3.5-5.1) Chloride Level 111 mmol/L (98-107) H Carbon Dioxide Level 29 mmol/L (21-32) Anion Gap 8 (6-14) Blood Urea Nitrogen 18 mg/dL (8-26) Creatinine 1.0 mg/dL (0.7-1.3) Estimated GFR (Cockcroft-Gault) 72.6 BUN/Creatinine Ratio 18 (6-20) Glucose Level 100 mg/dL (70-99) H Calcium Level 8.6 mg/dL (8.5-10.1) Total Bilirubin 0.5 mg/dL (0.2-1.0) # Aspartate Amino Transferase (AST) 15 U/L (15-37) Alanine Aminotransferase (ALT) 10 U/L (16-63) L Alkaline Phosphatase 48 U/L (46-116) Total Protein 6.1 g/dL (6.4-8.2) L Albumin 2.5 g/dL (3.4-5.0) L Albumin/Globulin Ratio 0.7 (1.0-1.7) L Current Medications: Meds: Current Medications Piperacillin Sod/ Tazobactam Sod 3.375 gm/Sodium Chloride 50 ml @ 100 mls/hr Q8HRS IV Last administered on 11/04/17at 22:43; Start 11/04/17 at 00:00 Linezolid 300 ml @ 300 mls/hr Q12HR IV Last administered on 11/04/17at 21:31; Start 11/03/17 at 23:00 Albuterol/ Ipratropium (Duoneb) 3 ml RTQID NEB Last administered on 11/04/17 20 :44; Start 11/04/17 at 08:00 Dextrose/Sodium Chloride 1,000 ml @ 75 mls/hr [id number] IV Last administered on 11/04/17 13:52; Start 11/03/17 at 23:00 Lactobacillus Rhamnosus (Culturelle) 1 cap BID PO Last administered on 21:32; Start 11/04/17 at 09:00 Acetaminophen (Tylenol) 650 mg PRN Q4HRS PRN PO PAIN / TEMP; Start 11/04/17 at 01:00 Vitamin D (Vitamin D3) 50,000 unit QTU PO ; Start 11/08/17 at 16:00 Clonazepam (KlonoPIN) 0.25 mg QHS PO Last administered on 11/04/17 21:32; Start 11/04/17 at 21:00 Cyanocobalamin (Vitamin B-12) 1,000 mcg QMONTH IM ; Start 11/04/17 at 09:00; Stop 11/04/17 at 09:00; Status DC Docusate Sodium (Colace) 100 mg BID PO Last administered on 11/04/17 21:32; Start 11/04/17 at 09:00 Donepezil HCl (Aricept) 10 mg QHS PO Last administered on 11/04/17 21:32; Start 11/04/17 at 21:00 Lorazepam (Ativan) 0.5 mg PRN Q8HRS PRN PO ANXIETY / AGITATION Last administered on 11/04/17at 13:48; Start 11/04/17 at 01:00 Al Hydroxide/Mg Hydroxide (Mylanta Plus Xs) 15 ml PRN AFTMEALHC PRN PO DYSPEPSIA; Start 11/04/17 at 01:00 Magnesium Hydroxide (Milk Of Magnesia) 2,400 mg PRN QHS PRN PO CONSTIPATION; Start 11/04/17 at 01:00 Multi-Ingredient Ointment (Analgesic [place]) 1 chan PRN QID PRN TP MUSCLE PAIN; Start 11/04/17 at 01:00 Metoprolol Succinate (Toprol Xl) 25 mg DAILY PO Last administered on 11/04/17at 09:07; Start 11/04/17 at 09:00 Mirtazapine (Remeron) 15 mg QHS PO Last administered on 11/04/17at 21:32; Start 11/04/17 at 21:00 Olanzapine (ZyPREXA ZYDIS) 5 mg PRN Q2HR PRN PO PSYCHOSIS; Start 11/04/17 at 01: 00 Polyethylene Glycol (miraLAX) 17 gm BID PO Last administered on 11/04/17at 09:05 ; Start 11/04/17 at 09:00 Tamsulosin HCl (Flomax) 0.4 mg QHS PO Last administered on 11/04/17at 21:32; Start 11/04/17 at 21:00 Trazodone HCl (Desyrel) 50 mg PRN QHS PRN PO INSOMNIA; Start 11/04/17 at 01:00 Trazodone HCl (Desyrel) 50 mg QHS PO Last administered on 11/04/17at 21:32; Start 11/04/17 at 21:00 Latanoprost (Xalatan) 1 drop QHS OU Last administered on 11/04/17at 21:32; Start 11/04/17 at 21:00 Magnesium Oxide (Magnesium Oxide) 400 mg DAILY PO Last administered on at 09:06; Start 11/04/17 at 09:00 Cyanocobalamin (Vitamin B-12) 1,000 mcg QMONTH IM ; Start 11/26/17 at 09:00 Albuterol/ Ipratropium (Duoneb) 3 ml STK-MED ONCE .ROUTE ; Start 11/04/17 at 05: 44; Stop 11/04/17 at 05:45; Status DC Active Scripts Active Reported Trazodone Hcl 50 Mg Tablet 50 Mg PO PRN QHS PRN Trazodone Hcl 50 Mg Tablet 50 Mg PO QHS Analgesic [place] (Methyl Salicylate/Menthol) 28 Gm Oint...g. 1 Chan TP PRN QID PRN Milk Of Magnesia (Magnesium Hydroxide) 400 Mg/5 Ml Oral.susp 2,400 Mg PO PRN QHS PRN Mag-Al Plus Xs Suspension (Mag Hydrox/Al Hydrox/Simeth) 30 Ml Oral.susp 15 Ml PO PRN AFTMEALHC PRN Metoprolol Succinate ( Xl ) (Metoprolol Succinate) 25 Mg Tab.er.24h 25 Mg PO DAILY Magnesium (Magnesium Oxide) 400 Mg Capsule 400 Mg PO DAILY Cyanocobalamin Injection (Cyanocobalamin (Vitamin B-12)) 1,000 Mcg/1 Ml Vial 1 Ml IM QMONTH Colace (Docusate Sodium) 100 Mg Capsule 100 Mg PO BID Clonazepam 0.5 Mg Tablet 0.25 Mg PO QHS Zyprexa Zydis (Olanzapine) 5 Mg Tab.rapdis 5 Mg PO PRN Q2HR PRN MDD 20mg Lorazepam 0.5 Mg Tablet 0.5 Mg PO PRN Q8HRS PRN MDD 2mg Vitamin D3 (Cholecalciferol (Vitamin D3)) 50,000 Unit Capsule 50,000 Unit PO QTU Tylenol (Acetaminophen) 325 Mg Tablet 650 Mg PO PRN Q4HRS PRN Tamsulosin Hcl 0.4 Mg Cap.er.24h 0.4 Mg PO QHS Mirtazapine 15 Mg Tablet 15 Mg PO QHS Miralax (Polyethylene Glycol 3350) 17 Gm Powd.pack 17 Gm PO BID Lumigan (Bimatoprost) 2.5 Ml Drops 1 Drop OU QHS Aricept (Donepezil Hcl) 10 Mg Tablet 10 Mg PO QHS I have reviewed the current psychotropics carefully including drug interactions. Risk benefit ratio favors no change other than as noted in my dictated progress note. Diagnosis: Problems: (1) Anxiety disorder (2) Mild cognitive disorder (3) Impulse control disorder (4) Major depressive disorder, recurrent episode (5) Dementia in Alzheimer's disease with delusions (6) Dementia in Alzheimer's disease with depression (7) Dementia, vascular, with delusions (8) Dementia, vascular, with depression CLARKE WARE MD Nov 04, 2017 23:26
--- NOTE | 2017-11-04 23:35 | PN ---
DATE: 11/04/2017 SUBJECTIVE: The patient is resting slightly propped up in bed, in no apparent respiratory distress is definitely more awake, alert, responding appropriately. OBJECTIVE: GENERAL: When I examined him, he looked pale, but no jaundice, cyanosis, lymphadenopathy or thyromegaly. No jugular venous distension. No lower limb edema. VITAL SIGNS: Her heart rate was 81, blood pressure 113/70, temperature was 97.5, respiratory rate 20, and oxygen saturation was 95%. The rest of clinical examination is stable and has not changed. His intake over the last 24 hours was 1500, no output was recorded. LABORATORY DATA: This morning showed his white cell count was 6900, hemoglobin 12, hematocrit 36, MCV 87 and platelet count of 184,000. His chemistry showed a serum sodium slightly down to 148, potassium 4.2, chloride 111, bicarbonate 29, anion gap of 8, BUN 18, creatinine was 1. Estimated GFR was 72 mL per minute, his glucose 100, calcium was 8.6. Total bilirubin, AST, ALT, alkaline phosphatase were normal. Total protein was 6.1, albumin 2.5. ASSESSMENT: This is a 77-year-old male patient who was admitted from [facility] to [address] [place] [address] with: 1. Altered mental status, most likely due to combination hypernatremia, dehydration and healthcare-associated pneumonia. 2. Healthcare-associated pneumonia with left lower lobe infiltrate. Other medical problems include hypertension, glaucoma, benign prostatic hypertrophy. PLAN: My plan is to continue the IV antibiotic. Continue with D5W. We will consult the physical and occupational therapy, consult Dr. Arthur to follow and adjust his psychotropic medication, keep an eye on his sodium and increase IV fluid as needed. ANDREW DOE MD DR: AMINTA/angelo JOB#: [id number] / [id number]
[2017-11-05] MEDS: IV DEXTROSE 5 %-0.45 % NACL 1,000 ML IV SCH ×2 (01:40→09:20)
[2017-11-05] MEDS: IPRATRPIUM/ALBUTEROL 0.5/2.5MG 3 ML NEBU. NEB SCH ×3 (05:10→16:35)
[2017-11-05] MEDS: PIPERACILLIN/TAZOBACTAM 3.375 GM in IV NORMAL SALINE 50ML 50 ML IV SCH (06:16)
[2017-11-05 06:29] LABS: CALCIUM 8.2 mg/dL (8.5-10.1); GFR 72.6; POTASSIUM 3.5 mmol/L (3.5-5.1)
[2017-11-05] MEDS: DOCUSATE SODIUM 100 MG CAPSULE PO SCH (09:00)
[2017-11-05] MEDS: POLYETHYLENE GLYCOL 3350 17 GM PACKET. PO SCH (09:00)
[2017-11-05] MEDS: MAGNESIUM OXIDE 400 MG TABLET PO SCH (09:10)
[2017-11-05] MEDS: LACTOBACILLUS RHAMNOSUS GG 1 CAPSULE. PO SCH (09:10)
[2017-11-05] MEDS: METOPROLOL SUCC 24HR ER 25 MG TAB.ER.24H. PO SCH (09:10)
[2017-11-05 09:54] VITALS: BP 127/76
[2017-11-05] MEDS: LORazepam 0.5 MG TABLET PO PRN (11:44)
[2017-11-05 13:58] VITALS: BP 133/56
[2017-11-05] MEDS ORDERED: AMOX1TAB58 PO (19:28)
[2017-11-05] MEDS ORDERED: LACT1CAP21 PO (19:28)
--- NOTE | 2017-11-05 19:56 | DS ---
DATE OF DISCHARGE: 11/05/2017 HOSPITAL COURSE: The patient is a 77-year-old male patient, who was transferred from [facility] on account of altered mental status, was found to be dehydrated, hyponatremic, and has left lower lobe pneumonia. He was started on D5W as well as Zyvox and Zosyn and he did very well. He became more awake, alert and his serum sodium has normalized. He remained hemodynamically stable and afebrile with a normal white cell count. He pulled his IV line multiple times and as the cultures were negative we discontinued initially Zyvox and then Zosyn and we switched him to Augmentin and has remained stable and basically more awake, alert and combative again and restless, agitated and a decision was made to transfer him back to [facility] for inpatient psychiatric stabilization. PHYSICAL EXAMINATION: GENERAL: When I saw him this afternoon, he looked well and was clearly in no apparent respiratory distress, pale, but no jaundice, cyanosis or thyromegaly. No jugular venous distension. No lower limb edema. VITAL SIGNS: His heart rate was 86, blood pressure 133/56, temperature was 98, respiratory rate 20, and oxygen saturation was 95%. HEAD, EYES, EARS, NOSE AND THROAT: Showed normocephalic, atraumatic. NECK: Supple. HEART: Showed normal first and second heart sounds with no gallop, rub or murmur. CHEST: Clear to auscultation. No crepitation or rhonchi. ABDOMEN: Distended, soft, nontender. NEUROLOGIC: He is demented, but definitely more awake, alert, responding at times appropriately. All his cranial nerves are intact. He moves extremities without difficulty. He actually ambulates without assistance or assistive device for short distances. His intake over the last 24 hours was 1900. No output was recorded. LABORATORY DATA: His lab work this morning showed his white cell count of 6300, hemoglobin 11, hematocrit 35, MCV 88, and platelet count 271,000. Serum sodium was 143, potassium 3.5, chloride 109, bicarbonate 28, anion gap of 6, BUN 12, creatinine 1, estimated GFR was 72 mL per minute. Her glucose was 127, calcium was 8.2. FINAL DISCHARGE DIAGNOSES: 1. Metabolic encephalopathy, resolved, probably a combination of hyponatremia, dehydration, healthcare-associated pneumonia. 2. Hypernatremia, resolved. Her serum sodium has normalized and today it was 143 mEq per liter 3. Dehydration, resolved. 4. Healthcare-associated pneumonia with left lower lobe infiltrate. Clinically, the patient is now afebrile, hemodynamically stable with normal white cell count and will continue treatment with Augmentin 5. Hypertension, well controlled. 6. Glaucoma. 7. Benign prostatic hypertrophy for which he is on Flomax. ANDREW DOE MD DR: AMINTA/angelo JOB#: [id number] / [id number]
[2017-11-05] MEDS ORDERED: AMOXICILLIN/K CLAV 500/125MG TABLET. PO SCH (21:00)
--- NOTE | 2017-11-06 10:34 | PN ---
DATE: 11/05/2017 SUBJECTIVE: The patient was sitting comfortably in his chair, in no apparent distress. He is definitely more awake, alert, and his main complaint was that his is ignoring him. He unfortunately pulled his IV line. OBJECTIVE: GENERAL: However, on examining him, he looked well and was clearly in no apparent respiratory distress, pale. No jaundice, cyanosis, or thyromegaly. No jugular venous distension. No lower limb edema. VITAL SIGNS: His heart rate was 85, blood pressure was 127/76, temperature was 97.6, respiratory rate 20, and oxygen saturation was 96%. HEAD, EYES, EARS, NOSE AND THROAT: Normocephalic, atraumatic. NECK: Supple. HEART: Showed normal first and second heart sounds. No gallop, rub or murmur. CHEST: Clear to auscultation. No crepitation or rhonchi. ABDOMEN: Distended, soft, nontender. No guarding or rigidity. No organomegaly. Hernial orifice intact. Bowel sounds normal. NEUROLOGIC: He is demented; however, he is definitely more awake, alert now compared to when he was upstairs. All his cranial nerves are intact. He moves extremities without difficulty, ambulates to the bathroom without a walker. His intake over the last 24 hours was 1900, no output was recorded. LABORATORY DATA: As of this morning, his serum sodium was 143, potassium 3.5, chloride 109, bicarbonate 28, anion gap of 5, BUN 12, creatinine 1, estimated GFR was 72 mL per minute. His glucose 127, calcium was 8.2. His white cell count was 6300, hemoglobin 11.7, hematocrit 35.7, MCV 88 and platelet count of 171,000. His nasal screen for MRSA by PCR was negative. So far, his blood cultures are negative. ASSESSMENT: 1. Altered mental status, most likely the combination of hypernatremia, dehydration, healthcare-associated pneumonia. 2. Healthcare-associated pneumonia with left lower lobe infiltrate. 3. Hypertension. 4. Glaucoma. 5. Benign prostatic hypertrophy. The patient is afebrile, hemodynamically stable. White cell count is normal. His sodium has normalized to 143 mEq per liter. PLAN: My plan is to discontinue the Zyvox, given that his blood cultures are negative. ANDREW DOE MD DR: Ramya JOB#: [id number] / [id number]
--- NOTE | 2017-11-06 20:47 | PN ---
DATE: 11/04/2017 This is a late entry for 11/04/2017 covers elements not covered in my initial note of 11/04/2017. SUBJECTIVE: I met with the patient in the evening of 11/04/2017 in room 124, [facility] for a psychiatric consult requested by Dr. Trevizo after the patient was transferred to [facility] Medical/Surgical floor from the [facility] after he developed the pneumonia. He was being treated on the [facility] for his dementia with delusions, behavioral disturbance after he was referred from the half-way for increasing aggression towards his and unmanageable behaviors that were deemed dangerous and unresponsive to treatment at the nursing facility. REVIEW OF SYSTEMS: No CV, , pulmonary, eye, ENT system symptoms on review. Reliability poor. He is not very verbal. MENTAL STATUS EXAM: Oriented to himself. Insight, judgment, recent and remote memory, attention, concentration, fund of knowledge poor, consistent with his diagnosis. He is restless, anxious, constantly trying to get out of the bed and remains a fall risk. IMPRESSION: Major neurocognitive disorder, Alzheimer, vascular with delusion, depression, behavioral disturbance. PLAN: Prior to his transfer down to [facility] from [facility], we stopped the patient's Depakote and antipsychotics and reduced his Klonopin to minimize sedation. We will leave his current psychotropics unchanged once he is medically stable. If behaviors clinically indicate, we will reassess to having him back on the [facility] for further psychiatric stabilization. I am trying to minimize the use of all psychotropics since they are somewhat sedating for the patient more so than for other patients. If behaviors resurface, we will certainly have to do something, but once again all along we have been trying to minimize it and we will continue to do so and also go ahead and stop the Klonopin once he is back with us on the [facility]. CLARKE WARE MD DR: ILANA/angelo JOB#: [id number] / [id number]
[2017-11-08] MEDS ORDERED: CHOLECALCIFEROL (VITAMIN D3) 50,000 UNIT CAPSULE PO SCH (16:00)
[2017-11-26] MEDS ORDERED: CYANOCOBALAMIN (VITAMIN B-12) 1,000 MCG/ML VIAL IM SCH (09:00)
== END 2017-11-05 17:45 | DRG 177 ==
LOC: 1 SOUTH 21:45
PROVIDERS: ADMIT Internal Medicine; ATTEND Internal Medicine
DX: J69.0 Pneumonitis due to inhalation of food and vomit (principal); G93.41 Metabolic encephalopathy; E87.0 Hyperosmolality and hypernatremia; F01.51 Vascular dementia, unspecified severity, with behavioral disturbance; G30.9 Alzheimer's disease, unspecified; E87.1 Hypo-osmolality and hyponatremia; F02.81 Dementia in other diseases classified elsewhere, unspecified severity, with behavioral disturbance; F33.9 Major depressive disorder, recurrent, unspecified; E86.0 Dehydration; K59.00 Constipation, unspecified; F41.9 Anxiety disorder, unspecified; F63.9 Impulse disorder, unspecified; H40.9 Unspecified glaucoma; I10 Essential (primary) hypertension; N40.0 Benign prostatic hyperplasia without lower urinary tract symptoms; Y95 Nosocomial condition; Z87.891 Personal history of nicotine dependence
CPT/HCPCS: 36415; 80048; 80053; 85025; 85027; 87040; 87641; 94640; J2020; J2543; J7620

== ENCOUNTER 2017-11-05 17:45 | Inpatient (IN) | payer MEDICARE ==
[~2017-11-05] VITALS: Ht 188 cm; Wt 89.1 kg
[2017-11-05 18:28] VITALS: BP 105/60
[2017-11-05] MEDS ORDERED: LACT1CAP21 PO (19:28)
[2017-11-05] MEDS ORDERED: AMOX1TAB58 PO (19:28)
[2017-11-05] MEDS ORDERED: MAGNESIUM HYDROXIDE 2,400 MG/30 ML ORAL.SUSP. PO PRN (19:30)
[2017-11-05] MEDS ORDERED: MAG HYDROX/AL HYDROX/SIMETH 30 ML ORAL.SUSP PO PRN (19:30)
[2017-11-05] MEDS ORDERED: ACETAMINOPHEN 325 MG TABLET PO PRN (19:30)
[2017-11-05] MEDS ORDERED: METHYL SALICYLATE/MENTHOL TOPICAL OINTMENT 29GM TUBE. TP PRN (19:30)
[2017-11-05] MEDS: DOCUSATE SODIUM 100 MG CAPSULE PO SCH (20:02)
[2017-11-05] MEDS: AMOXICILLIN/K CLAV 500/125MG TABLET. PO SCH (20:02)
[2017-11-05] MEDS: POLYETHYLENE GLYCOL 3350 17 GM PACKET. PO SCH (20:02)
[2017-11-05] MEDS: traZODone 50 MG TABLET. PO SCH (20:02)
[2017-11-05] MEDS: DONEPEZIL HCL 10 MG TABLET PO SCH (20:02)
[2017-11-05] MEDS: LACTOBACILLUS RHAMNOSUS GG 1 CAPSULE. PO SCH (20:02)
[2017-11-05] MEDS: MIRTAZAPINE 15 MG TABLET PO SCH (20:04)
[2017-11-05] MEDS: TAMSULOSIN 0.4 MG CAP.ER.24H. PO SCH (20:04)
--- NOTE | 2017-11-05 20:06 | PDOC ---
Exam Note: Mitch Note: Please also refer to the separate dictated note~for this date of service dictated separately.~Patient seen individually. Discussed the patient with Nursing staff reviewed the chart.~Reviewed interim history and current functioning. Reviewed vital signs,~Labs/ Radiology~and current medications noted below. Continue current treatment with the changes noted in the dictated addendum note Assessment: Vital Signs: Vital Signs Date Time Temp Pulse Resp B/P (MAP) Pulse Ox O2 Delivery O2 Flow Rate FiO2 11/05/17 18:28 97.6 94 20 105/60 (75) 92 Current Medications: Meds: Current Medications Clonazepam (KlonoPIN) 0.25 mg QHS PO ; Start 11/05/17 at 21:00; Stop 11/05/17 at 21:00; Status DC Donepezil HCl (Aricept) 10 mg QHS PO Last administered on 11/05/17at 20:02; Start 11/05/17 at 21:00 Lorazepam (Ativan) 0.5 mg PRN Q8HRS PRN PO ANXIETY / AGITATION; Start 11/05/17 at 19:15 Mirtazapine (Remeron) 15 mg QHS PO Last administered on 11/05/17at 20:04; Start 11/05/17 at 21:00 Olanzapine (ZyPREXA ZYDIS) 5 mg PRN Q2HR PRN PO PSYCHOSIS; Start 11/05/17 at 19: 15 Trazodone HCl (Desyrel) 50 mg PRN QHS PRN PO INSOMNIA; Start 11/05/17 at 19:15 Trazodone HCl (Desyrel) 50 mg QHS PO Last administered on 11/05/17at 20:02; Start 11/05/17 at 21:00 Acetaminophen (Tylenol) 650 mg PRN Q4HRS PRN PO PAIN / TEMP; Start 11/05/17 at 19:30 Vitamin D (Vitamin D3) 50,000 unit Tu PO ; Start 11/08/17 at 09:00 Cyanocobalamin (Vitamin B-12) 1,000 mcg QMONTH IM ; Start 12/26/17 at 09:00 Docusate Sodium (Colace) 100 mg BID PO Last administered on 11/05/17at 20:02; Start 11/05/17 at 21:00 Al Hydroxide/Mg Hydroxide (Mylanta Plus Xs) 15 ml PRN AFTMEALHC PRN PO DYSPEPSIA; Start 11/05/17 at 19:30 Magnesium Hydroxide (Milk Of Magnesia) 2,400 mg PRN QHS PRN PO CONSTIPATION; Start 11/05/17 at 19:30 Multi-Ingredient Ointment (Analgesic Thornton) 1 chan PRN QID PRN TP MUSCLE PAIN; Start 11/05/17 at 19:30 Metoprolol Succinate (Toprol Xl) 25 mg DAILY PO ; Start 11/06/17 at 09:00 Polyethylene Glycol (miraLAX) 17 gm BID PO Last administered on 11/05/17at 20:02 ; Start 11/05/17 at 21:00 Tamsulosin HCl (Flomax) 0.4 mg QHS PO Last administered on 11/05/17at 20:04; Start 11/05/17 at 21:00 Latanoprost (Xalatan) 1 drop QHS OU ; Start 11/05/17 at 21:00 Magnesium Oxide (Magnesium Oxide) 400 mg DAILY PO ; Start 11/06/17 at 09:00 Amoxicillin/ Clavulanate Potassium (Augmentin 500/ 125mg) 1 tab BID PO Last administered on 11/05/17at 20:02; Start 11/05/17 at 21:00 Lactobacillus Rhamnosus (Culturelle) 1 cap BID PO Last administered on at 20:02; Start 11/05/17 at 21:00 Active Scripts Active Reported Culturelle (Lactobacillus Rhamnosus Gg) 1 Each Capsule 1 Cap PO BID Augmentin 500-125 Tablet (Amoxicillin/Potassium Clav) 1 Each Tablet 1 Tab PO BID Trazodone Hcl 50 Mg Tablet 50 Mg PO PRN QHS PRN Trazodone Hcl 50 Mg Tablet 50 Mg PO QHS Analgesic Thornton (Methyl Salicylate/Menthol) 28 Gm Oint...g. 1 Chan TP PRN QID PRN Milk Of Magnesia (Magnesium Hydroxide) 400 Mg/5 Ml Oral.susp 2,400 Mg PO PRN QHS PRN Mag-Al Plus Xs Suspension (Mag Hydrox/Al Hydrox/Simeth) 30 Ml Oral.susp 15 Ml PO PRN AFTMEALHC PRN Metoprolol Succinate ( Xl ) (Metoprolol Succinate) 25 Mg Tab.er.24h 25 Mg PO DAILY Magnesium (Magnesium Oxide) 400 Mg Capsule 400 Mg PO DAILY Cyanocobalamin Injection (Cyanocobalamin (Vitamin B-12)) 1,000 Mcg/1 Ml Vial 1 Ml IM QMONTH Colace (Docusate Sodium) 100 Mg Capsule 100 Mg PO BID Clonazepam 0.5 Mg Tablet 0.25 Mg PO QHS Zyprexa Zydis (Olanzapine) 5 Mg Tab.rapdis 5 Mg PO PRN Q2HR PRN MDD 20mg Lorazepam 0.5 Mg Tablet 0.5 Mg PO PRN Q8HRS PRN MDD 2mg Vitamin D3 (Cholecalciferol (Vitamin D3)) 50,000 Unit Capsule 50,000 Unit PO QTU Tylenol (Acetaminophen) 325 Mg Tablet 650 Mg PO PRN Q4HRS PRN Tamsulosin Hcl 0.4 Mg Cap.er.24h 0.4 Mg PO QHS Mirtazapine 15 Mg Tablet 15 Mg PO QHS Miralax (Polyethylene Glycol 3350) 17 Gm Powd.pack 17 Gm PO BID Lumigan (Bimatoprost) 2.5 Ml Drops 1 Drop OU QHS Aricept (Donepezil Hcl) 10 Mg Tablet 10 Mg PO QHS I have reviewed the current psychotropics carefully including drug interactions. Risk benefit ratio favors no change other than as noted in my dictated progress note. 

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
[2017-11-05] MEDS: LATANOPROST 0.005% OPHTH SOLUTION 2.5ML BOTTLE. OU SCH (20:51)
[2017-11-05] MEDS ORDERED: clonazePAM 0.5 MG TABLET PO SCH (21:00)
[2017-11-06 06:00] VITALS: BP 120/61
[2017-11-06 07:44] LABS: BASO # 0.1 x10^3/uL (0.0-0.2); BASO % 1 % (0-3); EOS # 0.3 x10^3/uL (0.0-0.7); EOS % 4 % (0-3); HEMATOCRIT 37.8 % (39.0-53.0); HEMOGLOBIN 12.7 g/dL (13.0-17.5); LYMPH # 0.9 x10^3/uL (1.0-4.8); LYMPH % 12 % (24-48); MEAN CORPUSCULAR HEMOGLOBIN 29 pg (25-35); MEAN CORPUSCULAR HGB CONC 34 g/dL (31-37); MEAN CORPUSCULAR VOLUME 86 fL (79-100); MONO # 0.6 x10^3/uL (0.0-1.1); MONO % 7 % (0-9); NEUT # 5.7 x10^3uL (1.8-7.7); NEUT % 75 % (31-73); PLATELET COUNT 220 x10^3/uL (140-400); RED BLOOD COUNT 4.38 x10^6/uL (4.30-5.70); RED CELL DISTRIBUTION WIDTH 15.5 % (11.5-14.5); WHITE BLOOD COUNT 7.6 x10^3/uL (4.0-11.0)
[2017-11-06 08:02] LABS: ALBUMIN 2.5 g/dL (3.4-5.0); ALBUMIN/GLOBULIN RATIO 0.6 (1.0-1.7); CALCIUM 8.7 mg/dL (8.5-10.1); GFR 72.6; MAGNESIUM 1.9 mg/dL (1.8-2.4); POTASSIUM 4.2 mmol/L (3.5-5.1); TOTAL BILIRUBIN 0.6 mg/dL (0.2-1.0); TOTAL PROTEIN 6.4 g/dL (6.4-8.2)
[2017-11-06] MEDS: DOCUSATE SODIUM 100 MG CAPSULE PO SCH ×2 (08:33→19:51)
[2017-11-06] MEDS: POLYETHYLENE GLYCOL 3350 17 GM PACKET. PO SCH ×2 (08:33→19:51)
[2017-11-06] MEDS: AMOXICILLIN/K CLAV 500/125MG TABLET. PO SCH ×2 (08:33→19:50)
[2017-11-06] MEDS: LACTOBACILLUS RHAMNOSUS GG 1 CAPSULE. PO SCH ×2 (08:33→19:50)
[2017-11-06] MEDS: METOPROLOL SUCC 24HR ER 25 MG TAB.ER.24H. PO SCH (08:36)
[2017-11-06] MEDS: MAGNESIUM OXIDE 400 MG TABLET PO SCH (08:36)
[2017-11-06 11:07] LABS: T3 TOTAL 103 ng/dL (71-180); THYROXINE 5.6 ug/dL (4.5-12.0)
[2017-11-06 11:16] LABS: THYROID STIM HORMONE (TSH) 3.299 uIU/mL (0.358-3.740)
[2017-11-06 13:40] LABS: BILIRUBIN,URINE NEG (NEG); CLARITY,URINE CLOUDY; COLOR,URINE AMBER; GLUCOSE,URINE NEG (NEG); NITRITE,URINE NEG (NEG); UROBILINOGEN,URINE 0.2 mg/dL (0.2 mg/dL)
[2017-11-06 15:48] VITALS: BP 119/67
[2017-11-06 17:07] LABS: HEMOGLOBIN A1C 5.4 % (4.8-5.6)
[2017-11-06] MEDS: TAMSULOSIN 0.4 MG CAP.ER.24H. PO SCH (19:50)
[2017-11-06] MEDS: DONEPEZIL HCL 10 MG TABLET PO SCH (19:50)
[2017-11-06] MEDS: MIRTAZAPINE 15 MG TABLET PO SCH (19:50)
[2017-11-06] MEDS: traZODone 50 MG TABLET. PO SCH (19:50)
[2017-11-06] MEDS: LATANOPROST 0.005% OPHTH SOLUTION 2.5ML BOTTLE. OU SCH (19:51)
--- NOTE | 2017-11-06 20:57 | PDOC ---
Exam Note: Mitch Note: Please also refer to the separate dictated note~for this date of service dictated separately.~Patient seen individually. Discussed the patient with Nursing staff reviewed the chart.~Reviewed interim history and current functioning. Reviewed vital signs,~Labs/ Radiology~and current medications noted below. Continue current treatment with the changes noted in the dictated addendum note Assessment: Vital Signs: Vital Signs Date Time Temp Pulse Resp B/P (MAP) Pulse Ox O2 Delivery O2 Flow Rate FiO2 11/06/17 15:48 97.6 85 20 119/67 (84) 99 I&O Intake and Output 11/06/17 07:00 Intake Total 120 ml Balance 120 ml Intake Oral 120 ml Labs: Laboratory Tests Test 11/06/17 07:13 11/06/17 13:20 White Blood Count 7.6 x10^3/uL (4.0-11.0) Red Blood Count 4.38 x10^6/uL (4.30-5.70) Hemoglobin 12.7 g/dL (13.0-17.5) L Hematocrit 37.8 % (39.0-53.0) L Mean Corpuscular Volume 86 fL (79-100) Mean Corpuscular Hemoglobin 29 pg (25-35) Mean Corpuscular Hemoglobin Concent 34 g/dL (31-37) Red Cell Distribution Width 15.5 % (11.5-14.5) H Platelet Count 220 x10^3/uL (140-400) Neutrophils (%) (Auto) 75 % (31-73) H Lymphocytes (%) (Auto) 12 % (24-48) L Monocytes (%) (Auto) 7 % (0-9) Eosinophils (%) (Auto) 4 % (0-3) H Basophils (%) (Auto) 1 % (0-3) Neutrophils # (Auto) 5.7 x10^3uL (1.8-7.7) Lymphocytes # (Auto) 0.9 x10^3/uL (1.0-4.8) L Monocytes # (Auto) 0.6 x10^3/uL (0.0-1.1) Eosinophils # (Auto) 0.3 x10^3/uL (0.0-0.7) Basophils # (Auto) 0.1 x10^3/uL (0.0-0.2) Sodium Level 141 mmol/L (136-145) Potassium Level 4.2 mmol/L (3.5-5.1) Chloride Level 106 mmol/L (98-107) Carbon Dioxide Level 27 mmol/L (21-32) Anion Gap 8 (6-14) Blood Urea Nitrogen 9 mg/dL (8-26) Creatinine 1.0 mg/dL (0.7-1.3) Estimated GFR (Cockcroft-Gault) 72.6 BUN/Creatinine Ratio 9 (6-20) Glucose Level 106 mg/dL (70-99) H Hemoglobin A1c 5.4 % (4.8-5.6) Calcium Level 8.7 mg/dL (8.5-10.1) Magnesium Level 1.9 mg/dL (1.8-2.4) Iron Level 34 ug/dL (65-175) L Total Iron Binding Capacity 179 ug/dL (250-450) L Iron Saturation 19 % (15-34) Total Bilirubin 0.6 mg/dL (0.2-1.0) Aspartate Amino Transferase (AST) 19 U/L (15-37) Alanine Aminotransferase (ALT) 14 U/L (16-63) L Alkaline Phosphatase 53 U/L (46-116) Total Protein 6.4 g/dL (6.4-8.2) Albumin 2.5 g/dL (3.4-5.0) L Albumin/Globulin Ratio 0.6 (1.0-1.7) L Triglycerides Level 39 mg/dL (0-150) Cholesterol Level 106 mg/dL (0-200) LDL Cholesterol, Calculated 42 mg/dL (0-100) VLDL Cholesterol, Calculated 7 mg/dL (0-40) Non-HDL Cholesterol Calculated 49 mg/dL (0-129) HDL Cholesterol 57 mg/dL (40-60) Cholesterol/HDL Ratio 1.0 Thyroid Stimulating Hormone (TSH) 3.299 uIU/mL (0.358-3.740) Thyroxine (T4) 5.6 ug/dL (4.5-12.0) Total Triiodothyronine (TT3) 103 ng/dL (71-180) Rapid Plasma Reagin Pending Urine Collection Type Unknown Urine Color [place] Urine Clarity Cloudy Urine pH 6.0 Urine Specific [place] 1.025 Urine Protein 30 mg/dl (NEG-TRACE) Urine Glucose (UA) Neg mg/dL (NEG) Urine Ketones (Stick) 15 mg/dL (NEG) Urine Blood Neg (NEG) Urine Nitrite Neg (NEG) Urine Bilirubin Neg (NEG) Urine Urobilinogen Dipstick 0.2 mg/dL (0.2 mg/dL) Urine Leukocyte Esterase Neg (NEG) Current Medications: Meds: Current Medications Clonazepam (KlonoPIN) 0.25 mg QHS PO ; Start 11/05/17 at 21:00; Stop 11/05/17 at 21:00; Status DC Donepezil HCl (Aricept) 10 mg QHS PO Last administered on 11/06/17 19:50; Start 11/05/17 at 21:00 Lorazepam (Ativan) 0.5 mg PRN Q8HRS PRN PO ANXIETY / AGITATION; Start 11/05/17 at 19:15 Mirtazapine (Remeron) 15 mg QHS PO Last administered on 11/06/17at 19:50; Start 11/05/17 at 21:00 Olanzapine (ZyPREXA ZYDIS) 5 mg PRN Q2HR PRN PO PSYCHOSIS Last administered on 11/06/17at 14:49; Start 11/05/17 at 19:15 Trazodone HCl (Desyrel) 50 mg PRN QHS PRN PO INSOMNIA; Start 11/05/17 at 19:15 Trazodone HCl (Desyrel) 50 mg QHS PO Last administered on 11/06/17at 19:50; Start 11/05/17 at 21:00 Acetaminophen (Tylenol) 650 mg PRN Q4HRS PRN PO PAIN / TEMP Last administered on 11/06/17at 05:10; Start 11/05/17 at 19:30 Vitamin D (Vitamin D3) 50,000 unit Tu PO ; Start 11/08/17 at 09:00 Cyanocobalamin (Vitamin B-12) 1,000 mcg QMONTH IM ; Start 12/26/17 at 09:00 Docusate Sodium (Colace) 100 mg BID PO Last administered on 11/05/17at 20:02; Start 11/05/17 at 21:00 Al Hydroxide/Mg Hydroxide (Mylanta Plus Xs) 15 ml PRN AFTMEALHC PRN PO DYSPEPSIA; Start 11/05/17 at 19:30 Magnesium Hydroxide (Milk Of Magnesia) 2,400 mg PRN QHS PRN PO CONSTIPATION; Start 11/05/17 at 19:30 Multi-Ingredient Ointment (Analgesic [place]) 1 chan PRN QID PRN TP MUSCLE PAIN; Start 11/05/17 at 19:30 Metoprolol Succinate (Toprol Xl) 25 mg DAILY PO Last administered on 11/06/17 08:36; Start 11/06/17 at 09:00 Polyethylene Glycol (miraLAX) 17 gm BID PO Last administered on 11/05/17at 20:02 ; Start 11/05/17 at 21:00 Tamsulosin HCl (Flomax) 0.4 mg QHS PO Last administered on 11/06/17 19:50; Start 11/05/17 at 21:00 Latanoprost (Xalatan) 1 drop QHS OU ; Start 11/05/17 at 21:00 Magnesium Oxide (Magnesium Oxide) 400 mg DAILY PO Last administered on at 08:36; Start 11/06/17 at 09:00 Amoxicillin/ Clavulanate Potassium (Augmentin 500/ 125mg) 1 tab BID PO Last administered on 11/06/17 19:50; Start 11/05/17 at 21:00 Lactobacillus Rhamnosus (Culturelle) 1 cap BID PO Last administered on 19:50; Start 11/05/17 at 21:00 Active Scripts Active Reported Culturelle (Lactobacillus Rhamnosus Gg) 1 Each Capsule 1 Cap PO BID Augmentin 500-125 Tablet (Amoxicillin/Potassium Clav) 1 Each Tablet 1 Tab PO BID Trazodone Hcl 50 Mg Tablet 50 Mg PO PRN QHS PRN Trazodone Hcl 50 Mg Tablet 50 Mg PO QHS Analgesic [place] (Methyl Salicylate/Menthol) 28 Gm Oint...g. 1 Chan TP PRN QID PRN Milk Of Magnesia (Magnesium Hydroxide) 400 Mg/5 Ml Oral.susp 2,400 Mg PO PRN QHS PRN Mag-Al Plus Xs Suspension (Mag Hydrox/Al Hydrox/Simeth) 30 Ml Oral.susp 15 Ml PO PRN AFTMEALHC PRN Metoprolol Succinate ( Xl ) (Metoprolol Succinate) 25 Mg Tab.er.24h 25 Mg PO DAILY Magnesium (Magnesium Oxide) 400 Mg Capsule 400 Mg PO DAILY Cyanocobalamin Injection (Cyanocobalamin (Vitamin B-12)) 1,000 Mcg/1 Ml Vial 1 Ml IM QMONTH Colace (Docusate Sodium) 100 Mg Capsule 100 Mg PO BID Clonazepam 0.5 Mg Tablet 0.25 Mg PO QHS Zyprexa Zydis (Olanzapine) 5 Mg Tab.rapdis 5 Mg PO PRN Q2HR PRN MDD 20mg Lorazepam 0.5 Mg Tablet 0.5 Mg PO PRN Q8HRS PRN MDD 2mg Vitamin D3 (Cholecalciferol (Vitamin D3)) 50,000 Unit Capsule 50,000 Unit PO QTU Tylenol (Acetaminophen) 325 Mg Tablet 650 Mg PO PRN Q4HRS PRN Tamsulosin Hcl 0.4 Mg Cap.er.24h 0.4 Mg PO QHS Mirtazapine 15 Mg Tablet 15 Mg PO QHS Miralax (Polyethylene Glycol 3350) 17 Gm Powd.pack 17 Gm PO BID Lumigan (Bimatoprost) 2.5 Ml Drops 1 Drop OU QHS Aricept (Donepezil Hcl) 10 Mg Tablet 10 Mg PO QHS I have reviewed the current psychotropics carefully including drug interactions. Risk benefit ratio favors no change other than as noted in my dictated progress note. Diagnosis: Problems: (1) Anxiety disorder (2) Mild cognitive disorder (3) Impulse control disorder (4) Major depressive disorder, recurrent episode (5) Dementia in Alzheimer's disease with delusions (6) Dementia in Alzheimer's disease with depression (7) Dementia, vascular, with delusions (8) Dementia, vascular, with depression CLARKE WARE MD Nov 06, 2017 20:57
[2017-11-07 06:23] VITALS: BP 127/66
[2017-11-07] MEDS: DOCUSATE SODIUM 100 MG CAPSULE PO SCH ×2 (08:13→19:23)
[2017-11-07] MEDS: POLYETHYLENE GLYCOL 3350 17 GM PACKET. PO SCH ×2 (08:13→19:23)
[2017-11-07] MEDS: METOPROLOL SUCC 24HR ER 25 MG TAB.ER.24H. PO SCH (08:14)
[2017-11-07] MEDS: AMOXICILLIN/K CLAV 500/125MG TABLET. PO SCH ×2 (08:14→19:23)
[2017-11-07] MEDS: MAGNESIUM OXIDE 400 MG TABLET PO SCH (08:14)
[2017-11-07] MEDS: LACTOBACILLUS RHAMNOSUS GG 1 CAPSULE. PO SCH ×2 (08:14→19:23)
--- NOTE | 2017-11-07 09:03 | PN ---
DATE: 11/06/2017 ADDENDUM SUBJECTIVE: The patient is a 77-year-old male patient, who was transferred to [address] [place] [address] with altered mental status, dehydration, hypernatremia and healthcare-associated pneumonia. He was treated with IV antibiotic and IV fluid in the form of D5W. He did very well. His serum sodium has normalized from 148-143. He remained hemodynamically stable, afebrile, and definitely more awake, alert and decision was made to send him back to [facility] for inpatient psychiatric stabilization. OBJECTIVE: GENERAL: When I saw him today, he looked well and was clearly in no apparent respiratory distress, slightly pale, but no jaundice, cyanosis, or thyromegaly. No jugular venous distension. No lower limb edema. VITAL SIGNS: His heart rate was 88, blood pressure was 120/61, temperature was 97.3, respiratory rate was 18 and oxygen saturation was 95%. The rest of clinical examination is unremarkable. LABORATORY DATA: Today showed a white cell count is 7600, hemoglobin 12.7, hematocrit 37.8, MCV 86 and platelet count of 220,000. His chemistry showed that his serum sodium was 141, potassium 4.2, chloride 106, bicarbonate 27, anion gap of 8, BUN 9, creatinine 1, estimated GFR was 73 mL per minute. His glucose was 106, calcium was 8.7, magnesium was 1.9. His serum iron was 54, TIBC was 179 and iron percent saturation was 19. His TSH, total T4 and total T3 are all within normal limits and fasting lipid profile also within normal limits. ASSESSMENT AND PLAN: In summary, this is a 77-year-old male patient, who was originally admitted to [facility] on account of becoming agitated, has been throwing furniture. He is known to have a history of dementia and becomes quite angry and frustrated. He is here for inpatient psychiatric stabilization. He continues to be on Augmentin for his pneumonia. His serum sodium actually has normalized further this morning as his serum sodium now is 141. We will continue to monitor him closely and adjust his medication accordingly. ANDREW DOE MD DR: AMINTA/angelo JOB#: [id number] / [id number]
[2017-11-07 16:15] VITALS: BP 113/65
[2017-11-07] MEDS: TAMSULOSIN 0.4 MG CAP.ER.24H. PO SCH (19:22)
[2017-11-07] MEDS: MIRTAZAPINE 15 MG TABLET PO SCH (19:23)
[2017-11-07] MEDS: DONEPEZIL HCL 10 MG TABLET PO SCH (19:23)
[2017-11-07] MEDS: traZODone 50 MG TABLET. PO SCH (19:23)
[2017-11-07] MEDS: LATANOPROST 0.005% OPHTH SOLUTION 2.5ML BOTTLE. OU SCH (19:24)
--- NOTE | 2017-11-07 21:38 | PN ---
DATE: 11/06/2017 PSYCHIATRIC PROGRESS NOTE This is a late entry 11/06/2017, covers elements not covered in my initial note 11/06/2017. SUBJECTIVE: I met with the patient the evening of 11/06/2017. The patient has been much more awake and we are tapering and stopping the Klonopin. He has been once again little more volatile, received Zyprexa at 9:45 a.m., anxious, asking for his , Kirill, believes one of the other demented patients on the unit is his . REVIEW OF SYSTEMS: Ambulation impaired, in wheelchair. No CV, , pulmonary, eye system symptoms on review. Reliability poor. MENTAL STATUS EXAM: Oriented to himself. Insight, judgment, recent and remote memory, attention, concentration, fund of knowledge poor, consistent with his diagnoses. 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 I met with his , Kirill at length, discussed the patient's diagnoses, progress, reduction of his psychotropics, concerns that aggression will resurface, answered her questions. No active suicidal or homicidal ideation. LABORATORY DATA: Reviewed. IMPRESSION: Major neurocognitive disorder, Alzheimer, vascular with depression, delusion, behavioral disturbance. Rest unchanged. PLAN: Continue psychotropics mentioned in my initial note. Stop Klonopin. He remains on Aricept 10 mg a day, trazodone 50 mg at bedtime, may repeat x 1, Remeron 15 mg at bedtime, Ativan p.r.n. CLARKE WARE MD DR: ILANA/angelo JOB#: [id number] / [id number]
--- NOTE | 2017-11-07 22:08 | PDOC ---
Exam Note: Mitch Note: Please also refer to the separate dictated note~for this date of service dictated separately.~Patient seen individually. Discussed the patient with Nursing staff reviewed the chart.~Reviewed interim history and current functioning. Reviewed vital signs,~Labs/ Radiology~and current medications noted below. Continue current treatment with the changes noted in the dictated addendum note Assessment: Vital Signs: Vital Signs Date Time Temp Pulse Resp B/P (MAP) Pulse Ox O2 Delivery O2 Flow Rate FiO2 11/07/17 16:15 98.2 86 18 113/65 (81) 95 I&O Intake and Output 11/07/17 07:00 Intake Total 720 ml Balance 720 ml Intake Oral 720 ml # Voids 2 # Bowel Movements 4 Current Medications: Meds: Current Medications Clonazepam (KlonoPIN) 0.25 mg QHS PO ; Start 11/05/17 at 21:00; Stop 11/05/17 at 21:00; Status DC Donepezil HCl (Aricept) 10 mg QHS PO Last administered on 11/07/17at 19:23; Start 11/05/17 at 21:00 Lorazepam (Ativan) 0.5 mg PRN Q8HRS PRN PO ANXIETY / AGITATION; Start 11/05/17 at 19:15 Mirtazapine (Remeron) 15 mg QHS PO Last administered on 11/07/17at 19:23; Start 11/05/17 at 21:00 Olanzapine (ZyPREXA ZYDIS) 5 mg PRN Q2HR PRN PO PSYCHOSIS Last administered on 11/06/17at 14:49; Start 11/05/17 at 19:15 Trazodone HCl (Desyrel) 50 mg PRN QHS PRN PO INSOMNIA; Start 11/05/17 at 19:15 Trazodone HCl (Desyrel) 50 mg QHS PO Last administered on 11/07/17at 19:23; Start 11/05/17 at 21:00 Acetaminophen (Tylenol) 650 mg PRN Q4HRS PRN PO PAIN / TEMP Last administered on 11/06/17at 05:10; Start 11/05/17 at 19:30 Vitamin D (Vitamin D3) 50,000 unit Tu PO ; Start 11/08/17 at 09:00 Cyanocobalamin (Vitamin B-12) 1,000 mcg QMONTH IM ; Start 12/26/17 at 09:00 Docusate Sodium (Colace) 100 mg BID PO Last administered on 11/07/17 19:23; Start 11/05/17 at 21:00 Al Hydroxide/Mg Hydroxide (Mylanta Plus Xs) 15 ml PRN AFTMEALHC PRN PO DYSPEPSIA; Start 11/05/17 at 19:30 Magnesium Hydroxide (Milk Of Magnesia) 2,400 mg PRN QHS PRN PO CONSTIPATION; Start 11/05/17 at 19:30 Multi-Ingredient Ointment (Analgesic [place]) 1 chan PRN QID PRN TP MUSCLE PAIN; Start 11/05/17 at 19:30 Metoprolol Succinate (Toprol Xl) 25 mg DAILY PO Last administered on 11/07/17 08:14; Start 11/06/17 at 09:00 Polyethylene Glycol (miraLAX) 17 gm BID PO Last administered on 11/07/17 19:23 ; Start 11/05/17 at 21:00 Tamsulosin HCl (Flomax) 0.4 mg QHS PO Last administered on 11/07/17 19:22; Start 11/05/17 at 21:00 Latanoprost (Xalatan) 1 drop QHS OU Last administered on 11/07/17 19:24; Start 11/05/17 at 21:00 Magnesium Oxide (Magnesium Oxide) 400 mg DAILY PO Last administered on 08:14; Start 11/06/17 at 09:00 Amoxicillin/ Clavulanate Potassium (Augmentin 500/ 125mg) 1 tab BID PO Last administered on 11/07/17 19:23; Start 11/05/17 at 21:00 Lactobacillus Rhamnosus (Culturelle) 1 cap BID PO Last administered on 19:23; Start 11/05/17 at 21:00 Active Scripts Active Reported Culturelle (Lactobacillus Rhamnosus Gg) 1 Each Capsule 1 Cap PO BID Augmentin 500-125 Tablet (Amoxicillin/Potassium Clav) 1 Each Tablet 1 Tab PO BID Trazodone Hcl 50 Mg Tablet 50 Mg PO PRN QHS PRN Trazodone Hcl 50 Mg Tablet 50 Mg PO QHS Analgesic [place] (Methyl Salicylate/Menthol) 28 Gm Oint...g. 1 Chan TP PRN QID PRN Milk Of Magnesia (Magnesium Hydroxide) 400 Mg/5 Ml Oral.susp 2,400 Mg PO PRN QHS PRN Mag-Al Plus Xs Suspension (Mag Hydrox/Al Hydrox/Simeth) 30 Ml Oral.susp 15 Ml PO PRN AFTMEALHC PRN Metoprolol Succinate ( Xl ) (Metoprolol Succinate) 25 Mg Tab.er.24h 25 Mg PO DAILY Magnesium (Magnesium Oxide) 400 Mg Capsule 400 Mg PO DAILY Cyanocobalamin Injection (Cyanocobalamin (Vitamin B-12)) 1,000 Mcg/1 Ml Vial 1 Ml IM QMONTH Colace (Docusate Sodium) 100 Mg Capsule 100 Mg PO BID Clonazepam 0.5 Mg Tablet 0.25 Mg PO QHS Zyprexa Zydis (Olanzapine) 5 Mg Tab.rapdis 5 Mg PO PRN Q2HR PRN MDD 20mg Lorazepam 0.5 Mg Tablet 0.5 Mg PO PRN Q8HRS PRN MDD 2mg Vitamin D3 (Cholecalciferol (Vitamin D3)) 50,000 Unit Capsule 50,000 Unit PO QTU Tylenol (Acetaminophen) 325 Mg Tablet 650 Mg PO PRN Q4HRS PRN Tamsulosin Hcl 0.4 Mg Cap.er.24h 0.4 Mg PO QHS Mirtazapine 15 Mg Tablet 15 Mg PO QHS Miralax (Polyethylene Glycol 3350) 17 Gm Powd.pack 17 Gm PO BID Lumigan (Bimatoprost) 2.5 Ml Drops 1 Drop OU QHS Aricept (Donepezil Hcl) 10 Mg Tablet 10 Mg PO QHS I have reviewed the current psychotropics carefully including drug interactions. Risk benefit ratio favors no change other than as noted in my dictated progress note. Diagnosis: Problems: (1) Anxiety disorder (2) Mild cognitive disorder (3) Impulse control disorder (4) Major depressive disorder, recurrent episode (5) Dementia in Alzheimer's disease with delusions (6) Dementia in Alzheimer's disease with depression (7) Dementia, vascular, with delusions (8) Dementia, vascular, with depression CLARKE WARE MD Nov 07, 2017 22:08
[2017-11-08] MEDS: traZODone 50 MG TABLET. PO PRN (01:04)
[2017-11-08 06:07] VITALS: BP 134/71
[2017-11-08] MEDS: POLYETHYLENE GLYCOL 3350 17 GM PACKET. PO SCH ×2 (08:36→19:17)
[2017-11-08] MEDS: DOCUSATE SODIUM 100 MG CAPSULE PO SCH ×2 (08:36→19:16)
[2017-11-08] MEDS: MAGNESIUM OXIDE 400 MG TABLET PO SCH (08:37)
[2017-11-08] MEDS: AMOXICILLIN/K CLAV 500/125MG TABLET. PO SCH ×2 (08:37→19:17)
[2017-11-08] MEDS: LACTOBACILLUS RHAMNOSUS GG 1 CAPSULE. PO SCH ×2 (08:37→19:16)
[2017-11-08] MEDS: METOPROLOL SUCC 24HR ER 25 MG TAB.ER.24H. PO SCH (08:37)
[2017-11-08] MEDS: CHOLECALCIFEROL (VITAMIN D3) 50,000 UNIT CAPSULE PO SCH (08:38)
[2017-11-08 15:46] VITALS: BP 123/66
[2017-11-08] MEDS: traZODone 50 MG TABLET. PO SCH (19:16)
[2017-11-08] MEDS: MIRTAZAPINE 15 MG TABLET PO SCH (19:16)
[2017-11-08] MEDS: TAMSULOSIN 0.4 MG CAP.ER.24H. PO SCH (19:16)
[2017-11-08] MEDS: DONEPEZIL HCL 10 MG TABLET PO SCH (19:16)
[2017-11-08] MEDS: LATANOPROST 0.005% OPHTH SOLUTION 2.5ML BOTTLE. OU SCH (19:18)
[2017-11-08] MEDS: LORazepam 0.5 MG TABLET PO PRN (20:43)
--- NOTE | 2017-11-08 20:57 | PDOC ---
Exam Note: Mitch Note: Please also refer to the separate dictated note~for this date of service dictated separately.~Patient seen individually. Discussed the patient with Nursing staff reviewed the chart.~Reviewed interim history and current functioning. Reviewed vital signs,~Labs/ Radiology~and current medications noted below. Continue current treatment with the changes noted in the dictated addendum note Assessment: Vital Signs: Vital Signs Date Time Temp Pulse Resp B/P (MAP) Pulse Ox O2 Delivery O2 Flow Rate FiO2 11/08/17 15:46 98.0 81 16 123/66 (85) 94 I&O Intake and Output 11/08/17 07:00 Intake Total 720 ml Balance 720 ml Intake Oral 720 ml # Voids 1 # Bowel Movements 1 Current Medications: Meds: Current Medications Clonazepam (KlonoPIN) 0.25 mg QHS PO ; Start 11/05/17 at 21:00; Stop 11/05/17 at 21:00; Status DC Donepezil HCl (Aricept) 10 mg QHS PO Last administered on 11/08/17 19:16; Start 11/05/17 at 21:00 Lorazepam (Ativan) 0.5 mg PRN Q8HRS PRN PO ANXIETY / AGITATION Last administered on 11/08/17 20:43; Start 11/05/17 at 19:15 Mirtazapine (Remeron) 15 mg QHS PO Last administered on 11/08/17 19:16; Start 11/05/17 at 21:00 Olanzapine (ZyPREXA ZYDIS) 5 mg PRN Q2HR PRN PO PSYCHOSIS Last administered on 11/06/17 14:49; Start 11/05/17 at 19:15 Trazodone HCl (Desyrel) 50 mg PRN QHS PRN PO INSOMNIA Last administered on 11/08 01:04; Start 11/05/17 at 19:15 Trazodone HCl (Desyrel) 50 mg QHS PO Last administered on 11/08/17 19:16; Start 11/05/17 at 21:00 Acetaminophen (Tylenol) 650 mg PRN Q4HRS PRN PO PAIN / TEMP Last administered on 11/06/17 05:10; Start 11/05/17 at 19:30 Vitamin D (Vitamin D3) 50,000 unit Tu PO Last administered on 11/08/17 08:38; Start 11/08/17 at 09:00 Cyanocobalamin (Vitamin B-12) 1,000 mcg QMONTH IM ; Start 12/26/17 at 09:00 Docusate Sodium (Colace) 100 mg BID PO Last administered on 11/08/17 19:16; Start 11/05/17 at 21:00 Al Hydroxide/Mg Hydroxide (Mylanta Plus Xs) 15 ml PRN AFTMEALHC PRN PO DYSPEPSIA; Start 11/05/17 at 19:30 Magnesium Hydroxide (Milk Of Magnesia) 2,400 mg PRN QHS PRN PO CONSTIPATION; Start 11/05/17 at 19:30 Multi-Ingredient Ointment (Analgesic [place]) 1 chan PRN QID PRN TP MUSCLE PAIN; Start 11/05/17 at 19:30 Metoprolol Succinate (Toprol Xl) 25 mg DAILY PO Last administered on 11/08/17 08:37; Start 11/06/17 at 09:00 Polyethylene Glycol (miraLAX) 17 gm BID PO Last administered on 11/08/17 19:17 ; Start 11/05/17 at 21:00 Tamsulosin HCl (Flomax) 0.4 mg QHS PO Last administered on 11/08/17 19:16; Start 11/05/17 at 21:00 Latanoprost (Xalatan) 1 drop QHS OU Last administered on 11/08/17 19:18; Start 11/05/17 at 21:00 Magnesium Oxide (Magnesium Oxide) 400 mg DAILY PO Last administered on 08:37; Start 11/06/17 at 09:00 Amoxicillin/ Clavulanate Potassium (Augmentin 500/ 125mg) 1 tab BID PO Last administered on 11/08/17 19:17; Start 11/05/17 at 21:00 Lactobacillus Rhamnosus (Culturelle) 1 cap BID PO Last administered on 19:16; Start 11/05/17 at 21:00 Active Scripts Active Reported [place] (Lactobacillus Rhamnosus Gg) 1 Each Capsule 1 Cap PO BID Augmentin 500-125 Tablet (Amoxicillin/Potassium Clav) 1 Each Tablet 1 Tab PO BID Trazodone Hcl 50 Mg Tablet 50 Mg PO PRN QHS PRN Trazodone Hcl 50 Mg Tablet 50 Mg PO QHS Analgesic [place] (Methyl Salicylate/Menthol) 28 Gm Oint...g. 1 Chan TP PRN QID PRN Milk Of Magnesia (Magnesium Hydroxide) 400 Mg/5 Ml Oral.susp 2,400 Mg PO PRN QHS PRN Mag-Al Plus Xs Suspension (Mag Hydrox/Al Hydrox/Simeth) 30 Ml Oral.susp 15 Ml PO PRN AFTMEALHC PRN Metoprolol Succinate ( Xl ) (Metoprolol Succinate) 25 Mg Tab.er.24h 25 Mg PO DAILY Magnesium (Magnesium Oxide) 400 Mg Capsule 400 Mg PO DAILY Cyanocobalamin Injection (Cyanocobalamin (Vitamin B-12)) 1,000 Mcg/1 Ml Vial 1 Ml IM QMONTH Colace (Docusate Sodium) 100 Mg Capsule 100 Mg PO BID Clonazepam 0.5 Mg Tablet 0.25 Mg PO QHS Zyprexa Zydis (Olanzapine) 5 Mg Tab.rapdis 5 Mg PO PRN Q2HR PRN MDD 20mg Lorazepam 0.5 Mg Tablet 0.5 Mg PO PRN Q8HRS PRN MDD 2mg Vitamin D3 (Cholecalciferol (Vitamin D3)) 50,000 Unit Capsule 50,000 Unit PO QTU Tylenol (Acetaminophen) 325 Mg Tablet 650 Mg PO PRN Q4HRS PRN Tamsulosin Hcl 0.4 Mg Cap.er.24h 0.4 Mg PO QHS Mirtazapine 15 Mg Tablet 15 Mg PO QHS Miralax (Polyethylene Glycol 3350) 17 Gm Powd.pack 17 Gm PO BID Lumigan (Bimatoprost) 2.5 Ml Drops 1 Drop OU QHS Aricept (Donepezil Hcl) 10 Mg Tablet 10 Mg PO QHS I have reviewed the current psychotropics carefully including drug interactions. Risk benefit ratio favors no change other than as noted in my dictated progress note. Diagnosis: Problems: (1) Anxiety disorder (2) Mild cognitive disorder (3) Impulse control disorder (4) Major depressive disorder, recurrent episode (5) Dementia in Alzheimer's disease with delusions (6) Dementia in Alzheimer's disease with depression (7) Dementia, vascular, with delusions (8) Dementia, vascular, with depression CLARKE WARE MD Nov 08, 2017 20:57
--- NOTE | 2017-11-08 22:47 | PN ---
DATE: 11/07/2017 This late entry 11/07/2017 covers elements not covered in my initial note 11/07/2017. Met with the patient in the evening of 11/07/2017. Overall, the patient is more awake, alert, starting to ambulate a little bit with physical therapy. He is compliant with his medications. Nursing staff indicated that they showed him periodic table and it appeared he seemed to still remember the various elements and groups of elements. REVIEW OF SYSTEMS: Ambulation impaired, in wheelchair. No CV, , pulmonary, eye system symptoms on review. MENTAL STATUS EXAM: Oriented to himself. Insight, judgment, recent and remote memory, attention, concentration, fund of knowledge poor, consistent with his diagnosis mentioned in my initial note. IMPRESSION: Major neurocognitive disorder, Alzheimer, vascular with delusion, depression, behavioral disturbance. Rest unchanged. PLAN: Continue psychotropics mentioned in my initial note including the Remeron, Ativan as p.r.n. CLARKE WARE MD DR: ILANA/angelo JOB#: [id number] / [id number]
[2017-11-09 06:29] VITALS: BP 126/74
[2017-11-09] MEDS: POLYETHYLENE GLYCOL 3350 17 GM PACKET. PO SCH ×2 (08:41→19:45)
[2017-11-09] MEDS: AMOXICILLIN/K CLAV 500/125MG TABLET. PO SCH ×2 (08:41→19:44)
[2017-11-09] MEDS: DOCUSATE SODIUM 100 MG CAPSULE PO SCH ×2 (08:41→19:45)
[2017-11-09] MEDS: LACTOBACILLUS RHAMNOSUS GG 1 CAPSULE. PO SCH ×2 (08:41→19:44)
[2017-11-09] MEDS: MAGNESIUM OXIDE 400 MG TABLET PO SCH (08:41)
[2017-11-09] MEDS: METOPROLOL SUCC 24HR ER 25 MG TAB.ER.24H. PO SCH (08:42)
[2017-11-09 16:25] VITALS: BP 122/70
[2017-11-09] MEDS: traZODone 50 MG TABLET. PO SCH (19:44)
[2017-11-09] MEDS: DONEPEZIL HCL 10 MG TABLET PO SCH (19:45)
[2017-11-09] MEDS: TAMSULOSIN 0.4 MG CAP.ER.24H. PO SCH (19:45)
[2017-11-09] MEDS: MIRTAZAPINE 15 MG TABLET PO SCH (19:45)
[2017-11-09] MEDS: LATANOPROST 0.005% OPHTH SOLUTION 2.5ML BOTTLE. OU SCH (21:00)
--- NOTE | 2017-11-09 21:01 | PDOC ---
Exam Note: Mitch Note: Please also refer to the separate dictated note~for this date of service dictated separately.~Patient seen individually. Discussed the patient with Nursing staff reviewed the chart.~Reviewed interim history and current functioning. Reviewed vital signs,~Labs/ Radiology~and current medications noted below. Continue current treatment with the changes noted in the dictated addendum note Assessment: Vital Signs: Vital Signs Date Time Temp Pulse Resp B/P (MAP) Pulse Ox O2 Delivery O2 Flow Rate FiO2 11/09/17 16:25 97.8 94 20 122/70 (87) 97 I&O Intake and Output 11/09/17 07:00 Intake Total 1200 ml Balance 1200 ml Intake Oral 1200 ml # Voids 1 # Bowel Movements 2 Current Medications: Meds: Current Medications Clonazepam (KlonoPIN) 0.25 mg QHS PO ; Start 11/05/17 at 21:00; Stop 11/05/17 at 21:00; Status DC Donepezil HCl (Aricept) 10 mg QHS PO Last administered on 11/09/17 19:45; Start 11/05/17 at 21:00 Lorazepam (Ativan) 0.5 mg PRN Q8HRS PRN PO ANXIETY / AGITATION Last administered on 11/08/17 20:43; Start 11/05/17 at 19:15 Mirtazapine (Remeron) 15 mg QHS PO Last administered on 11/09/17 19:45; Start 11/05/17 at 21:00 Olanzapine (ZyPREXA ZYDIS) 5 mg PRN Q2HR PRN PO PSYCHOSIS Last administered on 11/06/17 14:49; Start 11/05/17 at 19:15 Trazodone HCl (Desyrel) 50 mg PRN QHS PRN PO INSOMNIA Last administered on 11/08 01:04; Start 11/05/17 at 19:15 Trazodone HCl (Desyrel) 50 mg QHS PO Last administered on 11/09/17 19:44; Start 11/05/17 at 21:00 Acetaminophen (Tylenol) 650 mg PRN Q4HRS PRN PO PAIN / TEMP Last administered on 11/06/17 05:10; Start 11/05/17 at 19:30 Vitamin D (Vitamin D3) 50,000 unit Tu PO Last administered on 11/08/17 08:38; Start 11/08/17 at 09:00 Cyanocobalamin (Vitamin B-12) 1,000 mcg QMONTH IM ; Start 12/26/17 at 09:00 Docusate Sodium (Colace) 100 mg BID PO Last administered on 11/09/17 19:45; Start 11/05/17 at 21:00 Al Hydroxide/Mg Hydroxide (Mylanta Plus Xs) 15 ml PRN AFTMEALHC PRN PO DYSPEPSIA; Start 11/05/17 at 19:30 Magnesium Hydroxide (Milk Of Magnesia) 2,400 mg PRN QHS PRN PO CONSTIPATION; Start 11/05/17 at 19:30 Multi-Ingredient Ointment (Analgesic [place]) 1 chan PRN QID PRN TP MUSCLE PAIN; Start 11/05/17 at 19:30 Metoprolol Succinate (Toprol Xl) 25 mg DAILY PO Last administered on 11/09/17 08:42; Start 11/06/17 at 09:00 Polyethylene Glycol (miraLAX) 17 gm BID PO Last administered on 11/09/17 19:45 ; Start 11/05/17 at 21:00 Tamsulosin HCl (Flomax) 0.4 mg QHS PO Last administered on 11/09/17 19:45; Start 11/05/17 at 21:00 Latanoprost (Xalatan) 1 drop QHS OU Last administered on 11/08/17 19:18; Start 11/05/17 at 21:00 Magnesium Oxide (Magnesium Oxide) 400 mg DAILY PO Last administered on 08:41; Start 11/06/17 at 09:00 Amoxicillin/ Clavulanate Potassium (Augmentin 500/ 125mg) 1 tab BID PO Last administered on 11/09/17 19:44; Start 11/05/17 at 21:00; Stop 11/12/17 at 21:01 Lactobacillus Rhamnosus (Culturelle) 1 cap BID PO Last administered on 19:44; Start 11/05/17 at 21:00 Active Scripts Active Reported Culturelle (Lactobacillus Rhamnosus Gg) 1 Each Capsule 1 Cap PO BID Augmentin 500-125 Tablet (Amoxicillin/Potassium Clav) 1 Each Tablet 1 Tab PO BID Trazodone Hcl 50 Mg Tablet 50 Mg PO PRN QHS PRN Trazodone Hcl 50 Mg Tablet 50 Mg PO QHS Analgesic [place] (Methyl Salicylate/Menthol) 28 Gm Oint...g. 1 Chan TP PRN QID PRN Milk Of Magnesia (Magnesium Hydroxide) 400 Mg/5 Ml Oral.susp 2,400 Mg PO PRN QHS PRN Mag-Al Plus Xs Suspension (Mag Hydrox/Al Hydrox/Simeth) 30 Ml Oral.susp 15 Ml PO PRN AFTMEALHC PRN Metoprolol Succinate ( Xl ) (Metoprolol Succinate) 25 Mg Tab.er.24h 25 Mg PO DAILY Magnesium (Magnesium Oxide) 400 Mg Capsule 400 Mg PO DAILY Cyanocobalamin Injection (Cyanocobalamin (Vitamin B-12)) 1,000 Mcg/1 Ml Vial 1 Ml IM QMONTH Colace (Docusate Sodium) 100 Mg Capsule 100 Mg PO BID Clonazepam 0.5 Mg Tablet 0.25 Mg PO QHS Zyprexa Zydis (Olanzapine) 5 Mg Tab.rapdis 5 Mg PO PRN Q2HR PRN MDD 20mg Lorazepam 0.5 Mg Tablet 0.5 Mg PO PRN Q8HRS PRN MDD 2mg Vitamin D3 (Cholecalciferol (Vitamin D3)) 50,000 Unit Capsule 50,000 Unit PO QTU Tylenol (Acetaminophen) 325 Mg Tablet 650 Mg PO PRN Q4HRS PRN Tamsulosin Hcl 0.4 Mg Cap.er.24h 0.4 Mg PO QHS Mirtazapine 15 Mg Tablet 15 Mg PO QHS Miralax (Polyethylene Glycol 3350) 17 Gm Powd.pack 17 Gm PO BID Lumigan (Bimatoprost) 2.5 Ml Drops 1 Drop OU QHS Aricept (Donepezil Hcl) 10 Mg Tablet 10 Mg PO QHS I have reviewed the current psychotropics carefully including drug interactions. Risk benefit ratio favors no change other than as noted in my dictated progress note. Diagnosis: Problems: (1) Anxiety disorder (2) Mild cognitive disorder (3) Impulse control disorder (4) Major depressive disorder, recurrent episode (5) Dementia in Alzheimer's disease with delusions (6) Dementia in Alzheimer's disease with depression (7) Dementia, vascular, with delusions (8) Dementia, vascular, with depression CLARKE WARE MD Nov 09, 2017 21:01
--- NOTE | 2017-11-09 23:54 | PN ---
DATE: 11/08/2017 This is a late entry of 11/08/2017 and covers the elements not covered in my initial note of 11/08/2017. SUBJECTIVE: I met with the patient in the evening of 11/08/2017 at some length. He slept 6-1/2 hours previous night. At nighttime, on 11/08/2017 he was agitated, aggressive, resistive with the shower, took his medications, noncompliant with PT and OT, making vague statements wanting his " to take me to the farm and shoot me." This is when he gets irritable. When I engaged him in a conversation about periodic table during the visit on 11/08/2017, he was more animated, interested. He knew the electron count for hydrogen and helium and was a little confused on the electron counts for lithium, which is something he brought up spontaneously. Nevertheless, this seems to give him a degree of satisfaction and improved irritability when this is discussed. REVIEW OF SYSTEMS: Ambulation impaired, in wheelchair. No CV, , pulmonary, eye, ENT system symptoms on review. MENTAL STATUS EXAM: Oriented to himself. Insight, judgment, recent and remote memory, attention, concentration, fund of knowledge poor, consistent with his diagnosis mentioned in my initial note. PLAN: Continue psychotropics mentioned in my initial note. I had considered adding BuSpar for anxiety, but the would prefer us to not use any psychotropics that we can do without and we will persevere without it for now. CLARKE WARE MD DR: ILANA/angelo JOB#: [id number] / [id number]
[2017-11-10 06:24] VITALS: BP 102/61
[2017-11-10] MEDS: LACTOBACILLUS RHAMNOSUS GG 1 CAPSULE. PO SCH ×3 (07:40→19:57)
[2017-11-10] MEDS: DOCUSATE SODIUM 100 MG CAPSULE PO SCH ×3 (07:40→19:55)
[2017-11-10] MEDS: AMOXICILLIN/K CLAV 500/125MG TABLET. PO SCH ×2 (07:40→19:57)
[2017-11-10] MEDS: MAGNESIUM OXIDE 400 MG TABLET PO SCH ×2 (07:40→08:45)
[2017-11-10] MEDS: METOPROLOL SUCC 24HR ER 25 MG TAB.ER.24H. PO SCH ×2 (07:41→08:48)
[2017-11-10] MEDS: POLYETHYLENE GLYCOL 3350 17 GM PACKET. PO SCH ×3 (07:41→19:56)
[2017-11-10 15:40] VITALS: BP 129/77
[2017-11-10] MEDS: MIRTAZAPINE 15 MG TABLET PO SCH (19:56)
[2017-11-10] MEDS: LATANOPROST 0.005% OPHTH SOLUTION 2.5ML BOTTLE. OU SCH (19:56)
[2017-11-10] MEDS: traZODone 50 MG TABLET. PO SCH (19:56)
[2017-11-10] MEDS: DONEPEZIL HCL 10 MG TABLET PO SCH (19:57)
[2017-11-10] MEDS: TAMSULOSIN 0.4 MG CAP.ER.24H. PO SCH (19:57)
--- NOTE | 2017-11-10 20:58 | PDOC ---
Exam Note: Mitch Note: Please also refer to the separate dictated note~for this date of service dictated separately.~Patient seen individually. Discussed the patient with Nursing staff reviewed the chart.~Reviewed interim history and current functioning. Reviewed vital signs,~Labs/ Radiology~and current medications noted below. Continue current treatment with the changes noted in the dictated addendum note Assessment: Vital Signs: Vital Signs Date Time Temp Pulse Resp B/P (MAP) Pulse Ox O2 Delivery O2 Flow Rate FiO2 11/10/17 15:40 97.9 91 16 129/77 (94) 96 I&O Intake and Output 11/10/17 07:00 Intake Total 840 ml Balance 840 ml Intake Oral 840 ml # Voids 1 # Bowel Movements 2 Current Medications: Meds: Current Medications Clonazepam (KlonoPIN) 0.25 mg QHS PO ; Start 11/05/17 at 21:00; Stop 11/05/17 at 21:00; Status DC Donepezil HCl (Aricept) 10 mg QHS PO Last administered on 11/10/17 19:57; Start 11/05/17 at 21:00 Lorazepam (Ativan) 0.5 mg PRN Q8HRS PRN PO ANXIETY / AGITATION Last administered on 11/08/17 20:43; Start 11/05/17 at 19:15 Mirtazapine (Remeron) 15 mg QHS PO Last administered on 11/10/17 19:56; Start 11/05/17 at 21:00 Olanzapine (ZyPREXA ZYDIS) 5 mg PRN Q2HR PRN PO PSYCHOSIS Last administered on 11/06/17 14:49; Start 11/05/17 at 19:15 Trazodone HCl (Desyrel) 50 mg PRN QHS PRN PO INSOMNIA Last administered on 11/08 01:04; Start 11/05/17 at 19:15 Trazodone HCl (Desyrel) 50 mg QHS PO Last administered on 11/10/17 19:56; Start 11/05/17 at 21:00 Acetaminophen (Tylenol) 650 mg PRN Q4HRS PRN PO PAIN / TEMP Last administered on 11/06/17 05:10; Start 11/05/17 at 19:30 Vitamin D (Vitamin D3) 50,000 unit Tu PO Last administered on 11/08/17 08:38; Start 11/08/17 at 09:00 Cyanocobalamin (Vitamin B-12) 1,000 mcg QMONTH IM ; Start 12/26/17 at 09:00 Docusate Sodium (Colace) 100 mg BID PO Last administered on 11/09/17 19:45; Start 11/05/17 at 21:00 Al Hydroxide/Mg Hydroxide (Mylanta Plus Xs) 15 ml PRN AFTMEALHC PRN PO DYSPEPSIA; Start 11/05/17 at 19:30 Magnesium Hydroxide (Milk Of Magnesia) 2,400 mg PRN QHS PRN PO CONSTIPATION; Start 11/05/17 at 19:30 Multi-Ingredient Ointment (Analgesic [place]) 1 chan PRN QID PRN TP MUSCLE PAIN; Start 11/05/17 at 19:30 Metoprolol Succinate (Toprol Xl) 25 mg DAILY PO Last administered on 11/09/17at 08:42; Start 11/06/17 at 09:00 Polyethylene Glycol (miraLAX) 17 gm BID PO Last administered on 11/09/17 19:45 ; Start 11/05/17 at 21:00 Tamsulosin HCl (Flomax) 0.4 mg QHS PO Last administered on 11/10/17 19:57; Start 11/05/17 at 21:00 Latanoprost (Xalatan) 1 drop QHS OU Last administered on 11/10/17 19:56; Start 11/05/17 at 21:00 Magnesium Oxide (Magnesium Oxide) 400 mg DAILY PO Last administered on at 08:41; Start 11/06/17 at 09:00 Amoxicillin/ Clavulanate Potassium (Augmentin 500/ 125mg) 1 tab BID PO Last administered on 11/10/17 19:57; Start 11/05/17 at 21:00; Stop 11/12/17 at 21:01 Lactobacillus Rhamnosus (Culturelle) 1 cap BID PO Last administered on 19:57; Start 11/05/17 at 21:00 Megestrol Acetate (Megace) 400 mg BID@0900,1700 PO ; Start 11/11/17 at 09:00 Active Scripts Active Reported [place] (Lactobacillus Rhamnosus Gg) 1 Each Capsule 1 Cap PO BID Augmentin 500-125 Tablet (Amoxicillin/Potassium Clav) 1 Each Tablet 1 Tab PO BID Trazodone Hcl 50 Mg Tablet 50 Mg PO PRN QHS PRN Trazodone Hcl 50 Mg Tablet 50 Mg PO QHS Analgesic [place] (Methyl Salicylate/Menthol) 28 Gm Oint...g. 1 Chan TP PRN QID PRN Milk Of Magnesia (Magnesium Hydroxide) 400 Mg/5 Ml Oral.susp 2,400 Mg PO PRN QHS PRN Mag-Al Plus Xs Suspension (Mag Hydrox/Al Hydrox/Simeth) 30 Ml Oral.susp 15 Ml PO PRN AFTMEALHC PRN Metoprolol Succinate ( Xl ) (Metoprolol Succinate) 25 Mg Tab.er.24h 25 Mg PO DAILY Magnesium (Magnesium Oxide) 400 Mg Capsule 400 Mg PO DAILY Cyanocobalamin Injection (Cyanocobalamin (Vitamin B-12)) 1,000 Mcg/1 Ml Vial 1 Ml IM QMONTH Colace (Docusate Sodium) 100 Mg Capsule 100 Mg PO BID Clonazepam 0.5 Mg Tablet 0.25 Mg PO QHS Zyprexa Zydis (Olanzapine) 5 Mg Tab.rapdis 5 Mg PO PRN Q2HR PRN MDD 20mg Lorazepam 0.5 Mg Tablet 0.5 Mg PO PRN Q8HRS PRN MDD 2mg Vitamin D3 (Cholecalciferol (Vitamin D3)) 50,000 Unit Capsule 50,000 Unit PO QTU Tylenol (Acetaminophen) 325 Mg Tablet 650 Mg PO PRN Q4HRS PRN Tamsulosin Hcl 0.4 Mg Cap.er.24h 0.4 Mg PO QHS Mirtazapine 15 Mg Tablet 15 Mg PO QHS Miralax (Polyethylene Glycol 3350) 17 Gm Powd.pack 17 Gm PO BID Lumigan (Bimatoprost) 2.5 Ml Drops 1 Drop OU QHS Aricept (Donepezil Hcl) 10 Mg Tablet 10 Mg PO QHS I have reviewed the current psychotropics carefully including drug interactions. Risk benefit ratio favors no change other than as noted in my dictated progress note. Diagnosis: Problems: (1) Anxiety disorder (2) Mild cognitive disorder (3) Impulse control disorder (4) Major depressive disorder, recurrent episode (5) Dementia in Alzheimer's disease with delusions (6) Dementia in Alzheimer's disease with depression (7) Dementia, vascular, with delusions (8) Dementia, vascular, with depression CLARKE WARE MD Nov 10, 2017 20:58
[2017-11-11 06:42] VITALS: BP 131/67
[2017-11-11] MEDS: DOCUSATE SODIUM 100 MG CAPSULE PO SCH ×2 (08:28→19:52)
[2017-11-11] MEDS: POLYETHYLENE GLYCOL 3350 17 GM PACKET. PO SCH ×2 (08:28→19:51)
[2017-11-11] MEDS: AMOXICILLIN/K CLAV 500/125MG TABLET. PO SCH ×2 (09:28→19:51)
[2017-11-11] MEDS: MAGNESIUM OXIDE 400 MG TABLET PO SCH (09:28)
[2017-11-11] MEDS: LACTOBACILLUS RHAMNOSUS GG 1 CAPSULE. PO SCH ×2 (09:28→19:51)
[2017-11-11] MEDS: METOPROLOL SUCC 24HR ER 25 MG TAB.ER.24H. PO SCH (09:28)
[2017-11-11] MEDS: MEGESTROL 400 MG/10 ML ORAL.SUSP. PO SCH ×2 (09:29→17:17)
[2017-11-11 16:23] VITALS: BP 120/77
[2017-11-11] MEDS: MIRTAZAPINE 15 MG TABLET PO SCH (19:51)
[2017-11-11] MEDS: DONEPEZIL HCL 10 MG TABLET PO SCH (19:51)
[2017-11-11] MEDS: LATANOPROST 0.005% OPHTH SOLUTION 2.5ML BOTTLE. OU SCH (19:51)
[2017-11-11] MEDS: traZODone 50 MG TABLET. PO SCH (19:51)
[2017-11-11] MEDS: TAMSULOSIN 0.4 MG CAP.ER.24H. PO SCH (19:51)
--- NOTE | 2017-11-11 20:59 | PDOC ---
Exam Note: Mitch Note: Please also refer to the separate dictated note~for this date of service dictated separately.~Patient seen individually. Discussed the patient with Nursing staff reviewed the chart.~Reviewed interim history and current functioning. Reviewed vital signs,~Labs/ Radiology~and current medications noted below. Continue current treatment with the changes noted in the dictated addendum note Assessment: Vital Signs: Vital Signs Date Time Temp Pulse Resp B/P (MAP) Pulse Ox O2 Delivery O2 Flow Rate FiO2 11/11/17 16:23 98.0 86 18 120/77 (91) 95 I&O Intake and Output 11/11/17 07:00 Intake Total 960 ml Balance 960 ml Intake Oral 960 ml # Bowel Movements 2 Current Medications: Meds: Current Medications Clonazepam (KlonoPIN) 0.25 mg QHS PO ; Start 11/05/17 at 21:00; Stop 11/05/17 at 21:00; Status DC Donepezil HCl (Aricept) 10 mg QHS PO Last administered on 11/11/17 19:51; Start 11/05/17 at 21:00 Lorazepam (Ativan) 0.5 mg PRN Q8HRS PRN PO ANXIETY / AGITATION Last administered on 11/08/17 20:43; Start 11/05/17 at 19:15 Mirtazapine (Remeron) 15 mg QHS PO Last administered on 11/11/17 19:51; Start 11/05/17 at 21:00 Olanzapine (ZyPREXA ZYDIS) 5 mg PRN Q2HR PRN PO PSYCHOSIS Last administered on 11/11/17 09:17; Start 11/05/17 at 19:15 Trazodone HCl (Desyrel) 50 mg PRN QHS PRN PO INSOMNIA Last administered on 11/08 01:04; Start 11/05/17 at 19:15 Trazodone HCl (Desyrel) 50 mg QHS PO Last administered on 11/11/17 19:51; Start 11/05/17 at 21:00 Acetaminophen (Tylenol) 650 mg PRN Q4HRS PRN PO PAIN / TEMP Last administered on 11/06/17 05:10; Start 11/05/17 at 19:30 Vitamin D (Vitamin D3) 50,000 unit Tu PO Last administered on 11/08/17 08:38; Start 11/08/17 at 09:00 Cyanocobalamin (Vitamin B-12) 1,000 mcg QMONTH IM ; Start 12/26/17 at 09:00 Docusate Sodium (Colace) 100 mg BID PO Last administered on 11/09/17 19:45; Start 11/05/17 at 21:00 Al Hydroxide/Mg Hydroxide (Mylanta Plus Xs) 15 ml PRN AFTMEALHC PRN PO DYSPEPSIA; Start 11/05/17 at 19:30 Magnesium Hydroxide (Milk Of Magnesia) 2,400 mg PRN QHS PRN PO CONSTIPATION; Start 11/05/17 at 19:30 Multi-Ingredient Ointment (Analgesic [place]) 1 chan PRN QID PRN TP MUSCLE PAIN; Start 11/05/17 at 19:30 Metoprolol Succinate (Toprol Xl) 25 mg DAILY PO Last administered on 11/11/17 09:28; Start 11/06/17 at 09:00 Polyethylene Glycol (miraLAX) 17 gm BID PO Last administered on 11/09/17 19:45 ; Start 11/05/17 at 21:00 Tamsulosin HCl (Flomax) 0.4 mg QHS PO Last administered on 11/11/17 19:51; Start 11/05/17 at 21:00 Latanoprost (Xalatan) 1 drop QHS OU Last administered on 11/11/17 19:51; Start 11/05/17 at 21:00 Magnesium Oxide (Magnesium Oxide) 400 mg DAILY PO Last administered on 09:28; Start 11/06/17 at 09:00 Amoxicillin/ Clavulanate Potassium (Augmentin 500/ 125mg) 1 tab BID PO Last administered on 11/11/17 19:51; Start 11/05/17 at 21:00; Stop 11/12/17 at 21:01 Lactobacillus Rhamnosus (Culturelle) 1 cap BID PO Last administered on 19:51; Start 11/05/17 at 21:00 Megestrol Acetate (Megace) 400 mg BID@0900,1700 PO Last administered on 17:17; Start 11/11/17 at 09:00 Active Scripts Active Reported [place] (Lactobacillus Rhamnosus Gg) 1 Each Capsule 1 Cap PO BID Augmentin 500-125 Tablet (Amoxicillin/Potassium Clav) 1 Each Tablet 1 Tab PO BID Trazodone Hcl 50 Mg Tablet 50 Mg PO PRN QHS PRN Trazodone Hcl 50 Mg Tablet 50 Mg PO QHS Analgesic [place] (Methyl Salicylate/Menthol) 28 Gm Oint...g. 1 Chan TP PRN QID PRN Milk Of Magnesia (Magnesium Hydroxide) 400 Mg/5 Ml Oral.susp 2,400 Mg PO PRN QHS PRN Mag-Al Plus Xs Suspension (Mag Hydrox/Al Hydrox/Simeth) 30 Ml Oral.susp 15 Ml PO PRN AFTMEALHC PRN Metoprolol Succinate ( Xl ) (Metoprolol Succinate) 25 Mg Tab.er.24h 25 Mg PO DAILY Magnesium (Magnesium Oxide) 400 Mg Capsule 400 Mg PO DAILY Cyanocobalamin Injection (Cyanocobalamin (Vitamin B-12)) 1,000 Mcg/1 Ml Vial 1 Ml IM QMONTH Colace (Docusate Sodium) 100 Mg Capsule 100 Mg PO BID Clonazepam 0.5 Mg Tablet 0.25 Mg PO QHS Zyprexa Zydis (Olanzapine) 5 Mg Tab.rapdis 5 Mg PO PRN Q2HR PRN MDD 20mg Lorazepam 0.5 Mg Tablet 0.5 Mg PO PRN Q8HRS PRN MDD 2mg Vitamin D3 (Cholecalciferol (Vitamin D3)) 50,000 Unit Capsule 50,000 Unit PO QTU Tylenol (Acetaminophen) 325 Mg Tablet 650 Mg PO PRN Q4HRS PRN Tamsulosin Hcl 0.4 Mg Cap.er.24h 0.4 Mg PO QHS Mirtazapine 15 Mg Tablet 15 Mg PO QHS Miralax (Polyethylene Glycol 3350) 17 Gm Powd.pack 17 Gm PO BID Lumigan (Bimatoprost) 2.5 Ml Drops 1 Drop OU QHS Aricept (Donepezil Hcl) 10 Mg Tablet 10 Mg PO QHS I have reviewed the current psychotropics carefully including drug interactions. Risk benefit ratio favors no change other than as noted in my dictated progress note. Diagnosis: Problems: (1) Anxiety disorder (2) Mild cognitive disorder (3) Impulse control disorder (4) Major depressive disorder, recurrent episode (5) Dementia in Alzheimer's disease with delusions (6) Dementia in Alzheimer's disease with depression (7) Dementia, vascular, with delusions (8) Dementia, vascular, with depression CLARKE WARE MD Nov 11, 2017 20:59
--- NOTE | 2017-11-11 22:22 | PN ---
DATE: 11/09/2017 This is a late entry for 11/09/2017 covers elements not covered in my initial note of 11/09/2017. SUBJECTIVE: I met with the patient in the evening of 11/09/2017. Overall, the patient remains confused, still somewhat impulsive, but better per nursing report. He is oriented to himself, knew his date of , cooperated with physical therapy. Received Ativan previous evening because of agitation then did better, took a shower. REVIEW OF SYSTEMS: Ambulation impaired, in wheelchair. No CV, , pulmonary, eye, ENT system symptoms on review. As I met with him individually, he talked about the periodic table. He had some errors, but had a general concept ____. When I questioned him, he was able to answer some of the questions. Insight, judgment, recent and remote memory, attention, concentration, fund of knowledge poor, consistent with his diagnosis. Mood remains somewhat dysphoric, irritable at times. LABORATORY DATA: Reviewed. IMPRESSION: Major neurocognitive disorder, Alzheimer, vascular with depression, delusion, behavioral disturbance. Rest unchanged. PLAN: Continue psychotropics mentioned in my initial note. Minimize psychotropics secondary to sedation side effects and concerned about this. CLARKE WARE MD DR: ILANA/angelo JOB#: [id number] / [id number]
--- NOTE | 2017-11-12 04:40 | PN ---
DATE: 11/10/2017 This is a late entry for 11/10/2017 covers elements not covered in my initial note of 11/10/2017. SUBJECTIVE: The patient was seen individually in the evening of 11/10/2017 and staffed at treatment team meeting the morning of 11/10/2017 with the patient's attending. Lengthy discussion about her desire to keep him on minimal amounts of psychotropics. At times, he is incontinent of bowel, bladder, gets agitated when staff attempt to clean him, it took 4 staff members for this. Appetite poor. He does drink Boost. We will check with Dr. Trevizo if he can start Megace. If not, we will start Periactin. was concerned about weight loss, but he was 188 pounds on 10/31/2017 and 192 on 11/06/2017. REVIEW OF SYSTEMS: Ambulation impaired, in wheelchair. No CV, , pulmonary, eye system symptoms on review. Reliability poor. MENTAL STATUS EXAM: Oriented to himself. Insight, judgment, recent and remote memory, attention, concentration, fund of knowledge poor, consistent with his diagnosis. He gets somewhat involved when I questioned him again about the periodic table and other science subjects. IMPRESSION: Major neurocognitive disorder, Alzheimer, vascular with delusion, depression, behavioral disturbance. Rest unchanged. PLAN: Continue psychotropics mentioned in my initial note and we will add appetite stimulant. MAN Jude WARE MD DR: ILANA/angelo JOB#: [id number] / [id number]
[2017-11-12 06:34] VITALS: BP 117/65
[2017-11-12 08:11] LABS: BASO # 0.1 x10^3/uL (0.0-0.2); BASO % 1 % (0-3); EOS # 0.2 x10^3/uL (0.0-0.7); EOS % 2 % (0-3); HEMATOCRIT 37.4 % (39.0-53.0); HEMOGLOBIN 12.5 g/dL (13.0-17.5); LYMPH # 1.7 x10^3/uL (1.0-4.8); LYMPH % 24 % (24-48); MEAN CORPUSCULAR HEMOGLOBIN 29 pg (25-35); MEAN CORPUSCULAR HGB CONC 34 g/dL (31-37); MEAN CORPUSCULAR VOLUME 85 fL (79-100); MONO # 0.7 x10^3/uL (0.0-1.1); MONO % 11 % (0-9); NEUT # 4.4 x10^3uL (1.8-7.7); NEUT % 62 % (31-73); PLATELET COUNT 280 x10^3/uL (140-400); RED BLOOD COUNT 4.38 x10^6/uL (4.30-5.70)
[2017-11-12 08:36] LABS: ALBUMIN 2.8 g/dL (3.4-5.0); ALBUMIN/GLOBULIN RATIO 0.8 (1.0-1.7); CALCIUM 8.9 mg/dL (8.5-10.1); CREATININE 1.1 mg/dL (0.7-1.3); GFR 65.1; TOTAL BILIRUBIN 0.5 mg/dL (0.2-1.0); TOTAL PROTEIN 6.5 g/dL (6.4-8.2)
[2017-11-12] MEDS: METOPROLOL SUCC 24HR ER 25 MG TAB.ER.24H. PO SCH (09:00)
[2017-11-12] MEDS: AMOXICILLIN/K CLAV 500/125MG TABLET. PO SCH ×2 (09:09→21:00)
[2017-11-12] MEDS: DOCUSATE SODIUM 100 MG CAPSULE PO SCH ×2 (09:09→21:01)
[2017-11-12] MEDS: POLYETHYLENE GLYCOL 3350 17 GM PACKET. PO SCH ×2 (09:10→21:00)
[2017-11-12] MEDS: MAGNESIUM OXIDE 400 MG TABLET PO SCH (09:10)
[2017-11-12] MEDS: LACTOBACILLUS RHAMNOSUS GG 1 CAPSULE. PO SCH ×2 (09:10→21:00)
[2017-11-12] MEDS: MEGESTROL 400 MG/10 ML ORAL.SUSP. PO SCH ×2 (09:10→17:05)
[2017-11-12 16:34] VITALS: BP 145/65
--- NOTE | 2017-11-12 19:59 | PDOC ---
Exam Note: Mitch Note: Please also refer to the separate dictated note~for this date of service dictated separately.~Patient seen individually. Discussed the patient with Nursing staff reviewed the chart.~Reviewed interim history and current functioning. Reviewed vital signs,~Labs/ Radiology~and current medications noted below. Continue current treatment with the changes noted in the dictated addendum note Assessment: Vital Signs: Vital Signs Date Time Temp Pulse Resp B/P (MAP) Pulse Ox O2 Delivery O2 Flow Rate FiO2 11/12/17 16:34 98.4 77 18 145/65 (91) 92 Room Air I&O Intake and Output 11/12/17 07:00 Intake Total 840 ml Balance 840 ml Intake Oral 840 ml # Bowel Movements 1 Labs: Laboratory Tests Test 11/12/17 07:49 White Blood Count 7.0 x10^3/uL (4.0-11.0) Red Blood Count 4.38 x10^6/uL (4.30-5.70) Hemoglobin 12.5 g/dL (13.0-17.5) L Hematocrit 37.4 % (39.0-53.0) L Mean Corpuscular Volume 85 fL (79-100) Mean Corpuscular Hemoglobin 29 pg (25-35) Mean Corpuscular Hemoglobin Concent 34 g/dL (31-37) Red Cell Distribution Width 16.0 % (11.5-14.5) H Platelet Count 280 x10^3/uL (140-400) Neutrophils (%) (Auto) 62 % (31-73) Lymphocytes (%) (Auto) 24 % (24-48) Monocytes (%) (Auto) 11 % (0-9) H Eosinophils (%) (Auto) 2 % (0-3) Basophils (%) (Auto) 1 % (0-3) Neutrophils # (Auto) 4.4 x10^3uL (1.8-7.7) Lymphocytes # (Auto) 1.7 x10^3/uL (1.0-4.8) Monocytes # (Auto) 0.7 x10^3/uL (0.0-1.1) Eosinophils # (Auto) 0.2 x10^3/uL (0.0-0.7) Basophils # (Auto) 0.1 x10^3/uL (0.0-0.2) Sodium Level 145 mmol/L (136-145) Potassium Level 4.0 mmol/L (3.5-5.1) Chloride Level 109 mmol/L (98-107) H Carbon Dioxide Level 26 mmol/L (21-32) Anion Gap 10 (6-14) Blood Urea Nitrogen 13 mg/dL (8-26) Creatinine 1.1 mg/dL (0.7-1.3) Estimated GFR (Cockcroft-Gault) 65.1 BUN/Creatinine Ratio 12 (6-20) Glucose Level 82 mg/dL (70-99) Calcium Level 8.9 mg/dL (8.5-10.1) Total Bilirubin 0.5 mg/dL (0.2-1.0) Aspartate Amino Transferase (AST) 19 U/L (15-37) Alanine Aminotransferase (ALT) 13 U/L (16-63) L Alkaline Phosphatase 47 U/L (46-116) Total Protein 6.5 g/dL (6.4-8.2) Albumin 2.8 g/dL (3.4-5.0) L Albumin/Globulin Ratio 0.8 (1.0-1.7) L Current Medications: Meds: Current Medications Clonazepam (KlonoPIN) 0.25 mg QHS PO ; Start 11/05/17 at 21:00; Stop 11/05/17 at 21:00; Status DC Donepezil HCl (Aricept) 10 mg QHS PO Last administered on 11/11/17 19:51; Start 11/05/17 at 21:00 Lorazepam (Ativan) 0.5 mg PRN Q8HRS PRN PO ANXIETY / AGITATION Last administered on 11/08/17 20:43; Start 11/05/17 at 19:15 Mirtazapine (Remeron) 15 mg QHS PO Last administered on 11/11/17 19:51; Start 11/05/17 at 21:00 Olanzapine (ZyPREXA ZYDIS) 5 mg PRN Q2HR PRN PO PSYCHOSIS Last administered on 11/11/17 09:17; Start 11/05/17 at 19:15 Trazodone HCl (Desyrel) 50 mg PRN QHS PRN PO INSOMNIA Last administered on 11/08 01:04; Start 11/05/17 at 19:15 Trazodone HCl (Desyrel) 50 mg QHS PO Last administered on 11/11/17 19:51; Start 11/05/17 at 21:00 Acetaminophen (Tylenol) 650 mg PRN Q4HRS PRN PO PAIN / TEMP Last administered on 11/06/17 05:10; Start 11/05/17 at 19:30 Vitamin D (Vitamin D3) 50,000 unit Tu PO Last administered on 11/08/17 08:38; Start 11/08/17 at 09:00 Cyanocobalamin (Vitamin B-12) 1,000 mcg QMONTH IM ; Start 12/26/17 at 09:00 Docusate Sodium (Colace) 100 mg BID PO Last administered on 11/12/17 09:09; Start 11/05/17 at 21:00 Al Hydroxide/Mg Hydroxide (Mylanta Plus Xs) 15 ml PRN AFTMEALHC PRN PO DYSPEPSIA; Start 11/05/17 at 19:30 Magnesium Hydroxide (Milk Of Magnesia) 2,400 mg PRN QHS PRN PO CONSTIPATION; Start 11/05/17 at 19:30 Multi-Ingredient Ointment (Analgesic [place]) 1 chan PRN QID PRN TP MUSCLE PAIN; Start 11/05/17 at 19:30 Metoprolol Succinate (Toprol Xl) 25 mg DAILY PO Last administered on 11/11/17 09:28; Start 11/06/17 at 09:00 Polyethylene Glycol (miraLAX) 17 gm BID PO Last administered on 11/12/17 09:10 ; Start 11/05/17 at 21:00 Tamsulosin HCl (Flomax) 0.4 mg QHS PO Last administered on 11/11/17 19:51; Start 11/05/17 at 21:00 Latanoprost (Xalatan) 1 drop QHS OU Last administered on 11/11/17 19:51; Start 11/05/17 at 21:00 Magnesium Oxide (Magnesium Oxide) 400 mg DAILY PO Last administered on 09:10; Start 11/06/17 at 09:00 Amoxicillin/ Clavulanate Potassium (Augmentin 500/ 125mg) 1 tab BID PO Last administered on 11/12/17 09:09; Start 11/05/17 at 21:00; Stop 11/12/17 at 21:01 Lactobacillus Rhamnosus (Culturelle) 1 cap BID PO Last administered on at 09:10; Start 11/05/17 at 21:00 Megestrol Acetate (Megace) 400 mg BID@0900,1700 PO Last administered on at 17:05; Start 11/11/17 at 09:00 Active Scripts Active Reported Culturelle (Lactobacillus Rhamnosus Gg) 1 Each Capsule 1 Cap PO BID Augmentin 500-125 Tablet (Amoxicillin/Potassium Clav) 1 Each Tablet 1 Tab PO BID Trazodone Hcl 50 Mg Tablet 50 Mg PO PRN QHS PRN Trazodone Hcl 50 Mg Tablet 50 Mg PO QHS Analgesic [place] (Methyl Salicylate/Menthol) 28 Gm Oint...g. 1 Chan TP PRN QID PRN Milk Of Magnesia (Magnesium Hydroxide) 400 Mg/5 Ml Oral.susp 2,400 Mg PO PRN QHS PRN Mag-Al Plus Xs Suspension (Mag Hydrox/Al Hydrox/Simeth) 30 Ml Oral.susp 15 Ml PO PRN AFTMEALHC PRN Metoprolol Succinate ( Xl ) (Metoprolol Succinate) 25 Mg Tab.er.24h 25 Mg PO DAILY Magnesium (Magnesium Oxide) 400 Mg Capsule 400 Mg PO DAILY Cyanocobalamin Injection (Cyanocobalamin (Vitamin B-12)) 1,000 Mcg/1 Ml Vial 1 Ml IM QMONTH Colace (Docusate Sodium) 100 Mg Capsule 100 Mg PO BID Clonazepam 0.5 Mg Tablet 0.25 Mg PO QHS Zyprexa Zydis (Olanzapine) 5 Mg Tab.rapdis 5 Mg PO PRN Q2HR PRN MDD 20mg Lorazepam 0.5 Mg Tablet 0.5 Mg PO PRN Q8HRS PRN MDD 2mg Vitamin D3 (Cholecalciferol (Vitamin D3)) 50,000 Unit Capsule 50,000 Unit PO QTU Tylenol (Acetaminophen) 325 Mg Tablet 650 Mg PO PRN Q4HRS PRN Tamsulosin Hcl 0.4 Mg Cap.er.24h 0.4 Mg PO QHS Mirtazapine 15 Mg Tablet 15 Mg PO QHS Miralax (Polyethylene Glycol 3350) 17 Gm Powd.pack 17 Gm PO BID Lumigan (Bimatoprost) 2.5 Ml Drops 1 Drop OU QHS Aricept (Donepezil Hcl) 10 Mg Tablet 10 Mg PO QHS I have reviewed the current psychotropics carefully including drug interactions. Risk benefit ratio favors no change other than as noted in my dictated progress note. Diagnosis: Problems: (1) Anxiety disorder (2) Mild cognitive disorder (3) Impulse control disorder (4) Major depressive disorder, recurrent episode (5) Dementia in Alzheimer's disease with delusions (6) Dementia in Alzheimer's disease with depression (7) Dementia, vascular, with delusions (8) Dementia, vascular, with depression CLARKE WARE MD Nov 12, 2017 19:59
[2017-11-12] MEDS: TAMSULOSIN 0.4 MG CAP.ER.24H. PO SCH (21:00)
[2017-11-12] MEDS: DONEPEZIL HCL 10 MG TABLET PO SCH (21:00)
[2017-11-12] MEDS: LATANOPROST 0.005% OPHTH SOLUTION 2.5ML BOTTLE. OU SCH (21:00)
[2017-11-12] MEDS: MIRTAZAPINE 15 MG TABLET PO SCH (21:00)
[2017-11-12] MEDS: traZODone 50 MG TABLET. PO SCH (21:01)
[2017-11-13 06:23] VITALS: BP 120/73
[2017-11-13] MEDS: DOCUSATE SODIUM 100 MG CAPSULE PO SCH ×2 (07:50→19:40)
[2017-11-13] MEDS: MAGNESIUM OXIDE 400 MG TABLET PO SCH (07:50)
[2017-11-13] MEDS: MEGESTROL 400 MG/10 ML ORAL.SUSP. PO SCH ×2 (07:50→16:47)
[2017-11-13] MEDS: LACTOBACILLUS RHAMNOSUS GG 1 CAPSULE. PO SCH ×2 (07:50→19:41)
[2017-11-13] MEDS: METOPROLOL SUCC 24HR ER 25 MG TAB.ER.24H. PO SCH (07:50)
[2017-11-13] MEDS: POLYETHYLENE GLYCOL 3350 17 GM PACKET. PO SCH ×2 (07:52→19:40)
[2017-11-13 17:07] VITALS: BP 130/78
[2017-11-13] MEDS: DONEPEZIL HCL 10 MG TABLET PO SCH (19:40)
[2017-11-13] MEDS: traZODone 50 MG TABLET. PO SCH (19:40)
[2017-11-13] MEDS: TAMSULOSIN 0.4 MG CAP.ER.24H. PO SCH (19:40)
[2017-11-13] MEDS: MIRTAZAPINE 15 MG TABLET PO SCH (19:41)
[2017-11-13] MEDS: LATANOPROST 0.005% OPHTH SOLUTION 2.5ML BOTTLE. OU SCH (19:41)
--- NOTE | 2017-11-13 22:18 | PDOC ---
Exam Note: Mitch Note: Please also refer to the separate dictated note~for this date of service dictated separately.~Patient seen individually. Discussed the patient with Nursing staff reviewed the chart.~Reviewed interim history and current functioning. Reviewed vital signs,~Labs/ Radiology~and current medications noted below. Continue current treatment with the changes noted in the dictated addendum note Assessment: Vital Signs: Vital Signs Date Time Temp Pulse Resp B/P (MAP) Pulse Ox O2 Delivery O2 Flow Rate FiO2 11/13/17 17:07 97.6 95 16 130/78 (95) 11/13/17 06:23 99 11/12/17 16:34 Room Air I&O Intake and Output 11/13/17 07:00 Intake Total 1560 ml Balance 1560 ml Intake Oral 1560 ml Current Medications: Meds: Current Medications Clonazepam (KlonoPIN) 0.25 mg QHS PO ; Start 11/05/17 at 21:00; Stop 11/05/17 at 21:00; Status DC Donepezil HCl (Aricept) 10 mg QHS PO Last administered on 11/13/17 19:40; Start 11/05/17 at 21:00 Lorazepam (Ativan) 0.5 mg PRN Q8HRS PRN PO ANXIETY / AGITATION Last administered on 11/08/17 20:43; Start 11/05/17 at 19:15 Mirtazapine (Remeron) 15 mg QHS PO Last administered on 11/13/17 19:41; Start 11/05/17 at 21:00 Olanzapine (ZyPREXA ZYDIS) 5 mg PRN Q2HR PRN PO PSYCHOSIS Last administered on 11/13/17 16:47; Start 11/05/17 at 19:15 Trazodone HCl (Desyrel) 50 mg PRN QHS PRN PO INSOMNIA Last administered on 11/08 01:04; Start 11/05/17 at 19:15 Trazodone HCl (Desyrel) 50 mg QHS PO Last administered on 11/13/17 19:40; Start 11/05/17 at 21:00 Acetaminophen (Tylenol) 650 mg PRN Q4HRS PRN PO PAIN / TEMP Last administered on 11/06/17 05:10; Start 11/05/17 at 19:30 Vitamin D (Vitamin D3) 50,000 unit Tu PO Last administered on 11/08/17at 08:38; Start 11/08/17 at 09:00 Cyanocobalamin (Vitamin B-12) 1,000 mcg QMONTH IM ; Start 12/26/17 at 09:00 Docusate Sodium (Colace) 100 mg BID PO Last administered on 11/13/17at 19:40; Start 11/05/17 at 21:00 Al Hydroxide/Mg Hydroxide (Mylanta Plus Xs) 15 ml PRN AFTMEALHC PRN PO DYSPEPSIA; Start 11/05/17 at 19:30 Magnesium Hydroxide (Milk Of Magnesia) 2,400 mg PRN QHS PRN PO CONSTIPATION; Start 11/05/17 at 19:30 Multi-Ingredient Ointment (Analgesic [place]) 1 chan PRN QID PRN TP MUSCLE PAIN; Start 11/05/17 at 19:30 Metoprolol Succinate (Toprol Xl) 25 mg DAILY PO Last administered on 11/13/17at 07:50; Start 11/06/17 at 09:00 Polyethylene Glycol (miraLAX) 17 gm BID PO Last administered on 11/13/17 19:40 ; Start 11/05/17 at 21:00 Tamsulosin HCl (Flomax) 0.4 mg QHS PO Last administered on 11/13/17 19:40; Start 11/05/17 at 21:00 Latanoprost (Xalatan) 1 drop QHS OU Last administered on 11/12/17at 21:00; Start 11/05/17 at 21:00; Stop 11/13/17 at 14:25; Status DC Magnesium Oxide (Magnesium Oxide) 400 mg DAILY PO Last administered on at 07:50; Start 11/06/17 at 09:00 Amoxicillin/ Clavulanate Potassium (Augmentin 500/ 125mg) 1 tab BID PO Last administered on 11/12/17at 21:00; Start 11/05/17 at 21:00; Stop 11/12/17 at 21:02 ; Status DC Lactobacillus Rhamnosus (Culturelle) 1 cap BID PO Last administered on at 19:41; Start 11/05/17 at 21:00 Megestrol Acetate (Megace) 400 mg BID@0900,1700 PO Last administered on at 16:47; Start 11/11/17 at 09:00 Latanoprost (Xalatan) 1 drop QHS OU Last administered on 11/13/17at 19:41; Start 11/13/17 at 14:25 Active Scripts Active Reported Culturelle (Lactobacillus Rhamnosus Gg) 1 Each Capsule 1 Cap PO BID Augmentin 500-125 Tablet (Amoxicillin/Potassium Clav) 1 Each Tablet 1 Tab PO BID Trazodone Hcl 50 Mg Tablet 50 Mg PO PRN QHS PRN Trazodone Hcl 50 Mg Tablet 50 Mg PO QHS Analgesic [place] (Methyl Salicylate/Menthol) 28 Gm Oint...g. 1 Chan TP PRN QID PRN Milk Of Magnesia (Magnesium Hydroxide) 400 Mg/5 Ml Oral.susp 2,400 Mg PO PRN QHS PRN Mag-Al Plus Xs Suspension (Mag Hydrox/Al Hydrox/Simeth) 30 Ml Oral.susp 15 Ml PO PRN AFTMEALHC PRN Metoprolol Succinate ( Xl ) (Metoprolol Succinate) 25 Mg Tab.er.24h 25 Mg PO DAILY Magnesium (Magnesium Oxide) 400 Mg Capsule 400 Mg PO DAILY Cyanocobalamin Injection (Cyanocobalamin (Vitamin B-12)) 1,000 Mcg/1 Ml Vial 1 Ml IM QMONTH Colace (Docusate Sodium) 100 Mg Capsule 100 Mg PO BID Clonazepam 0.5 Mg Tablet 0.25 Mg PO QHS Zyprexa Zydis (Olanzapine) 5 Mg Tab.rapdis 5 Mg PO PRN Q2HR PRN MDD 20mg Lorazepam 0.5 Mg Tablet 0.5 Mg PO PRN Q8HRS PRN MDD 2mg Vitamin D3 (Cholecalciferol (Vitamin D3)) 50,000 Unit Capsule 50,000 Unit PO QTU Tylenol (Acetaminophen) 325 Mg Tablet 650 Mg PO PRN Q4HRS PRN Tamsulosin Hcl 0.4 Mg Cap.er.24h 0.4 Mg PO QHS Mirtazapine 15 Mg Tablet 15 Mg PO QHS Miralax (Polyethylene Glycol 3350) 17 Gm Powd.pack 17 Gm PO BID Lumigan (Bimatoprost) 2.5 Ml Drops 1 Drop OU QHS Aricept (Donepezil Hcl) 10 Mg Tablet 10 Mg PO QHS I have reviewed the current psychotropics carefully including drug interactions. Risk benefit ratio favors no change other than as noted in my dictated progress note. Diagnosis: Problems: (1) Anxiety disorder (2) Mild cognitive disorder (3) Impulse control disorder (4) Major depressive disorder, recurrent episode (5) Dementia in Alzheimer's disease with delusions (6) Dementia in Alzheimer's disease with depression (7) Dementia, vascular, with delusions (8) Dementia, vascular, with depression CLARKE WARE MD Nov 13, 2017 22:18
--- NOTE | 2017-11-13 23:38 | PN ---
DATE: 11/13/2017 PSYCHIATRIC PROGRESS NOTE This is a late entry of 11/13/2017 covers elements not covered in my initial note of 11/13/2017. I met with the patient evening of 11/13/2017. The patient is starting to walk much better on his own, which is quite an improvement, continues to be intermittently restless, but other times he is cooperative, gets agitated with some of the other demented patients. REVIEW OF SYSTEMS: No CV, , pulmonary, eye, ENT system symptoms on review. Reliability is poor. MENTAL STATUS EXAM: Oriented to himself. Insight, judgment, recent and remote memory, attention, concentration, fund of knowledge poor, consistent with his diagnosis mentioned in my initial note. IMPRESSION: Major neurocognitive disorder, Alzheimer, vascular with depression, delusion, behavioral disturbance. Rest unchanged. PLAN: Continue psychotropics mentioned in my initial note. Minimize most psychotropics that would cause sedation as the had wanted, but it is going to be a question whether what he is left on is enough to control him behaviorally once he is back at the intermediate. We will just have to wait and see, but for now, we are going along with how the wants to minimize most and all of her psychotropics, which we have done. MAN Jude WARE MD DR: ILANA/angelo JOB#: [id number] / [id number]
[2017-11-13] MEDS: traZODone 50 MG TABLET. PO PRN (23:52)
[2017-11-14 06:16] VITALS: BP 119/70
[2017-11-14] MEDS: MEGESTROL 400 MG/10 ML ORAL.SUSP. PO SCH ×2 (08:02→16:50)
[2017-11-14] MEDS: POLYETHYLENE GLYCOL 3350 17 GM PACKET. PO SCH ×2 (08:02→19:38)
[2017-11-14] MEDS: LACTOBACILLUS RHAMNOSUS GG 1 CAPSULE. PO SCH ×2 (08:03→19:38)
[2017-11-14] MEDS: DOCUSATE SODIUM 100 MG CAPSULE PO SCH ×2 (08:03→19:38)
[2017-11-14] MEDS: METOPROLOL SUCC 24HR ER 25 MG TAB.ER.24H. PO SCH (08:03)
[2017-11-14] MEDS: MAGNESIUM OXIDE 400 MG TABLET PO SCH (08:03)
[2017-11-14 15:58] VITALS: BP 100/60
[2017-11-14] MEDS: DONEPEZIL HCL 10 MG TABLET PO SCH (19:38)
[2017-11-14] MEDS: MIRTAZAPINE 15 MG TABLET PO SCH (19:38)
[2017-11-14] MEDS: traZODone 50 MG TABLET. PO SCH (19:38)
[2017-11-14] MEDS: TAMSULOSIN 0.4 MG CAP.ER.24H. PO SCH (19:38)
[2017-11-14] MEDS: LATANOPROST 0.005% OPHTH SOLUTION 2.5ML BOTTLE. OU SCH (19:39)
--- NOTE | 2017-11-14 21:16 | PDOC ---
Exam Note: Mitch Note: Please also refer to the separate dictated note~for this date of service dictated separately.~Patient seen individually. Discussed the patient with Nursing staff reviewed the chart.~Reviewed interim history and current functioning. Reviewed vital signs,~Labs/ Radiology~and current medications noted below. Continue current treatment with the changes noted in the dictated addendum note Assessment: Vital Signs: Vital Signs Date Time Temp Pulse Resp B/P (MAP) Pulse Ox O2 Delivery O2 Flow Rate FiO2 11/14/17 15:58 98.4 93 18 100/60 (73) 94 11/12/17 16:34 Room Air I&O Intake and Output 11/14/17 07:00 Intake Total 600 ml Balance 600 ml Intake Oral 600 ml # Voids 2 Current Medications: Meds: Current Medications Clonazepam (KlonoPIN) 0.25 mg QHS PO ; Start 11/05/17 at 21:00; Stop 11/05/17 at 21:00; Status DC Donepezil HCl (Aricept) 10 mg QHS PO Last administered on 11/14/17 19:38; Start 11/05/17 at 21:00 Lorazepam (Ativan) 0.5 mg PRN Q8HRS PRN PO ANXIETY / AGITATION Last administered on 11/08/17 20:43; Start 11/05/17 at 19:15 Mirtazapine (Remeron) 15 mg QHS PO Last administered on 11/14/17 19:38; Start 11/05/17 at 21:00 Olanzapine (ZyPREXA ZYDIS) 5 mg PRN Q2HR PRN PO PSYCHOSIS Last administered on 11/13/17 16:47; Start 11/05/17 at 19:15 Trazodone HCl (Desyrel) 50 mg PRN QHS PRN PO INSOMNIA Last administered on 11/13 23:52; Start 11/05/17 at 19:15 Trazodone HCl (Desyrel) 50 mg QHS PO Last administered on 11/14/17 19:38; Start 11/05/17 at 21:00 Acetaminophen (Tylenol) 650 mg PRN Q4HRS PRN PO PAIN / TEMP Last administered on 11/06/17 05:10; Start 11/05/17 at 19:30 Vitamin D (Vitamin D3) 50,000 unit Tu PO Last administered on 11/08/17 08:38; Start 11/08/17 at 09:00 Cyanocobalamin (Vitamin B-12) 1,000 mcg QMONTH IM ; Start 12/26/17 at 09:00 Docusate Sodium (Colace) 100 mg BID PO Last administered on 11/14/17 19:38; Start 11/05/17 at 21:00 Al Hydroxide/Mg Hydroxide (Mylanta Plus Xs) 15 ml PRN AFTMEALHC PRN PO DYSPEPSIA; Start 11/05/17 at 19:30 Magnesium Hydroxide (Milk Of Magnesia) 2,400 mg PRN QHS PRN PO CONSTIPATION; Start 11/05/17 at 19:30 Multi-Ingredient Ointment (Analgesic [place]) 1 chan PRN QID PRN TP MUSCLE PAIN; Start 11/05/17 at 19:30 Metoprolol Succinate (Toprol Xl) 25 mg DAILY PO Last administered on 11/14/17 08:03; Start 11/06/17 at 09:00 Polyethylene Glycol (miraLAX) 17 gm BID PO Last administered on 11/14/17 19:38 ; Start 11/05/17 at 21:00 Tamsulosin HCl (Flomax) 0.4 mg QHS PO Last administered on 11/14/17 19:38; Start 11/05/17 at 21:00 Latanoprost (Xalatan) 1 drop QHS OU Last administered on 11/12/17 21:00; Start 11/05/17 at 21:00; Stop 11/13/17 at 14:25; Status DC Magnesium Oxide (Magnesium Oxide) 400 mg DAILY PO Last administered on 08:03; Start 11/06/17 at 09:00 Amoxicillin/ Clavulanate Potassium (Augmentin 500/ 125mg) 1 tab BID PO Last administered on 11/12/17 21:00; Start 11/05/17 at 21:00; Stop 11/12/17 at 21:02 ; Status DC Lactobacillus Rhamnosus (Culturelle) 1 cap BID PO Last administered on 19:38; Start 11/05/17 at 21:00 Megestrol Acetate (Megace) 400 mg BID@0900,1700 PO Last administered on at 16:50; Start 11/11/17 at 09:00 Latanoprost (Xalatan) 1 drop QHS OU Last administered on 11/14/17at 19:39; Start 11/13/17 at 14:25 Active Scripts Active Reported Culturelle (Lactobacillus Rhamnosus Gg) 1 Each Capsule 1 Cap PO BID Augmentin 500-125 Tablet (Amoxicillin/Potassium Clav) 1 Each Tablet 1 Tab PO BID Trazodone Hcl 50 Mg Tablet 50 Mg PO PRN QHS PRN Trazodone Hcl 50 Mg Tablet 50 Mg PO QHS Analgesic [place] (Methyl Salicylate/Menthol) 28 Gm Oint...g. 1 Chan TP PRN QID PRN Milk Of Magnesia (Magnesium Hydroxide) 400 Mg/5 Ml Oral.susp 2,400 Mg PO PRN QHS PRN Mag-Al Plus Xs Suspension (Mag Hydrox/Al Hydrox/Simeth) 30 Ml Oral.susp 15 Ml PO PRN AFTMEALHC PRN Metoprolol Succinate ( Xl ) (Metoprolol Succinate) 25 Mg Tab.er.24h 25 Mg PO DAILY Magnesium (Magnesium Oxide) 400 Mg Capsule 400 Mg PO DAILY Cyanocobalamin Injection (Cyanocobalamin (Vitamin B-12)) 1,000 Mcg/1 Ml Vial 1 Ml IM QMONTH Colace (Docusate Sodium) 100 Mg Capsule 100 Mg PO BID Clonazepam 0.5 Mg Tablet 0.25 Mg PO QHS Zyprexa Zydis (Olanzapine) 5 Mg Tab.rapdis 5 Mg PO PRN Q2HR PRN MDD 20mg Lorazepam 0.5 Mg Tablet 0.5 Mg PO PRN Q8HRS PRN MDD 2mg Vitamin D3 (Cholecalciferol (Vitamin D3)) 50,000 Unit Capsule 50,000 Unit PO QTU Tylenol (Acetaminophen) 325 Mg Tablet 650 Mg PO PRN Q4HRS PRN Tamsulosin Hcl 0.4 Mg Cap.er.24h 0.4 Mg PO QHS Mirtazapine 15 Mg Tablet 15 Mg PO QHS Miralax (Polyethylene Glycol 3350) 17 Gm Powd.pack 17 Gm PO BID Lumigan (Bimatoprost) 2.5 Ml Drops 1 Drop OU QHS Aricept (Donepezil Hcl) 10 Mg Tablet 10 Mg PO QHS I have reviewed the current psychotropics carefully including drug interactions. Risk benefit ratio favors no change other than as noted in my dictated progress note. 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
--- NOTE | 2017-11-15 03:41 | PN ---
DATE: 11/12/2017 This is a late entry of 11/12/2016, covers elements not covered in my initial note of 11/12/2017. I met with the patient in the evening of 11/12/2017. HISTORY OF PRESENT ILLNESS: The patient is ambulating better and there is consistent improvement and ____ minimized his psychotropics, but he gets a little agitated at times and we will have to carefully monitor this and consider restarting some psychotropics if indicated. The would prefer him off all psychotropics and that is what we are doing at this time. REVIEW OF SYSTEMS: No CV, , pulmonary, eye, ENT system symptoms on review. MENTAL STATUS EXAM: Oriented to self. Insight, judgment, recent and remote memory, attention, concentration, fund of knowledge poor, consistent with his diagnosis mentioned in my initial note. IMPRESSION: Major neurocognitive disorder, Alzheimer, vascular with depression, delusion, behavioral disturbance. Rest unchanged. PLAN: Continue psychotropics mentioned in my initial note. MAN Jude WARE MD DR: ILANA/angelo JOB#: [id number] / [id number]
--- NOTE | 2017-11-15 04:42 | PN ---
DATE: 11/13/2017 This is a late entry for 11/13, covers elements not covered in my initial note of 11/13. SUBJECTIVE: I met with the patient on the evening of 11/13. The patient had to be placed in the west hallway to reduce sensory stimuli. He was agitated and then was quite disruptive saying he was in skilled nursing. He wants to go home, very limited insight. He is compliant with medications, exit seeking, checking the doors. REVIEW OF SYSTEMS: No CV, , pulmonary, eye, ENT system symptoms on review. Reliability poor. MENTAL STATUS EXAMINATION: Oriented to herself. Insight, judgment, recent and remote memory, attention, concentration, fund of fund of knowledge poor, consistent with his diagnosis. IMPRESSION: Major neurocognitive disorder, Alzheimer's, vascular with depression, delusion and behavioral disturbance. PLAN: Continue psychotropics mentioned in my initial note, minimize psychotropics as the desires, but I don't know how it will work out at the retirement if he remains on no psychotropics and behaviors persist like they have been here. MAN Jude WARE MD DR: ILANA/angelo JOB#: [id number] / [id number]
[2017-11-15 07:18] VITALS: BP 149/91
[2017-11-15] MEDS: POLYETHYLENE GLYCOL 3350 17 GM PACKET. PO SCH ×2 (08:57→21:01)
[2017-11-15] MEDS: MEGESTROL 400 MG/10 ML ORAL.SUSP. PO SCH ×2 (08:58→17:10)
[2017-11-15] MEDS: LACTOBACILLUS RHAMNOSUS GG 1 CAPSULE. PO SCH ×2 (08:58→21:01)
[2017-11-15] MEDS: MAGNESIUM OXIDE 400 MG TABLET PO SCH (08:58)
[2017-11-15] MEDS: DOCUSATE SODIUM 100 MG CAPSULE PO SCH ×2 (08:58→21:01)
[2017-11-15] MEDS: CHOLECALCIFEROL (VITAMIN D3) 50,000 UNIT CAPSULE PO SCH (08:59)
[2017-11-15] MEDS: METOPROLOL SUCC 24HR ER 25 MG TAB.ER.24H. PO SCH (08:59)
[2017-11-15] MEDS: LORazepam 0.5 MG TABLET PO PRN (12:20)
[2017-11-15 15:51] VITALS: BP 142/85
[2017-11-15] MEDS: traZODone 50 MG TABLET. PO SCH (21:01)
[2017-11-15] MEDS: MIRTAZAPINE 15 MG TABLET PO SCH (21:01)
[2017-11-15] MEDS: TAMSULOSIN 0.4 MG CAP.ER.24H. PO SCH (21:01)
[2017-11-15] MEDS: LATANOPROST 0.005% OPHTH SOLUTION 2.5ML BOTTLE. OU SCH (21:02)
--- NOTE | 2017-11-15 21:05 | PDOC ---
Exam Note: Mitch Note: Please also refer to the separate dictated note~for this date of service dictated separately.~Patient seen individually. Discussed the patient with Nursing staff reviewed the chart.~Reviewed interim history and current functioning. Reviewed vital signs,~Labs/ Radiology~and current medications noted below. Continue current treatment with the changes noted in the dictated addendum note Assessment: Vital Signs: Vital Signs Date Time Temp Pulse Resp B/P (MAP) Pulse Ox O2 Delivery O2 Flow Rate FiO2 11/15/17 15:51 97.5 105 18 142/85 (104) 94 11/12/17 16:34 Room Air I&O Intake and Output 11/15/17 07:00 Intake Total 960 ml Balance 960 ml Intake Oral 960 ml # Voids 2 # Bowel Movements 4 Current Medications: Meds: Current Medications Clonazepam (KlonoPIN) 0.25 mg QHS PO ; Start 11/05/17 at 21:00; Stop 11/05/17 at 21:00; Status DC Donepezil HCl (Aricept) 10 mg QHS PO Last administered on 11/14/17at 19:38; Start 11/05/17 at 21:00; Stop 11/15/17 at 18:08; Status DC Lorazepam (Ativan) 0.5 mg PRN Q8HRS PRN PO ANXIETY / AGITATION Last administered on 11/15/17at 12:20; Start 11/05/17 at 19:15 Mirtazapine (Remeron) 15 mg QHS PO Last administered on 11/15/17 21:01; Start 11/05/17 at 21:00 Olanzapine (ZyPREXA ZYDIS) 5 mg PRN Q2HR PRN PO PSYCHOSIS Last administered on 11/15/17at 14:32; Start 11/05/17 at 19:15 Trazodone HCl (Desyrel) 50 mg PRN QHS PRN PO INSOMNIA Last administered on 11/13 23:52; Start 11/05/17 at 19:15 Trazodone HCl (Desyrel) 50 mg QHS PO Last administered on 11/15/17 21:01; Start 11/05/17 at 21:00 Acetaminophen (Tylenol) 650 mg PRN Q4HRS PRN PO PAIN / TEMP Last administered on 4/8/18at 05:10; Start 11/05/17 at 19:30 Vitamin D (Vitamin D3) 50,000 unit Tu PO Last administered on 11/15/17at 08:59; Start 11/08/17 at 09:00 Cyanocobalamin (Vitamin B-12) 1,000 mcg QMONTH IM ; Start 12/26/17 at 09:00 Docusate Sodium (Colace) 100 mg BID PO Last administered on 11/15/17at 21:01; Start 11/05/17 at 21:00 Al Hydroxide/Mg Hydroxide (Mylanta Plus Xs) 15 ml PRN AFTMEALHC PRN PO DYSPEPSIA; Start 11/05/17 at 19:30 Magnesium Hydroxide (Milk Of Magnesia) 2,400 mg PRN QHS PRN PO CONSTIPATION; Start 11/05/17 at 19:30 Multi-Ingredient Ointment (Analgesic [place]) 1 chan PRN QID PRN TP MUSCLE PAIN; Start 11/05/17 at 19:30 Metoprolol Succinate (Toprol Xl) 25 mg DAILY PO Last administered on 11/15/17at 08:59; Start 11/06/17 at 09:00 Polyethylene Glycol (miraLAX) 17 gm BID PO Last administered on 11/15/17at 21:01 ; Start 11/05/17 at 21:00 Tamsulosin HCl (Flomax) 0.4 mg QHS PO Last administered on 11/15/17at 21:01; Start 11/05/17 at 21:00 Latanoprost (Xalatan) 1 drop QHS OU Last administered on 11/12/17at 21:00; Start 11/05/17 at 21:00; Stop 11/13/17 at 14:25; Status DC Magnesium Oxide (Magnesium Oxide) 400 mg DAILY PO Last administered on at 08:58; Start 11/06/17 at 09:00 Amoxicillin/ Clavulanate Potassium (Augmentin 500/ 125mg) 1 tab BID PO Last administered on 11/12/17at 21:00; Start 11/05/17 at 21:00; Stop 11/12/17 at 21:02 ; Status DC Lactobacillus Rhamnosus (Culturelle) 1 cap BID PO Last administered on at 21:01; Start 11/05/17 at 21:00 Megestrol Acetate (Megace) 400 mg BID@0900,1700 PO Last administered on at 17:10; Start 11/11/17 at 09:00 Latanoprost (Xalatan) 1 drop QHS OU Last administered on 11/15/17at 21:02; Start 11/13/17 at 14:25 Buspirone HCl (Buspar) 5 mg TID@0900,1300,1700 PO ; Start 11/16/17 at 09:00 Active Scripts Active Reported Culturelle (Lactobacillus Rhamnosus Gg) 1 Each Capsule 1 Cap PO BID Augmentin 500-125 Tablet (Amoxicillin/Potassium Clav) 1 Each Tablet 1 Tab PO BID Trazodone Hcl 50 Mg Tablet 50 Mg PO PRN QHS PRN Trazodone Hcl 50 Mg Tablet 50 Mg PO QHS Analgesic [place] (Methyl Salicylate/Menthol) 28 Gm Oint...g. 1 Chan TP PRN QID PRN Milk Of Magnesia (Magnesium Hydroxide) 400 Mg/5 Ml Oral.susp 2,400 Mg PO PRN QHS PRN Mag-Al Plus Xs Suspension (Mag Hydrox/Al Hydrox/Simeth) 30 Ml Oral.susp 15 Ml PO PRN AFTMEALHC PRN Metoprolol Succinate ( Xl ) (Metoprolol Succinate) 25 Mg Tab.er.24h 25 Mg PO DAILY Magnesium (Magnesium Oxide) 400 Mg Capsule 400 Mg PO DAILY Cyanocobalamin Injection (Cyanocobalamin (Vitamin B-12)) 1,000 Mcg/1 Ml Vial 1 Ml IM QMONTH Colace (Docusate Sodium) 100 Mg Capsule 100 Mg PO BID Clonazepam 0.5 Mg Tablet 0.25 Mg PO QHS Zyprexa Zydis (Olanzapine) 5 Mg Tab.rapdis 5 Mg PO PRN Q2HR PRN MDD 20mg Lorazepam 0.5 Mg Tablet 0.5 Mg PO PRN Q8HRS PRN MDD 2mg Vitamin D3 (Cholecalciferol (Vitamin D3)) 50,000 Unit Capsule 50,000 Unit PO QTU Tylenol (Acetaminophen) 325 Mg Tablet 650 Mg PO PRN Q4HRS PRN Tamsulosin Hcl 0.4 Mg Cap.er.24h 0.4 Mg PO QHS Mirtazapine 15 Mg Tablet 15 Mg PO QHS Miralax (Polyethylene Glycol 3350) 17 Gm Powd.pack 17 Gm PO BID Lumigan (Bimatoprost) 2.5 Ml Drops 1 Drop OU QHS Aricept (Donepezil Hcl) 10 Mg Tablet 10 Mg PO QHS I have reviewed the current psychotropics carefully including drug interactions. Risk benefit ratio favors no change other than as noted in my dictated progress note. Diagnosis: Problems: (1) Anxiety disorder (2) Mild cognitive disorder (3) Impulse control disorder (4) Major depressive disorder, recurrent episode (5) Dementia in Alzheimer's disease with delusions (6) Dementia in Alzheimer's disease with depression (7) Dementia, vascular, with delusions (8) Dementia, vascular, with depression CLARKE WARE MD Nov 15, 2017 21:05
--- NOTE | 2017-11-15 23:08 | PN ---
DATE: 11/14/2017 PSYCHIATRIC PROGRESS NOTE This is late entry 11/14/2017 covers elements not covered in my initial note of 11/14/2017. SUBJECTIVE: Met with the patient in the evening of 11/14/2017. The patient remains confused. Appetite is poor, intermittently agitated, but redirectable. REVIEW OF SYSTEMS: No CV, respiratory, GI, , pulmonary, eye, ENT system symptoms on review. MENTAL STATUS EXAM: Oriented to himself. Insight, judgment, recent and remote memory, attention, concentration, fund of knowledge is poor, consistent with his diagnoses. I helped feed him a large part of his supper. IMPRESSION: Unchanged from initial note. PLAN: Continue psychotropics mentioned in my initial note. MAN Jude WARE MD DR: ILANA/angelo JOB#: [id number] / [id number]
[2017-11-16 06:25] VITALS: BP 109/77
[2017-11-16] MEDS: MAGNESIUM OXIDE 400 MG TABLET PO SCH (08:48)
[2017-11-16] MEDS: POLYETHYLENE GLYCOL 3350 17 GM PACKET. PO SCH ×2 (08:48→20:37)
[2017-11-16] MEDS: MEGESTROL 400 MG/10 ML ORAL.SUSP. PO SCH ×2 (08:48→17:43)
[2017-11-16] MEDS: DOCUSATE SODIUM 100 MG CAPSULE PO SCH ×2 (08:49→20:36)
[2017-11-16] MEDS: LACTOBACILLUS RHAMNOSUS GG 1 CAPSULE. PO SCH ×2 (08:49→20:37)
[2017-11-16] MEDS: busPIRone 5 MG TABLET. PO SCH ×3 (08:49→17:43)
[2017-11-16 08:52] VITALS: BP 110/76
[2017-11-16] MEDS: METOPROLOL SUCC 24HR ER 25 MG TAB.ER.24H. PO SCH (08:53)
[2017-11-16 16:31] VITALS: BP 130/74
[2017-11-16] MEDS: MIRTAZAPINE 15 MG TABLET PO SCH (20:36)
[2017-11-16] MEDS: traZODone 50 MG TABLET. PO SCH (20:36)
[2017-11-16] MEDS: TAMSULOSIN 0.4 MG CAP.ER.24H. PO SCH (20:38)
[2017-11-16] MEDS: LATANOPROST 0.005% OPHTH SOLUTION 2.5ML BOTTLE. OU SCH (20:38)
--- NOTE | 2017-11-16 21:24 | PDOC ---
Exam Note: Mitch Note: Please also refer to the separate dictated note~for this date of service dictated separately.~Patient seen individually. Discussed the patient with Nursing staff reviewed the chart.~Reviewed interim history and current functioning. Reviewed vital signs,~Labs/ Radiology~and current medications noted below. Continue current treatment with the changes noted in the dictated addendum note Assessment: Vital Signs: Vital Signs Date Time Temp Pulse Resp B/P (MAP) Pulse Ox O2 Delivery O2 Flow Rate FiO2 11/16/17 16:31 98.8 69 19 130/74 (92) 94 11/12/17 16:34 Room Air I&O Intake and Output 11/16/17 07:00 Intake Total 600 ml Balance 600 ml Intake Oral 600 ml # Bowel Movements 2 Current Medications: Meds: Current Medications Clonazepam (KlonoPIN) 0.25 mg QHS PO ; Start 11/05/17 at 21:00; Stop 11/05/17 at 21:00; Status DC Donepezil HCl (Aricept) 10 mg QHS PO Last administered on 11/14/17at 19:38; Start 11/05/17 at 21:00; Stop 11/15/17 at 18:08; Status DC Lorazepam (Ativan) 0.5 mg PRN Q8HRS PRN PO ANXIETY / AGITATION Last administered on 11/15/17at 12:20; Start 11/05/17 at 19:15 Mirtazapine (Remeron) 15 mg QHS PO Last administered on 11/16/17at 20:36; Start 11/05/17 at 21:00 Olanzapine (ZyPREXA ZYDIS) 5 mg PRN Q2HR PRN PO PSYCHOSIS Last administered on 11/15/17at 14:32; Start 11/05/17 at 19:15 Trazodone HCl (Desyrel) 50 mg PRN QHS PRN PO INSOMNIA Last administered on 11/13 23:52; Start 11/05/17 at 19:15 Trazodone HCl (Desyrel) 50 mg QHS PO Last administered on 11/16/17 20:36; Start 11/05/17 at 21:00 Acetaminophen (Tylenol) 650 mg PRN Q4HRS PRN PO PAIN / TEMP Last administered on 11/06/17at 05:10; Start 11/05/17 at 19:30 Vitamin D (Vitamin D3) 50,000 unit Tu PO Last administered on 11/15/17at 08:59; Start 11/08/17 at 09:00 Cyanocobalamin (Vitamin B-12) 1,000 mcg QMONTH IM ; Start 12/26/17 at 09:00 Docusate Sodium (Colace) 100 mg BID PO Last administered on 11/16/17at 20:36; Start 11/05/17 at 21:00 Al Hydroxide/Mg Hydroxide (Mylanta Plus Xs) 15 ml PRN AFTMEALHC PRN PO DYSPEPSIA; Start 11/05/17 at 19:30 Magnesium Hydroxide (Milk Of Magnesia) 2,400 mg PRN QHS PRN PO CONSTIPATION; Start 11/05/17 at 19:30 Multi-Ingredient Ointment (Analgesic [place]) 1 chan PRN QID PRN TP MUSCLE PAIN; Start 11/05/17 at 19:30 Metoprolol Succinate (Toprol Xl) 25 mg DAILY PO Last administered on 11/16/17at 08:53; Start 11/06/17 at 09:00 Polyethylene Glycol (miraLAX) 17 gm BID PO Last administered on 11/16/17 20:37 ; Start 11/05/17 at 21:00 Tamsulosin HCl (Flomax) 0.4 mg QHS PO Last administered on 11/16/17 20:38; Start 11/05/17 at 21:00 Latanoprost (Xalatan) 1 drop QHS OU Last administered on 11/12/17at 21:00; Start 11/05/17 at 21:00; Stop 11/13/17 at 14:25; Status DC Magnesium Oxide (Magnesium Oxide) 400 mg DAILY PO Last administered on at 08:48; Start 11/06/17 at 09:00 Amoxicillin/ Clavulanate Potassium (Augmentin 500/ 125mg) 1 tab BID PO Last administered on 11/12/17at 21:00; Start 11/05/17 at 21:00; Stop 11/12/17 at 21:02 ; Status DC Lactobacillus Rhamnosus (Culturelle) 1 cap BID PO Last administered on at 20:37; Start 11/05/17 at 21:00 Megestrol Acetate (Megace) 400 mg BID@0900,1700 PO Last administered on at 17:43; Start 11/11/17 at 09:00 Latanoprost (Xalatan) 1 drop QHS OU Last administered on 11/16/17at 20:38; Start 11/13/17 at 14:25 Buspirone HCl (Buspar) 5 mg TID@0900,1300,1700 PO Last administered on at 17:43; Start 11/16/17 at 09:00 Active Scripts Active Reported Culturelle (Lactobacillus Rhamnosus Gg) 1 Each Capsule 1 Cap PO BID Augmentin 500-125 Tablet (Amoxicillin/Potassium Clav) 1 Each Tablet 1 Tab PO BID Trazodone Hcl 50 Mg Tablet 50 Mg PO PRN QHS PRN Trazodone Hcl 50 Mg Tablet 50 Mg PO QHS Analgesic [place] (Methyl Salicylate/Menthol) 28 Gm Oint...g. 1 Chan TP PRN QID PRN Milk Of Magnesia (Magnesium Hydroxide) 400 Mg/5 Ml Oral.susp 2,400 Mg PO PRN QHS PRN Mag-Al Plus Xs Suspension (Mag Hydrox/Al Hydrox/Simeth) 30 Ml Oral.susp 15 Ml PO PRN AFTMEALHC PRN Metoprolol Succinate ( Xl ) (Metoprolol Succinate) 25 Mg Tab.er.24h 25 Mg PO DAILY Magnesium (Magnesium Oxide) 400 Mg Capsule 400 Mg PO DAILY Cyanocobalamin Injection (Cyanocobalamin (Vitamin B-12)) 1,000 Mcg/1 Ml Vial 1 Ml IM QMONTH Colace (Docusate Sodium) 100 Mg Capsule 100 Mg PO BID Clonazepam 0.5 Mg Tablet 0.25 Mg PO QHS Zyprexa Zydis (Olanzapine) 5 Mg Tab.rapdis 5 Mg PO PRN Q2HR PRN MDD 20mg Lorazepam 0.5 Mg Tablet 0.5 Mg PO PRN Q8HRS PRN MDD 2mg Vitamin D3 (Cholecalciferol (Vitamin D3)) 50,000 Unit Capsule 50,000 Unit PO QTU Tylenol (Acetaminophen) 325 Mg Tablet 650 Mg PO PRN Q4HRS PRN Tamsulosin Hcl 0.4 Mg Cap.er.24h 0.4 Mg PO QHS Mirtazapine 15 Mg Tablet 15 Mg PO QHS Miralax (Polyethylene Glycol 3350) 17 Gm Powd.pack 17 Gm PO BID Lumigan (Bimatoprost) 2.5 Ml Drops 1 Drop OU QHS Aricept (Donepezil Hcl) 10 Mg Tablet 10 Mg PO QHS I have reviewed the current psychotropics carefully including drug interactions. Risk benefit ratio favors no change other than as noted in my dictated progress note. Diagnosis: Problems: (1) Anxiety disorder (2) Mild cognitive disorder (3) Impulse control disorder (4) Major depressive disorder, recurrent episode (5) Dementia in Alzheimer's disease with delusions (6) Dementia in Alzheimer's disease with depression (7) Dementia, vascular, with delusions (8) Dementia, vascular, with depression CLARKE WARE MD Nov 16, 2017 21:24
--- NOTE | 2017-11-16 21:56 | PN ---
DATE: 11/15/2017 PSYCHIATRIC PROGRESS NOTE This is a late entry 11/15/2016, covers elements not covered in my initial note 11/15/2017. SUBJECTIVE: I met with the patient in the evening of 11/15/2017. The patient slept 7.5 hours previous evening. He was pounding on the table at lunchtime and pounding on the freezer. He had to be placed in the West hallway away from stimuli from everyone else as he was extremely agitated, kicking the window, threatening to punch staff, raising his fist. Ativan and Zyprexa did not seem to help. Despite all of this, the feels he is on too many psychotropics. In fact, it is difficult to control his behaviors with what he is on. Certainly, the Depakote and Seroquel had affected his gait in the past, but we got to look at an alternative otherwise it would be very difficult to manage him safely in a nursing facility. REVIEW OF SYSTEMS: No CV, , pulmonary, eye system symptoms on review. I fed him part of his supper. MENTAL STATUS EXAM: Oriented to himself. Insight, judgment, recent and remote memory, attention, concentration, fund of knowledge poor, consistent with his diagnosis mentioned in my initial note. IMPRESSION: Major neurocognitive disorder, Alzheimer, vascular with delusion, depression, behavioral disturbance. Rest unchanged. PLAN: Start BuSpar 5 mg 3 times a day. This should not impair his gait or wakefulness. We may need to adjust further. Continue rest unchanged. CLARKE WARE MD DR: ILANA/angelo JOB#: [id number] / [id number]
[2017-11-17 05:36] VITALS: BP 143/90
[2017-11-17] MEDS: LACTOBACILLUS RHAMNOSUS GG 1 CAPSULE. PO SCH ×2 (08:53→21:11)
[2017-11-17] MEDS: MEGESTROL 400 MG/10 ML ORAL.SUSP. PO SCH ×2 (08:53→17:21)
[2017-11-17] MEDS: DOCUSATE SODIUM 100 MG CAPSULE PO SCH ×2 (08:53→21:10)
[2017-11-17] MEDS: busPIRone 5 MG TABLET. PO SCH ×3 (08:53→17:21)
[2017-11-17] MEDS: MAGNESIUM OXIDE 400 MG TABLET PO SCH (08:53)
[2017-11-17] MEDS: METOPROLOL SUCC 24HR ER 25 MG TAB.ER.24H. PO SCH (08:54)
[2017-11-17] MEDS: POLYETHYLENE GLYCOL 3350 17 GM PACKET. PO SCH ×2 (08:55→21:10)
[2017-11-17] MEDS: LORazepam 0.5 MG TABLET PO PRN (11:09)
[2017-11-17 16:23] VITALS: BP 134/84
--- NOTE | 2017-11-17 21:09 | PDOC ---
Exam Note: Mitch Note: Please also refer to the separate dictated note~for this date of service dictated separately.~Patient seen individually. Discussed the patient with Nursing staff reviewed the chart.~Reviewed interim history and current functioning. Reviewed vital signs,~Labs/ Radiology~and current medications noted below. Continue current treatment with the changes noted in the dictated addendum note Assessment: Vital Signs: Vital Signs Date Time Temp Pulse Resp B/P (MAP) Pulse Ox O2 Delivery O2 Flow Rate FiO2 11/17/17 16:23 97.3 72 24 134/84 (101) 94 Room Air I&O Intake and Output 11/17/17 07:00 Intake Total 1080 ml Balance 1080 ml Intake Oral 1080 ml Current Medications: Meds: Current Medications Clonazepam (KlonoPIN) 0.25 mg QHS PO ; Start 11/05/17 at 21:00; Stop 11/05/17 at 21:00; Status DC Donepezil HCl (Aricept) 10 mg QHS PO Last administered on 11/14/17at 19:38; Start 11/05/17 at 21:00; Stop 11/15/17 at 18:08; Status DC Lorazepam (Ativan) 0.5 mg PRN Q8HRS PRN PO ANXIETY / AGITATION Last administered on 11/17/17at 11:09; Start 11/05/17 at 19:15 Mirtazapine (Remeron) 15 mg QHS PO Last administered on 11/16/17at 20:36; Start 11/05/17 at 21:00 Olanzapine (ZyPREXA ZYDIS) 5 mg PRN Q2HR PRN PO PSYCHOSIS Last administered on 11/17/17at 07:35; Start 11/05/17 at 19:15 Trazodone HCl (Desyrel) 50 mg PRN QHS PRN PO INSOMNIA Last administered on 11/13 23:52; Start 11/05/17 at 19:15 Trazodone HCl (Desyrel) 50 mg QHS PO Last administered on 11/16/17at 20:36; Start 11/05/17 at 21:00 Acetaminophen (Tylenol) 650 mg PRN Q4HRS PRN PO PAIN / TEMP Last administered on 11/06/17at 05:10; Start 11/05/17 at 19:30 Vitamin D (Vitamin D3) 50,000 unit Tu PO Last administered on 11/15/17at 08:59; Start 11/08/17 at 09:00 Cyanocobalamin (Vitamin B-12) 1,000 mcg QMONTH IM ; Start 12/26/17 at 09:00 Docusate Sodium (Colace) 100 mg BID PO Last administered on 11/17/17at 08:53; Start 11/05/17 at 21:00 Al Hydroxide/Mg Hydroxide (Mylanta Plus Xs) 15 ml PRN AFTMEALHC PRN PO DYSPEPSIA; Start 11/05/17 at 19:30 Magnesium Hydroxide (Milk Of Magnesia) 2,400 mg PRN QHS PRN PO CONSTIPATION; Start 11/05/17 at 19:30 Multi-Ingredient Ointment (Analgesic [place]) 1 chan PRN QID PRN TP MUSCLE PAIN; Start 11/05/17 at 19:30 Metoprolol Succinate (Toprol Xl) 25 mg DAILY PO Last administered on 11/17/17 08:54; Start 11/06/17 at 09:00 Polyethylene Glycol (miraLAX) 17 gm BID PO Last administered on 11/17/17 08:55 ; Start 11/05/17 at 21:00 Tamsulosin HCl (Flomax) 0.4 mg QHS PO Last administered on 11/16/17at 20:38; Start 11/05/17 at 21:00 Latanoprost (Xalatan) 1 drop QHS OU Last administered on 11/12/17at 21:00; Start 11/05/17 at 21:00; Stop 11/13/17 at 14:25; Status DC Magnesium Oxide (Magnesium Oxide) 400 mg DAILY PO Last administered on at 08:53; Start 11/06/17 at 09:00 Amoxicillin/ Clavulanate Potassium (Augmentin 500/ 125mg) 1 tab BID PO Last administered on 11/12/17at 21:00; Start 11/05/17 at 21:00; Stop 11/12/17 at 21:02 ; Status DC Lactobacillus Rhamnosus (Culturelle) 1 cap BID PO Last administered on at 08:53; Start 11/05/17 at 21:00 Megestrol Acetate (Megace) 400 mg BID@0900,1700 PO Last administered on 4/19/ 18at 17:21; Start 11/11/17 at 09:00 Latanoprost (Xalatan) 1 drop QHS OU Last administered on 11/16/17at 20:38; Start 11/13/17 at 14:25 Buspirone HCl (Buspar) 5 mg TID@0900,1300,1700 PO Last administered on at 17:21; Start 11/16/17 at 09:00 Active Scripts Active Reported Culturelle (Lactobacillus Rhamnosus Gg) 1 Each Capsule 1 Cap PO BID Augmentin 500-125 Tablet (Amoxicillin/Potassium Clav) 1 Each Tablet 1 Tab PO BID Trazodone Hcl 50 Mg Tablet 50 Mg PO PRN QHS PRN Trazodone Hcl 50 Mg Tablet 50 Mg PO QHS Analgesic [place] (Methyl Salicylate/Menthol) 28 Gm Oint...g. 1 Chan TP PRN QID PRN Milk Of Magnesia (Magnesium Hydroxide) 400 Mg/5 Ml Oral.susp 2,400 Mg PO PRN QHS PRN Mag-Al Plus Xs Suspension (Mag Hydrox/Al Hydrox/Simeth) 30 Ml Oral.susp 15 Ml PO PRN AFTMEALHC PRN Metoprolol Succinate ( Xl ) (Metoprolol Succinate) 25 Mg Tab.er.24h 25 Mg PO DAILY Magnesium (Magnesium Oxide) 400 Mg Capsule 400 Mg PO DAILY Cyanocobalamin Injection (Cyanocobalamin (Vitamin B-12)) 1,000 Mcg/1 Ml Vial 1 Ml IM QMONTH Colace (Docusate Sodium) 100 Mg Capsule 100 Mg PO BID Clonazepam 0.5 Mg Tablet 0.25 Mg PO QHS Zyprexa Zydis (Olanzapine) 5 Mg Tab.rapdis 5 Mg PO PRN Q2HR PRN MDD 20mg Lorazepam 0.5 Mg Tablet 0.5 Mg PO PRN Q8HRS PRN MDD 2mg Vitamin D3 (Cholecalciferol (Vitamin D3)) 50,000 Unit Capsule 50,000 Unit PO QTU Tylenol (Acetaminophen) 325 Mg Tablet 650 Mg PO PRN Q4HRS PRN Tamsulosin Hcl 0.4 Mg Cap.er.24h 0.4 Mg PO QHS Mirtazapine 15 Mg Tablet 15 Mg PO QHS Miralax (Polyethylene Glycol 3350) 17 Gm Powd.pack 17 Gm PO BID Lumigan (Bimatoprost) 2.5 Ml Drops 1 Drop OU QHS Aricept (Donepezil Hcl) 10 Mg Tablet 10 Mg PO QHS I have reviewed the current psychotropics carefully including drug interactions. Risk benefit ratio favors no change other than as noted in my dictated progress note. 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
[2017-11-17] MEDS: MIRTAZAPINE 15 MG TABLET PO SCH (21:10)
[2017-11-17] MEDS: TAMSULOSIN 0.4 MG CAP.ER.24H. PO SCH (21:10)
[2017-11-17] MEDS: traZODone 50 MG TABLET. PO SCH (21:10)
[2017-11-17] MEDS: LATANOPROST 0.005% OPHTH SOLUTION 2.5ML BOTTLE. OU SCH (21:12)
[2017-11-18 06:02] VITALS: BP 157/84
[2017-11-18 09:26] LABS: BASO # 0.1 x10^3/uL (0.0-0.2); BASO % 1 % (0-3); EOS # 0.2 x10^3/uL (0.0-0.7); EOS % 2 % (0-3); HEMATOCRIT 33.8 % (39.0-53.0); HEMOGLOBIN 11.6 g/dL (13.0-17.5); LYMPH # 1.5 x10^3/uL (1.0-4.8); LYMPH % 19 % (24-48); MEAN CORPUSCULAR HEMOGLOBIN 29 pg (25-35); MEAN CORPUSCULAR HGB CONC 34 g/dL (31-37); MEAN CORPUSCULAR VOLUME 85 fL (79-100); MONO # 0.6 x10^3/uL (0.0-1.1); MONO % 7 % (0-9); NEUT # 5.8 x10^3uL (1.8-7.7); NEUT % 71 % (31-73); PLATELET COUNT 283 x10^3/uL (140-400); RED BLOOD COUNT 3.96 x10^6/uL (4.30-5.70); RED CELL DISTRIBUTION WIDTH 16.5 % (11.5-14.5); WHITE BLOOD COUNT 8.2 x10^3/uL (4.0-11.0)
[2017-11-18 09:40] LABS: ALBUMIN 2.7 g/dL (3.4-5.0); ALBUMIN/GLOBULIN RATIO 0.8 (1.0-1.7); CALCIUM 8.6 mg/dL (8.5-10.1); GFR 72.6; POTASSIUM 3.9 mmol/L (3.5-5.1); TOTAL BILIRUBIN 0.3 mg/dL (0.2-1.0); TOTAL PROTEIN 6.2 g/dL (6.4-8.2)
[2017-11-18] MEDS: MAGNESIUM OXIDE 400 MG TABLET PO SCH (11:13)
[2017-11-18] MEDS: busPIRone 5 MG TABLET. PO SCH ×3 (11:13→17:33)
[2017-11-18] MEDS: DOCUSATE SODIUM 100 MG CAPSULE PO SCH ×2 (11:13→19:58)
[2017-11-18] MEDS: LACTOBACILLUS RHAMNOSUS GG 1 CAPSULE. PO SCH ×2 (11:13→19:58)
[2017-11-18] MEDS: METOPROLOL SUCC 24HR ER 25 MG TAB.ER.24H. PO SCH (11:13)
[2017-11-18] MEDS: MEGESTROL 400 MG/10 ML ORAL.SUSP. PO SCH ×2 (11:14→17:33)
[2017-11-18] MEDS: POLYETHYLENE GLYCOL 3350 17 GM PACKET. PO SCH ×2 (11:14→19:58)
[2017-11-18 16:22] VITALS: BP 138/75
[2017-11-18] MEDS: MIRTAZAPINE 15 MG TABLET PO SCH (19:58)
[2017-11-18] MEDS: LATANOPROST 0.005% OPHTH SOLUTION 2.5ML BOTTLE. OU SCH (19:58)
[2017-11-18] MEDS: TAMSULOSIN 0.4 MG CAP.ER.24H. PO SCH (19:58)
[2017-11-18] MEDS: traZODone 50 MG TABLET. PO SCH ×2 (19:58→21:32)
--- NOTE | 2017-11-18 20:11 | PN ---
DATE: 11/16/2017 PSYCHIATRIC PROGRESS NOTE This is a late entry 11/16/2017, covers elements not covered in my initial note 11/16/2017. SUBJECTIVE: I met with the patient the evening of 11/16/2017. The patient is doing a little better. No agitation noted, though he gets quite abrasive fairly quickly. REVIEW OF SYSTEMS: No CV, , pulmonary, eye, ENT system symptoms on review. Reliability poor. MENTAL STATUS EXAM: Oriented to himself. Insight, judgment, recent and remote memory, attention, concentration, fund of knowledge poor, consistent with his diagnoses mentioned in my initial note. IMPRESSION: Major neurocognitive disorder, Alzheimer, vascular with depression, delusion, behavioral disturbance. Rest unchanged. PLAN: Continue psychotropics mentioned in my initial note, minimize psychotropics that may cause sedation as the expressly desires. We will try and find placement that is able to accommodate some of his agitations with minimal psychotropic usage. CLARKE WARE MD DR: ILANA/angelo JOB#: [id number] / [id number]
--- NOTE | 2017-11-18 20:58 | PDOC ---
Exam Note: Mitch Note: Please also refer to the separate dictated note~for this date of service dictated separately.~Patient seen individually. Discussed the patient with Nursing staff reviewed the chart.~Reviewed interim history and current functioning. Reviewed vital signs,~Labs/ Radiology~and current medications noted below. Continue current treatment with the changes noted in the dictated addendum note Assessment: Vital Signs: Vital Signs Date Time Temp Pulse Resp B/P (MAP) Pulse Ox O2 Delivery O2 Flow Rate FiO2 11/18/17 16:22 98.9 87 18 138/75 (96) 95 11/17/17 16:23 Room Air I&O Intake and Output 11/18/17 07:00 Intake Total 960 ml Balance 960 ml Intake Oral 960 ml Labs: Laboratory Tests Test 11/18/17 09:12 White Blood Count 8.2 x10^3/uL (4.0-11.0) Red Blood Count 3.96 x10^6/uL (4.30-5.70) L Hemoglobin 11.6 g/dL (13.0-17.5) L Hematocrit 33.8 % (39.0-53.0) L Mean Corpuscular Volume 85 fL (79-100) Mean Corpuscular Hemoglobin 29 pg (25-35) Mean Corpuscular Hemoglobin Concent 34 g/dL (31-37) Red Cell Distribution Width 16.5 % (11.5-14.5) H Platelet Count 283 x10^3/uL (140-400) Neutrophils (%) (Auto) 71 % (31-73) Lymphocytes (%) (Auto) 19 % (24-48) L Monocytes (%) (Auto) 7 % (0-9) Eosinophils (%) (Auto) 2 % (0-3) Basophils (%) (Auto) 1 % (0-3) Neutrophils # (Auto) 5.8 x10^3uL (1.8-7.7) Lymphocytes # (Auto) 1.5 x10^3/uL (1.0-4.8) Monocytes # (Auto) 0.6 x10^3/uL (0.0-1.1) Eosinophils # (Auto) 0.2 x10^3/uL (0.0-0.7) Basophils # (Auto) 0.1 x10^3/uL (0.0-0.2) Sodium Level 141 mmol/L (136-145) Potassium Level 3.9 mmol/L (3.5-5.1) Chloride Level 106 mmol/L (98-107) Carbon Dioxide Level 27 mmol/L (21-32) Anion Gap 8 (6-14) Blood Urea Nitrogen 14 mg/dL (8-26) Creatinine 1.0 mg/dL (0.7-1.3) Estimated GFR (Cockcroft-Gault) 72.6 BUN/Creatinine Ratio 14 (6-20) Glucose Level 126 mg/dL (70-99) H Calcium Level 8.6 mg/dL (8.5-10.1) Total Bilirubin 0.3 mg/dL (0.2-1.0) Aspartate Amino Transferase (AST) 14 U/L (15-37) L Alanine Aminotransferase (ALT) 11 U/L (16-63) L Alkaline Phosphatase 33 U/L (46-116) L Total Protein 6.2 g/dL (6.4-8.2) L Albumin 2.7 g/dL (3.4-5.0) L Albumin/Globulin Ratio 0.8 (1.0-1.7) L Current Medications: Meds: Current Medications Clonazepam (KlonoPIN) 0.25 mg QHS PO ; Start 11/05/17 at 21:00; Stop 11/05/17 at 21:00; Status DC Donepezil HCl (Aricept) 10 mg QHS PO Last administered on 11/14/17at 19:38; Start 11/05/17 at 21:00; Stop 11/15/17 at 18:08; Status DC Lorazepam (Ativan) 0.5 mg PRN Q8HRS PRN PO ANXIETY / AGITATION Last administered on 11/17/17at 11:09; Start 11/05/17 at 19:15 Mirtazapine (Remeron) 15 mg QHS PO Last administered on 11/18/17at 19:58; Start 11/05/17 at 21:00 Olanzapine (ZyPREXA ZYDIS) 5 mg PRN Q2HR PRN PO PSYCHOSIS Last administered on 11/17/17at 07:35; Start 11/05/17 at 19:15 Trazodone HCl (Desyrel) 50 mg PRN QHS PRN PO INSOMNIA Last administered on 11/13 23:52; Start 11/05/17 at 19:15 Trazodone HCl (Desyrel) 50 mg QHS PO Last administered on 11/18/17 19:58; Start 11/05/17 at 21:00 Acetaminophen (Tylenol) 650 mg PRN Q4HRS PRN PO PAIN / TEMP Last administered on 11/06/17 05:10; Start 11/05/17 at 19:30 Vitamin D (Vitamin D3) 50,000 unit Tu PO Last administered on 11/15/17 08:59; Start 11/08/17 at 09:00 Cyanocobalamin (Vitamin B-12) 1,000 mcg QMONTH IM ; Start 12/26/17 at 09:00 Docusate Sodium (Colace) 100 mg BID PO Last administered on 11/18/17 19:58; Start 11/05/17 at 21:00 Al Hydroxide/Mg Hydroxide (Mylanta Plus Xs) 15 ml PRN AFTMEALHC PRN PO DYSPEPSIA; Start 11/05/17 at 19:30 Magnesium Hydroxide (Milk Of Magnesia) 2,400 mg PRN QHS PRN PO CONSTIPATION; Start 11/05/17 at 19:30 Multi-Ingredient Ointment (Analgesic [place]) 1 chan PRN QID PRN TP MUSCLE PAIN; Start 11/05/17 at 19:30 Metoprolol Succinate (Toprol Xl) 25 mg DAILY PO Last administered on 11/18/17 11:13; Start 11/06/17 at 09:00 Polyethylene Glycol (miraLAX) 17 gm BID PO Last administered on 11/18/17 19:58 ; Start 11/05/17 at 21:00 Tamsulosin HCl (Flomax) 0.4 mg QHS PO Last administered on 11/18/17 19:58; Start 11/05/17 at 21:00 Latanoprost (Xalatan) 1 drop QHS OU Last administered on 11/12/17 21:00; Start 11/05/17 at 21:00; Stop 11/13/17 at 14:25; Status DC Magnesium Oxide (Magnesium Oxide) 400 mg DAILY PO Last administered on 11:13; Start 11/06/17 at 09:00 Amoxicillin/ Clavulanate Potassium (Augmentin 500/ 125mg) 1 tab BID PO Last administered on 11/12/17at 21:00; Start 11/05/17 at 21:00; Stop 11/12/17 at 21:02 ; Status DC Lactobacillus Rhamnosus (Culturelle) 1 cap BID PO Last administered on at 19:58; Start 11/05/17 at 21:00 Megestrol Acetate (Megace) 400 mg BID@0900,1700 PO Last administered on 17:33; Start 11/11/17 at 09:00 Latanoprost (Xalatan) 1 drop QHS OU Last administered on 11/18/17 19:58; Start 11/13/17 at 14:25 Buspirone HCl (Buspar) 5 mg TID@0900,1300,1700 PO Last administered on 17:33; Start 11/16/17 at 09:00 Active Scripts Active Reported Culturelle (Lactobacillus Rhamnosus Gg) 1 Each Capsule 1 Cap PO BID Augmentin 500-125 Tablet (Amoxicillin/Potassium Clav) 1 Each Tablet 1 Tab PO BID Trazodone Hcl 50 Mg Tablet 50 Mg PO PRN QHS PRN Trazodone Hcl 50 Mg Tablet 50 Mg PO QHS Analgesic [place] (Methyl Salicylate/Menthol) 28 Gm Oint...g. 1 Chan TP PRN QID PRN Milk Of Magnesia (Magnesium Hydroxide) 400 Mg/5 Ml Oral.susp 2,400 Mg PO PRN QHS PRN Mag-Al Plus Xs Suspension (Mag Hydrox/Al Hydrox/Simeth) 30 Ml Oral.susp 15 Ml PO PRN AFTMEALHC PRN Metoprolol Succinate ( Xl ) (Metoprolol Succinate) 25 Mg Tab.er.24h 25 Mg PO DAILY Magnesium (Magnesium Oxide) 400 Mg Capsule 400 Mg PO DAILY Cyanocobalamin Injection (Cyanocobalamin (Vitamin B-12)) 1,000 Mcg/1 Ml Vial 1 Ml IM QMONTH Colace (Docusate Sodium) 100 Mg Capsule 100 Mg PO BID Clonazepam 0.5 Mg Tablet 0.25 Mg PO QHS Zyprexa Zydis (Olanzapine) 5 Mg Tab.rapdis 5 Mg PO PRN Q2HR PRN MDD 20mg Lorazepam 0.5 Mg Tablet 0.5 Mg PO PRN Q8HRS PRN MDD 2mg Vitamin D3 (Cholecalciferol (Vitamin D3)) 50,000 Unit Capsule 50,000 Unit PO QTU Tylenol (Acetaminophen) 325 Mg Tablet 650 Mg PO PRN Q4HRS PRN Tamsulosin Hcl 0.4 Mg Cap.er.24h 0.4 Mg PO QHS Mirtazapine 15 Mg Tablet 15 Mg PO QHS Miralax (Polyethylene Glycol 3350) 17 Gm Powd.pack 17 Gm PO BID Lumigan (Bimatoprost) 2.5 Ml Drops 1 Drop OU QHS Aricept (Donepezil Hcl) 10 Mg Tablet 10 Mg PO QHS I have reviewed the current psychotropics carefully including drug interactions. Risk benefit ratio favors no change other than as noted in my dictated progress note. 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
--- NOTE | 2017-11-18 22:05 | PN ---
DATE: 11/17/2017 This is a late entry for 11/17/2017 covers elements not covered in my initial note. SUBJECTIVE: I met with the patient in the evening, staffed at a treatment team meeting with the entire team in the morning with the patient's , Wanda attending. Reviewed his history, progress, our attempts to minimize use of psychotropics, which cause sedation. Wanda's decision to move into a different correction in [place]. The patient slept 6-1/2 hours. The day before, he did well, but morning of 11/17/2017, he was banging his hand on the fridge, had his fist ____ towards nursing staff, threatening them. Oral intake poor, took a.m. meds in juice and Boost. REVIEW OF SYSTEMS: No CV, , pulmonary, eye system symptoms on review. Reliability poor. P.m., he is exit seeking. MENTAL STATUS EXAM: Oriented to himself. Insight, judgment, recent and remote memory, attention, concentration, fund of knowledge poor, consistent with his diagnosis mentioned in my initial note. IMPRESSION: Major neurocognitive disorder, Alzheimer, vascular with delusion, depression, behavioral disturbance. PLAN: Continue psychotropics mentioned in my initial note. MAN Jude WARE MD DR: ILANA/angelo JOB#: [id number] / [id number]
[2017-11-19 05:52] VITALS: BP 143/74
[2017-11-19] MEDS: LACTOBACILLUS RHAMNOSUS GG 1 CAPSULE. PO SCH ×2 (09:15→19:47)
[2017-11-19] MEDS: DOCUSATE SODIUM 100 MG CAPSULE PO SCH ×2 (09:15→19:47)
[2017-11-19] MEDS: busPIRone 5 MG TABLET. PO SCH ×3 (09:15→17:15)
[2017-11-19] MEDS: MAGNESIUM OXIDE 400 MG TABLET PO SCH (09:15)
[2017-11-19] MEDS: MEGESTROL 400 MG/10 ML ORAL.SUSP. PO SCH ×2 (09:15→17:15)
[2017-11-19] MEDS: POLYETHYLENE GLYCOL 3350 17 GM PACKET. PO SCH ×2 (09:15→19:48)
[2017-11-19] MEDS: METOPROLOL SUCC 24HR ER 25 MG TAB.ER.24H. PO SCH (09:16)
[2017-11-19 16:18] VITALS: BP 144/76
[2017-11-19] MEDS: TAMSULOSIN 0.4 MG CAP.ER.24H. PO SCH (19:47)
[2017-11-19] MEDS: LATANOPROST 0.005% OPHTH SOLUTION 2.5ML BOTTLE. OU SCH (19:47)
[2017-11-19] MEDS: MIRTAZAPINE 15 MG TABLET PO SCH (19:48)
[2017-11-19] MEDS: traZODone 50 MG TABLET. PO SCH (19:48)
--- NOTE | 2017-11-19 22:42 | PDOC ---
Exam Note: Mitch Note: Please also refer to the separate dictated note~for this date of service dictated separately.~Patient seen individually. Discussed the patient with Nursing staff reviewed the chart.~Reviewed interim history and current functioning. Reviewed vital signs,~Labs/ Radiology~and current medications noted below. Continue current treatment with the changes noted in the dictated addendum note Assessment: Vital Signs: Vital Signs Date Time Temp Pulse Resp B/P (MAP) Pulse Ox O2 Delivery O2 Flow Rate FiO2 11/19/17 16:18 97.4 74 20 144/76 (98) 98 Room Air I&O Intake and Output 11/19/17 07:00 Intake Total 720 ml Balance 720 ml Intake Oral 720 ml Current Medications: Meds: Current Medications Clonazepam (KlonoPIN) 0.25 mg QHS PO ; Start 11/05/17 at 21:00; Stop 11/05/17 at 21:00; Status DC Donepezil HCl (Aricept) 10 mg QHS PO Last administered on 11/14/17at 19:38; Start 11/05/17 at 21:00; Stop 11/15/17 at 18:08; Status DC Lorazepam (Ativan) 0.5 mg PRN Q8HRS PRN PO ANXIETY / AGITATION Last administered on 11/17/17at 11:09; Start 11/05/17 at 19:15 Mirtazapine (Remeron) 15 mg QHS PO Last administered on 11/19/17at 19:48; Start 11/05/17 at 21:00 Olanzapine (ZyPREXA ZYDIS) 5 mg PRN Q2HR PRN PO PSYCHOSIS Last administered on 11/18/17at 21:32; Start 11/05/17 at 19:15 Trazodone HCl (Desyrel) 50 mg PRN QHS PRN PO INSOMNIA Last administered on 11/13 23:52; Start 11/05/17 at 19:15 Trazodone HCl (Desyrel) 50 mg QHS PO Last administered on 11/19/17at 19:48; Start 11/05/17 at 21:00 Acetaminophen (Tylenol) 650 mg PRN Q4HRS PRN PO PAIN / TEMP Last administered on 11/06/17at 05:10; Start 11/05/17 at 19:30 Vitamin D (Vitamin D3) 50,000 unit Tu PO Last administered on 11/15/17at 08:59; Start 11/08/17 at 09:00 Cyanocobalamin (Vitamin B-12) 1,000 mcg QMONTH IM ; Start 12/26/17 at 09:00 Docusate Sodium (Colace) 100 mg BID PO Last administered on 11/19/17 19:47; Start 11/05/17 at 21:00 Al Hydroxide/Mg Hydroxide (Mylanta Plus Xs) 15 ml PRN AFTMEALHC PRN PO DYSPEPSIA; Start 11/05/17 at 19:30 Magnesium Hydroxide (Milk Of Magnesia) 2,400 mg PRN QHS PRN PO CONSTIPATION; Start 11/05/17 at 19:30 Multi-Ingredient Ointment (Analgesic [place]) 1 chan PRN QID PRN TP MUSCLE PAIN; Start 11/05/17 at 19:30 Metoprolol Succinate (Toprol Xl) 25 mg DAILY PO Last administered on 11/19/17 09:16; Start 11/06/17 at 09:00 Polyethylene Glycol (miraLAX) 17 gm BID PO Last administered on 11/19/17 19:48 ; Start 11/05/17 at 21:00 Tamsulosin HCl (Flomax) 0.4 mg QHS PO Last administered on 11/19/17 19:47; Start 11/05/17 at 21:00 Latanoprost (Xalatan) 1 drop QHS OU Last administered on 11/12/17at 21:00; Start 11/05/17 at 21:00; Stop 11/13/17 at 14:25; Status DC Magnesium Oxide (Magnesium Oxide) 400 mg DAILY PO Last administered on at 09:15; Start 11/06/17 at 09:00 Amoxicillin/ Clavulanate Potassium (Augmentin 500/ 125mg) 1 tab BID PO Last administered on 11/12/17at 21:00; Start 11/05/17 at 21:00; Stop 11/12/17 at 21:02 ; Status DC Lactobacillus Rhamnosus (Culturelle) 1 cap BID PO Last administered on at 19:47; Start 11/05/17 at 21:00 Megestrol Acetate (Megace) 400 mg BID@0900,1700 PO Last administered on 4/21/ 18at 17:15; Start 11/11/17 at 09:00 Latanoprost (Xalatan) 1 drop QHS OU Last administered on 11/19/17at 19:47; Start 11/13/17 at 14:25 Buspirone HCl (Buspar) 5 mg TID@0900,1300,1700 PO Last administered on at 17:15; Start 11/16/17 at 09:00 Active Scripts Active Reported Culturelle (Lactobacillus Rhamnosus Gg) 1 Each Capsule 1 Cap PO BID Augmentin 500-125 Tablet (Amoxicillin/Potassium Clav) 1 Each Tablet 1 Tab PO BID Trazodone Hcl 50 Mg Tablet 50 Mg PO PRN QHS PRN Trazodone Hcl 50 Mg Tablet 50 Mg PO QHS Analgesic [place] (Methyl Salicylate/Menthol) 28 Gm Oint...g. 1 Chan TP PRN QID PRN Milk Of Magnesia (Magnesium Hydroxide) 400 Mg/5 Ml Oral.susp 2,400 Mg PO PRN QHS PRN Mag-Al Plus Xs Suspension (Mag Hydrox/Al Hydrox/Simeth) 30 Ml Oral.susp 15 Ml PO PRN AFTMEALHC PRN Metoprolol Succinate ( Xl ) (Metoprolol Succinate) 25 Mg Tab.er.24h 25 Mg PO DAILY Magnesium (Magnesium Oxide) 400 Mg Capsule 400 Mg PO DAILY Cyanocobalamin Injection (Cyanocobalamin (Vitamin B-12)) 1,000 Mcg/1 Ml Vial 1 Ml IM QMONTH Colace (Docusate Sodium) 100 Mg Capsule 100 Mg PO BID Clonazepam 0.5 Mg Tablet 0.25 Mg PO QHS Zyprexa Zydis (Olanzapine) 5 Mg Tab.rapdis 5 Mg PO PRN Q2HR PRN MDD 20mg Lorazepam 0.5 Mg Tablet 0.5 Mg PO PRN Q8HRS PRN MDD 2mg Vitamin D3 (Cholecalciferol (Vitamin D3)) 50,000 Unit Capsule 50,000 Unit PO QTU Tylenol (Acetaminophen) 325 Mg Tablet 650 Mg PO PRN Q4HRS PRN Tamsulosin Hcl 0.4 Mg Cap.er.24h 0.4 Mg PO QHS Mirtazapine 15 Mg Tablet 15 Mg PO QHS Miralax (Polyethylene Glycol 3350) 17 Gm Powd.pack 17 Gm PO BID Lumigan (Bimatoprost) 2.5 Ml Drops 1 Drop OU QHS Aricept (Donepezil Hcl) 10 Mg Tablet 10 Mg PO QHS I have reviewed the current psychotropics carefully including drug interactions. Risk benefit ratio favors no change other than as noted in my dictated progress note. Diagnosis: Problems: (1) Anxiety disorder (2) Mild cognitive disorder (3) Impulse control disorder (4) Major depressive disorder, recurrent episode (5) Dementia in Alzheimer's disease with delusions (6) Dementia in Alzheimer's disease with depression (7) Dementia, vascular, with delusions (8) Dementia, vascular, with depression CLARKE WARE MD Nov 19, 2017 22:42
[2017-11-20 06:38] VITALS: BP 129/66
[2017-11-20] MEDS: LACTOBACILLUS RHAMNOSUS GG 1 CAPSULE. PO SCH (08:53)
[2017-11-20] MEDS: DOCUSATE SODIUM 100 MG CAPSULE PO SCH ×2 (08:53→20:12)
[2017-11-20] MEDS: busPIRone 5 MG TABLET. PO SCH ×3 (08:53→16:50)
[2017-11-20] MEDS: MAGNESIUM OXIDE 400 MG TABLET PO SCH (08:56)
[2017-11-20] MEDS: MEGESTROL 400 MG/10 ML ORAL.SUSP. PO SCH ×2 (08:56→16:50)
[2017-11-20] MEDS: POLYETHYLENE GLYCOL 3350 17 GM PACKET. PO SCH ×2 (08:56→20:13)
[2017-11-20] MEDS: METOPROLOL SUCC 24HR ER 25 MG TAB.ER.24H. PO SCH (08:57)
[2017-11-20 15:47] VITALS: BP 119/57
[2017-11-20] MEDS: traZODone 50 MG TABLET. PO SCH (20:12)
[2017-11-20] MEDS: MIRTAZAPINE 15 MG TABLET PO SCH (20:12)
[2017-11-20] MEDS: TAMSULOSIN 0.4 MG CAP.ER.24H. PO SCH (20:12)
[2017-11-20] MEDS: LATANOPROST 0.005% OPHTH SOLUTION 2.5ML BOTTLE. OU SCH (20:13)
[2017-11-20] MEDS: MELATONIN 3 MG TABLET PO SCH (20:15)
--- NOTE | 2017-11-20 21:01 | PDOC ---
Exam Note: Mitch Note: Please also refer to the separate dictated note~for this date of service dictated separately.~Patient seen individually. Discussed the patient with Nursing staff reviewed the chart.~Reviewed interim history and current functioning. Reviewed vital signs,~Labs/ Radiology~and current medications noted below. Continue current treatment with the changes noted in the dictated addendum note Assessment: Vital Signs: Vital Signs Date Time Temp Pulse Resp B/P (MAP) Pulse Ox O2 Delivery O2 Flow Rate FiO2 11/20/17 15:47 97.9 86 20 119/57 (77) 94 11/20/17 06:38 Room Air I&O Intake and Output 11/20/17 07:00 Intake Total 1320 ml Balance 1320 ml Intake Oral 1320 ml Current Medications: Meds: Current Medications Clonazepam (KlonoPIN) 0.25 mg QHS PO ; Start 11/05/17 at 21:00; Stop 11/05/17 at 21:00; Status DC Donepezil HCl (Aricept) 10 mg QHS PO Last administered on 11/14/17at 19:38; Start 11/05/17 at 21:00; Stop 11/15/17 at 18:08; Status DC Lorazepam (Ativan) 0.5 mg PRN Q8HRS PRN PO ANXIETY / AGITATION Last administered on 11/17/17at 11:09; Start 11/05/17 at 19:15 Mirtazapine (Remeron) 15 mg QHS PO Last administered on 11/20/17at 20:12; Start 11/05/17 at 21:00 Olanzapine (ZyPREXA ZYDIS) 5 mg PRN Q2HR PRN PO PSYCHOSIS Last administered on 11/18/17at 21:32; Start 11/05/17 at 19:15 Trazodone HCl (Desyrel) 50 mg PRN QHS PRN PO INSOMNIA Last administered on 11/13 23:52; Start 11/05/17 at 19:15 Trazodone HCl (Desyrel) 50 mg QHS PO Last administered on 11/20/17at 20:12; Start 11/05/17 at 21:00 Acetaminophen (Tylenol) 650 mg PRN Q4HRS PRN PO PAIN / TEMP Last administered on 11/06/17at 05:10; Start 11/05/17 at 19:30 Vitamin D (Vitamin D3) 50,000 unit Tu PO Last administered on 11/15/17at 08:59; Start 11/08/17 at 09:00 Cyanocobalamin (Vitamin B-12) 1,000 mcg QMONTH IM ; Start 12/26/17 at 09:00 Docusate Sodium (Colace) 100 mg BID PO Last administered on 11/20/17at 20:12; Start 11/05/17 at 21:00 Al Hydroxide/Mg Hydroxide (Mylanta Plus Xs) 15 ml PRN AFTMEALHC PRN PO DYSPEPSIA; Start 11/05/17 at 19:30 Magnesium Hydroxide (Milk Of Magnesia) 2,400 mg PRN QHS PRN PO CONSTIPATION; Start 11/05/17 at 19:30 Multi-Ingredient Ointment (Analgesic [place]) 1 chan PRN QID PRN TP MUSCLE PAIN; Start 11/05/17 at 19:30 Metoprolol Succinate (Toprol Xl) 25 mg DAILY PO Last administered on 11/20/17at 08:57; Start 11/06/17 at 09:00 Polyethylene Glycol (miraLAX) 17 gm BID PO Last administered on 11/20/17at 20:13 ; Start 11/05/17 at 21:00 Tamsulosin HCl (Flomax) 0.4 mg QHS PO Last administered on 11/20/17at 20:12; Start 11/05/17 at 21:00 Latanoprost (Xalatan) 1 drop QHS OU Last administered on 11/12/17at 21:00; Start 11/05/17 at 21:00; Stop 11/13/17 at 14:25; Status DC Magnesium Oxide (Magnesium Oxide) 400 mg DAILY PO Last administered on at 08:56; Start 11/06/17 at 09:00 Amoxicillin/ Clavulanate Potassium (Augmentin 500/ 125mg) 1 tab BID PO Last administered on 11/12/17at 21:00; Start 11/05/17 at 21:00; Stop 11/12/17 at 21:02 ; Status DC Lactobacillus Rhamnosus (Culturelle) 1 cap BID PO Last administered on at 08:53; Start 11/05/17 at 21:00; Stop 11/20/17 at 15:32; Status DC Megestrol Acetate (Megace) 400 mg BID@0900,1700 PO Last administered on at 16:50; Start 11/11/17 at 09:00 Latanoprost (Xalatan) 1 drop QHS OU Last administered on 11/20/17at 20:13; Start 11/13/17 at 14:25 Buspirone HCl (Buspar) 5 mg TID@0900,1300,1700 PO Last administered on at 16:50; Start 11/16/17 at 09:00 Melatonin 3 mg HS PO Last administered on 11/20/17at 20:15; Start 11/20/17 at 21 :00 Active Scripts Active Reported Culturelle (Lactobacillus Rhamnosus Gg) 1 Each Capsule 1 Cap PO BID Augmentin 500-125 Tablet (Amoxicillin/Potassium Clav) 1 Each Tablet 1 Tab PO BID Trazodone Hcl 50 Mg Tablet 50 Mg PO PRN QHS PRN Trazodone Hcl 50 Mg Tablet 50 Mg PO QHS Analgesic [place] (Methyl Salicylate/Menthol) 28 Gm Oint...g. 1 Chan TP PRN QID PRN Milk Of Magnesia (Magnesium Hydroxide) 400 Mg/5 Ml Oral.susp 2,400 Mg PO PRN QHS PRN Mag-Al Plus Xs Suspension (Mag Hydrox/Al Hydrox/Simeth) 30 Ml Oral.susp 15 Ml PO PRN AFTMEALHC PRN Metoprolol Succinate ( Xl ) (Metoprolol Succinate) 25 Mg Tab.er.24h 25 Mg PO DAILY Magnesium (Magnesium Oxide) 400 Mg Capsule 400 Mg PO DAILY Cyanocobalamin Injection (Cyanocobalamin (Vitamin B-12)) 1,000 Mcg/1 Ml Vial 1 Ml IM QMONTH Colace (Docusate Sodium) 100 Mg Capsule 100 Mg PO BID Clonazepam 0.5 Mg Tablet 0.25 Mg PO QHS Zyprexa Zydis (Olanzapine) 5 Mg Tab.rapdis 5 Mg PO PRN Q2HR PRN MDD 20mg Lorazepam 0.5 Mg Tablet 0.5 Mg PO PRN Q8HRS PRN MDD 2mg Vitamin D3 (Cholecalciferol (Vitamin D3)) 50,000 Unit Capsule 50,000 Unit PO QTU Tylenol (Acetaminophen) 325 Mg Tablet 650 Mg PO PRN Q4HRS PRN Tamsulosin Hcl 0.4 Mg Cap.er.24h 0.4 Mg PO QHS Mirtazapine 15 Mg Tablet 15 Mg PO QHS Miralax (Polyethylene Glycol 3350) 17 Gm Powd.pack 17 Gm PO BID Lumigan (Bimatoprost) 2.5 Ml Drops 1 Drop OU QHS Aricept (Donepezil Hcl) 10 Mg Tablet 10 Mg PO QHS I have reviewed the current psychotropics carefully including drug interactions. Risk benefit ratio favors no change other than as noted in my dictated progress note. 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
--- NOTE | 2017-11-21 01:32 | PN ---
DATE: 11/18/2017 PSYCHIATRIC PROGRESS NOTE This is a late entry 11/18/2017 covers elements not covered in my initial note 11/18/2017. SUBJECTIVE: I met with the patient evening of 11/18/2017. The patient slept 4-1/4 hours previous evening, wandering, confused, takes his medications. He is oblivious of his surroundings, takes things belonging to others, takes medications only if he is told that will help him urinate "easy." REVIEW OF SYSTEMS: No CV, , pulmonary, eye, ENT system symptoms on review. Lability poor. MENTAL STATUS EXAM: Oriented to himself. Insight, judgment, recent and remote memory, attention, concentration, fund of knowledge poor, consistent with diagnosis mentioned in my initial note. PLAN: Continue psychotropics mentioned in my initial note. MAN Jude WARE MD DR: ILANA/angelo JOB#: [id number] / [id number]
[2017-11-21 06:45] VITALS: BP 129/72
[2017-11-21] MEDS: busPIRone 5 MG TABLET. PO SCH ×3 (07:33→17:18)
[2017-11-21] MEDS: DOCUSATE SODIUM 100 MG CAPSULE PO SCH ×2 (07:34→19:59)
[2017-11-21] MEDS: MAGNESIUM OXIDE 400 MG TABLET PO SCH (07:34)
[2017-11-21] MEDS: MEGESTROL 400 MG/10 ML ORAL.SUSP. PO SCH ×2 (07:34→17:18)
[2017-11-21] MEDS: POLYETHYLENE GLYCOL 3350 17 GM PACKET. PO SCH ×2 (07:34→19:59)
[2017-11-21] MEDS: METOPROLOL SUCC 24HR ER 25 MG TAB.ER.24H. PO SCH (07:37)
--- NOTE | 2017-11-21 08:14 | PN ---
DATE: 11/19/2017 This is a late entry for 11/19/2017 and covers elements not covered in my initial note of 11/19/2017. SUBJECTIVE: I met with the patient evening of 11/19/2017. The patient remains confused, anxious, restless, gets a little overbearing at times. can come across more intimidating than perhaps he truly wants to be. REVIEW OF SYSTEMS: No CV, , pulmonary, eye, ENT system symptoms. Reliability is poor. MENTAL STATUS EXAM: Oriented to himself. Insight, judgment, recent and remote memory, attention, concentration, fund of knowledge poor, consistent with his diagnosis as mentioned in my initial note. PLAN: Continue psychotropics as mentioned in my initial note. We are trying to minimize the psychotropics to avoid sedation as requested by . CLARKE WARE MD DR: ILANA/angelo JOB#: [id number] / [id number]
[2017-11-21 16:23] VITALS: BP 158/83
[2017-11-21] MEDS: MIRTAZAPINE 15 MG TABLET PO SCH (19:59)
[2017-11-21] MEDS: traZODone 50 MG TABLET. PO SCH (19:59)
[2017-11-21] MEDS: MELATONIN 3 MG TABLET PO SCH (19:59)
[2017-11-21] MEDS: TAMSULOSIN 0.4 MG CAP.ER.24H. PO SCH (19:59)
[2017-11-21] MEDS: LATANOPROST 0.005% OPHTH SOLUTION 2.5ML BOTTLE. OU SCH (20:01)
--- NOTE | 2017-11-21 20:55 | PDOC ---
Exam Note: Mitch Note: Please also refer to the separate dictated note~for this date of service dictated separately.~Patient seen individually. Discussed the patient with Nursing staff reviewed the chart.~Reviewed interim history and current functioning. Reviewed vital signs,~Labs/ Radiology~and current medications noted below. Continue current treatment with the changes noted in the dictated addendum note Assessment: Vital Signs: Vital Signs Date Time Temp Pulse Resp B/P (MAP) Pulse Ox O2 Delivery O2 Flow Rate FiO2 11/21/17 16:23 98.0 89 20 158/83 (108) 96 11/21/17 06:45 Room Air I&O Intake and Output 11/21/17 07:00 Intake Total 580 ml Balance 580 ml Intake Oral 580 ml # Bowel Movements 1 Current Medications: Meds: Current Medications Clonazepam (KlonoPIN) 0.25 mg QHS PO ; Start 11/05/17 at 21:00; Stop 11/05/17 at 21:00; Status DC Donepezil HCl (Aricept) 10 mg QHS PO Last administered on 11/14/17at 19:38; Start 11/05/17 at 21:00; Stop 11/15/17 at 18:08; Status DC Lorazepam (Ativan) 0.5 mg PRN Q8HRS PRN PO ANXIETY / AGITATION Last administered on 11/17/17at 11:09; Start 11/05/17 at 19:15 Mirtazapine (Remeron) 15 mg QHS PO Last administered on 11/21/17at 19:59; Start 11/05/17 at 21:00 Olanzapine (ZyPREXA ZYDIS) 5 mg PRN Q2HR PRN PO PSYCHOSIS Last administered on 11/18/17at 21:32; Start 11/05/17 at 19:15 Trazodone HCl (Desyrel) 50 mg PRN QHS PRN PO INSOMNIA Last administered on 11/13 23:52; Start 11/05/17 at 19:15 Trazodone HCl (Desyrel) 50 mg QHS PO Last administered on 11/20/17at 20:12; Start 11/05/17 at 21:00; Stop 11/21/17 at 18:29; Status DC Acetaminophen (Tylenol) 650 mg PRN Q4HRS PRN PO PAIN / TEMP Last administered on 11/06/17 05:10; Start 11/05/17 at 19:30 Vitamin D (Vitamin D3) 50,000 unit Tu PO Last administered on 11/15/17 08:59; Start 11/08/17 at 09:00 Cyanocobalamin (Vitamin B-12) 1,000 mcg QMONTH IM ; Start 12/26/17 at 09:00 Docusate Sodium (Colace) 100 mg BID PO Last administered on 11/21/17 19:59; Start 11/05/17 at 21:00 Al Hydroxide/Mg Hydroxide (Mylanta Plus Xs) 15 ml PRN AFTMEALHC PRN PO DYSPEPSIA; Start 11/05/17 at 19:30 Magnesium Hydroxide (Milk Of Magnesia) 2,400 mg PRN QHS PRN PO CONSTIPATION; Start 11/05/17 at 19:30 Multi-Ingredient Ointment (Analgesic [place]) 1 chan PRN QID PRN TP MUSCLE PAIN; Start 11/05/17 at 19:30 Metoprolol Succinate (Toprol Xl) 25 mg DAILY PO Last administered on 11/21/17 07:37; Start 11/06/17 at 09:00 Polyethylene Glycol (miraLAX) 17 gm BID PO Last administered on 11/21/17 19:59 ; Start 11/05/17 at 21:00 Tamsulosin HCl (Flomax) 0.4 mg QHS PO Last administered on 11/21/17 19:59; Start 11/05/17 at 21:00 Latanoprost (Xalatan) 1 drop QHS OU Last administered on 11/12/17 21:00; Start 11/05/17 at 21:00; Stop 11/13/17 at 14:25; Status DC Magnesium Oxide (Magnesium Oxide) 400 mg DAILY PO Last administered on 07:34; Start 11/06/17 at 09:00 Amoxicillin/ Clavulanate Potassium (Augmentin 500/ 125mg) 1 tab BID PO Last administered on 11/12/17 21:00; Start 11/05/17 at 21:00; Stop 11/12/17 at 21:02 ; Status DC Lactobacillus Rhamnosus (Culturelle) 1 cap BID PO Last administered on at 08:53; Start 11/05/17 at 21:00; Stop 11/20/17 at 15:32; Status DC Megestrol Acetate (Megace) 400 mg BID@0900,1700 PO Last administered on at 17:18; Start 11/11/17 at 09:00 Latanoprost (Xalatan) 1 drop QHS OU Last administered on 11/21/17at 20:01; Start 11/13/17 at 14:25 Buspirone HCl (Buspar) 5 mg TID@0900,1300,1700 PO Last administered on at 17:18; Start 11/16/17 at 09:00 Melatonin 3 mg HS PO Last administered on 11/21/17at 19:59; Start 11/20/17 at 21 :00 Trazodone HCl (Desyrel) 75 mg QHS PO Last administered on 11/21/17at 19:59; Start 11/21/17 at 21:00 Active Scripts Active Reported Culturelle (Lactobacillus Rhamnosus Gg) 1 Each Capsule 1 Cap PO BID Augmentin 500-125 Tablet (Amoxicillin/Potassium Clav) 1 Each Tablet 1 Tab PO BID Trazodone Hcl 50 Mg Tablet 50 Mg PO PRN QHS PRN Trazodone Hcl 50 Mg Tablet 50 Mg PO QHS Analgesic [place] (Methyl Salicylate/Menthol) 28 Gm Oint...g. 1 Chan TP PRN QID PRN Milk Of Magnesia (Magnesium Hydroxide) 400 Mg/5 Ml Oral.susp 2,400 Mg PO PRN QHS PRN Mag-Al Plus Xs Suspension (Mag Hydrox/Al Hydrox/Simeth) 30 Ml Oral.susp 15 Ml PO PRN AFTMEALHC PRN Metoprolol Succinate ( Xl ) (Metoprolol Succinate) 25 Mg Tab.er.24h 25 Mg PO DAILY Magnesium (Magnesium Oxide) 400 Mg Capsule 400 Mg PO DAILY Cyanocobalamin Injection (Cyanocobalamin (Vitamin B-12)) 1,000 Mcg/1 Ml Vial 1 Ml IM QMONTH Colace (Docusate Sodium) 100 Mg Capsule 100 Mg PO BID Clonazepam 0.5 Mg Tablet 0.25 Mg PO QHS Zyprexa Zydis (Olanzapine) 5 Mg Tab.rapdis 5 Mg PO PRN Q2HR PRN MDD 20mg Lorazepam 0.5 Mg Tablet 0.5 Mg PO PRN Q8HRS PRN MDD 2mg Vitamin D3 (Cholecalciferol (Vitamin D3)) 50,000 Unit Capsule 50,000 Unit PO QTU Tylenol (Acetaminophen) 325 Mg Tablet 650 Mg PO PRN Q4HRS PRN Tamsulosin Hcl 0.4 Mg Cap.er.24h 0.4 Mg PO QHS Mirtazapine 15 Mg Tablet 15 Mg PO QHS Miralax (Polyethylene Glycol 3350) 17 Gm Powd.pack 17 Gm PO BID Lumigan (Bimatoprost) 2.5 Ml Drops 1 Drop OU QHS Aricept (Donepezil Hcl) 10 Mg Tablet 10 Mg PO QHS I have reviewed the current psychotropics carefully including drug interactions. Risk benefit ratio favors no change other than as noted in my dictated progress note. 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
[2017-11-22] MEDS: LORazepam 0.5 MG TABLET PO PRN (04:28)
--- NOTE | 2017-11-22 06:27 | PN ---
DATE: 11/19/2017 This is a late entry for 11/20/2017 and covers elements not covered in my initial note of 11/19/2017. SUBJECTIVE: I met with the patient evening of 11/19/2017. This is a redictation as requested by medical records. Overall, the patient remains confused. He is rather large and can come across intimidating, redirects better intermittently, noncompliant with medications. REVIEW OF SYSTEMS: No CV, , pulmonary, eye system symptoms on review. Reliability poor. MENTAL STATUS EXAM: Oriented to himself. Insight, judgment, recent and remote memory, attention, concentration, fund of knowledge poor, consistent with his diagnosis as mentioned in my initial note. PLAN: Continue current psychotropics. Adjust as clinically indicated. BuSpar was increased. MAN Jude WARE MD DR: ILANA/angelo JOB#: [id number] / [id number]
--- NOTE | 2017-11-22 06:34 | PN ---
DATE: 11/20/2017 This is a late entry for 11/20/2017 and covers elements not covered in my initial note of 11/20/2017. SUBJECTIVE: I met with the patient in the afternoon. This is a redictation, requested by medical records. The patient slept 4-1/2 hours previous evening. We will start melatonin 3 mg at bedtime. REVIEW OF SYSTEMS: No CV, , pulmonary, eye, ENT system symptoms on review. Reliability poor. He can come across somewhat intimidating due to his large size, but he is not raised his fist in the last day or so. MENTAL STATUS EXAM: Oriented to himself. Insight, judgment, recent and remote memory, attention, concentration, fund of knowledge poor, consistent with his diagnosis as mentioned in my initial note. PLAN: Continue current psychotropics including adding the melatonin as noted. MAN Jude WARE MD DR: ILANA/angelo JOB#: [id number] / [id number]
[2017-11-22 08:38] VITALS: BP 131/74
[2017-11-22] MEDS: MAGNESIUM OXIDE 400 MG TABLET PO SCH (08:44)
[2017-11-22] MEDS: POLYETHYLENE GLYCOL 3350 17 GM PACKET. PO SCH ×2 (08:44→19:26)
[2017-11-22] MEDS: busPIRone 5 MG TABLET. PO SCH ×3 (08:45→17:23)
[2017-11-22] MEDS: DOCUSATE SODIUM 100 MG CAPSULE PO SCH ×2 (08:45→19:25)
[2017-11-22] MEDS: METOPROLOL SUCC 24HR ER 25 MG TAB.ER.24H. PO SCH (08:45)
[2017-11-22] MEDS: CHOLECALCIFEROL (VITAMIN D3) 50,000 UNIT CAPSULE PO SCH (08:45)
[2017-11-22] MEDS: MEGESTROL 400 MG/10 ML ORAL.SUSP. PO SCH ×2 (08:45→17:23)
--- NOTE | 2017-11-22 11:15 | PN ---
DATE: 11/18/2017 PSYCHIATRIC PROGRESS NOTE This late entry, date of service 11/18/2017, covers elements not covered in my initial note 11/18/2017. SUBJECTIVE: I met with the patient the evening of 11/18/2017. This note is being redictated as requested by health information office. The patient slept 4-1/4 hours, wandering, confused, compliant with medications. Takes things that belong to others, takes medications if told it will help him urinate. REVIEW OF SYSTEMS: No CV, , pulmonary, eye, ENT system symptoms on review. Reliability poor. MENTAL STATUS EXAM: Oriented to self. Insight, judgment, recent and remote memory, attention, concentration, fund of knowledge poor, consistent with his diagnoses mentioned in my initial note. PLAN: Continue current psychotropics mentioned in my initial note. MAN Jude WARE MD DR: ILANA/angelo JOB#: [id number] / [id number]
[2017-11-22] MEDS: LATANOPROST 0.005% OPHTH SOLUTION 2.5ML BOTTLE. OU SCH (19:25)
[2017-11-22] MEDS: TAMSULOSIN 0.4 MG CAP.ER.24H. PO SCH (19:25)
[2017-11-22] MEDS: MELATONIN 3 MG TABLET PO SCH (19:25)
[2017-11-22] MEDS: traZODone 50 MG TABLET. PO SCH (19:25)
[2017-11-22] MEDS: MIRTAZAPINE 15 MG TABLET PO SCH (19:25)
--- NOTE | 2017-11-22 20:54 | PDOC ---
Exam Note: Mitch Note: Please also refer to the separate dictated note~for this date of service dictated separately.~Patient seen individually. Discussed the patient with Nursing staff reviewed the chart.~Reviewed interim history and current functioning. Reviewed vital signs,~Labs/ Radiology~and current medications noted below. Continue current treatment with the changes noted in the dictated addendum note Assessment: Vital Signs: Vital Signs Date Time Temp Pulse Resp B/P (MAP) Pulse Ox O2 Delivery O2 Flow Rate FiO2 11/22/17 08:45 66 131/74 11/21/17 16:23 98.0 20 96 11/21/17 06:45 Room Air I&O Intake and Output 11/22/17 07:00 Intake Total 1440 ml Balance 1440 ml Intake Oral 1440 ml # Voids 2 Current Medications: Meds: Current Medications Clonazepam (KlonoPIN) 0.25 mg QHS PO ; Start 11/05/17 at 21:00; Stop 11/05/17 at 21:00; Status DC Donepezil HCl (Aricept) 10 mg QHS PO Last administered on 11/14/17at 19:38; Start 11/05/17 at 21:00; Stop 11/15/17 at 18:08; Status DC Lorazepam (Ativan) 0.5 mg PRN Q8HRS PRN PO ANXIETY / AGITATION Last administered on 11/22/17at 04:28; Start 11/05/17 at 19:15 Mirtazapine (Remeron) 15 mg QHS PO Last administered on 11/22/17at 19:25; Start 11/05/17 at 21:00 Olanzapine (ZyPREXA ZYDIS) 5 mg PRN Q2HR PRN PO PSYCHOSIS Last administered on 11/18/17at 21:32; Start 11/05/17 at 19:15 Trazodone HCl (Desyrel) 50 mg PRN QHS PRN PO INSOMNIA Last administered on 11/13at 23:52; Start 11/05/17 at 19:15 Trazodone HCl (Desyrel) 50 mg QHS PO Last administered on 11/20/17at 20:12; Start 11/05/17 at 21:00; Stop 11/21/17 at 18:29; Status DC Acetaminophen (Tylenol) 650 mg PRN Q4HRS PRN PO PAIN / TEMP Last administered on 11/06/17 05:10; Start 11/05/17 at 19:30 Vitamin D (Vitamin D3) 50,000 unit Tu PO Last administered on 11/22/17at 08:45; Start 11/08/17 at 09:00 Cyanocobalamin (Vitamin B-12) 1,000 mcg QMONTH IM ; Start 12/26/17 at 09:00 Docusate Sodium (Colace) 100 mg BID PO Last administered on 11/22/17 19:25; Start 11/05/17 at 21:00 Al Hydroxide/Mg Hydroxide (Mylanta Plus Xs) 15 ml PRN AFTMEALHC PRN PO DYSPEPSIA; Start 11/05/17 at 19:30 Magnesium Hydroxide (Milk Of Magnesia) 2,400 mg PRN QHS PRN PO CONSTIPATION; Start 11/05/17 at 19:30 Multi-Ingredient Ointment (Analgesic [place]) 1 chan PRN QID PRN TP MUSCLE PAIN; Start 11/05/17 at 19:30 Metoprolol Succinate (Toprol Xl) 25 mg DAILY PO Last administered on 11/22/17at 08:45; Start 11/06/17 at 09:00 Polyethylene Glycol (miraLAX) 17 gm BID PO Last administered on 11/22/17 19:26 ; Start 11/05/17 at 21:00 Tamsulosin HCl (Flomax) 0.4 mg QHS PO Last administered on 11/22/17 19:25; Start 11/05/17 at 21:00 Latanoprost (Xalatan) 1 drop QHS OU Last administered on 11/12/17at 21:00; Start 11/05/17 at 21:00; Stop 11/13/17 at 14:25; Status DC Magnesium Oxide (Magnesium Oxide) 400 mg DAILY PO Last administered on 08:44; Start 11/06/17 at 09:00 Amoxicillin/ Clavulanate Potassium (Augmentin 500/ 125mg) 1 tab BID PO Last administered on 11/12/17at 21:00; Start 11/05/17 at 21:00; Stop 11/12/17 at 21:02 ; Status DC Lactobacillus Rhamnosus (Culturelle) 1 cap BID PO Last administered on at 08:53; Start 11/05/17 at 21:00; Stop 11/20/17 at 15:32; Status DC Megestrol Acetate (Megace) 400 mg BID@0900,1700 PO Last administered on 17:23; Start 11/11/17 at 09:00 Latanoprost (Xalatan) 1 drop QHS OU Last administered on 11/22/17 19:25; Start 11/13/17 at 14:25 Buspirone HCl (Buspar) 5 mg TID@0900,1300,1700 PO Last administered on 17:23; Start 11/16/17 at 09:00 Melatonin 3 mg HS PO Last administered on 11/22/17 19:25; Start 11/20/17 at 21 :00 Trazodone HCl (Desyrel) 75 mg QHS PO Last administered on 11/22/17 19:25; Start 11/21/17 at 21:00 Active Scripts Active Reported Culturelle (Lactobacillus Rhamnosus Gg) 1 Each Capsule 1 Cap PO BID Augmentin 500-125 Tablet (Amoxicillin/Potassium Clav) 1 Each Tablet 1 Tab PO BID Trazodone Hcl 50 Mg Tablet 50 Mg PO PRN QHS PRN Trazodone Hcl 50 Mg Tablet 50 Mg PO QHS Analgesic [place] (Methyl Salicylate/Menthol) 28 Gm Oint...g. 1 Chan TP PRN QID PRN Milk Of Magnesia (Magnesium Hydroxide) 400 Mg/5 Ml Oral.susp 2,400 Mg PO PRN QHS PRN Mag-Al Plus Xs Suspension (Mag Hydrox/Al Hydrox/Simeth) 30 Ml Oral.susp 15 Ml PO PRN AFTMEALHC PRN Metoprolol Succinate ( Xl ) (Metoprolol Succinate) 25 Mg Tab.er.24h 25 Mg PO DAILY Magnesium (Magnesium Oxide) 400 Mg Capsule 400 Mg PO DAILY Cyanocobalamin Injection (Cyanocobalamin (Vitamin B-12)) 1,000 Mcg/1 Ml Vial 1 Ml IM QMONTH Colace (Docusate Sodium) 100 Mg Capsule 100 Mg PO BID Clonazepam 0.5 Mg Tablet 0.25 Mg PO QHS Zyprexa Zydis (Olanzapine) 5 Mg Tab.rapdis 5 Mg PO PRN Q2HR PRN MDD 20mg Lorazepam 0.5 Mg Tablet 0.5 Mg PO PRN Q8HRS PRN MDD 2mg Vitamin D3 (Cholecalciferol (Vitamin D3)) 50,000 Unit Capsule 50,000 Unit PO QTU Tylenol (Acetaminophen) 325 Mg Tablet 650 Mg PO PRN Q4HRS PRN Tamsulosin Hcl 0.4 Mg Cap.er.24h 0.4 Mg PO QHS Mirtazapine 15 Mg Tablet 15 Mg PO QHS Miralax (Polyethylene Glycol 3350) 17 Gm Powd.pack 17 Gm PO BID Lumigan (Bimatoprost) 2.5 Ml Drops 1 Drop OU QHS Aricept (Donepezil Hcl) 10 Mg Tablet 10 Mg PO QHS I have reviewed the current psychotropics carefully including drug interactions. Risk benefit ratio favors no change other than as noted in my dictated progress note. Diagnosis: Problems: (1) Anxiety disorder (2) Mild cognitive disorder (3) Impulse control disorder (4) Major depressive disorder, recurrent episode (5) Dementia in Alzheimer's disease with delusions (6) Dementia in Alzheimer's disease with depression (7) Dementia, vascular, with delusions (8) Dementia, vascular, with depression CLARKE WARE MD Nov 22, 2017 20:54
--- NOTE | 2017-11-23 00:45 | PN ---
DATE: 11/21/2017 This late entry of 11/21/2017 covers elements not covered in my initial note of 11/21/2017. SUBJECTIVE: I met with the patient in the evening of 11/21/2017. The patient slept 6 hours previous evening, did well the previous night, up and down, restless, anxious at times. Nursing staff initially indicated whether someone noticed him masturbating under the covers, but this was not very confirmed. REVIEW OF SYSTEMS: No CV, , pulmonary, eye system symptoms on review. Reliability poor. MENTAL STATUS EXAM: Oriented to himself. Insight, judgment, recent and remote memory, attention, concentration, fund of knowledge poor, consistent with his diagnosis. He can come across somewhat gruff at times, but redirects. LABORATORY DATA: Reviewed. IMPRESSION: Unchanged from initial note. PLAN: Increase trazodone to 75 mg at bedtime, may repeat x 1 for insomnia. Hopefully, we would not have to repeat it. Continue rest unchanged. Minimize usage of psychotropics that will sedate him at the 's request. MAN Jude WARE MD DR: ILANA/angelo JOB#: [id number] / [id number]
[2017-11-23 06:28] VITALS: BP 168/89
[2017-11-23] MEDS: POLYETHYLENE GLYCOL 3350 17 GM PACKET. PO SCH ×2 (08:40→19:19)
[2017-11-23] MEDS: METOPROLOL SUCC 24HR ER 25 MG TAB.ER.24H. PO SCH (08:40)
[2017-11-23] MEDS: busPIRone 5 MG TABLET. PO SCH ×3 (08:41→18:15)
[2017-11-23] MEDS: DOCUSATE SODIUM 100 MG CAPSULE PO SCH ×2 (08:41→19:18)
[2017-11-23] MEDS: MEGESTROL 400 MG/10 ML ORAL.SUSP. PO SCH ×2 (08:41→18:15)
[2017-11-23] MEDS: MAGNESIUM OXIDE 400 MG TABLET PO SCH (08:41)
[2017-11-23 15:55] VITALS: BP 128/74
[2017-11-23] MEDS: TAMSULOSIN 0.4 MG CAP.ER.24H. PO SCH (19:18)
[2017-11-23] MEDS: MELATONIN 3 MG TABLET PO SCH (19:18)
[2017-11-23] MEDS: traZODone 50 MG TABLET. PO SCH (19:18)
[2017-11-23] MEDS: MIRTAZAPINE 15 MG TABLET PO SCH (19:19)
[2017-11-23] MEDS: LATANOPROST 0.005% OPHTH SOLUTION 2.5ML BOTTLE. OU SCH (19:20)
--- NOTE | 2017-11-23 20:34 | PDOC ---
Exam Note: Mitch Note: Please also refer to the separate dictated note~for this date of service dictated separately.~Patient seen individually. Discussed the patient with Nursing staff reviewed the chart.~Reviewed interim history and current functioning. Reviewed vital signs,~Labs/ Radiology~and current medications noted below. Continue current treatment with the changes noted in the dictated addendum note Assessment: Vital Signs: Vital Signs Date Time Temp Pulse Resp B/P (MAP) Pulse Ox O2 Delivery O2 Flow Rate FiO2 11/23/17 15:55 97.3 76 16 128/74 (92) 95 11/21/17 06:45 Room Air I&O Intake and Output 11/23/17 07:00 Intake Total 1940 ml Balance 1940 ml Intake Oral 1940 ml # Voids 5 Current Medications: Meds: Current Medications Clonazepam (KlonoPIN) 0.25 mg QHS PO ; Start 11/05/17 at 21:00; Stop 11/05/17 at 21:00; Status DC Donepezil HCl (Aricept) 10 mg QHS PO Last administered on 11/14/17at 19:38; Start 11/05/17 at 21:00; Stop 11/15/17 at 18:08; Status DC Lorazepam (Ativan) 0.5 mg PRN Q8HRS PRN PO ANXIETY / AGITATION Last administered on 11/22/17at 04:28; Start 11/05/17 at 19:15 Mirtazapine (Remeron) 15 mg QHS PO Last administered on 11/23/17at 19:19; Start 11/05/17 at 21:00 Olanzapine (ZyPREXA ZYDIS) 5 mg PRN Q2HR PRN PO PSYCHOSIS Last administered on 11/18/17at 21:32; Start 11/05/17 at 19:15 Trazodone HCl (Desyrel) 50 mg PRN QHS PRN PO INSOMNIA Last administered on 11/13at 23:52; Start 11/05/17 at 19:15 Trazodone HCl (Desyrel) 50 mg QHS PO Last administered on 11/20/17at 20:12; Start 11/05/17 at 21:00; Stop 11/21/17 at 18:29; Status DC Acetaminophen (Tylenol) 650 mg PRN Q4HRS PRN PO PAIN / TEMP Last administered on 11/06/17 05:10; Start 11/05/17 at 19:30 Vitamin D (Vitamin D3) 50,000 unit Tu PO Last administered on 11/22/17at 08:45; Start 11/08/17 at 09:00 Cyanocobalamin (Vitamin B-12) 1,000 mcg QMONTH IM ; Start 12/26/17 at 09:00 Docusate Sodium (Colace) 100 mg BID PO Last administered on 11/23/17 19:18; Start 11/05/17 at 21:00 Al Hydroxide/Mg Hydroxide (Mylanta Plus Xs) 15 ml PRN AFTMEALHC PRN PO DYSPEPSIA; Start 11/05/17 at 19:30 Magnesium Hydroxide (Milk Of Magnesia) 2,400 mg PRN QHS PRN PO CONSTIPATION; Start 11/05/17 at 19:30 Multi-Ingredient Ointment (Analgesic [place]) 1 chan PRN QID PRN TP MUSCLE PAIN; Start 11/05/17 at 19:30 Metoprolol Succinate (Toprol Xl) 25 mg DAILY PO Last administered on 11/23/17 08:40; Start 11/06/17 at 09:00 Polyethylene Glycol (miraLAX) 17 gm BID PO Last administered on 11/23/17 19:19 ; Start 11/05/17 at 21:00 Tamsulosin HCl (Flomax) 0.4 mg QHS PO Last administered on 11/23/17 19:18; Start 11/05/17 at 21:00 Latanoprost (Xalatan) 1 drop QHS OU Last administered on 11/12/17at 21:00; Start 11/05/17 at 21:00; Stop 11/13/17 at 14:25; Status DC Magnesium Oxide (Magnesium Oxide) 400 mg DAILY PO Last administered on 08:41; Start 11/06/17 at 09:00 Amoxicillin/ Clavulanate Potassium (Augmentin 500/ 125mg) 1 tab BID PO Last administered on 11/12/17 21:00; Start 11/05/17 at 21:00; Stop 11/12/17 at 21:02 ; Status DC Lactobacillus Rhamnosus (Culturelle) 1 cap BID PO Last administered on at 08:53; Start 11/05/17 at 21:00; Stop 11/20/17 at 15:32; Status DC Megestrol Acetate (Megace) 400 mg BID@0900,1700 PO Last administered on 18:15; Start 11/11/17 at 09:00 Latanoprost (Xalatan) 1 drop QHS OU Last administered on 11/23/17 19:20; Start 11/13/17 at 14:25 Buspirone HCl (Buspar) 5 mg TID@0900,1300,1700 PO Last administered on 18:15; Start 11/16/17 at 09:00 Melatonin 3 mg HS PO Last administered on 11/23/17 19:18; Start 11/20/17 at 21 :00 Trazodone HCl (Desyrel) 75 mg QHS PO Last administered on 11/23/17 19:18; Start 11/21/17 at 21:00 Active Scripts Active Reported Culturelle (Lactobacillus Rhamnosus Gg) 1 Each Capsule 1 Cap PO BID Augmentin 500-125 Tablet (Amoxicillin/Potassium Clav) 1 Each Tablet 1 Tab PO BID Trazodone Hcl 50 Mg Tablet 50 Mg PO PRN QHS PRN Trazodone Hcl 50 Mg Tablet 50 Mg PO QHS Analgesic [place] (Methyl Salicylate/Menthol) 28 Gm Oint...g. 1 Chan TP PRN QID PRN Milk Of Magnesia (Magnesium Hydroxide) 400 Mg/5 Ml Oral.susp 2,400 Mg PO PRN QHS PRN Mag-Al Plus Xs Suspension (Mag Hydrox/Al Hydrox/Simeth) 30 Ml Oral.susp 15 Ml PO PRN AFTMEALHC PRN Metoprolol Succinate ( Xl ) (Metoprolol Succinate) 25 Mg Tab.er.24h 25 Mg PO DAILY Magnesium (Magnesium Oxide) 400 Mg Capsule 400 Mg PO DAILY Cyanocobalamin Injection (Cyanocobalamin (Vitamin B-12)) 1,000 Mcg/1 Ml Vial 1 Ml IM QMONTH Colace (Docusate Sodium) 100 Mg Capsule 100 Mg PO BID Clonazepam 0.5 Mg Tablet 0.25 Mg PO QHS Zyprexa Zydis (Olanzapine) 5 Mg Tab.rapdis 5 Mg PO PRN Q2HR PRN MDD 20mg Lorazepam 0.5 Mg Tablet 0.5 Mg PO PRN Q8HRS PRN MDD 2mg Vitamin D3 (Cholecalciferol (Vitamin D3)) 50,000 Unit Capsule 50,000 Unit PO QTU Tylenol (Acetaminophen) 325 Mg Tablet 650 Mg PO PRN Q4HRS PRN Tamsulosin Hcl 0.4 Mg Cap.er.24h 0.4 Mg PO QHS Mirtazapine 15 Mg Tablet 15 Mg PO QHS Miralax (Polyethylene Glycol 3350) 17 Gm Powd.pack 17 Gm PO BID Lumigan (Bimatoprost) 2.5 Ml Drops 1 Drop OU QHS Aricept (Donepezil Hcl) 10 Mg Tablet 10 Mg PO QHS I have reviewed the current psychotropics carefully including drug interactions. Risk benefit ratio favors no change other than as noted in my dictated progress note. Diagnosis: Problems: (1) Anxiety disorder (2) Mild cognitive disorder (3) Impulse control disorder (4) Major depressive disorder, recurrent episode (5) Dementia in Alzheimer's disease with delusions (6) Dementia in Alzheimer's disease with depression (7) Dementia, vascular, with delusions (8) Dementia, vascular, with depression CLARKE WARE MD Nov 23, 2017 20:34
[2017-11-24] MEDS: traZODone 50 MG TABLET. PO PRN (00:07)
[2017-11-24] MEDS ORDERED: MEGE400O4 PO (00:46)
[2017-11-24] MEDS ORDERED: MELA3TAB2 PO (00:47)
[2017-11-24] MEDS ORDERED: BUSP5TAB PO (00:49)
[2017-11-24 06:24] VITALS: BP 143/90
[2017-11-24] MEDS: MEGESTROL 400 MG/10 ML ORAL.SUSP. PO SCH (09:21)
[2017-11-24] MEDS: POLYETHYLENE GLYCOL 3350 17 GM PACKET. PO SCH (09:21)
[2017-11-24] MEDS: DOCUSATE SODIUM 100 MG CAPSULE PO SCH (09:21)
[2017-11-24] MEDS: METOPROLOL SUCC 24HR ER 25 MG TAB.ER.24H. PO SCH (09:22)
[2017-11-24] MEDS: MAGNESIUM OXIDE 400 MG TABLET PO SCH (09:22)
[2017-11-24] MEDS: busPIRone 5 MG TABLET. PO SCH ×2 (09:22→13:01)
--- NOTE | 2017-11-24 09:50 | PN ---
DATE: 11/22/2017 PSYCHIATRIC PROGRESS NOTE This is a late entry 11/22/2017 covers elements not covered in my initial note 11/22/2017. SUBJECTIVE: I met with the patient evening of 11/22/2017. The patient got up at 4:30 in the morning, was anxious, restless, confused, agitated, pacing. He refused to shower and medications, then was drowsy after that. He has got some drooping of the left arm and we will have a Neurology consult with Dr. Young and a possible CT head, but I will defer the latter to Dr. Young. REVIEW OF SYSTEMS: No CV, , pulmonary, eye, ENT system symptoms on review. Reliability poor. MENTAL STATUS EXAM: Oriented to himself. Insight, judgment, recent and remote memory, attention, concentration, fund of knowledge poor, consistent with his diagnosis mentioned in my initial note. IMPRESSION: Major neurocognitive disorder, Alzheimer, vascular with depression, delusion, behavioral disturbance. Rest unchanged. PLAN: Continue psychotropics mentioned in my initial note. Adjust as clinically indicated. MAN Jude WARE MD DR: ILANA/angelo JOB#: [id number] / [id number]
[2017-11-24 16:39] VITALS: BP 133/74
--- NOTE | 2017-11-24 17:48 | PDOC ---
Exam Note: Mitch Note: Please also refer to the separate dictated note~for this date of service dictated separately.~Patient seen individually. Discussed the patient with Nursing staff reviewed the chart.~Reviewed interim history and current functioning. Reviewed vital signs,~Labs/ Radiology~and current medications noted below. Continue current treatment with the changes noted in the dictated addendum note Assessment: Vital Signs: Vital Signs Date Time Temp Pulse Resp B/P (MAP) Pulse Ox O2 Delivery O2 Flow Rate FiO2 11/24/17 16:39 98.0 94 18 133/74 (93) 96 11/21/17 06:45 Room Air I&O Intake and Output 11/24/17 07:00 Intake Total 1080 ml Balance 1080 ml Intake Oral 1080 ml # Voids 1 Current Medications: Meds: Current Medications Clonazepam (KlonoPIN) 0.25 mg QHS PO ; Start 11/05/17 at 21:00; Stop 11/05/17 at 21:00; Status DC Donepezil HCl (Aricept) 10 mg QHS PO Last administered on 11/14/17at 19:38; Start 11/05/17 at 21:00; Stop 11/15/17 at 18:08; Status DC Lorazepam (Ativan) 0.5 mg PRN Q8HRS PRN PO ANXIETY / AGITATION Last administered on 11/22/17at 04:28; Start 11/05/17 at 19:15; Stop 11/24/17 at 17:20 ; Status DC Mirtazapine (Remeron) 15 mg QHS PO Last administered on 11/23/17at 19:19; Start 11/05/17 at 21:00; Stop 11/24/17 at 17:20; Status DC Olanzapine (ZyPREXA ZYDIS) 5 mg PRN Q2HR PRN PO PSYCHOSIS Last administered on 11/18/17at 21:32; Start 11/05/17 at 19:15; Stop 11/24/17 at 17:20; Status DC Trazodone HCl (Desyrel) 50 mg PRN QHS PRN PO INSOMNIA Last administered on 11/24at 00:07; Start 11/05/17 at 19:15; Stop 11/24/17 at 17:20; Status DC Trazodone HCl (Desyrel) 50 mg QHS PO Last administered on 11/20/17at 20:12; Start 11/05/17 at 21:00; Stop 11/21/17 at 18:29; Status DC Acetaminophen (Tylenol) 650 mg PRN Q4HRS PRN PO PAIN / TEMP Last administered on 11/06/17at 05:10; Start 11/05/17 at 19:30; Stop 11/24/17 at 17:20; Status DC Vitamin D (Vitamin D3) 50,000 unit Tu PO Last administered on 11/22/17at 08:45; Start 11/08/17 at 09:00; Stop 11/24/17 at 17:20; Status DC Cyanocobalamin (Vitamin B-12) 1,000 mcg QMONTH IM ; Start 12/26/17 at 09:00; Stop 12/26/17 at 09:00; Status DC Docusate Sodium (Colace) 100 mg BID PO Last administered on 11/24/17at 09:21; Start 11/05/17 at 21:00; Stop 11/24/17 at 17:20; Status DC Al Hydroxide/Mg Hydroxide (Mylanta Plus Xs) 15 ml PRN AFTMEALHC PRN PO DYSPEPSIA; Start 11/05/17 at 19:30; Stop 11/24/17 at 17:20; Status DC Magnesium Hydroxide (Milk Of Magnesia) 2,400 mg PRN QHS PRN PO CONSTIPATION; Start 11/05/17 at 19:30; Stop 11/24/17 at 17:20; Status DC Multi-Ingredient Ointment (Analgesic Chauncey) 1 chan PRN QID PRN TP MUSCLE PAIN; Start 11/05/17 at 19:30; Stop 11/24/17 at 17:20; Status DC Metoprolol Succinate (Toprol Xl) 25 mg DAILY PO Last administered on 11/24/17at 09:22; Start 11/06/17 at 09:00; Stop 11/24/17 at 17:20; Status DC Polyethylene Glycol (miraLAX) 17 gm BID PO Last administered on 11/24/17at 09:21 ; Start 11/05/17 at 21:00; Stop 11/24/17 at 17:20; Status DC Tamsulosin HCl (Flomax) 0.4 mg QHS PO Last administered on 11/23/17at 19:18; Start 11/05/17 at 21:00; Stop 11/24/17 at 17:20; Status DC Latanoprost (Xalatan) 1 drop QHS OU Last administered on 11/12/17at 21:00; Start 11/05/17 at 21:00; Stop 11/13/17 at 14:25; Status DC Magnesium Oxide (Magnesium Oxide) 400 mg DAILY PO Last administered on at 09:22; Start 11/06/17 at 09:00; Stop 11/24/17 at 17:20; Status DC Amoxicillin/ Clavulanate Potassium (Augmentin 500/ 125mg) 1 tab BID PO Last administered on 11/12/17at 21:00; Start 11/05/17 at 21:00; Stop 11/12/17 at 21:02 ; Status DC Lactobacillus Rhamnosus (Culturelle) 1 cap BID PO Last administered on at 08:53; Start 11/05/17 at 21:00; Stop 11/20/17 at 15:32; Status DC Megestrol Acetate (Megace) 400 mg BID@0900,1700 PO Last administered on at 09:21; Start 11/11/17 at 09:00; Stop 11/24/17 at 17:20; Status DC Latanoprost (Xalatan) 1 drop QHS OU Last administered on 11/23/17at 19:20; Start 11/13/17 at 14:25; Stop 11/24/17 at 17:20; Status DC Buspirone HCl (Buspar) 5 mg TID@0900,1300,1700 PO Last administered on at 13:01; Start 11/16/17 at 09:00; Stop 11/24/17 at 17:20; Status DC Melatonin 3 mg HS PO Last administered on 11/23/17 19:18; Start 11/20/17 at 21 :00; Stop 11/24/17 at 17:20; Status DC Trazodone HCl (Desyrel) 75 mg QHS PO Last administered on 11/23/17 19:18; Start 11/21/17 at 21:00; Stop 11/24/17 at 17:20; Status DC Active Scripts Active Reported Buspirone Hcl 5 Mg Tablet 5 Mg PO TID@0900,1300,1700 Melatonin 3 Mg Tablet 3 Mg PO HS Megestrol Acetate 400 Mg/10 Ml Oral.susp 400 Mg PO BID95 Trazodone Hcl 50 Mg Tablet 50 Mg PO PRN QHS PRN Trazodone Hcl 50 Mg Tablet 75 Mg PO QHS Analgesic Chauncey (Methyl Salicylate/Menthol) 28 Gm Oint...g. 1 Chan TP PRN QID PRN Milk Of Magnesia (Magnesium Hydroxide) 400 Mg/5 Ml Oral.susp 2,400 Mg PO PRN QHS PRN Mag-Al Plus Xs Suspension (Mag Hydrox/Al Hydrox/Simeth) 30 Ml Oral.susp 15 Ml PO PRN AFTMEALHC PRN Metoprolol Succinate ( Xl ) (Metoprolol Succinate) 25 Mg Tab.er.24h 25 Mg PO DAILY Magnesium (Magnesium Oxide) 400 Mg Capsule 400 Mg PO DAILY Cyanocobalamin Injection (Cyanocobalamin (Vitamin B-12)) 1,000 Mcg/1 Ml Vial 1 Ml IM QMONTH Colace (Docusate Sodium) 100 Mg Capsule 100 Mg PO BID Zyprexa Zydis (Olanzapine) 5 Mg Tab.rapdis 5 Mg PO PRN Q2HR PRN MDD 20mg Lorazepam 0.5 Mg Tablet 0.5 Mg PO PRN Q8HRS PRN MDD 2mg Vitamin D3 (Cholecalciferol (Vitamin D3)) 50,000 Unit Capsule 50,000 Unit PO QTU Tylenol (Acetaminophen) 325 Mg Tablet 650 Mg PO PRN Q4HRS PRN Tamsulosin Hcl 0.4 Mg Cap.er.24h 0.4 Mg PO QHS Mirtazapine 15 Mg Tablet 15 Mg PO QHS Miralax (Polyethylene Glycol 3350) 17 Gm Powd.pack 17 Gm PO BID Lumigan (Bimatoprost) 2.5 Ml Drops 1 Drop OU QHS I have reviewed the current psychotropics carefully including drug interactions. Risk benefit ratio favors no change other than as noted in my dictated progress note. Diagnosis: Problems: (1) Dementia, vascular, with depression (2) Dementia, vascular, with delusions (3) Dementia in Alzheimer's disease with depression (4) Dementia in Alzheimer's disease with delusions (5) Major depressive disorder, recurrent episode (6) Impulse control disorder (7) Anxiety disorder CLARKE WARE MD Nov 24, 2017 17:47
--- NOTE | 2017-11-26 00:10 | DS ---
DATE OF DISCHARGE: 11/24/2017 This late entry, date of service, 11/24/2017, covers elements not covered in my initial note of 11/24/2017. REASON FOR ADMISSION: Please refer to the admission history for details. Briefly, the patient is a 77-year-old male referred back to us from [facility] medical/surgical floor after he was medically stabilized. He continued to be quite agitated, aggressive, confused, psychotic. He had failed interventions at the lower level of care. SIGNIFICANT FINDINGS AND CLINICAL COURSE: Following admission, the patient was seen daily individually by myself from a psychiatric standpoint, medical followup per Dr. Jarvis/Dr. Trevizo. He remained confused, intermittently anxious, and restless. His preferred minimizing psychotropic medications that would sedate him and he seemed to respond to a combination of trazodone 75 mg at bedtime, may repeat x 1 for insomnia, melatonin 3 mg at bedtime, Remeron 15 mg at bedtime, Ativan p.r.n., Zyprexa p.r.n. Megace was added for appetite stimulation 400 mg b.i.d., BuSpar 5 mg 3 times a day. REVIEW OF SYSTEMS: Prior to discharge, 11/24/2017, no CV, , pulmonary, eye, ENT system symptoms on review. Reliability poor. MENTAL STATUS EXAM: Oriented to himself. Insight, judgment, recent and remote memory, attention, concentration, fund of knowledge poor, consistent with his diagnosis. CONDITION AT DISCHARGE: Improved. FINAL DIAGNOSES: Major neurocognitive disorder, Alzheimer, vascular with depression, delusion, behavioral disturbance; anxiety disorder, unspecified; impulse control disorder, unspecified. Rest unchanged from admission DISCHARGE MEDICATIONS: Please refer to the EMRAD. MAN Jude WARE MD DR: ILANA/angelo JOB#: [id number] / [id number]
--- NOTE | 2017-11-26 18:44 | PN ---
DATE: 11/23/2017 This is a late entry 09/25/2017, covers elements not covered in my initial note 11/23/2017. SUBJECTIVE: Met with the patient in the evening. The patient remains confused, is doing better, more redirectable, not aggressive. REVIEW OF SYSTEMS: No CV, , pulmonary, eye, ENT system symptoms on review. Reliability poor. MENTAL STATUS EXAM: Oriented to himself. Insight, judgment, recent and remote memory, attention, concentration, fund of knowledge poor, consistent with his diagnosis mentioned in my initial note. PLAN: Continue psychotropics mentioned in my initial note. Transition to correction, 11/24/2017. MAN Jude WARE MD DR: ILANA/angelo JOB#: [id number] / [id number]
[2017-12-26] MEDS ORDERED: CYANOCOBALAMIN (VITAMIN B-12) 1,000 MCG/ML VIAL IM SCH (09:00)
== END 2017-11-24 17:15 | DRG 56 ==
LOC: GEROPSY 17:45
PROVIDERS: ADMIT Psychiatry & Neurology Psychiatry; ATTEND Psychiatry & Neurology Psychiatry
DX: G30.9 Alzheimer's disease, unspecified (principal); E43 Unspecified severe protein-calorie malnutrition; E87.0 Hyperosmolality and hypernatremia; J18.9 Pneumonia, unspecified organism; E86.0 Dehydration; F01.51 Vascular dementia, unspecified severity, with behavioral disturbance; F33.9 Major depressive disorder, recurrent, unspecified; F02.81 Dementia in other diseases classified elsewhere, unspecified severity, with behavioral disturbance; F41.9 Anxiety disorder, unspecified; F63.9 Impulse disorder, unspecified; R32 Unspecified urinary incontinence; I10 Essential (primary) hypertension; Y95 Nosocomial condition; F09 Unspecified mental disorder due to known physiological condition; Z91.14 Patient's other noncompliance with medication regimen; Z87.01 Personal history of pneumonia (recurrent); Z79.899 Other long term (current) drug therapy; Z68.25 Body mass index [BMI] 25.0-25.9, adult
CPT/HCPCS: 36415; 80053; 80061; 81003; 82306; 82607; 83036; 83540; 83550; 83735; 84436; 84443; 84480; 85025; 86593; 87086; 97110; 97116; 97530; 97535